=== PATIENT | female | born 1950 | race Caucasian/White ===

== ENCOUNTER 2020-02-02 08:05 | Outpatient (CLI) | payer MEDICARE, SELFPAY ==
[2020-02-02] MEDS: SODIUM CHLORIDE 0.9% INJ 10 ML VIAL IV PUSH (09:32)
--- NOTE | 2020-02-06 12:41 | WPDPFTINT ---
PFT Interpretation PFT Interpretation: DOS: 02/02/2020 REQUESTING: Dr. Harp REASON FOR TESTING: Shortness of breath METHACHOLINE CHALLENGE This test was conducted per ATS standards. Baseline testing was normal. The patient was given progressively increasing doses of methacholine. On the 5th dose, the FEV1 dropped by 36%, which is significant. The test was ended at this point, prior to the last dose. IMPRESSION : This test shows a positive response at the 5th dose. The PD20 is 10 mg/ml. The best use of a methacholine challenge is to rule out asthma. Clinical correlation is recommended. Margaux Gannon MD
== END 2020-02-02 08:06 | disposition home or self-care (01) ==
PROVIDERS: PCP Internal Medicine; Visit Provider Internal Medicine Critical Care Medicine
DX: R06.09 Other forms of dyspnea (principal)
CPT/HCPCS: 94070; J7674

== ENCOUNTER 2020-04-04 14:42 | Inpatient (IN) | payer MEDICARE, SELFPAY ==
[2020-04-04] VITALS (9 sets, daily range): BP systolic 127–165; BP diastolic 53–83; PULSE 60–78; RESP 18–20; TEMP 36.8–37.5; O2SAT 94–97
--- NOTE | ~2020-04-04 | XR_ITS ---
EXAMINATION: XR chest 1V portable EXAM DATE: 04/04/2020 16:25 INDICATION: Shortness of breath, low oxygen saturation. Atrial fibrillation. Recent pacemaker placeme nt. TECHNIQUE: Portable AP frontal chest x-ray was obtained. Comparison is made to prior examination from 02/20/2019. FINDINGS: There is a new left-sided dual-lead pacemaker overlying expected position. There is moderat e right upper lobe, otherwise patchy bilateral groundglass airspace disease, differential diagnosis i ncluding edema, infection, acute lung injury. There is no pneumothorax suspected. There are no pleura l effusions. Mild cardiomegaly. There are no osseous abnormalities identified. IMPRESSION: Patchy bilateral but up right upper lobe predominant acute airspace disease. Clinical cor relation. Reviewed, dictated and finalized at location A. IMPRESSION: Patchy bilateral but up right upper lobe predominant acute airspace disease. Clinical correlation.
--- NOTE | ~2020-04-04 | XR_ITS ---
EXAMINATION: XR chest 2V DATE: 04/08/2020 09:54 INDICATION: Pneumonia and shortness of breath TECHNIQUE: Frontal and lateral views of the chest are obtained COMPARISON: 04/04/2020 FINDINGS: There are diffuse airspace opacities throughout the right lung and airspace opacities of th e left mid and lower lung zones. The cardiomediastinal silhouette is normal. There is a small left pl eural effusion. No pneumothorax is identified. There is moderate thoracic spondylosis. A dual-lead ca rdiac pacemaker of the left chest wall ends with leads in expected locations. IMPRESSION: 1. Worsening airspace opacities of the lungs, consistent with pneumonia. Reviewed, dictated and finalized at location A.
--- NOTE | ~2020-04-04 | CT_ITS ---
EXAMINATION: CT abdomen pelvis wo con DATE: 04/10/2020 12:55 INDICATION: Abdominal pain and persistent vomiting TECHNIQUE: Computed tomography (CT) of the abdomen and pelvis was performed without intravenous contr ast. Automated exposure control and iterative reconstruction technique were employed. The dose-length product was 911.28 mGy-cm. COMPARISON: 02/03/2018 FINDINGS: Very small bilateral pleural effusions. Compressive and scattered linear discoid atelectasis at the b ilateral lung bases. There is some smooth septal line thickening as well as mosaic attenuation with s mall region of groundglass opacity at the lung bases consistent with mild pulmonary edema. Mild cardi omegaly. Atherosclerotic coronary artery calcifications. Cardiac pacemaker leads terminating at the r ight atrial appendage and at the apex of the right ventricle. No pericardial effusion. Postoperative change of prior gastric bypass procedure. There is focal dilation of the small bowel at a small bowel anastomosis. The spleen is not visualized and also likely surgically absent. Unchanged mild extra he patic biliary ductal dilation which is within normal limits post cholecystectomy. A few tiny calcific a cyst at the periphery of the right hepatic lobe likely sequela of old granulomatous disease. Pancr eas and bilateral adrenal glands are normal. Bilateral renal cysts, the larger a 1.4 cm exophytic cys t at the lower pole of the left kidney. No bowel obstruction. The uterus is not identified and has aubrey jazmin been surgically resected. Bladder is normal. No free intraperitoneal gas. Minimal ascites along the mesentery lower abdomen and pelvis. No pathologically enlarged abdominal or pelvic lymphadenopath y. Mild thoracolumbar dextrocurvature with severe spondylosis. IMPRESSION: 1. No acute intra-abdominal/pelvic process. 2. Likely congestive heart failure with mild cardiomegaly, mild pulmonary edema at the lung bases and very small bilateral pleural effusions. Reviewed, dictated and finalized at location A.
--- NOTE | ~2020-04-04 | US_ITS ---
EXAMINATION: US venous doppler [facility] DATE: 04/07/2020 12:53 INDICATION: Lower limb edema. TECHNIQUE: Grayscale ultrasound images without and with compression and Doppler ultrasound images of the bilateral lower extremity veins were obtained. COMPARISON: None. FINDINGS: The visualized portions of right common femoral vein, profunda (deep) femoral vein, femoral vein, pop liteal vein, peroneal veins, posterior tibial veins, and greater saphenous vein outflow are patent. The visualized portions of left common femoral vein, profunda femoral vein, femoral vein, popliteal v ein, peroneal veins, posterior tibial veins, and greater saphenous vein outflow are patent. IMPRESSION: 1. No deep venous thrombosis. Reviewed, dictated and finalized at location A.
--- NOTE | ~2020-04-04 | XR_ITS ---
XR abdomen obstructive series 04/07/2020 13:08 Indication: Abdominal pain Procedure: Supine and upright views of abdomen Comparison: Comparison to multiple prior studies sequentially, with oldest reviewed study dated 02/03. Findings: Nonobstructive bowel gas pattern. There are surgical changes in the left upper abdomen. The re are calcifications overlying the right sacrum and lateral to L5, likely phleboliths. Moderate lumb ar spondylosis with scoliosis. Impression: 1: Nonobstructive bowel gas pattern. Reviewed, dictated and finalized at location A. Impression: 1: Nonobstructive bowel gas pattern.
--- NOTE | ~2020-04-04 | US_ITS ---
EXAMINATION: US renal BI DATE: 04/08/2020 10:13 INDICATION: Stage III renal failure. TECHNIQUE: Multiple ultrasound grayscale images of the kidneys were obtained. COMPARISON: CT abdomen and pelvis 02/03/2018 FINDINGS: The right kidney measures 7.9 x 4.6 x 5.2 cm. The left kidney measures 6.7 x 3.5 x 2.9 cm. The kidney s demonstrate increased parenchymal echogenicity, consistent with nonspecific nephropathy. There is a 1.8 cm cyst in left kidney. There is no hydronephrosis. The bladder is not well distended.. IMPRESSION: 1. Mild atrophy of right kidney and moderate atrophy of left kidney. No hydronephrosis. Reviewed, dictated and finalized at location A. IMPRESSION: 1. Mild atrophy of right kidney and moderate atrophy of left kidney. No hydron ephrosis.
--- NOTE | 2020-04-04 15:26 | ECG_ITS ---
Measurements Intervals [place] Rate: 59 P: 261 [place]: 187 QRS: 133 QRSD: 132 T: -29 QT: 436 QTc: 435 Interpretive Statements ATRIAL SENSE- ELECTRONIC VENTRICULAR PACEMAKER BASELINE ARTIFACT- I, II, AVR, V1, V4 NO FURTHER INTERPRETATION IS POSSIBLE ATYPICAL ECG Electronically Signed On 04-04-2020 16:56:26 CDT by Alcides West D.O.
--- NOTE | 2020-04-04 15:48 | ED.SOB ---
HPI - SOB/Dyspnea General Chief Complaint: Shortness of Breath/Dyspnea Stated Complaint: IN IN AFIB, OXYGEN LEVEL IS LOW Time Seen by Provider: 04/04/20 15:32 Source: patient and family Mode of arrival: ambulatory Limitations: no limitations History of Present Illness HPI Narrative: 69 years old white female, history of asthma hypertension hyperlipidemia, does not smoke and drink occasionally also history of TIA presents with intermittent shortness of breath for the last 2 months patient been seen by her bookbinder chief yesterday, her cook seafood 2 weeks ago, patient had pacemaker on February 22 for the same reason of the shortness of breath, had A. fib at that time. Patient denies any fever, chills, nausea, vomiting, have raspy voice, her daughter works at [facility] interacting with patients. Patient denies COVID-19 exposure. Related Data Home Medications Medication Instructions Recorded Confirmed allopurinol 100 mg PO DAILY 04/04/20 04/04/20 alprazolam 0.25 mg PO BID PRN 04/04/20 04/04/20 amlodipine 5 mg PO DAILY 04/04/20 04/04/20 apixaban [Eliquis] 2.5 mg PO BID 04/04/20 04/04/20 atorvastatin 40 mg PO HS 04/04/20 04/04/20 atorvastatin 40 mg PO QPM 04/04/20 04/04/20 buspirone 10 mg PO TID 04/04/20 04/04/20 diltiazem HCl 180 mg PO DAILY 04/04/20 04/04/20 ergocalciferol (vitamin D2) 1,250 mcg PO [id number] 04/04/20 04/04/20 [Vitamin D2] ferrous sulfate 65 mg PO DAILY 04/04/20 04/04/20 flecainide 100 mg PO Q12H 04/04/20 04/04/20 furosemide [Lasix] 40 mg PO BID 04/04/20 04/04/20 hydrocodone-acetaminophen 1 tablet PO HS PRN 04/04/20 04/04/20 loratadine 10 mg PO DAILY 04/04/20 04/04/20 magnesium oxide 800 mg PO BID 04/04/20 04/04/20 melatonin 5 mg PO HS 04/04/20 04/04/20 iu-ati-afifo acid-lutein [Centrum 1 tablet PO DAILY 04/04/20 04/04/20 Silver] omega 1-gvm-zpx-fish oil [Fish Oil] 1 cap PO DAILY 04/04/20 04/04/20 sertraline 50 mg PO DAILY 04/04/20 04/04/20 spironolactone 25 mg PO DAILY 04/04/20 04/04/20 tizanidine 2 mg PO HS 04/04/20 04/04/20 trazodone 50 mg PO HS 04/04/20 04/04/20 fluticasone propionate [Flovent 1 puff INHALATION Q12H 04/05/20 04/05/20 HFA] metoprolol succinate 100 mg PO HS 04/05/20 04/05/20 Allergies Allergy/AdvReac Type Severity Reaction Status Date / Time adhesive AdvReac Mild BLISTERS Verified 04/04/20 14:55 Review of Systems Review of Systems: Narrative: CONSTITUTIONAL: Denies fever, chills, or sweats. Patient laying down in bed, slight labored breathing, pulse oximetry showing 88% on room air. EYES: Denies visual changes, redness, or discharge. ENT: Denies rhinorrhea, congestion, sore throat, or otalgia. CARDIOVASCULAR: Denies chest pain, palpitations, or edema. RESPIRATORY: Denies cough or dyspnea. GASTROINTESTINAL: Denies abdominal pain, nausea, vomiting, or diarrhea. GENITOURINARY: Denies dysuria or hematuria. SKIN: Denies rash or itching. MUSCULOSKELETAL: Denies back pain, joint pain, or myalgia. NEUROLOGIC: Denies headache, numbness, or weakness. PSYCHIATRIC: Denies anxiety or depression. [facility] Past Medical History Medical History (Updated 04/05/20 @ 15:06 by Charity Laguna PA-C) Asthma Atrial fibrillation Paroxysmal and has been cardioverted x2 to 3 times and is scheduled to be converted again however she is in sinus rhythm today Chronic GERD Chronic kidney disease Stage III Chronic pain Depression with anxiety Hepatic steatosis History of rheumatic fever Hypertension Osteoarthritis Pacemaker Peptic ulcer disease Causing a GI bleed. Spinal stenosis TIA (transient ischemic attack) Occasional balance issues. Left lower extremity weakness which have resolved. Surgical History Surgical History (Updated 04/04/20 @ 20:51 by Merry Oden NP) H/O gastric bypass 2000. Repair of gastric bypass after there was a leak in 0 5. 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
[2020-04-04 15:57] LABS: Alveolar/Arterial O2 Gradient 48.9 mmHg; Base Excess ABG 6.7 mEq/l (+/-2.0); Fractional Inspired Oxygen 21 %; Oxygen Content ABG 13.7 %vol (16.0-22.0); Oxyhemoglobin 84.3 % THb (90.0-100.0); PCO2 ABG 43.4 mmHg (35.0-45.0); PO2 FiO2 Ratio Arterial Blood 2.33 %; Total Hemoglobin 11.6 g/dL (12.0-18.0); pH ABG 7.472 (7.350-7.450)
[2020-04-04 15:59] LABS: PO2 ABG 48.9 mmHg (80.0-100.0)
[2020-04-04 16:00] LABS: Device ROOM AIR; Modified Allen's Test Pass; Oxygen Saturation ABG 86.8 % (95.0-100.0); Site Drawn LEFT RADIAL
[2020-04-04 16:01] LABS: Basophils Absolute Auto 0.1 K/mm3 (0.0-0.1); Basophils Percent Auto 0.5 % (0.2-1.2); Eosinophils Absolute Auto 0.1 K/mm3 (0-0.3); Eosinophils Percent Auto 0.5 % (0-4.4); Hematocrit 35.5 % (37.0-47.0); Hemoglobin 11.4 g/dL (12.0-15.0); Immature Granulocyte Absolute 0.04 K/mm3 (0.00-0.031); Immature Granulocyte Percent A 0.3 % (0-0.5); Lymphocytes Absolute Auto 2.79 K/mm3 (0.9-3.2); Lymphocytes Percent Auto 21.2 % (18.3-44.2); Mean Corpuscular HGB Conc 32.1 g/dl (32-36); Mean Corpuscular Hemoglobin 31.7 pg (26-34); Mean Corpuscular Volume 98.6 fl (80-100); Monocytes Absolute Auto 1.3 K/mm3 (0.1-0.6); Monocytes Percent Auto 9.9 % (2.6-8.5); Neutrophils Absolute Auto 8.9 K/mm3 (1.3-6.7); Neutrophils Percent Auto 67.6 % (45.5-73.1); Platelet Count Result 297 k/mm3 (150-375); Red Cell Distribution Width 13.3 % (11.5-14.5); White Blood Count 13.1 K/mm3 (4.5-10.0)
[2020-04-04 16:12] LABS: Alanine Aminotransferase 16 U/L (4-35); Albumin Level 4.4 g/dL (3.5-5.1); Alkaline Phosphatase 107 U/L (38-126); Aspartate Amino Transferase 24 U/L (14-36); Bilirubin,Total 0.4 mg/dL (0.2-1.3); Blood Urea Nitrogen 27 mg/dL (7-17); Calcium 10.1 mg/dL (8.4-10.2); Carbon Dioxide 34 mmol/L (22-30); Chloride 95 mmol/L (98-107); Estimated CRCL calculation 27 ml/min; Estimated Glomerular Filt Rate 28; Glucose 140 mg/dL (65-105); Potassium 3.7 mmol/L (3.4-5.0); Sodium 138 mmol/L (137-145)
[2020-04-04 16:16] LABS: INR 1.2; Prothrombin Time 14.6 Seconds (11.1-14.7)
[2020-04-04 16:17] LABS: Partial Thromboplastin Time 37.2 SECONDS (22.3-36.8)
[2020-04-04 16:24] LABS: Troponin I 0.026 ng/mL (0.000-0.034)
--- NOTE | 2020-04-04 19:04 | PC.NURSE ---
This patient, Brissa Rizo, was admitted to [facility] Surg Room 330-01. Patient/family oriented to hospital policies and general routines including ID bracelet, bed and alarms, visiting hours, pain management, procedures, bathroom and other care routines, personal items, smoking policy, room service/diet, and visiting hours. Valuables list has been completed. Information on how to activate the Rapid Response Team has been discussed. Patient/Family are encouraged to report perceived risks to care and to ask questions if they do not understand what they are told or what they should do.
--- NOTE | 2020-04-04 20:37 | PM.IMHP ---
H&P: HPI History of Present Illness Chief complaint: Pneumonia, [id number] Narrative: Brissa Rizo is a 69 year old female who has a past medical history of having atrial fibrillation and asthma. The patient does not smoke. The patient has in had intermittent shortness of breath for 2 months. The patient had a cardioversion this past Sunday and was told she was back into it the next day. However today she is in sinus rhythm. This is her 3rd cardioversion. The patient also has a dry productive cough. She denies any fever chills but is nauseated. Patient does not wear oxygen at home. Her pulse ox was 94% in the emergency room. However when she came to the floor she complained of being short of breath so oxygen was applied at 2 L per nasal cannula. Has a atrial sensed electronic ventricular pacemaker. X-ray was read as patchy bilateral but upper right upper lobe predominant acute airspace disease.The patient was started on a Zithromax and Rocephin. Patient was tested for covid 19 and was placed in isolation. Patient continues to have a dry nonproductive cough. She stated that she has been self quarantine however she lives with a daughter who works in the hospital [facility]. The patient tells me that her daughter works on a floor were she is not exposed to covid 19. She states that she has not been around sick contacts. Date of service 04/04/2020 Review of Systems Review of Systems: Narrative: Short of breath just sitting in place. Dry productive cough All systems reviewed & are unremarkable except as noted in HPI and below Constitutional: Constitutional: Reports as per HPI and Reports no additional constitutional complaints Eyes: Eyes: Reports as per HPI and Reports no additional eye complaints ENT: Reports system reviewed and no additional complaints, except as documented and Reports Normal hearing present Cardiovascular: Cardiovascular: Reports no additional cardiovascular complaints Respiratory: Respiratory: Reports no additional respiratory complaints and Reports no additional respiratory complaints Gastrointestinal: Gastrointestinal: Reports as per HPI and Reports no additional gastrointestinal complaints Musculoskeletal: Musculoskeletal: Reports no additional musculoskeletal complaints Integumentary/Breasts: Skin/Breast: Reports system reviewed and no additional complaints, except as docu and Reports as per HPI Neurologic: Reports system reviewed and no additional complaints, except as documented, Reports as per HPI and Reports Normal hearing present Psychiatric: Psychiatric: Reports no additional psychiatric complaints and Reports as per HPI Endocrine: Endocrine: Reports no additional endocrine complaints Hematologic/Lymphatic: Hematologic/Lymphatic: Reports no additional hematologic/lymphatic complaints Allergic/Immunologic: Allergic/Immunologic: Reports no additional allergic/immunologic complaints [facility] Past Medical History Medical History (Updated 04/04/20 @ 21:03 by Merry Oden NP) Asthma Atrial fibrillation Paroxysmal and has been cardioverted x2 to 3 times and is scheduled to be converted again however she is in sinus rhythm today Chronic GERD Chronic kidney disease Stage III Chronic pain Depression with anxiety Hepatic steatosis History of rheumatic fever Hypertension Osteoarthritis Pacemaker Peptic ulcer disease Causing a GI bleed. Spinal stenosis TIA (transient ischemic attack) Occasional balance issues. Left lower extremity weakness which have resolved. Surgical History Surgical History (Updated 04/04/20 @ 20:51 by Merry Oden NP) H/O gastric bypass 2000. Repair of gastric bypass after there was a leak in 0 5. H/O repair of rotator cuff On the left H/O splenectomy When she had her gastric bypass repair H/O toe surgery Bilateral hammertoe H/O tubal ligation H/O: hysterectomy With bilateral salpingo lobectomy 1981 complicated by enterotomy requiring colostomy
--- NOTE | 2020-04-04 21:31 | ADMGEN ---
This patient, Brissa Rizo, was admitted to [facility] Surg Room 330-01. Patient/family oriented to hospital policies and general routines including ID bracelet, bed and alarms, visiting hours, pain management, procedures, bathroom and other care routines, personal items, smoking policy, room service/diet, and visiting hours. Valuables list has been completed. Information on how to activate the Rapid Response Team has been discussed. Patient/Family are encouraged to report perceived risks to care and to ask questions if they do not understand what they are told or what they should do.
[2020-04-04] MEDS: FUROSEMIDE 40 MG TABLET PO (23:27)
[2020-04-04] MEDS: APIXABAN 2.5 MG TABLET PO (23:27)
[2020-04-04] MEDS: busPIRone HCL 10 MG TABLET PO (23:27)
[2020-04-04] MEDS: TRAZODONE HCL 50 MG TABLET PO (23:27)
[2020-04-04] MEDS: ATORVASTATIN 40 MG TABLET PO (23:27)
[2020-04-04] MEDS: TIZANIDINE HCL 2 MG TABLET PO (23:27)
[2020-04-04] MEDS: FLECAINIDE ACETATE 100 MG TABLET PO (23:27)
[2020-04-04] MEDS: MAGNESIUM OXIDE 400 MG TABLET 800 MG PO (23:32)
[2020-04-05] VITALS (11 sets, daily range): BP systolic 125–153; BP diastolic 59–69; PULSE 57–72; RESP 18–28; TEMP 36.7–37.4; O2SAT 91–97
[2020-04-05 06:34] LABS: Basophils Percent Auto 0.3 % (0.2-1.2); Eosinophils Absolute Auto 0.1 K/mm3 (0-0.3); Hematocrit 30.5 % (37.0-47.0); Hemoglobin 9.8 g/dL (12.0-15.0); Immature Granulocyte Absolute 0.02 K/mm3 (0.00-0.031); Immature Granulocyte Percent A 0.2 % (0-0.5); Lymphocytes Absolute Auto 2.22 K/mm3 (0.9-3.2); Lymphocytes Percent Auto 22.8 % (18.3-44.2); Mean Corpuscular HGB Conc 32.1 g/dl (32-36); Mean Corpuscular Hemoglobin 31.6 pg (26-34); Mean Corpuscular Volume 98.4 fl (80-100); Mean Platelet Volume 10.4 fl (7.4-10.4); Monocytes Absolute Auto 1.1 K/mm3 (0.1-0.6); Monocytes Percent Auto 10.8 % (2.6-8.5); Neutrophils Absolute Auto 6.3 K/mm3 (1.3-6.7); Neutrophils Percent Auto 64.9 % (45.5-73.1); Platelet Count Result 263 k/mm3 (150-375); Red Cell Distribution Width 13.4 % (11.5-14.5); White Blood Count 9.7 K/mm3 (4.5-10.0)
[2020-04-05 06:57] LABS: Alanine Aminotransferase 11 U/L (4-35); Albumin Level 3.6 g/dL (3.5-5.1); Alkaline Phosphatase 83 U/L (38-126); Aspartate Amino Transferase 20 U/L (14-36); Bilirubin,Total 0.5 mg/dL (0.2-1.3); Blood Urea Nitrogen 23 mg/dL (7-17); CRP 6.7 mg/dL (<1.0); Calcium 9.3 mg/dL (8.4-10.2); Carbon Dioxide 36 mmol/L (22-30); Chloride 97 mmol/L (98-107); Estimated CRCL calculation 32 ml/min; Estimated Glomerular Filt Rate 34; Glucose 104 mg/dL (65-105); Magnesium 2.1 mg/dL (1.6-2.3); Potassium 3.9 mmol/L (3.4-5.0); Sodium 137 mmol/L (137-145)
[2020-04-05] MEDS: MULTIVITAMINS /C LUTEIN (CENTRUM SILVER) TABLET *BKC 1 TAB PO (09:34)
[2020-04-05] MEDS: OMEGA 3 POLYUNSAT FATTY ACIDS 1 GM CAP PO (09:34)
[2020-04-05] MEDS: FERROUS SULFATE 324 MG TABLET PO (09:34)
[2020-04-05] MEDS: allopurinoL 100 MG TABLET PO (09:35)
[2020-04-05] MEDS: LORATADINE 10 MG TABLET PO (09:35)
[2020-04-05] MEDS: APIXABAN 2.5 MG TABLET PO ×2 (09:35→17:05)
[2020-04-05] MEDS: MAGNESIUM OXIDE 400 MG TABLET 800 MG PO ×2 (09:35→17:05)
[2020-04-05] MEDS: SERTRALINE HCL 50 MG TABLET PO (09:35)
[2020-04-05] MEDS: AMLODIPINE BESYLATE 5 MG TABLET PO (09:35)
[2020-04-05] MEDS: SPIRONOLACTONE 25 MG TABLET PO (09:35)
[2020-04-05] MEDS: FLECAINIDE ACETATE 100 MG TABLET PO ×2 (09:35→21:51)
[2020-04-05] MEDS: busPIRone HCL 10 MG TABLET PO ×3 (09:35→17:05)
[2020-04-05] MEDS: FUROSEMIDE 40 MG TABLET PO ×2 (09:35→17:05)
--- NOTE | 2020-04-05 12:49 | P.PNIM_ITS ---
Progress Note: A&P Assessment and Plan (1) Pneumonia: Qualifiers: Pneumonia type: due to unspecified organism Laterality: bilateral Lung location: unspecified part of lung Qualified Code(s): J18.9 - Pneumonia, unspecified organism Code(s): J18.9 - Pneumonia, unspecified organism Status: Acute Assessment and Plan: * Patient presents with shortness of breath, nonproductive cough, and hypoxia in the ED. CXR shows patchy bilateral airspace disease. * COVID-19 testing pending. * Continue antibiotic coverage with IV azithromycin and Rocephin for now (day 2). Continue albuterol MDI and her home Flovent. * Continue supplemental oxygen and wean O2 as tolerated to keep O2 saturations > 90%. * Blood cultures pending with no growth to date. Collect Legionella and pneumococcal urine antigens. Sputum culture if she can produce one. (2) Suspected COVID-19 virus infection: Code(s): Z20.828 - Contact with and (suspected) exposure to other viral communicable diseases Status: Acute Assessment and Plan: * COVID-19 testing pending. Continue droplet isolation. * She lives with her daughter who is RN at [facility]. She notes that her daughter is not directly caring for COVID-19 patients. (3) Asthma: Qualifiers: Asthma severity: unspecified severity Asthma persistence: unspecified Asthma complication type: unspecified Qualified Code(s): J45.909 - Unspecified asthma, uncomplicated Code(s): J45.909 - Unspecified asthma, uncomplicated Status: Chronic Assessment and Plan: * No brennan respiratory distress today. Continue home inhaler. (4) Hypertension: Qualifiers: Hypertension type: essential hypertension Qualified Code(s): I10 - Essential (primary) hypertension Code(s): I10 - Essential (primary) hypertension Status: Chronic Assessment and Plan: * Stable, last BP 125/59. Continue home Norvasc, diltiazem, metoprolol. Monitor BP and adjust treatment if needed. (5) Atrial fibrillation: Qualifiers: Atrial fibrillation type: unspecified Qualified Code(s): I48.91 - Unspecified atrial fibrillation Code(s): I48.91 - Unspecified atrial fibrillation Status: Chronic Assessment and Plan: * She recently had pacemaker placed 02/2020. Recent cardioversion 03/30/20, she returned to her correctional treatment specialist office a few days later, they noted she was back in atrial fibrillation at that time and scheduled a 3rd cardioversion for early April. * Rhythm is paced at heart rate 60. Monitor telemetry. Continue her home medications with diltiazem and metoprolol. Long-term anticoagulation on Eliquis. * Her correctional treatment specialist is Dr. Michelle Mckeon and her aligner is Dr. Cynthia Sheikh; both with [facility] in [place]. (6) Chronic kidney disease: Qualifiers: Chronic kidney disease stage: stage 3 (moderate) Qualified Code(s): N18.3 - Chronic kidney disease, stage 3 (moderate) Code(s): N18.9 - Chronic kidney disease, unspecified Status: Chronic Assessment and Plan: * Cr is 1.5 which appears to be near her baseline. Avoid nephrotoxic agents monitor renal function. (7) Depression with anxiety: Code(s): F41.8 - Other specified anxiety disorders Status: Chronic Assessment and Plan: * Stable. Continue home medications. Subjecti
--- NOTE | 2020-04-05 12:49 | PM.IMPN ---
Progress Note: A&P Assessment and Plan (1) Pneumonia: Qualifiers: Pneumonia type: due to unspecified organism Laterality: bilateral Lung location: unspecified part of lung Qualified Code(s): J18.9 - Pneumonia, unspecified organism Code(s): J18.9 - Pneumonia, unspecified organism Status: Acute Assessment and Plan: Patient presents with shortness of breath, nonproductive cough, and hypoxia in the ED. CXR shows patchy bilateral airspace disease. COVID-19 testing pending. Continue antibiotic coverage with IV azithromycin and Rocephin for now (day 2). Continue albuterol MDI and her home Flovent. Continue supplemental oxygen and wean O2 as tolerated to keep O2 saturations > 90%. Blood cultures pending with no growth to date. Collect Legionella and pneumococcal urine antigens. Sputum culture if she can produce one. (2) Suspected COVID-19 virus infection: Code(s): Z20.828 - Contact with and (suspected) exposure to other viral communicable diseases Status: Acute Assessment and Plan: COVID-19 testing pending. Continue droplet isolation. She lives with her daughter who is RN at [facility] [facility]. She notes that her daughter is not directly caring for COVID-19 patients. (3) Asthma: Qualifiers: Asthma severity: unspecified severity Asthma persistence: unspecified Asthma complication type: unspecified Qualified Code(s): J45.909 - Unspecified asthma, uncomplicated Code(s): J45.909 - Unspecified asthma, uncomplicated Status: Chronic Assessment and Plan: No brennan respiratory distress today. Continue home inhaler. (4) Hypertension: Qualifiers: Hypertension type: essential hypertension Qualified Code(s): I10 - Essential (primary) hypertension Code(s): I10 - Essential (primary) hypertension Status: Chronic Assessment and Plan: Stable, last BP 125/59. Continue home Norvasc, diltiazem, metoprolol. Monitor BP and adjust treatment if needed. (5) Atrial fibrillation: Qualifiers: Atrial fibrillation type: unspecified Qualified Code(s): I48.91 - Unspecified atrial fibrillation Code(s): I48.91 - Unspecified atrial fibrillation Status: Chronic Assessment and Plan: She recently had pacemaker placed 02/2020. Recent cardioversion 03/30/20, she returned to her smoking pipe mounter office a few days later, they noted she was back in atrial fibrillation at that time and scheduled a 3rd cardioversion for early April. Rhythm is paced at heart rate 60. Monitor telemetry. Continue her home medications with diltiazem and metoprolol. Long-term anticoagulation on Eliquis. Her smoking pipe mounter is Dr. Michelle Mckeon and her machine tracer is Dr. Cynthia Sheikh; both with [facility] in [place]. (6) Chronic kidney disease: Qualifiers: Chronic kidney disease stage: stage 3 (moderate) Qualified Code(s): N18.3 - Chronic kidney disease, stage 3 (moderate) Code(s): N18.9 - Chronic kidney disease, unspecified Status: Chronic Assessment and Plan: Cr is 1.5 which appears to be near her baseline. Avoid nephrotoxic agents monitor renal function. (7) Depression with anxiety: Code(s): F41.8 - Other specified anxiety disorders Status: Chronic Assessment and Plan: Stable. Continue home medications. Subjective Date/time seen: 04/05/20 12:00 Interval history: Ms. Rizo is a 69yo F admitted for pneumonia. She reports her shortness of breath is not really any better today. She feels fatigued. She denies any chest pain. She has tolerated some breakfast without nausea or vomiting. Review of Systems Review of Systems: Narrative: Twelve systems were reviewed with pertinent positives and nega
[2020-04-05] MEDS: ONDANSETRON INJ 4 MG/2 ML VIAL IV PUSH (14:05)
[2020-04-05 16:10] LABS: SARS-CoV-2 RNA PCR Negative
--- NOTE | 2020-04-05 17:46 | PC.NURSE ---
Notified Dr. Solomon that patients COVID test came back negative. No new orders.
[2020-04-05] MEDS: MELATONIN 5 MG TABLET PO (21:22)
[2020-04-05] MEDS: TIZANIDINE HCL 2 MG TABLET PO (21:22)
[2020-04-05] MEDS: ATORVASTATIN 40 MG TABLET PO (21:24)
[2020-04-05] MEDS: TRAZODONE HCL 50 MG TABLET PO (21:26)
[2020-04-05] MEDS: METOPROLOL SUCCINATE EXT REL 100 MG TABCR PO (21:51)
[2020-04-06] VITALS (14 sets, daily range): BP systolic 94–120; BP diastolic 55–63; PULSE 59–80; RESP 16–20; TEMP 36.2–36.7; O2SAT 94–97
[2020-04-06 05:38] LABS: Basophils Percent Auto 0.5 % (0.2-1.2); Eosinophils Absolute Auto 0.4 K/mm3 (0-0.3); Eosinophils Percent Auto 5.1 % (0-4.4); Hematocrit 30.2 % (37.0-47.0); Hemoglobin 9.5 g/dL (12.0-15.0); Immature Granulocyte Absolute 0.02 K/mm3 (0.00-0.031); Immature Granulocyte Percent A 0.2 % (0-0.5); Lymphocytes Absolute Auto 2.29 K/mm3 (0.9-3.2); Lymphocytes Percent Auto 26.5 % (18.3-44.2); Mean Corpuscular HGB Conc 31.5 g/dl (32-36); Mean Corpuscular Hemoglobin 30.8 pg (26-34); Mean Corpuscular Volume 98.1 fl (80-100); Mean Platelet Volume 9.8 fl (7.4-10.4); Monocytes Absolute Auto 1.2 K/mm3 (0.1-0.6); Monocytes Percent Auto 13.3 % (2.6-8.5); Neutrophils Absolute Auto 4.7 K/mm3 (1.3-6.7); Neutrophils Percent Auto 54.4 % (45.5-73.1); Platelet Count Result 273 k/mm3 (150-375); Red Blood Count 3.08 M/mm3 (4.2-5.4); Red Cell Distribution Width 13.3 % (11.5-14.5); White Blood Count 8.7 K/mm3 (4.5-10.0)
[2020-04-06 05:50] LABS: Blood Urea Nitrogen 24 mg/dL (7-17); CRP 6.7 mg/dL (<1.0); Calcium 9.2 mg/dL (8.4-10.2); Carbon Dioxide 37 mmol/L (22-30); Chloride 95 mmol/L (98-107); Estimated CRCL calculation 34 ml/min; Estimated Glomerular Filt Rate 37; Glucose 90 mg/dL (65-105); Lactate Dehydrogenase 371 U/L (313-618); Phosphorus 4.6 mg/dL (2.5-4.5); Potassium 4.3 mmol/L (3.4-5.0); Sodium 135 mmol/L (137-145)
[2020-04-06] MEDS: FLUTICASONE PROP 220 MCG (*SP) 12 GM INHALER 1 PUFF INHALATION ×2 (08:30→19:01)
[2020-04-06] MEDS: OMEGA 3 POLYUNSAT FATTY ACIDS 1 GM CAP PO (08:40)
[2020-04-06] MEDS: MULTIVITAMINS /C LUTEIN (CENTRUM SILVER) TABLET *BKC 1 TAB PO (08:40)
[2020-04-06] MEDS: FERROUS SULFATE 324 MG TABLET PO (08:40)
[2020-04-06] MEDS: FLECAINIDE ACETATE 100 MG TABLET PO ×2 (08:40→20:25)
[2020-04-06] MEDS: SPIRONOLACTONE 25 MG TABLET PO (08:40)
[2020-04-06] MEDS: busPIRone HCL 10 MG TABLET PO ×3 (08:40→17:02)
[2020-04-06] MEDS: APIXABAN 2.5 MG TABLET PO ×2 (08:40→17:01)
[2020-04-06] MEDS: allopurinoL 100 MG TABLET PO (08:42)
[2020-04-06] MEDS: hydrALAZINE HCL 50 MG TABLET PO (08:42)
[2020-04-06] MEDS: SERTRALINE HCL 50 MG TABLET PO (08:42)
[2020-04-06] MEDS: AMLODIPINE BESYLATE 5 MG TABLET PO (08:42)
[2020-04-06] MEDS: LORATADINE 10 MG TABLET PO (08:42)
[2020-04-06] MEDS: FUROSEMIDE 40 MG TABLET PO ×2 (08:42→17:02)
[2020-04-06] MEDS: MAGNESIUM OXIDE 400 MG TABLET 800 MG PO ×2 (08:43→17:02)
--- NOTE | 2020-04-06 13:49 | P.PNIM_ITS ---
Progress Note: A&P Assessment and Plan (1) Pneumonia: Qualifiers: Laterality: bilateral Lung location: unspecified part of lung Pneumonia type: due to unspecified organism Qualified Code(s): J18.9 - Pneumonia, unspecified organism Code(s): J18.9 - Pneumonia, unspecified organism Status: Acute Assessment and Plan: * Patient presents with shortness of breath, cough, and hypoxia in the ED. CXR shows patchy bilateral airspace disease. COVID negative. * Continue antibiotic coverage for community-acquired pneumonia with IV azithromycin and Rocephin (day 3). Continue albuterol MDI and her home Flovent. * Continue supplemental oxygen and wean O2 as tolerated to keep O2 saturations > 90%. * Blood cultures pending with no growth to date. Legionella and pneumococcal urine antigens pending. Sputum culture if she can produce one. * Improving today. Anticipate possible discharge 1 to 2 days. (2) Suspected COVID-19 virus infection: Code(s): Z20.828 - Contact with and (suspected) exposure to other viral communicable diseases Status: Ruled-out Assessment and Plan: * COVID-19 testing negative. (3) Asthma: Qualifiers: Asthma complication type: unspecified Asthma persistence: unspecified Asthma severity: unspecified severity Qualified Code(s): J45.909 - Unspecified asthma, uncomplicated Code(s): J45.909 - Unspecified asthma, uncomplicated Status: Chronic Assessment and Plan: * No brennan respiratory distress today. Continue home inhaler. (4) Hypertension: Qualifiers: Hypertension type: essential hypertension Qualified Code(s): I10 - Essential (primary) hypertension Code(s): I10 - Essential (primary) hypertension Status: Chronic Assessment and Plan: * Last BP low but stable at 107/58. Continue home Norvasc, diltiazem, metoprolol. Monitor BP and adjust treatment if needed. * Consider holding Norvasc in AM if BP is still low. (5) Atrial fibrillation: Qualifiers: Atrial fibrillation type: unspecified Qualified Code(s): I48.91 - Unspecified atrial fibrillation Code(s): I48.91 - Unspecified atrial fibrillation Status: Chronic Assessment and Plan: * She recently had pacemaker placed 02/2020. Recent cardioversion 03/30/20, she returned to her engagement engineer office a few days later, they noted she was back in atrial fibrillation at that time and scheduled a 3rd cardioversion for early April. * Rhythm is paced at heart rate 60. Monitor telemetry. Continue her home medications with diltiazem and metoprolol. Long-term anticoagulation on Eliquis. * Her engagement engineer is Dr. Michelle Mckeon and her dragline operator helper is Dr. Cynthia Sheikh; both with [facility] in [place]. (6) Chronic kidney disease: Qualifiers: Chronic kidney disease stage: stage 3 (moderate) Qualified Code(s): N18.3 - Chronic kidney disease, stage 3 (moderate) Code(s): N18.9 - Chronic kidney disease, unspecified Status: Chronic Assessment and Plan: * Cr is 1.4 which appears to be near her baseline. Avoid nephrotoxic agents monitor renal function. (7) Depression with anxiety: Code(s): F41.8 - Other specified anxiety disorders Status: Chronic Assessment and Plan: * Stable. Continue home medications. Subjective Date/time se
--- NOTE | 2020-04-06 13:49 | PM.IMPN ---
Progress Note: A&P Assessment and Plan (1) Pneumonia: Qualifiers: Laterality: bilateral Lung location: unspecified part of lung Pneumonia type: due to unspecified organism Qualified Code(s): J18.9 - Pneumonia, unspecified organism Code(s): J18.9 - Pneumonia, unspecified organism Status: Acute Assessment and Plan: Patient presents with shortness of breath, cough, and hypoxia in the ED. CXR shows patchy bilateral airspace disease. COVID negative. Continue antibiotic coverage for community-acquired pneumonia with IV azithromycin and Rocephin (day 3). Continue albuterol MDI and her home Flovent. Continue supplemental oxygen and wean O2 as tolerated to keep O2 saturations > 90%. Blood cultures pending with no growth to date. Legionella and pneumococcal urine antigens pending. Sputum culture if she can produce one. Improving today. Anticipate possible discharge 1 to 2 days. (2) Suspected COVID-19 virus infection: Code(s): Z20.828 - Contact with and (suspected) exposure to other viral communicable diseases Status: Ruled-out Assessment and Plan: COVID-19 testing negative. (3) Asthma: Qualifiers: Asthma complication type: unspecified Asthma persistence: unspecified Asthma severity: unspecified severity Qualified Code(s): J45.909 - Unspecified asthma, uncomplicated Code(s): J45.909 - Unspecified asthma, uncomplicated Status: Chronic Assessment and Plan: No brennan respiratory distress today. Continue home inhaler. (4) Hypertension: Qualifiers: Hypertension type: essential hypertension Qualified Code(s): I10 - Essential (primary) hypertension Code(s): I10 - Essential (primary) hypertension Status: Chronic Assessment and Plan: Last BP low but stable at 107/58. Continue home Norvasc, diltiazem, metoprolol. Monitor BP and adjust treatment if needed. Consider holding Norvasc in AM if BP is still low. (5) Atrial fibrillation: Qualifiers: Atrial fibrillation type: unspecified Qualified Code(s): I48.91 - Unspecified atrial fibrillation Code(s): I48.91 - Unspecified atrial fibrillation Status: Chronic Assessment and Plan: She recently had pacemaker placed 02/2020. Recent cardioversion 03/30/20, she returned to her piece marker small arms office a few days later, they noted she was back in atrial fibrillation at that time and scheduled a 3rd cardioversion for early April. Rhythm is paced at heart rate 60. Monitor telemetry. Continue her home medications with diltiazem and metoprolol. Long-term anticoagulation on Eliquis. Her piece marker small arms is Dr. Michelle Mckeon and her cook ship is Dr. Cynthia Sheikh; both with [facility] in [place]. (6) Chronic kidney disease: Qualifiers: Chronic kidney disease stage: stage 3 (moderate) Qualified Code(s): N18.3 - Chronic kidney disease, stage 3 (moderate) Code(s): N18.9 - Chronic kidney disease, unspecified Status: Chronic Assessment and Plan: Cr is 1.4 which appears to be near her baseline. Avoid nephrotoxic agents monitor renal function. (7) Depression with anxiety: Code(s): F41.8 - Other specified anxiety disorders Status: Chronic Assessment and Plan: Stable. Continue home medications. Subjective Date/time seen: 04/06/20 13:00 Interval history: Ms. Rizo is a 69yo F admitted for pneumonia. She reports her shortness of breath is somewhat improved today. She denies any chest pain. She is tolerating oral intake without nausea or vomiting. Spoke to her daughter, Sheri, on the phone for an update. Review of Systems Review of Systems: Narrative: Twelve systems were reviewed with pertinent positiv
[2020-04-06] MEDS: ATORVASTATIN 40 MG TABLET PO (20:24)
[2020-04-06] MEDS: TIZANIDINE HCL 2 MG TABLET PO (20:25)
[2020-04-06] MEDS: TRAZODONE HCL 50 MG TABLET PO (20:25)
[2020-04-06] MEDS: MELATONIN 5 MG TABLET PO (20:25)
[2020-04-06] MEDS: METOPROLOL SUCCINATE EXT REL 100 MG TABCR PO (21:37)
[2020-04-07] VITALS (19 sets, daily range): BP systolic 112–130; BP diastolic 54–70; PULSE 58–64; RESP 16–20; TEMP 36.7–37.6; O2SAT 88–99
[2020-04-07 05:53] LABS: Hematocrit 31.9 % (37.0-47.0); Hemoglobin 10.2 g/dL (12.0-15.0)
[2020-04-07 06:02] LABS: Blood Urea Nitrogen 21 mg/dL (7-17); Calcium 9.7 mg/dL (8.4-10.2); Carbon Dioxide > 40 mmol/L (22-30); Chloride 92 mmol/L (98-107); Estimated CRCL calculation 28 ml/min; Estimated Glomerular Filt Rate 30; Glucose 93 mg/dL (65-105); Potassium 3.8 mmol/L (3.4-5.0); Sodium 136 mmol/L (137-145)
[2020-04-07] MEDS: FLUTICASONE PROP 220 MCG (*SP) 12 GM INHALER 1 PUFF INHALATION ×2 (08:42→19:58)
[2020-04-07] MEDS: MAGNESIUM OXIDE 400 MG TABLET 800 MG PO ×2 (08:53→17:30)
[2020-04-07] MEDS: MULTIVITAMINS /C LUTEIN (CENTRUM SILVER) TABLET *BKC 1 TAB PO (08:53)
[2020-04-07] MEDS: SERTRALINE HCL 50 MG TABLET PO (08:53)
[2020-04-07] MEDS: OMEGA 3 POLYUNSAT FATTY ACIDS 1 GM CAP PO (08:53)
[2020-04-07] MEDS: allopurinoL 100 MG TABLET PO (08:54)
[2020-04-07] MEDS: FERROUS SULFATE 324 MG TABLET PO (08:54)
[2020-04-07] MEDS: LORATADINE 10 MG TABLET PO (08:54)
[2020-04-07] MEDS: busPIRone HCL 10 MG TABLET PO ×3 (08:54→17:31)
[2020-04-07] MEDS: APIXABAN 2.5 MG TABLET PO ×2 (08:54→17:31)
[2020-04-07] MEDS: FUROSEMIDE 40 MG TABLET PO ×2 (08:54→17:31)
[2020-04-07] MEDS: FLECAINIDE ACETATE 100 MG TABLET PO ×2 (08:54→20:39)
[2020-04-07] MEDS: AMLODIPINE BESYLATE 5 MG TABLET PO (08:54)
[2020-04-07] MEDS: SPIRONOLACTONE 25 MG TABLET PO (08:54)
--- NOTE | 2020-04-07 11:42 | PM.IMPN ---
Progress Note: A&P Assessment and Plan (1) Pneumonia: Qualifiers: Pneumonia type: due to unspecified organism Laterality: bilateral Lung location: unspecified part of lung Qualified Code(s): J18.9 - Pneumonia, unspecified organism Code(s): J18.9 - Pneumonia, unspecified organism Status: Acute Assessment and Plan: ------patient's symptoms and chest x-ray consistent with pneumonia. COVID-19 negative with her LDH and ferritin being normal--COVID-19 less likely. D-dimer likely elevated due to current infection, patient is already on Eliquis. Will obtain lower extremity ultrasound. PE seems less likely. The patient states she has made a lot of improvement since being here. She is being weaned off oxygen and now only requiring 0.5 L. plan today is to continue to wean oxygen, continue azithromycin and Rocephin, walker in the [place], and see how she does. She may go home tomorrow if she continues to improve. Blood cultures pending with no growth to date. Legionella and pneumococcal urine antigens pending. Sputum culture if she can produce one. Apnea link normal overnight (2) Asthma: Qualifiers: Asthma severity: unspecified severity Asthma persistence: unspecified Asthma complication type: unspecified Qualified Code(s): J45.909 - Unspecified asthma, uncomplicated Code(s): J45.909 - Unspecified asthma, uncomplicated Status: Chronic Assessment and Plan: ------No brennan respiratory distress today. Continue home inhaler. (3) Hypertension: Qualifiers: Hypertension type: essential hypertension Qualified Code(s): I10 - Essential (primary) hypertension Code(s): I10 - Essential (primary) hypertension Status: Chronic Assessment and Plan: -----last blood pressure 124/54. Norvasc, diltiazem, furosemide, hydralazine, spironolactone, and metoprolol. Low blood pressures in the past, Norvasc stopped. (4) Atrial fibrillation: Qualifiers: Atrial fibrillation type: unspecified Qualified Code(s): I48.91 - Unspecified atrial fibrillation Code(s): I48.91 - Unspecified atrial fibrillation Status: Chronic Assessment and Plan: ------in a paced rhythm at this time. She recently had pacemaker placed 02/2020. Recent cardioversion 03/30/20, she returned to her band presser office a few days later, they noted she was back in atrial fibrillation at that time and scheduled a 3rd cardioversion for early April. Continue her home medications with diltiazem and metoprolol. Long-term anticoagulation on Eliquis. Her band presser is Dr. Michelle Mckeon and her trapeze performer is Dr. Cynthia Sheikh; both with [facility] in [place]. (5) Chronic kidney disease: Qualifiers: Chronic kidney disease stage: stage 3 (moderate) Qualified Code(s): N18.3 - Chronic kidney disease, stage 3 (moderate) Code(s): N18.9 - Chronic kidney disease, unspecified Status: Chronic Assessment and Plan: ------Cr is 1.7 which appears to be near her baseline but possibly a little inflated. Avoid nephrotoxic agents monitor renal function. (6) Depression with anxiety: Code(s): F41.8 - Other specified anxiety disorders Status: Chronic Assessment and Plan: ------Stable and in good spirits today. Time Spent With Patient Time with patient: 25 - 35 minutes Subjective Date/time seen: 04/07/20 11:42 Interval history: Pt is a 69-year-old female here for pneumonia. Patient was seen today and states she feels much better than when she came in. She said that her cough is better and she is barely coughing up anything. Her weakness is gone. She would like to get out of bed and walk around because she has mostly been in the bed and in the chair. She said that on Sunday and Sunday she had diarrhea which had resolved. Last night she was having left-sided abdominal pain and did not eat dinner
[2020-04-07] MEDS: TRAZODONE HCL 50 MG TABLET PO (20:39)
[2020-04-07] MEDS: TIZANIDINE HCL 2 MG TABLET PO (20:40)
[2020-04-07] MEDS: METOPROLOL SUCCINATE EXT REL 100 MG TABCR PO (20:40)
[2020-04-07] MEDS: MELATONIN 5 MG TABLET PO (20:40)
[2020-04-07] MEDS: ATORVASTATIN 40 MG TABLET PO (20:40)
[2020-04-07 23:35] LABS: Pneumococcal Antigen Urine Not Detected (Not Detected)
[2020-04-08] VITALS (16 sets, daily range): BP systolic 108–141; BP diastolic 54–66; PULSE 60–80; RESP 16–20; TEMP 36.3–36.9; O2SAT 89–96
[2020-04-08 06:14] LABS: Hematocrit 32.3 % (37.0-47.0); Hemoglobin 10.5 g/dL (12.0-15.0); Mean Corpuscular HGB Conc 32.5 g/dl (32-36); Mean Corpuscular Hemoglobin 31.3 pg (26-34); Mean Corpuscular Volume 96.1 fl (80-100); Mean Platelet Volume 10.4 fl (7.4-10.4); Platelet Count Result 343 k/mm3 (150-375); Red Blood Count 3.36 M/mm3 (4.2-5.4); Red Cell Distribution Width 12.7 % (11.5-14.5); White Blood Count 11.5 K/mm3 (4.5-10.0)
[2020-04-08 06:32] LABS: Blood Urea Nitrogen 25 mg/dL (7-17); Calcium 10.1 mg/dL (8.4-10.2); Carbon Dioxide > 40 mmol/L (22-30); Chloride 90 mmol/L (98-107); Estimated CRCL calculation 27 ml/min; Estimated Glomerular Filt Rate 28; Glucose 100 mg/dL (65-105); Potassium 3.6 mmol/L (3.4-5.0); Sodium 135 mmol/L (137-145)
--- NOTE | 2020-04-08 08:52 | ECG_ITS ---
Measurements Intervals [place] Rate: 60 P: 226 GA: 180 QRS: -79 QRSD: 201 T: 48 QT: 550 QTc: 550 Interpretive Statements ELECTRONIC ATRIAL PACEMAKER ELECTRONIC VENTRICULAR PACEMAKER NO FURTHER INTERPRETATION IS POSSIBLE ATYPICAL ECG Electronically Signed On 04-08-2020 10:09:49 CDT by Alcides West D.O.
[2020-04-08] MEDS: busPIRone HCL 10 MG TABLET PO ×3 (08:58→17:03)
[2020-04-08] MEDS: APIXABAN 2.5 MG TABLET PO ×2 (08:58→19:39)
[2020-04-08] MEDS: allopurinoL 100 MG TABLET PO (08:58)
[2020-04-08] MEDS: FERROUS SULFATE 324 MG TABLET PO (08:58)
[2020-04-08] MEDS: FUROSEMIDE 40 MG TABLET PO ×2 (08:59→17:04)
[2020-04-08] MEDS: FLECAINIDE ACETATE 100 MG TABLET PO ×2 (08:59→20:14)
[2020-04-08] MEDS: MAGNESIUM OXIDE 400 MG TABLET 800 MG PO ×2 (09:00→17:00)
[2020-04-08] MEDS: LORATADINE 10 MG TABLET PO (09:00)
[2020-04-08] MEDS: OMEGA 3 POLYUNSAT FATTY ACIDS 1 GM CAP PO (09:00)
[2020-04-08] MEDS: MULTIVITAMINS /C LUTEIN (CENTRUM SILVER) TABLET *BKC 1 TAB PO (09:00)
[2020-04-08] MEDS: SPIRONOLACTONE 25 MG TABLET PO (09:01)
[2020-04-08] MEDS: SERTRALINE HCL 50 MG TABLET PO (09:01)
[2020-04-08] MEDS: FLUTICASONE PROP 220 MCG (*SP) 12 GM INHALER 1 PUFF INHALATION ×2 (09:20→20:38)
--- NOTE | 2020-04-08 10:34 | PM.IMPN ---
Progress Note: A&P Assessment and Plan (1) Pneumonia: Qualifiers: Pneumonia type: due to unspecified organism Laterality: bilateral Lung location: unspecified part of lung Qualified Code(s): J18.9 - Pneumonia, unspecified organism Code(s): J18.9 - Pneumonia, unspecified organism Status: Acute Assessment and Plan: ------patient's symptoms and chest x-ray consistent with pneumonia. COVID-19 negative with her LDH and ferritin being normal--COVID-19 less likely. D-dimer likely elevated due to current infection, patient is already on Eliquis. PE seems less likely. Pt off o2 today so we will see how she does. Her leukocytosis is a bit worse and she said she had a 99.7 fever last night (wasn't recorded). I did a repeat CXR and it shows its a bit worsened but clinically she is improving. Will monitor her another day. Her abx will be changed. Will continue ceftriaxone but will do doxycycline d/t her azithromycin increasing her QTc as she is also on fleconide. Blood cultures pending with no growth to date. Legionella pending and pneumococcal neg. Apnea link normal overnight. She was not hospitalized in the last few months, no HCAP suspected. (2) Asthma: Qualifiers: Asthma severity: unspecified severity Asthma persistence: unspecified Asthma complication type: unspecified Qualified Code(s): J45.909 - Unspecified asthma, uncomplicated Code(s): J45.909 - Unspecified asthma, uncomplicated Status: Chronic Assessment and Plan: ------No brennan respiratory distress today. Continue home inhaler. (3) Hypertension: Qualifiers: Hypertension type: essential hypertension Qualified Code(s): I10 - Essential (primary) hypertension Code(s): I10 - Essential (primary) hypertension Status: Chronic Assessment and Plan: -----last blood pressure 117/54. She is on Norvasc, diltiazem, furosemide, hydralazine, spironolactone, and metoprolol. Low blood pressures in the past, Norvasc stopped. (4) Atrial fibrillation: Qualifiers: Atrial fibrillation type: unspecified Qualified Code(s): I48.91 - Unspecified atrial fibrillation Code(s): I48.91 - Unspecified atrial fibrillation Status: Chronic Assessment and Plan: ------in a paced rhythm at this time. She recently had pacemaker placed 02/2020. Recent cardioversion 03/30/20, she returned to her seo manager office a few days later, they noted she was back in atrial fibrillation at that time and scheduled a 3rd cardioversion for early April. Continue her home medications with diltiazem and metoprolol. Long-term anticoagulation on Eliquis. Her seo manager is Dr. Michelle Mckeon and her auto specialty services manager is Dr. Cynthia Sheikh; both with [facility] in [place]. (5) Chronic kidney disease: Qualifiers: Chronic kidney disease stage: stage 3 (moderate) Qualified Code(s): N18.3 - Chronic kidney disease, stage 3 (moderate) Code(s): N18.9 - Chronic kidney disease, unspecified Status: Chronic Assessment and Plan: ------Cr is 1.8 which appears to be near her baseline but possibly a little inflated. Avoid nephrotoxic agents monitor renal function. (6) Depression with anxiety: Code(s): F41.8 - Other specified anxiety disorders Status: Chronic Assessment and Plan: ------Stable and in good spirits today. (7) Hematuria: Code(s): R31.9 - Hematuria, unspecified Status: Acute Assessment and Plan: -----Pt states she has a hx of this and her railway signal technician says its b/c of her CKD. She has had a cystoscopy about 10 years ago. Consider re-evaluation outpt. (8) Prolonged Q-T interval on ECG: Code(s): R94.31 - Abnormal electrocardiogram [ECG] [EKG] Status: Acute Assessment and Plan: -----originally 435 and was placed on azithromycin with her flecainide. Today it is 550 so her azithr
--- NOTE | 2020-04-08 11:16 | PC.NURSE ---
pt moved to room 315 with all belonging.
[2020-04-08] MEDS: ONDANSETRON INJ 4 MG/2 ML VIAL IV PUSH (15:55)
[2020-04-08] MEDS: PROMETHAZINE HCL 25 MG/ML AMPUL 12.5 MG IV PUSH (18:01)
[2020-04-08] MEDS: PHARMACIST COMMUNICATION ORDER 1 EACH XX (19:39)
[2020-04-08] MEDS: TIZANIDINE HCL 2 MG TABLET PO (20:13)
[2020-04-08] MEDS: MELATONIN 5 MG TABLET PO (20:13)
[2020-04-08] MEDS: METOPROLOL SUCCINATE EXT REL 100 MG TABCR PO (20:14)
[2020-04-08] MEDS: TRAZODONE HCL 50 MG TABLET PO (20:14)
[2020-04-08] MEDS: ATORVASTATIN 40 MG TABLET PO (20:14)
[2020-04-08] MEDS: DOXYCYCLINE HYCLATE 100 MG TABLET PO (20:15)
[2020-04-09] VITALS (16 sets, daily range): BP systolic 132–156; BP diastolic 50–81; PULSE 59–60; RESP 16–20; TEMP 36.2–37; O2SAT 89–95
[2020-04-09 05:58] LABS: Basophils Percent Auto 0.4 % (0.2-1.2); Eosinophils Absolute Auto 0.1 K/mm3 (0-0.3); Eosinophils Percent Auto 1.2 % (0-4.4); Hematocrit 32.9 % (37.0-47.0); Hemoglobin 10.7 g/dL (12.0-15.0); Immature Granulocyte Absolute 0.04 K/mm3 (0.00-0.031); Immature Granulocyte Percent A 0.4 % (0-0.5); Lymphocytes Absolute Auto 2.34 K/mm3 (0.9-3.2); Lymphocytes Percent Auto 22.1 % (18.3-44.2); Mean Corpuscular HGB Conc 32.5 g/dl (32-36); Mean Corpuscular Hemoglobin 31.2 pg (26-34); Mean Corpuscular Volume 95.9 fl (80-100); Mean Platelet Volume 10.4 fl (7.4-10.4); Monocytes Percent Auto 9.2 % (2.6-8.5); Neutrophils Absolute Auto 7.1 K/mm3 (1.3-6.7); Neutrophils Percent Auto 66.7 % (45.5-73.1); Platelet Count Result 371 k/mm3 (150-375); Red Blood Count 3.43 M/mm3 (4.2-5.4); Red Cell Distribution Width 12.8 % (11.5-14.5); White Blood Count 10.6 K/mm3 (4.5-10.0)
[2020-04-09 06:01] LABS: Blood Urea Nitrogen 25 mg/dL (7-17); CRP 6.3 mg/dL (<1.0); Calcium 10.3 mg/dL (8.4-10.2); Carbon Dioxide 39 mmol/L (22-30); Chloride 91 mmol/L (98-107); Estimated CRCL calculation 25 ml/min; Estimated Glomerular Filt Rate 26; Glucose 95 mg/dL (65-105); Potassium 3.7 mmol/L (3.4-5.0); Sodium 135 mmol/L (137-145)
[2020-04-09] MEDS: ONDANSETRON INJ 4 MG/2 ML VIAL IV PUSH (07:28)
--- NOTE | 2020-04-09 08:00 | ECG_ITS ---
Measurements Intervals [place] Rate: 60 P: 234 [place]: 179 QRS: -59 QRSD: 199 T: 53 QT: 561 QTc: 561 Interpretive Statements ELECTRONIC ATRIAL PACEMAKER ELECTRONIC VENTRICULAR PACEMAKER NO FURTHER INTERPRETATION IS POSSIBLE ATYPICAL ECG Electronically Signed On 04-09-2020 9:38:42 CDT by Alcides West D.O.
[2020-04-09] MEDS: FLUTICASONE PROP 220 MCG (*SP) 12 GM INHALER 1 PUFF INHALATION ×2 (08:01→19:38)
[2020-04-09] MEDS: OMEGA 3 POLYUNSAT FATTY ACIDS 1 GM CAP PO (08:41)
[2020-04-09] MEDS: busPIRone HCL 10 MG TABLET PO ×3 (08:41→18:09)
[2020-04-09] MEDS: FLECAINIDE ACETATE 100 MG TABLET PO (08:41)
[2020-04-09] MEDS: FUROSEMIDE 40 MG TABLET PO ×2 (08:42→18:09)
[2020-04-09] MEDS: MAGNESIUM OXIDE 400 MG TABLET 800 MG PO ×2 (08:42→18:09)
[2020-04-09] MEDS: DOXYCYCLINE HYCLATE 100 MG TABLET PO ×2 (08:42→20:23)
[2020-04-09] MEDS: MULTIVITAMINS /C LUTEIN (CENTRUM SILVER) TABLET *BKC 1 TAB PO (08:42)
[2020-04-09] MEDS: FERROUS SULFATE 324 MG TABLET PO (08:42)
[2020-04-09] MEDS: APIXABAN 2.5 MG TABLET PO ×2 (08:42→18:09)
[2020-04-09] MEDS: SPIRONOLACTONE 25 MG TABLET PO (08:42)
[2020-04-09] MEDS: LORATADINE 10 MG TABLET PO (08:42)
[2020-04-09] MEDS: allopurinoL 100 MG TABLET PO (08:42)
[2020-04-09] MEDS: SERTRALINE HCL 50 MG TABLET PO (08:42)
--- NOTE | 2020-04-09 09:44 | PM.DS ---
DS: Admitting Diagnosis Admitting Diagnosis Admitting Diagnosis: Pneumonia, unspecified organism DS: Discharge Diagnosis Discharge Diagnosis (1) Prolonged Q-T interval on ECG: Code(s): R94.31 - Abnormal electrocardiogram [ECG] [EKG] Status: Acute Assessment and Plan: -----originally 435 on admission and prolonged at this stay to 608. Day of discharge it is 520. This is improving and her QT prolonging drugs will be held until she sees cardiology. Her kidneys are improving as well which will enhance the clearence of these medications. I talked to Dr. Garza on sunday and she says the patient is to see her in her office tomorrow, 04/12 and they will check an EKG then. Pt educated on this and knows to call 911 if she has any SOB, CP, palpitations, or passing out. Pt agreed. (2) Pneumonia: Qualifiers: Laterality: bilateral Lung location: unspecified part of lung Pneumonia type: due to unspecified organism Qualified Code(s): J18.9 - Pneumonia, unspecified organism Code(s): J18.9 - Pneumonia, unspecified organism Status: Acute Assessment and Plan: ------ABX completed while hospitalized. COVID-19 negative with her LDH and ferritin being normal--COVID-19 less likely. D-dimer likely elevated due to current infection, patient is already on Eliquis. PE seems less likely. Pt off o2 and doing well today and ready for discharge. Suggest pt have a follow up CXR to ensure it has improved in 6 weeks. Apnea link normal. (3) Asthma: Qualifiers: Asthma complication type: unspecified Asthma persistence: unspecified Asthma severity: unspecified severity Qualified Code(s): J45.909 - Unspecified asthma, uncomplicated Code(s): J45.909 - Unspecified asthma, uncomplicated Status: Chronic Assessment and Plan: ------No respiratory distress today. Continue home inhaler. (4) Hypertension: Qualifiers: Hypertension type: essential hypertension Qualified Code(s): I10 - Essential (primary) hypertension Code(s): I10 - Essential (primary) hypertension Status: Chronic Assessment and Plan: -----last blood pressure 141/60. Cotinue diltiazem, furosemide, spironolactone, and metoprolol. Pts norvasc has been stopped this admission. She says her air duct mechanic stopped her hydralazine last week. (5) Atrial fibrillation: Qualifiers: Atrial fibrillation type: unspecified Qualified Code(s): I48.91 - Unspecified atrial fibrillation Code(s): I48.91 - Unspecified atrial fibrillation Status: Chronic Assessment and Plan: ------in a paced rhythm at this time. She recently had pacemaker placed 02/2020. Recent cardioversion 03/30/20, she returned to her air duct mechanic office a few days later, they noted she was back in atrial fibrillation at that time and scheduled a 3rd cardioversion for early April. Continue her home medications with diltiazem and metoprolol. Long-term anticoagulation on Eliquis. Her air duct mechanic is Dr. Michelle Mckeon and her lump inspector is Dr. Cynthia Sheikh; both with [facility] in [place]. (6) Chronic kidney disease: Qualifiers: Chronic kidney disease stage: stage 3 (moderate) Qualified Code(s): N18.3 - Chronic kidney disease, stage 3 (moderate) Code(s): N18.9 - Chronic kidney disease, unspecified Status: Chronic Assessment and Plan: ------Cr is improving, 1.8 today. Worse because of vomiting and diarrhea this stay that have all resolved. clinical director regularly and is in stage 3 kidney disease. Renal ultrasound shows atrophied kidneys. Avoid nephrotoxic agents. (7) Depression with anxiety: Code(s): F41.8 - Other specified anxiety disorders Status: Chronic Assessment and Plan: ------Stable and in good spirits today. (8) Hematuria: Code(s): R31.9 - Hematuria, unspecified Status: Acute Assessm
--- NOTE | 2020-04-09 11:24 | PM.IMPN ---
Progress Note: A&P Assessment and Plan (1) Prolonged Q-T interval on ECG: Code(s): R94.31 - Abnormal electrocardiogram [ECG] [EKG] Status: Acute Assessment and Plan: -----originally 435 on admission and yesterday increased to 550. Azithromycin stopped and today it is 561 so fleconide has been stopped as well. I called Dr. Mckeon and reviewed the case with her. We will stop her flecainide at discharge and get another EKG tomorrow. She will also see her in the office Sunday or Sunday. No chest pain at this time. Continue telemetry monitoring (2) Pneumonia: Qualifiers: Pneumonia type: due to unspecified organism Laterality: bilateral Lung location: unspecified part of lung Qualified Code(s): J18.9 - Pneumonia, unspecified organism Code(s): J18.9 - Pneumonia, unspecified organism Status: Acute Assessment and Plan: ------patient's symptoms and chest x-ray consistent with pneumonia. COVID-19 negative with her LDH and ferritin being normal--COVID-19 less likely. D-dimer likely elevated due to current infection, patient is already on Eliquis. PE seems less likely. Pt off o2 and doing well today. Leukocytosis improved. Chest x-ray repeated 04/08 and it shows its a bit worsened but clinically she is improving. Continue ceftriaxone and doxycycline. Blood cultures pending with no growth to date. Legionella pending and pneumococcal neg. Apnea link normal. She was not hospitalized in the last few months, no HCAP suspected. (3) Asthma: Qualifiers: Asthma severity: unspecified severity Asthma persistence: unspecified Asthma complication type: unspecified Qualified Code(s): J45.909 - Unspecified asthma, uncomplicated Code(s): J45.909 - Unspecified asthma, uncomplicated Status: Chronic Assessment and Plan: ------No brennan respiratory distress today. Continue home inhaler. (4) Hypertension: Qualifiers: Hypertension type: essential hypertension Qualified Code(s): I10 - Essential (primary) hypertension Code(s): I10 - Essential (primary) hypertension Status: Chronic Assessment and Plan: -----last blood pressure 153/75. She is on Norvasc, diltiazem, furosemide, hydralazine, spironolactone, and metoprolol. Low blood pressures in the past, Norvasc stopped. (5) Atrial fibrillation: Qualifiers: Atrial fibrillation type: unspecified Qualified Code(s): I48.91 - Unspecified atrial fibrillation Code(s): I48.91 - Unspecified atrial fibrillation Status: Chronic Assessment and Plan: ------in a paced rhythm at this time. She recently had pacemaker placed 02/2020. Recent cardioversion 03/30/20, she returned to her foreign trade teacher office a few days later, they noted she was back in atrial fibrillation at that time and scheduled a 3rd cardioversion for early April. Continue her home medications with diltiazem and metoprolol. Long-term anticoagulation on Eliquis. Her foreign trade teacher is Dr. Michelle Mckeon and her head of commission department is Dr. Cynthia Sheikh; both with [facility] in [place]. (6) Chronic kidney disease: Qualifiers: Chronic kidney disease stage: stage 3 (moderate) Qualified Code(s): N18.3 - Chronic kidney disease, stage 3 (moderate) Code(s): N18.9 - Chronic kidney disease, unspecified Status: Chronic Assessment and Plan: ------Cr is 1.9 which appears to be near her baseline but possibly a little inflated. Patient states that she sees a systems software manager regularly and is in stage 3 kidney disease. Renal ultrasound shows atrophied kidneys. Avoid nephrotoxic agents monitor renal function. (7) Depression with anxiety: Code(s): F41.8 - Other specified anxiety disorders Status: Chronic Assessment and Plan: ------Stable and in good spirits today. (8) Hematuria: Code(s): R31.9 - Hematuria, unspecified Status:
[2020-04-09] MEDS: CALCIUM CARBONATE (TUMS) 500 MG (200 MG ELEMENTAL) PO (14:01)
[2020-04-09] MEDS: ATORVASTATIN 40 MG TABLET PO (20:23)
[2020-04-09] MEDS: MELATONIN 5 MG TABLET PO (20:23)
[2020-04-09] MEDS: TIZANIDINE HCL 2 MG TABLET PO (20:23)
[2020-04-09] MEDS: TRAZODONE HCL 50 MG TABLET PO (20:23)
[2020-04-09] MEDS: METOPROLOL SUCCINATE EXT REL 100 MG TABCR PO (20:24)
[2020-04-09 22:59] LABS: Legionella pneumophila Ag Ur Not Detected (Not Detected)
[2020-04-10] VITALS (14 sets, daily range): BP systolic 105–163; BP diastolic 44–81; PULSE 59–73; RESP 16–20; TEMP 36.6–36.9; O2SAT 92–97
[2020-04-10] MEDS: ONDANSETRON INJ 4 MG/2 ML VIAL IV PUSH (00:06)
[2020-04-10] MEDS: PANTOPRAZOLE SODIUM IV 40 MG VIAL IV PUSH ×2 (02:58→13:02)
[2020-04-10] MEDS: FLUTICASONE PROP 220 MCG (*SP) 12 GM INHALER 1 PUFF INHALATION ×2 (07:42→19:54)
[2020-04-10 07:47] LABS: Blood Urea Nitrogen 26 mg/dL (7-17); Calcium 10.4 mg/dL (8.4-10.2); Carbon Dioxide 37 mmol/L (22-30); Chloride 93 mmol/L (98-107); Estimated CRCL calculation 24 ml/min; Estimated Glomerular Filt Rate 25; Glucose 91 mg/dL (65-105); Potassium 3.9 mmol/L (3.4-5.0); Sodium 138 mmol/L (137-145)
--- NOTE | 2020-04-10 08:00 | ECG_ITS ---
Measurements Intervals [place] Rate: 60 P: 214 [place]: 180 QRS: 266 QRSD: 188 T: 51 QT: 608 QTc: 608 Interpretive Statements ELECTRONIC ATRIAL PACEMAKER ELECTRONIC VENTRICULAR PACEMAKER NO FURTHER INTERPRETATION IS POSSIBLE ATYPICAL ECG Electronically Signed On 04-10-2020 9:01:51 CDT by Alcides West D.O.
[2020-04-10] MEDS: hydrALAZINE HCL 50 MG TABLET PO (09:59)
[2020-04-10] MEDS: FUROSEMIDE 40 MG TABLET PO ×2 (10:00→17:37)
[2020-04-10] MEDS: busPIRone HCL 10 MG TABLET PO ×3 (10:00→17:35)
[2020-04-10] MEDS: FERROUS SULFATE 324 MG TABLET PO (10:01)
[2020-04-10] MEDS: DOXYCYCLINE HYCLATE 100 MG TABLET PO ×2 (10:01→20:55)
[2020-04-10] MEDS: allopurinoL 100 MG TABLET PO (10:02)
[2020-04-10] MEDS: LORATADINE 10 MG TABLET PO (10:02)
[2020-04-10] MEDS: APIXABAN 2.5 MG TABLET PO ×2 (10:02→17:34)
[2020-04-10] MEDS: SPIRONOLACTONE 25 MG TABLET PO (10:03)
[2020-04-10] MEDS: MAGNESIUM OXIDE 400 MG TABLET 800 MG PO ×2 (10:03→17:30)
[2020-04-10] MEDS: MULTIVITAMINS /C LUTEIN (CENTRUM SILVER) TABLET *BKC 1 TAB PO (10:03)
[2020-04-10] MEDS: OMEGA 3 POLYUNSAT FATTY ACIDS 1 GM CAP PO (10:04)
[2020-04-10 10:42] LABS: Magnesium 2.2 mg/dL (1.6-2.3)
--- NOTE | 2020-04-10 11:53 | PM.IMPN ---
Progress Note: A&P Assessment and Plan (1) Prolonged Q-T interval on ECG: Code(s): R94.31 - Abnormal electrocardiogram [ECG] [EKG] Status: Acute Assessment and Plan: -----originally 435 on admission and continues to increase today now 608. QT prolonging medications have been stopped. Flecainide stopped 04/09, Azithromycin stopped 04/08. Today the Zanaflex, trazodone, Zofran, and sertraline have all been held. The patient also is having increasing kidney dysfunction which is probably limiting the clearance of some of these medications. Will continue to monitor closely on telemetry. Fluids have been started. Reviewed with supervising physician. Will repeat EKG at 3. Nurse notified to call overhead if telemetry shows abnormalities concerning for ventricular dysrhythmias. Will request old EKGs from her raised printer's office. I spoke to her raised printer who will see her in the office Sunday or Sunday and will repeat an EKG. She says the flecainide can be discontinued discharge (2) Pneumonia: Qualifiers: Pneumonia type: due to unspecified organism Laterality: bilateral Lung location: unspecified part of lung Qualified Code(s): J18.9 - Pneumonia, unspecified organism Code(s): J18.9 - Pneumonia, unspecified organism Status: Acute Assessment and Plan: ------patient's symptoms and chest x-ray consistent with pneumonia. COVID-19 negative with her LDH and ferritin being normal--COVID-19 less likely. D-dimer likely elevated due to current infection, patient is already on Eliquis. PE seems less likely. Pt off o2 and doing well today. Leukocytosis improved. Chest x-ray repeated 04/08 and it shows its a bit worsened but clinically she is improving. Continue ceftriaxone and doxycycline (day 6, will discontinue tomorrow). Blood cultures prelim no growth to date. Legionella and pneumococcal neg. Apnea link normal. She was not hospitalized in the last few months, no HCAP suspected. (3) Asthma: Qualifiers: Asthma severity: unspecified severity Asthma persistence: unspecified Asthma complication type: unspecified Qualified Code(s): J45.909 - Unspecified asthma, uncomplicated Code(s): J45.909 - Unspecified asthma, uncomplicated Status: Chronic Assessment and Plan: ------No respiratory distress today. Continue home inhaler. (4) Hypertension: Qualifiers: Hypertension type: essential hypertension Qualified Code(s): I10 - Essential (primary) hypertension Code(s): I10 - Essential (primary) hypertension Status: Chronic Assessment and Plan: -----last blood pressure 124/55. Cotinue diltiazem, furosemide, spironolactone, and metoprolol. Pts norvasc has been stopped this admission. She says her raised printer stopped her hydralazine last week. (5) Atrial fibrillation: Qualifiers: Atrial fibrillation type: unspecified Qualified Code(s): I48.91 - Unspecified atrial fibrillation Code(s): I48.91 - Unspecified atrial fibrillation Status: Chronic Assessment and Plan: ------in a paced rhythm at this time. She recently had pacemaker placed 02/2020. Recent cardioversion 03/30/20, she returned to her raised printer office a few days later, they noted she was back in atrial fibrillation at that time and scheduled a 3rd cardioversion for early April. Continue her home medications with diltiazem and metoprolol. Long-term anticoagulation on Eliquis. Her raised printer is Dr. Michelle Mckeon and her light truck driver is Dr. Cynthia Sheikh; both with [facility] in [place]. (6) Chronic kidney disease: Qualifiers: Chronic kidney disease stage: stage 3 (moderate) Qualified Code(s): N18.3 - Chronic kidney disease, stage 3 (moderate) Code(s): N18.9 - Chronic kidney disease, unspecified Status: Chronic Assessment and Plan: ------Cr is 2.0, above baseline likely d/t vomiti
--- NOTE | 2020-04-10 15:00 | ECG_ITS ---
Measurements Intervals [place] Rate: 60 P: 215 NM: 177 QRS: 262 QRSD: 193 T: 70 QT: 509 QTc: 509 Interpretive Statements ELECTRONIC ATRIAL PACEMAKER ELECTRONIC VENTRICULAR PACEMAKER NO FURTHER INTERPRETATION IS POSSIBLE ATYPICAL ECG Electronically Signed On 04-10-2020 15:28:26 CDT by Alcides West D.O.
[2020-04-10] MEDS: METOPROLOL SUCCINATE EXT REL 100 MG TABCR PO (20:55)
[2020-04-10] MEDS: ATORVASTATIN 40 MG TABLET PO (20:55)
[2020-04-10] MEDS: MELATONIN 5 MG TABLET PO (20:55)
[2020-04-11] VITALS: PULSE 60
[2020-04-11 02:06] VITALS: BP 108/56; PULSE 68; RESP 16; TEMP 36.9; O2SAT 93
[2020-04-11 04:00] VITALS: PULSE 60
[2020-04-11 06:00] VITALS: BP 141/60; PULSE 60; RESP 16; TEMP 36.7; O2SAT 93
[2020-04-11 06:39] LABS: Hematocrit 34.4 % (37.0-47.0); Hemoglobin 11.1 g/dL (12.0-15.0); Mean Corpuscular HGB Conc 32.3 g/dl (32-36); Mean Corpuscular Hemoglobin 31.3 pg (26-34); Mean Corpuscular Volume 96.9 fl (80-100); Mean Platelet Volume 10.2 fl (7.4-10.4); Platelet Count Result 410 k/mm3 (150-375); Red Blood Count 3.55 M/mm3 (4.2-5.4); Red Cell Distribution Width 13.1 % (11.5-14.5)
[2020-04-11 06:53] LABS: Alanine Aminotransferase 11 U/L (4-35); Albumin Level 3.8 g/dL (3.5-5.1); Alkaline Phosphatase 83 U/L (38-126); Aspartate Amino Transferase 26 U/L (14-36); Bilirubin,Total 0.4 mg/dL (0.2-1.3); Blood Urea Nitrogen 25 mg/dL (7-17); Calcium 9.8 mg/dL (8.4-10.2); Carbon Dioxide 39 mmol/L (22-30); Chloride 95 mmol/L (98-107); Estimated CRCL calculation 27 ml/min; Estimated Glomerular Filt Rate 28; Glucose 92 mg/dL (65-105); Potassium 3.4 mmol/L (3.4-5.0); Sodium 139 mmol/L (137-145)
[2020-04-11 08:00] VITALS: PULSE 60
--- NOTE | 2020-04-11 08:09 | ECG_ITS ---
Measurements Intervals [place] Rate: 60 P: 253 CA: 180 QRS: 148 QRSD: 182 T: 41 QT: 520 QTc: 520 Interpretive Statements ELECTRONIC ATRIAL PACEMAKER ELECTRONIC VENTRICULAR PACEMAKER NO FURTHER INTERPRETATION IS POSSIBLE ATYPICAL ECG Electronically Signed On 04-11-2020 13:11:16 CDT by Alcides West D.O.
[2020-04-11] MEDS: FERROUS SULFATE 324 MG TABLET PO (08:11)
[2020-04-11] MEDS: busPIRone HCL 10 MG TABLET PO (08:11)
[2020-04-11] MEDS: MAGNESIUM OXIDE 400 MG TABLET 800 MG PO (08:11)
[2020-04-11] MEDS: LORATADINE 10 MG TABLET PO (08:11)
[2020-04-11] MEDS: APIXABAN 2.5 MG TABLET PO (08:11)
[2020-04-11] MEDS: PANTOPRAZOLE SODIUM IV 40 MG VIAL IV PUSH (08:11)
[2020-04-11] MEDS: OMEGA 3 POLYUNSAT FATTY ACIDS 1 GM CAP PO (08:11)
[2020-04-11] MEDS: MULTIVITAMINS /C LUTEIN (CENTRUM SILVER) TABLET *BKC 1 TAB PO (08:12)
[2020-04-11] MEDS: SPIRONOLACTONE 25 MG TABLET PO (08:12)
[2020-04-11] MEDS: allopurinoL 100 MG TABLET PO (08:12)
[2020-04-11] MEDS: FUROSEMIDE 40 MG TABLET PO (08:12)
[2020-04-11] MEDS: DOXYCYCLINE HYCLATE 100 MG TABLET PO (08:21)
[2020-04-11] MEDS: FLUTICASONE PROP 220 MCG (*SP) 12 GM INHALER 1 PUFF INHALATION (09:26)
--- NOTE | 2020-04-13 10:16 | PC.NURSE ---
Blood cx are negative.
--- NOTE | 2020-04-13 10:17 | PC.NURSE ---
Stool cx is negative. Awaiting Campylobacter.
--- NOTE | 2020-04-16 13:24 | PC.NURSE ---
campylobacter is negative.
== END 2020-04-11 12:50 | disposition home or self-care (01) | DRG 195 ==
LOC: ANHED 17:10 → ANH3MEDSUR 04-05 02:37
PROVIDERS: Nurse Practitioner; Physician Assistant; Admitting Provider Family Medicine; Emergency Provider Emergency Medicine; PCP Internal Medicine; Visit Provider Physician Assistant
DX: J18.9 Pneumonia, unspecified organism (principal); N18.3 Chronic kidney disease, stage 3 (moderate); I12.9 Hypertensive chronic kidney disease with stage 1 through stage 4 chronic kidney disease, or unspecified chronic kidney disease; J45.909 Unspecified asthma, uncomplicated; Z20.828 Contact with and (suspected) exposure to other viral communicable diseases; I48.91 Unspecified atrial fibrillation; F41.8 Other specified anxiety disorders; D72.829 Elevated white blood cell count, unspecified; R94.31 Abnormal electrocardiogram [ECG] [EKG]; R11.2 Nausea with vomiting, unspecified; R19.7 Diarrhea, unspecified; G89.29 Other chronic pain; E78.5 Hyperlipidemia, unspecified; M19.90 Unspecified osteoarthritis, unspecified site; R31.9 Hematuria, unspecified; Z79.01 Long term (current) use of anticoagulants; Z86.73 Personal history of transient ischemic attack (TIA), and cerebral infarction without residual deficits; Z90.81 Acquired absence of spleen; Z95.0 Presence of cardiac pacemaker; Z98.84 Bariatric surgery status; Z98.1 Arthrodesis status
CPT/HCPCS: 36415; 36600; 71045; 71046; 74019; 74176; 76775; 80048; 80053; 80076; 82728; 82805; 83615; 83735; 84100; 84443; 84484; 85014; 85018; 85025; 85027; 85380; 85610; 85730; 86140; 87040; 87045; 87046; 87070; 87205; 87324; 87427; 87449; 87635; 87899; 93005; 93970; 94640; 94762; 96365; 96367; 99285; A9270; C9113; C9803; J0456; J0696; J2405; J2550; U0003

== ENCOUNTER → 2021-11-22 12:17 | Outpatient (CLI) | payer MEDICARE, MEDICAID, SELFPAY ==
--- NOTE | ~2021-11-22 | CT_ITS ---
EXAMINATION: CT lumbar spine wo con DATE: 11/22/2021 12:58 INDICATION: Lumbar radiculopathy. TECHNIQUE: Computed tomography (CT) of the lumbar spine was performed without intravenous contrast. A utomated exposure control and iterative reconstruction technique were employed. The dose-length produ ct was 793.94 mGy-cm. COMPARISON: None FINDINGS: Partially visualized is a 3.7 cm cyst in left kidney. There is 6 degrees dextrocurvature of thoracolumbar spine. There is 3 mm retrolisthesis of T12 on L1. Vertebral body heights are normal. T here is severely decreased disc height from T12-L1 through L4-L5 and moderately decreased disc height at L5-S1 with endplate remodeling. The following disc levels are specifically discussed: T12-L1: The disc is bulging. There is moderate bilateral facet joint osteoarthritis. There is mild bi lateral neural foraminal stenosis. There is mild central canal stenosis. L1-L2: The disc is bulging. There is moderate bilateral facet joint osteoarthritis. There is mild florinda ateral neural foraminal stenosis. There is mild central canal stenosis. L2-L3: The disc is bulging. There is moderate right and severe left facet joint osteoarthritis. There is mild bilateral neural foraminal stenosis. There is mild central canal stenosis. L3-L4: The disc is bulging. There is severe right and moderate left facet joint osteoarthritis. There is moderate bilateral neural foraminal stenosis. There is mild central canal stenosis. L4-L5: The disc is bulging. There is severe bilateral facet joint osteoarthritis. There is moderate b ilateral neural foraminal stenosis. There is mild central canal stenosis. L5-S1: The disc is bulging. There is severe bilateral facet joint osteoarthritis. There is mild bilat eral neural foraminal stenosis. There is mild central canal stenosis. IMPRESSION: 1. Severe lumbar spondylosis. Reviewed, dictated and finalized at location B. F OF STAFF DOCTOR
== END ==
PROVIDERS: PCP Internal Medicine; Visit Provider Nurse Practitioner Adult Health
DX: M47.25 Other spondylosis with radiculopathy, thoracolumbar region (principal); M48.05 Spinal stenosis, thoracolumbar region; M47.27 Other spondylosis with radiculopathy, lumbosacral region; M48.07 Spinal stenosis, lumbosacral region
CPT/HCPCS: 72131

== ENCOUNTER → 2022-08-17 10:07 | Outpatient (CLI) | payer MEDICARE, MEDICAID, SELFPAY ==
--- NOTE | ~2022-08-17 | CT_ITS ---
EXAMINATION: CT lumbar spine wo con DATE: 08/17/2022 10:33 INDICATION: Lumbar spinal stenosis. Radiculopathy. TECHNIQUE: Computed tomography (CT) of the lumbar spine was performed without intravenous contrast. A utomated exposure control and iterative reconstruction technique were employed. The dose-length produ ct was 653.67 mGy-cm. COMPARISON: CT lumbar spine 11/22/2021 FINDINGS: There is a 4.7 cm cyst in left kidney. There is 5 degrees dextrocurvature of lumbar spine. Vertebral body heights are normal. There is severely decreased disc height from T12-L1 through L4-L5 and moderately decreased disc height at L5-S1 with endplate remodeling. The following disc levels are specifically discussed: T12-L1: The disc is bulging. There is moderate bilateral facet joint osteoarthritis. There is mild bi lateral neural foraminal stenosis. There is mild central canal stenosis. L1-L2: The disc is bulging. There is moderate bilateral facet joint osteoarthritis. There is mild florinda ateral neural foraminal stenosis. There is mild central canal stenosis. L2-L3: The disc is bulging. There is moderate bilateral facet joint osteoarthritis. There is mild florinda ateral neural foraminal stenosis. There is mild central canal stenosis. L3-L4: The disc is bulging. There is severe right and moderate left facet joint osteoarthritis. There is moderate bilateral neural foraminal stenosis. There is mild central canal stenosis. L4-L5: The disc is bulging. There is severe bilateral facet joint osteoarthritis. There is severe rig ht and moderate left neural foraminal stenosis. There is mild central canal stenosis. L5-S1: The disc is bulging. There is severe bilateral facet joint osteoarthritis. There is mild bilat eral neural foraminal stenosis. There is mild central canal stenosis. IMPRESSION: 1. Severe lumbar spondylosis, stable from 11/22/2021. Reviewed, dictated and finalized at location A.
== END ==
PROVIDERS: PCP Internal Medicine; Visit Provider Nurse Practitioner Family
DX: M47.27 Other spondylosis with radiculopathy, lumbosacral region (principal); M48.07 Spinal stenosis, lumbosacral region
CPT/HCPCS: 72131

== ENCOUNTER 2022-11-16 10:19 | Outpatient (CLI) | payer MEDICARE, MEDICAID, SELFPAY ==
--- NOTE | ~2022-11-16 | XR_ITS ---
XR knee RT 3V DATE: 11/16/2022 11:30 INDICATION: Osteoarthritis TECHNIQUE: Otis and standing AP and lateral views of right knee COMPARISON: None FINDINGS: There is osteopenia. There is mild periarticular spurring of the patella consistent with osteoarthritis. Medial lateral co mpartment joint spaces appear relatively well preserved. There is very subtle slight meniscal chondro calcinosis. No radiopaque intra-articular loose body is detected. No fracture or dislocation or joint effusion. No periosteal reaction or bone destruction. Femoral and popliteal and trifurcation artery calcification. IMPRESSION: Osteopenia Mild patellofemoral osteoarthritis Very slight subtle meniscal chondrocalcinosis Reviewed, dictated and finalized at location L. D DEVELOPMENT INSTRUCTOR
== END 2022-11-16 10:20 ==
PROVIDERS: PCP Internal Medicine; Visit Provider Nurse Practitioner Family
DX: M17.11 Unilateral primary osteoarthritis, right knee (principal); M85.861 Other specified disorders of bone density and structure, right lower leg; M11.261 Other chondrocalcinosis, right knee
CPT/HCPCS: 73562

== ENCOUNTER 2022-11-30 11:34 | Outpatient (CLI) | payer MEDICARE, SELFPAY ==
[2022-11-30 12:12] LABS: Basophils Absolute Auto 0.1 K/mm3 (0.0-0.1); Basophils Percent Auto 0.6 % (0.2-1.2); Eosinophils Absolute Auto 0.2 K/mm3 (0-0.3); Hematocrit 38.4 % (37.0-47.0); Hemoglobin 12.6 g/dL (12.0-15.0); Immature Granulocyte Absolute 0.01 K/mm3 (0.00-0.031); Immature Granulocyte Percent A 0.1 % (0-0.5); Mean Corpuscular HGB Conc 32.8 g/dl (32-36); Mean Corpuscular Hemoglobin 32.3 pg (26-34); Mean Corpuscular Volume 98.5 fl (80-100); Mean Platelet Volume 10.4 fl (7.4-10.4); Monocytes Percent Auto 10.4 % (2.6-8.5); Neutrophils Absolute Auto 4.8 K/mm3 (1.3-6.7); Neutrophils Percent Auto 50.9 % (45.5-73.1); Platelet Count Result 243 k/mm3 (150-375); Red Cell Distribution Width 13.8 % (11.5-14.5); White Blood Count 9.4 K/mm3 (4.5-10.0)
[2022-11-30 21:19] LABS: Iron 99 ug/dL (37-170)
[2022-11-30 21:30] LABS: Percent Iron Saturation 25 % (20-50)
[2022-11-30 21:35] LABS: Alanine Aminotransferase 20 U/L (6-35); Albumin Level 4.1 g/dL (3.5-5.1); Alkaline Phosphatase 89 U/L (38-126); Anion Gap 6 mmol/L (8-16); Aspartate Amino Transferase 33 U/L (14-36); Bilirubin,Total 0.4 mg/dL (0.2-1.3); Blood Urea Nitrogen 30 mg/dL (7-17); Calcium 13.1 mg/dL (8.4-10.2); Carbon Dioxide 34 mmol/L (22-30); Chloride 97 mmol/L (98-107); Estimated Glomerular Filt Rate 14; Glucose 104 mg/dL (65-110); Lactate Dehydrogenase 168 U/L (120-246); Potassium 4.4 mmol/L (3.4-5.0); Sodium 137 mmol/L (137-145)
[2022-11-30 22:44] LABS: Folic Acid > 20.0 ng/mL (2.76->20)
[2022-12-03 10:48] LABS: Methylmalonic Acid 345 nmol/L (87-318)
[2022-12-03 12:58] LABS: Erythropoietin (EPO) 6.3 mIU/mL (2.6-18.5)
== END 2022-11-30 11:35 | disposition home or self-care (01) ==
LOC: ANHLAB 11:36
PROVIDERS: PCP Internal Medicine; Visit Provider Internal Medicine Hematology & Oncology
DX: D64.9 Anemia, unspecified (principal)
CPT/HCPCS: 36415; 80053; 82607; 82668; 82728; 82746; 83540; 83550; 83615; 83921; 85025

== ENCOUNTER 2022-12-06 11:41 | Outpatient (CLI) | payer MEDICARE, SELFPAY ==
[2022-12-06 13:23] LABS: Calcium 10.2 mg/dL (8.4-10.2)
[2022-12-06 13:24] LABS: Immunoglobulin A 353 mg/dL (70-400); Immunoglobulin G 685 mg/dL (700-1600); Immunoglobulin M 59 mg/dL (40-230)
[2022-12-06 13:29] LABS: Parathyroid Intact 54.3 pg/mL (7.5-53.5)
[2022-12-08 19:06] LABS: Kappa\\Lambda Light Chains 1.31 (0.26-1.65); Lambda Light Chain 45.3 mg/L (5.7-26.3)
[2022-12-08 20:12] LABS: Albumin 3.9 g/dL (3.8-4.8); Alpha 1 Globulin 0.4 g/dL (0.2-0.3); Beta 1 Globulin 0.5 g/dL (0.4-0.6); Gamma Globulin 0.7 g/dL (0.8-1.7); Protein, Total 6.9 g/dL (6.1-8.1)
== END 2022-12-06 11:42 | disposition home or self-care (01) ==
PROVIDERS: PCP Internal Medicine; Visit Provider Internal Medicine Hematology & Oncology
DX: E83.52 Hypercalcemia (principal)
CPT/HCPCS: 36415; 82306; 82310; 82784; 83883; 83970; 84155; 84165

== ENCOUNTER 2022-12-13 11:42 | Outpatient (CLI) | payer MEDICARE, SELFPAY ==
--- NOTE | ~2022-12-13 | XR_ITS ---
EXAMINATION: XR bone survey comp/metastic DATE: 12/13/2022 12:31 INDICATION: Hypercalcemia. TECHNIQUE: 30 views of a skeletal survey were obtained. COMPARISON: None. FINDINGS: There is a left chest wall pacer with leads in the right atrium and right ventricle. A calc ified left lung nodule and calcified left hilar lymph nodes are consistent with old granulomatous dis ease. There are changes of anterior fusion procedure from C4 to C6. There are staple lines in left up per quadrant of the abdomen. IMPRESSION: 1. No etiology for hypercalcemia. Reviewed, dictated and finalized at location A. ING SPECIALIST
== END 2022-12-13 11:43 | disposition home or self-care (01) ==
LOC: ANHLAB 11:45 → ANHIMG 11:46
PROVIDERS: PCP Internal Medicine; Visit Provider Internal Medicine Hematology & Oncology
DX: E83.52 Hypercalcemia (principal)
CPT/HCPCS: 77075

== ENCOUNTER 2025-03-18 10:40 | Inpatient (IN) | payer MEDICARE, SELFPAY ==
[2025-03-18] VITALS (15 sets, daily range): BP systolic 95–115; BP diastolic 48–94; PULSE 86–122; RESP 12–22; TEMP 36.4–36.8; O2SAT 90–98; BMI 31.4
--- NOTE | ~2025-03-18 | XR_ITS ---
EXAMINATION: XR chest 1V portable DATE: 03/21/2025 08:36 INDICATION: Shortness of breath TECHNIQUE: frontal view of the chest was obtained. COMPARISON: Chest radiograph dated 03/18/2025 FINDINGS: Unchanged mild elevation the left hemidiaphragm with mild left basilar atelectasis. No pulmonary marquis a, pleural effusion or pneumothorax. Calcified nodules in the left midlung zone consistent with old g ranulomatous disease. The cardiomediastinal silhouette is normal. Dual lead pacemaker seen with leads projecting over the expected locations of the right atrium and right ventricle. IMPRESSION: 1. Unchanged mild elevation left hemidiaphragm with mild left basilar atelectasis. Reviewed, dictated and finalized at location A. IMPRESSION: 1. Unchanged mild elevation left hemidiaphragm with mild left basilar atelectas is.
--- NOTE | ~2025-03-18 | CT_ITS ---
Non-contrast CT scan of the Abdomen and Pelvis Clinical indication: Buttock abscess Technique: 2.5 mm axial scans were obtained through the abdomen and pelvis without intravenous or or al contrast. Dose reduction technique was used on this scan by utilizing automated exposure control a nd iterative reconstruction technique. The dose-length product (DLP) was 525.89 mGy-cm. Findings: Images through the lung bases reveal no abnormalities. Status post splenectomy. The liver, pancreas, kidneys, and adrenals appear normal, aside from probabl e renal cysts. Gallbladder absent. There are atherosclerotic calcifications of the aorta. . There is no evidence of bowel obstruction. Images through the pelvis were performed. There is no evidence of ascites or lymphadenopathy. Urinary bladder unremarkable. Status post hysterectomy. No pelvic mass evident. There is extensive subcutaneous soft tissue infiltration throughout the left buttock region, compatib le with cellulitis/soft tissue infection. No fluid collection/abscess clearly evident. Impression: Extensive cellulitis/soft tissue infection involving the subcutaneous soft tissues of the left buttoc k. No distinct abscess/fluid collection evident. Reviewed, dictated and finalized at location . Impression: Extensive cellulitis/soft tissue infection involving the subcutaneous soft tiss ues of the left buttock. No distinct abscess/fluid collection evident.
--- NOTE | ~2025-03-18 | XR_ITS ---
Portable chest x-ray Comparison: 04/08/2020 Clinical History: Atrial fibrillation Findings: Lungs are clear, without focal consolidation or pleural effusion. Cardiomediastinal silho uette is stable, with pacemaker device. Bones and soft tissues are unremarkable. Impression: Clear lungs. Reviewed, dictated and finalized at location . Impression: Clear lungs.
--- NOTE | ~2025-03-18 | XR_ITS ---
EXAMINATION: XR chest PICC line DATE: 03/25/2025 16:55 INDICATION: PICC line placement TECHNIQUE: frontal view of the chest was obtained. COMPARISON: Chest radiograph dated 03/21/2025 FINDINGS: Right upper extremity peripherally inserted central venous catheter (PICC) tip at the caudal superio r vena cava near the superior cavoatrial junction. Persistent opacities at the left lower lung zones with blunting at the costophrenic angle consistent with small left pleural effusion and associated at electasis and/or pneumonia. Right lung is clear. No pneumothorax or right-sided pleural effusion. Hea rt size is normal. IMPRESSION: 1. Right upper 70 PICC line tip near the superior cavoatrial junction. 2. Small left pleural effusion with associated left basilar atelectasis and/or pneumonia. Reviewed, dictated and finalized at location A.
--- NOTE | 2025-03-18 10:51 | ECG_ITS ---
Test Date: 2025-03-18 11:00:50 Measurements Intervals [place] Rate: 131 P: 0 RI: 0 QRS: 10 QRSD: 87 T: 177 QT: 273 QTc: 404 Interpretive Statements ATRIAL FLUTTER/TACHYCARDIA WITH RAPID VENTRICULAR RESPONSE ST DEVIATION AND MODERATE T-WAVE ABNORMALITY, CONSIDER ANTEROLATERAL ISCHEMIA [-0.1+ mV T WAVE IN V3-V6] No previous ECG available for comparison Electronically Signed On 03-19-2025 10:00:44 CDT by Zainab Bang M.D.
--- NOTE | 2025-03-18 11:18 | ED_ITS ---
HPI - Skin/Abscess/Foreign Bdy General Chief complaint: Skin/Abscess/Foreign Body Stated complaint: abscess Time Seen by Provider: 03/18/25 11:02 History of Present Illness HPI narrative: 74-year-old female with a past medical history including atrial fibrillation on anticoagulation with Eliquis and rate control with metoprolol and diltiazem. She has a history of pacemaker, CKD. Patient presents the emergency department with left buttock abscess and pain. Patient states she thinks she scratched her left butt cheek several days ago and knows that got infected with redness and painful tenderness to palpation. She had a fever yesterday of 101. Family noticed that she was having drainage start developing over last day and now she has scant bleeding from an open sore on her left butt cheek. No other injuries. Patient states that she feels short of breath but this is chronic. No chest pain, chest pressure, nausea, vomiting, abdominal pain, present fever chills. No recent antibiotic use or recent hospitalizations. Related Data Home Medications Medication Instructions Recorded Confirmed Last Taken Type allopurinol 100 mg tablet 100 mg PO BID 04/04/20 03/18/25 03/17/25 History apixaban 2.5 mg tablet (Eliquis) 2.5 mg PO BID 04/04/20 03/18/25 03/17/25 History atorvastatin 40 mg tablet 40 mg PO HS 04/04/20 03/18/25 03/17/25 History buspirone 10 mg tablet 10 mg PO TID 04/04/20 03/18/25 03/17/25 History diltiazem HCl 180 mg capsule,24 180 mg PO Q12H 04/04/20 03/18/25 03/17/25 History hr,extended release ergocalciferol (vitamin D2) 1,250 1,250 mcg PO [id number] 04/04/20 03/18/25 03/29/20 09:00 History mcg (50,000 unit) capsule (Vitamin D2) furosemide 40 mg tablet (Lasix) 40 mg PO DAILY 04/04/20 03/18/25 03/17/25 History magnesium oxide 400 mg PO TID 04/04/20 03/18/25 03/17/25 History melatonin 5 mg tablet 5 mg PO HS 04/04/20 03/18/25 03/17/25 History wolqowwdkril-vnndhdg-fksjy acid 1 tablet PO DAILY 04/04/20 03/18/25 03/17/25 History 400 mcg-lutein 250 mcg chewable tablet (Centrum Silver) spironolactone 25 mg tablet 25 mg PO DAILY 04/04/20 03/18/25 03/17/25 History metoprolol succinate 100 mg 100 mg PO HS 04/05/20 03/18/25 03/17/25 History tablet,extended release 24 hr albuterol sulfate 90 mcg/actuation 1 puff inhalation .q12 PRN 03/18/25 03/18/25 03/17/25 History aerosol inhaler shortness of breath or wheezing calcitriol 0.25 mcg capsule 0.25 mcg PO DAILY 03/18/25 03/18/25 03/17/25 History dofetilide 125 mcg capsule 125 mcg PO Q12H 03/18/25 03/18/25 03/17/25 History famotidine 20 mg tablet 20 mg PO BID 03/18/25 03/18/25 03/17/25 History glipizide 5 mg tablet, extended 5 mg PO DAILY 03/18/25 03/18/25 03/17/25 History release 24 hr losartan 50 mg tablet 50 mg PO DAILY 03/18/25 03/18/25 03/17/25 History sertraline 100 mg tablet 100 mg PO DAILY 03/18/25 03/18/25 03/17/25 History sertraline 50 mg tablet 50 mg PO DAILY 03/18/25 03/18/25 03/17/25 History tizanidine 2 mg tablet 2 mg PO DAILY 03/18/25 03/18/25 03/17/25 History trazodone 100 mg tablet 100 mg PO DAILY 03/18/25 03/18/25 03/17/25 History Allergies Allergy/AdvReac Type Severity Reaction Status Date / Time adhesive AdvReac Mild BLISTERS Verified 04/04/20 14:55 Review of Systems 2 Review of Systems: As reviewed above in HPI [facility] Past Medical History Medical History Pacemaker Hepatic steatosis Chronic kidney disease Stage III Spinal stenosis Depression with anxiety Osteoarthritis Peptic ulcer disease Causing a GI bleed. Chronic pain Chronic GERD Asthma Hypertension History of rheumatic fever Atrial fibrillation Paroxysmal and has been cardioverted x2 to 3 times and is scheduled to be converted again however she is in sinus rhythm today TIA (transient ischemic attack) Occasional balance issues. Left lower extremity weakness which have resolved. 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 Repair of gastric bypass after there was a leak in 0 5. History of tonsillectomy Family History Family History (Updated 03/18/25 @ 15:32 by Nancy Soliz RN) Father Cancer Hypertension Heart disease Mother Diabetes mellitus Cancer Hypertension Sibling Diabetes mellitus Heart disease Hypertension Cancer Suicide Social History Social History Social History: The patient is . She lives with 1 of her daughters who is a nurse. She had 2 biological children and adopted to foster children who were brother and sister. Patient desires her daughter Sheri aguayo to be her durable power civil litigation attorney for healthcare. She desires to be a full code. The patient denies any alcohol, tobacco or drug abuse. No marijuana use either. 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 Smoking status: Never smoker Second hand tobacco smoke exposure: Yes Alcohol intake: current Drinks per week: 1 Substance use: never Substance use type: does not use Do You Feel Safe in your Home?: Yes Lack of Transportation: No Lack of Food: Never True Current Housing: I Have Housing Concerned About Future Housing: No Difficulty Paying Gas/Electric Bills: No Difficulty Paying for Meds: No Currently Unemployed: No Education: Trade/Vocational Certificate Difficulty w/ Childcare or Family Care: No Living arrangements: with family Gender identity (if verbalized by the patient): Female Spiritual care concerns: No Exam 2 Narrative: GENERAL: [Well-appearing, well-nourished, and in no acute distress.] HEAD: [Normocephalic, atraumatic.] EYES: [PERRLA and EOMI.] ENT: Nares clear, no rhinorrhea or epistaxis. Mucous membranes moist. NECK: Supple. CHEST: [Clear to auscultation. No respiratory distress.] HEART: Tachycardic rate, irregular rhythm. No murmur heard. [Normal peripheral pulses.] ABDOMEN: [Soft, nondistended], [nontender], [No rigidity or guarding] EXTREMITIES: Normal range of motion. [No edema.] SKIN: Left butt cheek has a rather large 5 by 7 cm area of induration with overlying redness and superimposed 2 x 2 area of ulceration with scant dark bleeding. No purulent drainage but significant tenderness to palpation. No fluctuant masses. No perianal lesions, bleeding or fissures. NEURO: [No focal deficits]. Alert and oriented [x3.] PSYCH: [Normal mood and affect.] Course Vital Signs Vital signs: Vital Signs Temperature 36.4 C 03/18/25 10:46 Pulse Rate 106 H 03/18/25 10:46 Respiratory Rate 20 03/18/25 10:46 Blood Pressure 106/86 03/18/25 10:46 Pulse Oximetry 98 03/18/25 10:46 Oxygen Delivery Room Air 03/18/25 10:46 Temperature 36.8 C 03/18/25 14:50 Pulse Rate 105 H 03/18/25 18:00 Respiratory Rate 15 03/18/25 14:50 Blood Pressure 115/54 L 03/18/25 14:50 Pulse Oximetry 94 03/18/25 14:50 Oxygen Delivery Room Air 03/18/25 10:46 MDM - Skin/Abscess/Foreign Bdy MDM Narrative Medical decision making narrative: 74-year-old female presenting to the emergency department for evaluation of a left buttock abscess. Patient states that has been developing over last few days associated with fever at home and significant pain and now bleeding drainage. On examination she has a 5 x 7 cm abscess that is indurated, warm and tender to palpation with an area of ulceration superficially. Scant bleeding but no purulence. No other perirectal lesions identified. Otherwise unremarkable examination aside from irregularly irregular heart rate. Patient does appear in acute pain and her heart rate is actually 160 beats per minute in triage fluctuating between 130-160. She has a history of AFib and is chronically anticoagulated and has had cardioversions in the past. She has a history of a pacemaker as well as CKD. Suspicion presently is for potential sepsis secondary to infected buttock abscess causing AFib RVR or tachycardic response in the setting of baseline AFib. Will treat her with a combination of therapies including fluid bolus, pain control medication and rate-controlling medications to get her better controlled and stable. Empiric Zosyn was started for GI coverage of her wound. Blood cultures and culture of the wound was ordered. Lactic acid, EKG, chest x-ray and CT scan of the abdomen pelvis without contrast ordered given her history of significant low GFR. patient had significant improvement after a single dose of diltiazem, drip was canceled this time. She remains rate controlled with a heart rate in the 90s to low 100s. Saturating well on room air. Pain control at this time with IV medications. Workup shows a leukocytosis of 20.1, hemoglobin 12.6, normal platelet count. Electrolytes are largely unremarkable, BUN and creatinine slightly elevated with a GFR of 26. Lactic acid 3.2 that came down to 1.2 after adequate fluid resuscitation with greater than 30 cc/kg fluid bolus. Troponin is negative. LFTs unremarkable. abdomen pelvis CT shows extensive soft tissue cellulitis and infection of the subcutaneous tissues of the left buttock without any distinct abscess or fluid Collections. Clinically this appears to be a localized cellulitis without any concerns for something like Juliet's gangrene. chest x-ray is clear. EKG shows AFib/ flutter with RVR. Patient is optimized and stabilized at this time with IV fluid resuscitation, antibiotics started with Zosyn, down trending lactic acid. Patient will be admitted to the hospital under the IMU service for continued care of her sepsis with likely source being left buttock cellulitis. Discussed the case with Darshana Collado the [facility] who accepted the patient to the hospital at this time. Medical Records Attestation: I reviewed the patient's medical records. Lab Data Attestation: I reviewed the patient's lab results. 03/18/25 11:14 03/18/25 11:14 Labs: Lab Results 03/18/25 Range/Units 11:14 WBC 20.1 H (4.5-10.0) K/mm3 RBC 3.97 L (4.2-5.4) M/mm3 Hgb 12.6 (12.0-15.0) g/dL Hct 39.9 (37.0-47.0) % MCV 100.5 H (80-100) fl MCH 31.7 (26-34) pg MCHC 31.6 L (32-36) g/dl RDW 14.5 (11.5-14.5) % Plt Count 330 (150-375) k/mm3 MPV 11.2 H (7.4-10.4) fl Immature Gran % (Auto) Not Reportable Neut % (Auto) Not Reportable Lymph % (Auto) Not Reportable [place] % (Auto) Not Reportable Eos % (Auto) Not Reportable Baso % (Auto) Not Reportable Lymph # (Auto) Not Reportable [place] # (Auto) Not Reportable Eos # (Auto) Not Reportable Baso # (Auto) Not Reportable Abs Immat Gran (auto) Not Reportable Absolute Neuts (auto) Not Reportable Absolute Nucleated RBC Not Reportable Total Counted 100 Neutrophils % (Manual) 74 H (46-73) % Band Neutrophils % 10 H (0-6) % Lymphocytes % (Manual) 8.0 L (18-44) % Monocytes % (Manual) 8 (3-9) % Nucleated RBC % Not Reportable Abs Neuts (Manual) 16.88 H (1.7-7.2) K/mm3 Abs Lymphs (Manual) 1.60 (1.1-4.5) K/mm3 Abs Monocytes (Manual) 1.60 H (0.1-0.90) K/mm3 Platelet Estimate Adequate (Adequate) Hypochromasia 1+ Elder Cells 1+ Schistocytes None seen PT 22.7 H (11.1-14.7) Seconds INR 1.9 APTT 40.7 H (22.3-36.8) Seconds Sodium 131 L (137-145) mmol/L Potassium 4.4 (3.4-5.0) mmol/L Chloride 95 L (98-107) mmol/L Carbon Dioxide 25 (22-30) mmol/L Anion Gap 11 (4-12) mmol/L BUN 43 H D (7-17) mg/dL Creatinine 1.88 H (0.7-1.0) mg/dL Estim Creat Clear Calc Not Reportable Estimated GFR 26 L (59 - ) Glucose 115 H (65-110) mg/dL Lactic Acid 3.2 H (0.7-2.0) mmol/L Calcium 9.4 (8.4-10.2) mg/dL Total Bilirubin 1.3 (0.2-1.3) mg/dL AST 23 (14-36) U/L ALT 26 (6-35) U/L Alkaline Phosphatase 114 (38-126) U/L Troponin I < 0.012 (0.000-0.034) ng/mL Total Protein 7.0 (6.3-8.2) g/dL Albumin 3.7 (3.5-5.1) g/dL Lipase 26 (23-300) U/L Imaging Data Attestation: I personally reviewed and interpreted this imaging study as follows: My impression: Impressions Abdomen/Pelvis CT 03/18/25 11:59 Impression: Extensive cellulitis/soft tissue infection involving the subcutaneous soft tissues of the left buttock. No distinct abscess/fluid collection evident. Chest X-Ray 03/18/25 12:02 Impression: Clear lungs. Critical Care Time Critical Care Time Critical Care Time: Yes Total Critical Care Time: 75 Discharge Plan Discharge Clinical Impression: Cellulitis of buttock, left, Sepsis, Atrial fibrillation with rapid ventricular response Patient Disposition: Still a Patient Condition: Stable
[2025-03-18 11:22] LABS: Hematocrit 39.9 % (37.0-47.0); Hemoglobin 12.6 g/dL (12.0-15.0); Mean Corpuscular HGB Conc 31.6 g/dl (32-36); Mean Corpuscular Hemoglobin 31.7 pg (26-34); Mean Corpuscular Volume 100.5 fl (80-100); Mean Platelet Volume 11.2 fl (7.4-10.4); Platelet Count Result 330 k/mm3 (150-375); Red Blood Count 3.97 M/mm3 (4.2-5.4); Red Cell Distribution Width 14.5 % (11.5-14.5); White Blood Count 20.1 K/mm3 (4.5-10.0)
--- OUTSIDE RECORDS SUMMARY | 2025-03-18 11:29 | XMS_ITS | Referral Summary ---
Author Organization [facility] Address [address] [place] [address] Care Team Providers Care Crown And Bridge Technician Name Role Phone Cielo Ceja MD Primary Care Provide r Allergies Active Allergy Reactions Criticality Noted Date Comments Adhesive Tape-Silicones Other (See comments) Reaction: Unknown, Medications warfarin (COUMADIN) 5 mg tablet take 1 tablet by oral route every day 0 0 7 Active ALPRAZolam (XANAX) 0.5 mg tablet take 1 tablet by oral route 3 times every day 0 0 7 Active metoprolol XL (TOPROL-XL) 100 mg 24 hr tablet take 1 tablet by oral route every day 0 0 7 Active losartan-hydroc hlorothiazide (HYZAAR) 100-25 mg per tablet take 1 tablet by oral route every day 0 0 7 Active HYDROcodone-celina taminophen (NORCO) 7.5-325 mg per tablet take 1 tablet by oral route every 6 hours as needed for pain 0 0 7 Active zolpidem (AMBIEN) 5 mg tablet take 1 tablet by oral route every day at bedtime 0 0 7 Active amLODIPine (NORVASC) 10 mg tablet take 1 tablet by oral route every day 0 [address] (CYMBALTA) 30 mg capsule daily 0 0 7 Active gabapentin (NEURONTIN) 300 mg capsule Take 1 capsule (300 mg total) by mouth 3 (three) times a day. 180 capsule 1 8 Active acetaminophen (TYLENOL) 500 mg tablet Take 1 tablet (500 mg total) by mouth every 8 (eight) hours. 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 02/19/2019 Right L5 radiculopathy due t o right sided lateral recess stenosis at L4-5 02/19/2019 Abnormal magnetic resonance imaging study 2016 Overview (04/06/2017): Abnormal MRI, spine Social History Tobacco Use Types Packs/Day Years Used Date Smoking Tobacco: Never Alcohol Use Standard Drinks/Week Comments Yes 0 (1 standard drink = 0.6 oz pur e alcohol) Comments Unknown Sex and Gender Information Value Date Recorded Sex Assigned at Not on file 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 Gender Identity Not on file Sexual Orientation Not on file Last Filed Vital Signs Vital Sign Reading Time Taken Comments Blood Pressure 116/71 01/24/2020 5:52 AM CDT Pulse 87 01/24/2020 5:52 AM CDT Temperature 36.4 C (97.5 F) 01/23/2020 11:21 PM CDT Respiratory Rate 12 01/24/2020 5:52 AM CDT Oxygen Saturation 97% 01/24/2020 5:52 AM CDT Inhaled Oxygen Concentration - - Weight 83.9 kg (185 lb) 01/23/2020 11:21 PM CDT Height 149.9 cm (4' 11 ) 01/23/2020 11:21 PM CDT Body Mass Index 37.37 01/23/2020 11:21 PM CDT Plan of Treatment Not on file Insurance MEDICARE [facility] MEDICARE [facility] MEDICARE SUPPLEMENT INSURANCE Care Teams Crown And Bridge Technician Relationship Specialty Start Date End Date Cielo Ceja MD [address] [facility] [address] [place] [address] PCP - General 08/28/17
--- OUTSIDE RECORDS SUMMARY | 2025-03-18 11:29 | XMS_ITS ---
Author Organization [facility] Address [address] [place] [address] Care Team Providers Care Music Specialist Name Role Phone MikeMarshaPrince Unavailable [phone] Encounters Encounter Location Date Provider Diagnosis [place] [facility] [address] [place] [address] 12/31/2024 Prince Mckeon PLAN OF TREATMENT Next Appt Details Provider Name:Prince Mckeon , 04/15/2025 02:45:00 PM, [address], [facility], Progress Notes * KITTY RAYMUNDOHDOB: 0 (74 yo F)Acc No.[id number]:12/31/2024 Progress Notes Patient: CHRISTOPHER RAYMUNDO Provider: MD CHET, Kellie.Rubi.C.P, F.A.S.N. :1950 Age:74 Y Sex:Female Date:12/31/2024 Address:[address] [place] [address] Subjective: * Chief Complaints: * * Medical History: Objective: Assessment: Plan: * Treatment: * Billing Information: * Visit Code: * Procedure Codes: * Sign off status: Pending * Provider: MD CHET, Kellie.Rubi.C.P, F.A.S.N. Date: 12/31/2024
--- OUTSIDE RECORDS SUMMARY | 2025-03-18 11:29 | XMS_ITS | Clinical Summary ---
Author Organization [facility] Address [address] [place] [address] Care Team Providers Care Quality Assurance Monitor Final Name Role Phone Cielo Ceja MD Primary [...] study 2016 Overview (04/06/2017): Abnormal MRI, spine Surgical History Surgery Date Site/Laterality Comments TOTAL ABDOMINAL HYSTERECTOMY Hysterectomy, total GASTRIC BYPASS Gastric bypass ROTATOR CUFF REPAIR Rotator Cuff Repair Medical History Medical History Date Comments Hx Other Medical TIA Hx Other Medical AFIB Hypertension Hypertension Arthritis Arthritis Depression Depression Family History Medical History Relation Name Comments Liver cancer Brother 1 Cancer, liver; Diabetes Brother 2 Diabetes mellit us; Lung cancer Brother 3 Cancer, lung; Asthma Brother 4 Asthma; Hypertension Brother 5 Hypertension; Heart disease Father Heart disease; Cause of : Heart disease Prostate cancer Father Cancer, pros eaton; Diabetes Mother Diabetes mellit us; Heart disease Mother Heart disease; Cause of : Heart disease Hypertension Mother Hypertension; Lung cancer Mother Cancer, lung; Hypertension Other 1 Family history of Hypertension; Diabetes type II Other 2 Family hist ory of Diabetes mellitus type 2; Relation Name Status Comments Brother 1 Brother 2 Brother 3 Brother 4 Brother 5 Father Mother Other 1 Other 2 Social History Tobacco Use Types Packs/Day Years Used Date Smoking Tobacco: Never Alcohol Use Standard Drinks/Week Comments Yes 0 (1 standard drink = 0.6 oz pur e alcohol) Comments Unknown Sex and Gender Information Value Date Recorded Sex Assigned at Not on file 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
--- OUTSIDE RECORDS SUMMARY | 2025-03-18 11:29 | XMS_ITS | Patient Health Record ---
Author Organization [facility] Address [address] [place] [address] Care Team Providers Care Dock Manager Name Role Phone Brenna BENITES, Dewayne Primary Care Provider Un available Kaela Marmolejo Unavailable [phone] Migration, Provider Unavailable Unavailable Allergies Allergen (clinical drug ingredient) Drug/Non Drug Allergy documented on EMR Reaction Allergy Type Onset Date Status ADHESIVE TAPE (uncoded) Unknown Allergy 01/24/2024 Active Reason For Referral No Information Medications Medication SIG (Take, Route, Frequency, Duration) Notes Start Date End Date Status Eliquis 2.5 MG Oral 01/24/2024 Acti ve Spironolactone 25 MG Oral 01/24/2024 Active Allopurinol 100 MG Oral 01/24/2024 Active Lidocaine 5% External 01/24/2024 Active Flecainide Acetate 100 mg Oral 01/24/2024 Active HYDROcodone-Acetaminop hen 7.5-325 MG Oral 01/24/2024 Active DILTIAZEM 24HR ER 180 mg Oral *Reorder from [facility] for eRx and Interaction Alerts* 01/24/2024 Active ProAir HFA 108 (90 Base) MCG/ACT Inhalation 01/24/2024 Active Dofetilide 125 mcg Oral 01/24/2024 Active Calcitriol 0.25 MCG Oral 01/24/2024 Active Sertraline HCl 50 MG TAKE 1 TABLET BY MOUTH EVERY DAY FOR 90 DAYS for 90 Active Losartan Potassium 50 MG Oral 01/24/2024 Active traZODone HCl 150 MG TAKE 1 TABLET BY MOUTH EVERYDAY AT BEDTIME for 90 Active Flovent HFA 110 MCG/ACT Inhalation 01/24/2024 Active Metoprolol Succinate ER 100 MG Oral 01/24/2024 Active tiZANidine HCl 2 MG Oral 01/24/2024 Active Furosemide 40 MG Oral 01/24/2024 Ac tive Atorvastatin Calcium 40 MG Oral 01/24/2024 Active Naloxone HCl 4 MG/0.1ML Nasal 01/24/2024 Active Fluticasone Propionate Diskus 50 MCG/ACT Inhalation *Reorder from [facility] for eRx and Interaction Alerts* 01/24/2024 Active Loratadine 10 MG Oral 01/24/2024 Ac tive glipiZIDE ER 5 MG Oral 01/24/2024 A ctive Ergocalciferol 1.25 MG (46414 UT) Oral 01/24/2024 Active Albuterol Sulfate (2.5 MG/3ML) 0.083% Inhalation 01/24/2024 Active busPIRone HCl 10 MG TAKE 1 TABLET BY MOUTH THREE TIMES A DAY for 90 Active Sertraline HCl 100 MG 1 tablet Oral Once a day for 90 days Active busPIRone HCl 10 MG 1 tablet Oral Three times a day for 90 days Active Immunizations Vaccine Route Administration Date Status Comme nts Influenza virus vaccine, quadrivalent (IIV4), split virus, 0.25 mL dosage Unknown 09/12/2018 Administered Influenza virus vaccine, quadrivalent (IIV4), split virus, 0.25 mL dosage Unknown 08/12/2019 Administered Influenza, high dose seasonal Unknown 09/27/2016 Admini stered Influenza, high dose seasonal Unknown 08/11/2017 Admini stered Influenza, high dose seasonal Unknown 08/22/2019 Admini stered Influenza, high dose seasonal Unknown 07/28/2020 Admini stered Influenza, seasonal, injecta ble, preservative free, 3 yrs and above Unknown 09/05/2013 Administered Influenza, unspecified formulation Unknown 08/13/2023 A dministered Moderna Covid-19 Vaccine 1st dose Unknown 01/21/2021 Ad ministered Moderna Covid-19 Vaccine 1st dose Unknown 02/18/2021 Ad ministered Moderna Covid-19 Vaccine 1st dose Unknown 10/19/2021 Ad ministered Moderna Covid-19 Vaccine 2nd dose Unknown 09/11/2022 Ad ministered [employer] Covid-19 Vac cine 1st dose Unknown 09/12/2023 Administered Pneumococcal conjugate PCV 13 Unknown 09/27/2016 Admini stered Pneumococcal conjugate PCV 7 Unknown 11/12/2016 Adminis tered Pneumococcal polysaccharide PPV23 Unknown 08/22/2019 Ad ministered RSV-MAb (Respiratory syncyti al virus immune globulin) Unknown 08/13/2023 Administered Td (adult), adsorbed Unknown 04/26/2015 Administered Zoster Unknown 10/03/2020 Administered Zoster Unknown 12/31/2020 Administered Social History Sex Assigned At : Social History Observation Description Sex Assigned At Female Problems Problem Type SNOMED Code ICD Code Onset Dates Problem Status W/U Status Risk Notes Problem Mild recurrent major depression (05203360) Major depressive disorder, recurrent, mild (F33.0) 4 Active confirmed Problem Generalized anxiety disorder (05992152) Generalized anxiety disorder (F41.1) 4 Active confirmed Problem Primary insomnia (4394001) Primary insomnia (F51.01) 4 Active confirmed Problem Long-term current use of drug therapy (069341763) Other alf (current) drug therapy (Z79.899) 4 Active confirmed Vital Signs Heart Rate 111 /min 07/22/2024 Height-cm 152.40 cm 01/15/2025 Blood pressure diastolic 70 mm Hg 07/22/2024 Weight-kg 68.77 kg 01/15/2025 Height 60.00 in 01/15/2025 Blood pressure systolic 133 mm Hg 07/22/2024 Weight 151.6 lbs 01/15/2025 BMI 29.6 kg/m2 01/15/2025 Encounters Encounter Location Date Provider Diagnosis [facility] [address] [address] 03/25/2024 Provider Migration Major depressive disorder, recurrent, mild F33.0 and Primary insomnia F51.01 [facility] [address] [address] 07/22/2024 Kaela Marmolejo Major depressive disorder, recurrent, mild F33.0 ; Generalized anxiety disorder F41.1 ; Primary insomnia F51.01 and Other alf (current) drug therapy Z79.899 [facility] [address] [address] 01/15/2025 Kaela Marmolejo Major depressive disorder, recurrent, mild F33.0 ; Generalized anxiety disorder F41.1 ; Primary insomnia F51.01 and Other supervisor intermediates (current) drug therapy Z79.899 [facility] Handseeing Information [place] [id number] [place] [address] 03/29/2024 Provider Migration [place] [id number] [place] [address] 03/30/2024 Provider Migration Assessments Encounter Date Diagnosis (ICD Code) Assessment Notes Treatment Notes Treatment Clinical Notes Section Notes 03/25/2024 Major depressive disorder, recurrent, mild (ICD-10 - F33.0) 03/25/2024 Primary insomnia (ICD-10 - F51.01) 01/15/2025 Major depressive disorder, recurrent, mild (ICD-10 - F33.0) 1. depression -Zoloft 150 mg daily educated on all medications, benefits, side effects and risk, and educated on depression, anxiety, and mood d/o and educated on compliance of medications, metabolic and movement d/o education appointment's, continue therapy discussion with patient about course of treatmentand patient instructions. education on serotonin syndrome SSRI/SNRI side effects discussed including but not limited to, gastric upset, nausea, vomiting, diarrhea and/or constipation, weight changes, sexual side effects including loss of libido, increased suicidal thoughts/behaviors in children and young adults, and serotonin syndrome. 2. 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 Benzodiazepine use is generally not recommended concurrently with pain medications and/or other controlled substances due to increased risks of profound sedation, respiratory depression, coma, and even . They are not to be used with any alcohol, as this combination can also be lethal. Patient was provided caution Prescription Monitoring Report reviewed obtain labs PCP 3. Primary insomnia - Trazodone 150 mg po nightly. Melatonin 10 mg OTC 4. SLUMS= 29 01/15/25 5. Long-term drug therapy -PCP and kidney specialty labs. hx anemia 07/22/2024 Major depressive disorder, recurrent, mild (ICD-10 - F33.0) 1. Mild recurrent major depression -Zoloft 150 mg daily educated on all medications, benefits, side effects and risk, and educated on depression, anxiety, and mood d/o and educated on compliance of medications, metabolic and movement d/o education appointment's, continue therapy discussion with patient about course of treatmentand patient instructions. education on serotonin syndrome SSRI/SNRI side effects discussed including but not limited to, gastric upset, nausea, vomiting, diarrhea and/or constipation, weight changes, sexual side effects including loss of libido, increased suicidal thoughts/behaviors in children and young adults, and serotonin syndrome. 2. 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 Benzodiazepine use is generally not recommended concurrently with pain medications and/or other controlled substances due to increased risks of profound sedation, respiratory depression, coma, and even . They are not to be used with any alcohol, as this combination can also be lethal. Patient was provided caution Prescription Monitoring Report reviewed obtain labs PCP 3. Primary insomnia - increase Trazodone 150 mg po nightly. Melatonin 10 mg OTC 4. Long-term drug therapy -PCP and kidney specialty labs. hx anemia 07/22/2024 Generalized anxiety disorder (ICD-10 - F41.1) 1. Mild recurrent major depression -Zoloft 150 mg daily educated on all medications, benefits, side effects and risk, and educated on depression, anxiety, and mood d/o and educated on compliance of medications, metabolic and movement d/o education appointment's, continue therapy discussion with patient about course of treatmentand patient instructions. education on serotonin syndrome SSRI/SNRI side effects discussed including but not limited to, gastric upset, nausea, vomiting, diarrhea and/or constipation, weight changes, sexual side effects including loss of libido, increased suicidal thoughts/behaviors in children and young adults, and serotonin syndrome. 2. 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 Benzodiazepine use is generally not recommended concurrently with pain medications and/or other controlled substances due to increased risks of profound sedation, respiratory depression, coma, and even . They are not to be used with any alcohol, as this combination can also be lethal. Patient was provided caution Prescription Monitoring Report reviewed obtain labs PCP 3. Primary insomnia - increase Trazodone 150 mg po nightly. Melatonin 10 mg OTC 4. Long-term drug therapy -PCP and kidney specialty labs. hx anemia 07/22/2024 Primary insomnia (ICD-10 - F51.01) 1. Mild recurrent major depression -Zoloft 150 mg daily educated on all medications, benefits, side effects and risk, and educated on depression, anxiety, and mood d/o and educated on compliance of medications, metabolic and movement d/o education appointment's, continue therapy discussion with patient about course of treatmentand patient instructions. education on serotonin syndrome SSRI/SNRI side effects discussed including but not limited to, gastric upset, nausea, vomiting, diarrhea and/or constipation, weight changes, sexual side effects including loss of libido, increased suicidal thoughts/behaviors in children and young adults, and serotonin syndrome. 2. 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 Benzodiazepine use is generally not recommended concurrently with pain medications and/or other controlled substances due to increased risks of profound sedation, respiratory depression, coma, and even . They are not to be used with any alcohol, as this combination can also be lethal. Patient was provided caution Prescription Monitoring Report reviewed obtain labs PCP 3. Primary insomnia - increase Trazodone 150 mg po nightly. Melatonin 10 mg OTC 4. Long-term drug therapy -PCP and kidney specialty labs. hx anemia 01/15/2025 Generalized anxiety disorder (ICD-10 - F41.1) 1. depression -Zoloft 150 mg daily educated on all medications, benefits, side effects and risk, and educated on depression, anxiety, and mood d/o and educated on compliance of medications, metabolic and movement d/o education appointment's, continue therapy discussion with patient about course of treatmentand patient instructions. education on serotonin syndrome SSRI/SNRI side effects discussed including but not limited to, gastric upset, nausea, vomiting, diarrhea and/or constipation, weight changes, sexual side effects including loss of libido, increased suicidal thoughts/behaviors in children and young adults, and serotonin syndrome. 2. 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 Benzodiazepine use is generally not recommended concurrently with pain medications and/or other controlled substances due to increased risks of profound sedation, respiratory depression, coma, and even . They are not to be used with any alcohol, as this combination can also be lethal. Patient was provided caution Prescription Monitoring Report reviewed obtain labs PCP 3. Primary insomnia - Trazodone 150 mg po nightly. Melatonin 10 mg OTC 4. SLUMS= 29 01/15/25 5. Long-term drug therapy -PCP and kidney specialty labs. hx anemia 01/15/2025 Primary insomnia (ICD-10 - F51.01) 1. depression -Zoloft 150 mg daily educated on all medications, benefits, side effects and risk, and educated on depression, anxiety, and mood d/o and educated on compliance of medications, metabolic and movement d/o education appointment's, continue therapy discussion with patient about course of treatmentand patient instructions. education on serotonin syndrome SSRI/SNRI side effects discussed including but not limited to, gastric upset, nausea, vomiting, diarrhea and/or constipation, weight changes, sexual side effects including loss of libido, increased suicidal thoughts/behaviors in children and young adults, and serotonin syndrome. 2. 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 Benzodiazepine use is generally not recommended concurrently with pain medications and/or other controlled substances due to increased risks of profound sedation, respiratory depression, coma, and even . They are not to be used with any alcohol, as this combination can also be lethal. Patient was provided caution Prescription Monitoring Report reviewed obtain labs PCP 3. Primary insomnia - Trazodone 150 mg po nightly. Melatonin 10 mg OTC 4. SLUMS= 29 01/15/25 5. Long-term drug therapy -PCP and kidney specialty labs. hx anemia 07/22/2024 Other supervisor intermediates (current) drug therapy (ICD-10 - Z79.899) 1. Mild recurrent major depression -Zoloft 150 mg daily educated on all medications, benefits, side effects and risk, and educated on depression, anxiety, and mood d/o and educated on compliance of medications, metabolic and movement d/o education appointment's, continue therapy discussion with patient about course of treatmentand patient instructions. education on serotonin syndrome SSRI/SNRI side effects discussed including but not limited to, gastric upset, nausea, vomiting, diarrhea and/or constipation, weight changes, sexual side effects including loss of libido, increased suicidal thoughts/behaviors in children and young adults, and serotonin syndrome. 2. 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 Benzodiazepine use is generally not recommended concurrently with pain medications and/or other controlled substances due to increased risks of profound sedation, respiratory depression, coma, and even . They are not to be used with any alcohol, as this combination can also be lethal. Patient was provided caution Prescription Monitoring Report reviewed obtain labs PCP 3. Primary insomnia - increase Trazodone 150 mg po nightly. Melatonin 10 mg OTC 4. Long-term drug therapy -PCP and kidney specialty labs. hx anemia 01/15/2025 Other alf (current) drug therapy (ICD-10 - Z79.899) 1. depression -Zoloft 150 mg daily educated on all medications, benefits, side effects and risk, and educated on depression, anxiety, and mood d/o and educated on compliance of medications, metabolic and movement d/o education appointment's, continue therapy discussion with patient about course of treatmentand patient instructions. education on serotonin syndrome SSRI/SNRI side effects discussed including but not limited to, gastric upset, nausea, vomiting, diarrhea and/or constipation, weight changes, sexual side effects including loss of libido, increased suicidal thoughts/behaviors in children and young adults, and serotonin syndrome. 2. 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 Benzodiazepine use is generally not recommended concurrently with pain medications and/or other controlled substances due to increased risks of profound sedation, respiratory depression, coma, and even . They are not to be used with any alcohol, as this combination can also be lethal. Patient was provided caution Prescription Monitoring Report reviewed obtain labs PCP 3. Primary insomnia - Trazodone 150 mg po nightly. Melatonin 10 mg OTC 4. SLUMS= 29 01/15/25 5. Long-term drug therapy -PCP and kidney specialty labs. hx anemia 07/22/2024 Other referral to the local chapter or national office of the Alzheimer's Association (5-856-877-390 0; http://www.alz .org), the Alzheimer's Disease Education and Referral Center (ADEMA) (3-395-424-438 0; http://www.wes .nih.gov/Alzhe imers/), 1. Mild recurrent major depression -Zoloft 150 mg daily educated on all medications, benefits, side effects and risk, and educated on depression, anxiety, and mood d/o and educated on compliance of medications, metabolic and movement d/o education appointment's, continue therapy discussion with patient about course of treatmentand patient instructions. education on serotonin syndrome SSRI/SNRI side effects discussed including but not limited to, gastric upset, nausea, vomiting, diarrhea and/or constipation, weight changes, sexual side effects including loss of libido, increased suicidal thoughts/behaviors in children and young adults, and serotonin syndrome. 2. 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 Benzodiazepine use is generally not recommended concurrently with pain medications and/or other controlled substances due to increased risks of profound sedation, respiratory depression, coma, and even . They are not to be used with any alcohol, as this combination can also be lethal. Patient was provided caution Prescription Monitoring Report reviewed obtain labs PCP 3. Primary insomnia - increase Trazodone 150 mg po nightly. Melatonin 10 mg OTC 4. Long-term drug therapy -PCP and kidney specialty labs. hx anemia 01/15/2025 Other Notes: referral to the local chapter or national office of the Alzheimer's Association (9-250-973-137 0; http://www.alz .org), the Alzheimer's Disease Education and Referral Center (ADEMA) (8-204-921-280 0; http://www.wes .nih.gov/Alzhe imers/), referral to the local [facility] or national office of the Alzheimer's Association (9-388-214-940 0; http://www.alz .org), the Alzheimer's Disease Education and Referral Center (ADEMA) (8-470-307-494 0; http://www.wes .nih.gov/Alzhe imers/), 1. depression -Zoloft 150 mg daily educated on all medications, benefits, side effects and risk, and educated on depression, anxiety, and mood d/o and educated on compliance of medications, metabolic and movement d/o education appointment's, continue therapy discussion with patient about course of treatmentand patient instructions. education on serotonin syndrome SSRI/SNRI side effects discussed including but not limited to, gastric upset, nausea, vomiting, diarrhea and/or constipation, weight changes, sexual side effects including loss of libido, increased suicidal thoughts/behaviors in children and young adults, and serotonin syndrome. 2. 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 Benzodiazepine use is generally not recommended concurrently with pain medications and/or other controlled substances due to increased risks of profound sedation, respiratory depression, coma, and even . They are not to be used with any alcohol, as this combination can also be lethal. Patient was provided caution Prescription Monitoring Report reviewed obtain labs PCP 3. Primary insomnia - Trazodone 150 mg po nightly. Melatonin 10 mg OTC 4. SLUMS= 29 01/15/25 5. Long-term drug therapy -PCP and kidney specialty labs. hx anemia Plan Of Treatment Next Appt Details Provider Name:Kaela Pimentelroman , 07/16/2025 01:00:00 PM, [address], [address], [place], [address], Insurance Providers Payer Name Payer Address Payer Phone Subscriber Number Group Number Insured Name Patient Relationship to Insured Coverage Start Date Coverage End Date Medicare-I l Medicare [address] [place] [address] [id number] CHRISTOPHER RAYMUNDO Self - patient is the insured [employer] [address] [place] [address] [id number] CHRISTOPHER RAYMUNDO Self - patient is the insured Medical (General) History Medical History History ICD Code Problems: Generalized anxiety disorder Long-term drug therapy Mild recurrent major depression Primary insomnia Recurrent major depressive episodes, mod erate , osteoporosis Surgical History Surgery Date(Month/Year) Gastric bypass for obesity (07617) Hysterectomy/revise vagina (41308) Tonsilectomy/adenoids 11/12/1954 Hysterectomy (75058) 11/12/1977
--- OUTSIDE RECORDS SUMMARY | 2025-03-18 11:30 | XMS_ITS | Data Portability ---
Author Organization [place] [facility], Main Office Address [address] [place] [address] Care Team Providers Care [employer] Name Role Phone LENI HUI Tongue And Groove Machine Setter [facility] CARLY LLANES Straw Hat Machine Operator RORO MCCULLOUGH Hematology/Oncology Assessment Encounter Date Assessment Date Assessment LastModified by Organization Details LastModified Time 08/26/2024 08/26/2024 12/20/2022: B12/Folate/VIT D/LIPID: WNL CMP: Gluc 56L, BUN 23/Cr 1.88, GFR 26 CBC: HGB 11.4, MCV 100.0H 05/24/2023: Lipids/TSH: WNL Dr Mike WHITE BUN 23/Cr 1.84, GFR 27, gluc 101 12/24/2023: TSH/FT4/Lipids: WNL Dr Mike WHITE CBC: WNL Gluc 106, BUN 30, Cr 1.61, GFR 31, Ca 10.6 04/21/2024: Lipids: WNL 08/07/2024: BUN/Cr./GFR: 28/1.46/35 [email or web address] Not available 08/26/2024 10:33:24 12/09/2024 12/09/2024 12/20/2022: B12/Folate/VIT D/LIPID: WNL CMP: Gluc 56L, BUN 23/Cr 1.88, GFR 26 CBC: HGB 11.4, MCV 100.0H 05/24/2023: Lipids/TSH: WNL Dr Mike WHITE BUN 23/Cr 1.84, GFR 27, gluc 101 12/24/2023: TSH/FT4/Lipids: WNL Dr Mike WHITE CBC: WNL Gluc 106, BUN 30, Cr 1.61, GFR 31, Ca 10.6 04/21/2024: Lipids: WNL 08/07/2024: BUN/Cr./GFR: /35 11/07/2024: Gluc 100, BUN/Cr./GFR: /, Ca 10.4 MCV 100 A1C 5.7 [email or web address] Not available 12/09/2024 10:40:02 12/16/2024 12/16/2024 Time spent with patient included: preparing to see patient by reviewing tests, obtaining and reviewing history, medical examination and evaluation, counseling and educating the patient, ordering medications and tests, documenting clinical information in EHR, independently interpreting results and communicating results to the patient for a total of 48 minutes. Not available 12/16/2024 10:28:35 01/06/2025 01/06/2025 Time spent with patient included: preparing to see patient by reviewing tests, obtaining and reviewing history, medical examination and evaluation, counseling and educating the patient, ordering medications and tests, documenting clinical information in EHR, independently interpreting results and communicating results to the patient for a total of 25 minutes. Not available 01/06/2025 10:11:40 02/03/2025 02/03/2025 12/20/2022: B12/Folate/VIT D/LIPID: WNL CMP: Gluc 56L, BUN 23/Cr 1.88, GFR 26 CBC: HGB 11.4, MCV 100.0H 05/24/2023: Lipids/TSH: WNL Dr Mike WHITE BUN 23/Cr 1.84, GFR 27, gluc 101 12/24/2023: TSH/FT4/Lipids: WNL Dr Mike WHITE CBC: WNL Gluc 106, BUN 30, Cr 1.61, GFR 31, Ca 10.6 04/21/2024: Lipids: WNL 08/07/2024: BUN/Cr./GFR: /35 11/07/2024: Gluc 100, BUN/Cr./GFR: /, Ca 10.4 MCV 100 A1C 5.7 12/24/2024: TSH 5.900H, FT4 1.[address] Mike WHITE Ca 10.6 MCV 99.3 [email or web address] Not available 02/03/2025 12:19:17 Plan of Treatment Reminders Order Date Submit Date Provider Last Modified By Organization Details Last Modified Time Details Appointments Any 30 2024 08:45A M Carly Llanes NP Not available Not available Not available Any 15 2024 10:45A M Dewayne sierra MD Not available Not available Not available Lab vitamin D, 25-hydrox y, total, serum [address] (Lab), [address] [place], [address], 02/04/2025 10:37:38 lipid panel, serum [address] (Lab), [address] [place], [address], 02/04/2025 10:37:37 CBC w/ auto diff [address] (Lab), [address] [place], [address], 02/04/2025 10:37:37 T4, free, serum [address] (Lab), [address] [place], [address], 02/04/2025 10:37:37 CMP, serum or plasma [address] (Lab), [address] [place], [address], 02/04/2025 10:37:38 TSH, serum or plasma [address] (Lab), [address] [place], [address], 02/04/2025 10:37:38 lipid panel, serum 2024 025 [facility] (Lab), [address] [place], [address], 12/24/2024 11:19:04 CBC w/ auto diff 2024 025 [facility] (Lab), [address] [place], [address], 12/24/2024 16:17:29 T4, free, serum 2024 025 [facility] (Lab), [address] [place], [address], 12/24/2024 11:34:16 CMP, serum or plasma 2024 025 [facility] (Lab), [address] [place], [address], 12/24/2024 16:17:29 TSH, serum or plasma 2024 025 [facility] (Lab), [address] [place], [address], 12/24/2024 11:47:40 vitamin D, 25-hydrox y, total, serum 2024 025 [facility] (Lab), [address] [place], [address], 12/24/2024 16:17:30 lipid panel, serum 2023 024 [facility] (Lab), [address] [place], [address], 11/07/2024 12:07:11 CBC w/ auto diff 2023 024 [facility] (Lab), [address] [place], [address], 11/10/2024 07:11:15 T4, free, serum 2023 024 [facility] (Lab), [address] [place], [address], 11/07/2024 12:19:10 CMP, serum or plasma 2023 024 [facility] (Lab), [address] [place], [address], 11/10/2024 07:11:15 TSH, serum or plasma 2023 024 [facility] (Lab), [address] [place], [address], 11/07/2024 13:06:09 vitamin D, 25-hydrox y, total, serum [address] (Lab), [address] [place], [address], 02/26/2025 08:55:05 Referral nephrolog ist referral - Please call patient to schedule an appointme nt. Thank you. 2024 025 Chris-Resub ric-Revert Prince Mckeon MD (Nephrology, [address], [place] [address], [place], [address], 02/03/2025 21:07:04 otolaryng ologist referral - Please call patient to schedule an appointme nt. Thank you. 2024 025 CARMINE Hui MD, [address], [place], [address], 12/31/2024 12:30:51 hematolog ist referral - Please call patient to schedule an appointme nt. Thank you. 2024 025 [email or web address] Roro Mccullough MD, [address], [place], [address], 03/05/2025 09:36:27 pulmonolo gist referral - Please call patient to schedule. 2024 025 [email or web address] Carly Kalyn MUD ANALYSIS WELL LOGGING OPERATOR-C, [address], [address], [place], [address], 12/31/2024 12:00:38 nephrolog ist referral - Please call patient to schedule an appointme nt. Thank you. 2024 025 CARMINE Mckeon MD (Nephrology, [address], [address], [place], [address], 01/22/2025 19:40:35 cardiolog ist referral - Please call patient to schedule an appointme nt. Thank you. 2024 025 [place], [address], [address], [place], [address], 12/31/2024 13:10:32 otolaryng ologist referral - Please call patient to schedule. 2023 024 [email or web address] Leni Hui MD, [address], [place], [address], 11/11/2024 15:25:18 hematolog ist referral - Please call patient to schedule. 2023 024 [email or web address] Roro Mccullough MD, [address], [place], [address], 11/11/2024 15:25:18 pulmonolo gist referral - Please call patient to schedule. 2023 024 [email or web address] Carly Kalyn MUD ANALYSIS WELL LOGGING OPERATOR-C, [address], [address], [place], [address], 09/12/2024 13:03:20 nephrolog ist referral 2023 024 [email or web address] Prince Mckeon MD (Nephrology, [address], [address], [place], [address], 08/26/2024 11:33:15 cardiolog ist referral 2023 024 [email or web address] [place], [address], [address], [address], 08/26/2024 11:33:14 Procedures None recorded. Surgeries None recorded. Imaging DEXA, axial skeleton - Please call patient to schedule. [address] ([facility]), [address] [place], [address], 03/12/2025 16:08:26 DEXA, axial skeleton [address] (Imaging), [address] [place], [address], 02/26/2025 11:33:27 Medication Orders Prolia 60 mg/mL subcutane ous syringe 2024 025 [email or web address] [facility]/Pharmacy #[id number], [address], [place], [address], 02/03/2025 12:52:13 doxycycli ne hyclate 100 mg capsule 2024 025 [facility]/Pharmacy #[id number], [address], [place], [address], 01/06/2025 09:46:11 prednison e 10 mg tablet 2024 025 [facility]/Pharmacy #[id number], [address], [place], [address], 01/06/2025 09:46:48 albuterol sulfate HFA 90 mcg/actua tion aerosol inhaler 2024 025 [facility]/Pharmacy #[id number], [address], [place], [address], 12/09/2024 11:22:23 spironola ctone 25 mg tablet 2023 024 [facility]/Pharmacy #[id number], [address], [place], [address], 08/26/2024 10:56:57 Patient TargetsNo targets recorded. Patient Instructions Encounter Date Encounter Id Patient Instructions Last Modified By Organization Details Last Modified Time 01/06/2025 [id number] complete PFT w/ post bronchodilator spirometry* - Please call patient to schedule. NPAN [id number]. [email or web address] Not available 02/11/2025 17:13:15 Reason for Referral Straw Hat Machine Operator Referral for A sthma Please call patient to schedule. Referring Physician: Dewayne Ceja Internal Medicine, Encounter Date: 08/26/2024 Please call patient to riley sifuentes. Referring Physician: Dewayne Ceja Internal Medicine, Encounter Date: 08/26/2024 Railcar Switcher Referral for At rial fibrillation Referring Physician: Dewayne Ceja Internal Medicine, Encounter Date: 08/26/2024 Photography Colorist Referral for Ch ronic kidney disease Referring Physician: Dewayne Ceja Internal Medicine, Encounter Date: 08/26/2024 Tongue And Groove Machine Setter Referral fo r Hypercalcemia Please call patient to schedule. Referring Physician: Dewayne Ceja Internal Medicine, Encounter Date: 08/26/2024 Straw Hat Machine Operator Referral for A sthma Please call patient to schedule. Referring Physician: Dewayne Ceja Internal Medicine, Encounter Date: 12/09/2024 Please call patient to riley sifuentes an appointment. Thank you. Referring Physician: Anirudh Willson Medicine, Encounter Date: 12/09/2024 Railcar Switcher Referral for At rial fibrillation Please call patient to schedule an appointment. Thank you. Referring Physician: Anirudh Willson, Encounter Date: 12/09/2024 Photography Colorist Referral for Ch ronic kidney disease Please call patient to schedule an appointment. Thank you. Referring Physician: Dewayne Ceja Internal Medicine, Encounter Date: 12/09/2024 Tongue And Groove Machine Setter Referral fo r Hypercalcemia Please call patient to schedule an appointment. Thank you. Referring Physician: Dewayne Ceja Internal Medicine, Encounter Date: 12/09/2024 Photography Colorist Referral for Ch ronic kidney disease Please call patient to schedule an appointment. Thank you. Referring Physician: Dewayne Ceja Internal Medicine, Encounter Date: 02/03/2025 Results Created Date Observation Date Name Description Value Unit Range Abnormal Flag Note LastModifiedBy Organization Detail LastModifiedTime 08/07/2008/07/2024 LIPID PANEL cholesterol 187 mg/dL 140-19 9 NIH SERENE NSUS RECOM MENDA TION FOR AVNI STERO L: ADULT CHILD LOW RISK: <200 <170 BORDE RLINE : <200- 239 ----- HIGH RISK: >240 >200 Not Available [facility] (Lab) [address] [place], [address], 08/07/2024 11:18:43 08/07/2008/07/2024 LIPID PANEL triglyceride s 109 mg/dL 0-150 NIH SERENE NSUS REPOR T RECOM MENDA TION FOR TRIGL YCERI JERROD: ADULT CHILD LOW RISK: <150 ----- BODER LINE: 150-1 99 ----- HIGH RISK: >200 ----- Not Available [facility] (Lab) [address] [place], [address], 08/07/2024 11:18:43 08/07/2008/07/2024 LIPID PANEL HDL cholesterol 76 mg/dL 40- Not Available [facility] (Lab) [address] [place], [address], 08/07/2024 11:18:43 08/07/20 24 08/07/2024 LIPID PANEL LDL cholesterol, calculated 89 mg/dL 0-130 NIH SERENE NSUS REPOR T RECOM MENDA TIONS FOR LDL: ADULT CHILD LOW RISK <130 <110 (OPTI MAL LDL) <100 ----- BORDE RLINE : 130-1 59 ----- HIGH RISK: >160 >130 A TRIGL YCERI DE RESUL T >400 INVAL IDATE S THE CALCU LATIO N FOR LDL FRACT IONAT ION - THE LDL RESUL T WILL NOT BE REPOR LIAN. Not Available [facility] (Lab) [address] [place], [address], 08/07/2024 11:18:43 08/07/2008/07/2024 T4 FREE free T4 1.50 NG/dL 0.78-2 .19 Not Available [facility] (Lab) [address] [place], [address], 08/07/2024 12:15:11 11/07/20 24 11/07/2024 LIPID PANEL cholesterol 180 mg/dL 140-19 9 NIH SERENE NSUS RECOM MENDA TION FOR AVNI STERO L: ADULT CHILD LOW RISK: <200 <170 BORDE RLINE : <200- 239 ----- HIGH RISK: >240 >200 Not Available [facility] (Lab) [address] [place], [address], 11/07/2024 12:07:10 11/07/20 24 11/07/2024 LIPID PANEL triglyceride s 111 mg/dL 0-150 NIH SERENE NSUS REPOR T RECOM MENDA TION FOR TRIGL YCERI JERROD: ADULT CHILD LOW RISK: <150 ----- BODER LINE: 150-1 99 ----- HIGH RISK: >200 ----- Not Available [facility] (Lab) [address] [place], [address], 11/07/2024 12:07:10 11/07/20 24 11/07/2024 LIPID PANEL HDL cholesterol 61 mg/dL 40- Not Available [facility] (Lab) [address] [place], [address], 11/07/2024 12:07:10 11/07/20 24 11/07/2024 LIPID PANEL LDL cholesterol, calculated 97 mg/dL 0-130 NIH SERENE NSUS REPOR T RECOM MENDA TIONS FOR LDL: ADULT CHILD LOW RISK <130 <110 (OPTI MAL LDL) <100 ----- BORDE RLINE : 130-1 59 ----- HIGH RISK: >160 >130 A TRIGL YCERI DE RESUL T >400 INVAL IDATE S THE CALCU LATIO N FOR LDL FRACT IONAT ION - THE LDL RESUL T WILL NOT BE REPOR LIAN. Not Available [facility] (Lab) [address] [place], [address], 11/07/2024 12:07:10 11/07/20 24 11/07/2024 T4 FREE free T4 1.31 NG/dL 0.78-2 .19 Not Available [facility] (Lab) [address] [place], [address], 11/07/2024 12:19:10 12/24/19 25 12/24/2024 LIPID PANEL cholesterol 165 mg/dL 140-19 9 NIH SERENE NSUS RECOM MENDA TION FOR AVNI STERO L: ADULT CHILD LOW RISK: <200 <170 BORDE RLINE : <200- 239 ----- HIGH RISK: >240 >200 Not Available [facility] (Lab) [address] [place], [address], 12/24/2024 11:19:04 12/24/19 25 12/24/2024 LIPID PANEL triglyceride s 143 mg/dL 0-150 NIH SERENE NSUS REPOR T RECOM MENDA TION FOR TRIGL YCERI JERROD: ADULT CHILD LOW RISK: <150 ----- BODER LINE: 150-1 99 ----- HIGH RISK: >200 ----- Not Available [facility] (Lab) [address] [place], [address], 12/24/2024 11:19:04 12/24/19 25 12/24/2024 LIPID PANEL HDL cholesterol 61 mg/dL 40- Not Available [facility] (Lab) [address] [place], [address], 12/24/2024 11:19:04 12/24/19 25 12/24/2024 LIPID PANEL LDL cholesterol, calculated 75 mg/dL 0-130 NIH SERENE NSUS REPOR T RECOM MENDA TIONS FOR LDL: ADULT CHILD LOW RISK <130 <110 (OPTI MAL LDL) <100 ----- BORDE RLINE : 130-1 59 ----- HIGH RISK: >160 >130 A TRIGL YCERI DE RESUL T >400 INVAL IDATE S THE CALCU LATIO N FOR LDL FRACT IONAT ION - THE LDL RESUL T WILL NOT BE REPOR LIAN. Not Available [facility] (Lab) [address] [place], [address], 12/24/2024 11:19:04 12/24/19 25 12/24/2024 T4 FREE free T4 1.69 NG/dL 0.78-2 .19 Not Available [facility] (Lab) [address] [place], [address], 12/24/2024 11:34:16 12/24/19 25 12/24/2024 TSH thyroid-stim ulating hormone 5.900 uIU/m L 0.465- 4.680 high Not Available [facility] (Lab) [address] [place], [address], 12/24/2024 11:47:40 09/10/20 24 12/28/2022 DEXA, axial skele ton No observ ation record ed. [email or web address] [facility] (Imaging) [address] [place], [address], 02/03/2025 14:17:08 12/09/19 25 12/09/2024 XR, chest , 2 view [facility] [address], [place] [address] Patien t Name: KITTY RIZO Access ion #: [id number] Sex: F : 1949 8 Dictat ed By: iVvian Lucia Attend ing Physic florence: PAPO PATRICK Orderi ng Physic florence: PAPO PATRICK Exam Date: 2024 08:56 AM Exam Name: XR CHEST 2V Admitt ing Diagno sis(es ): EXAM: XR CHEST 2V CLINIC AL HISTOR Y: cough COMPAR ISHMAEL: XR CHEST 2V on DOS: 1 TECHNI QUE: Fronta l and latera l view of the chest was obtain ed FINDIN GS: Lines and Tubes: Cardia c pacema ker projec ts over left chest wall. Lungs: No focal consol idatio n. Pleura : No effusi on. No pneumo thorax . Cardio medias tinal contou rs: Unrema rkable Bones: No acute osseou s abnorm ality. IMPRES NORMA: No acute cardio pulmon zeb diseas e. Electr onical ly Signed by: Vivian Lucia at 2024 10:26: 44 AM Page [email or web address] (Imaging) [address] [place], [address], 12/24/2024 15:23:48 12/09/19 25 12/09/2024 XR, chest No observ ation record ed. [facility] [address] [place], [address], 12/24/2024 15:26:24 02/17/20 25 01/28/2025 compl ete PFT w/ post [facility] hodil ator jerod metry * No observ ation record ed. [email or web address] [facility] ([facility]) [address] [place], [address], 02/19/2025 10:35:36 Result Notes None recorded. Problems Name Problem SNOMED Code Status Onset Date Resolution Date Notes Provider Name and Address Organization Details Recorded Time Osteoarthriti s 585435524 Active Not Available [facility] 3 06:14:00 Disorder of rotator cuff 113076118 Active Not Available [facility] 3 06:14:00 Atrial fibrillation 32354345 Active Not Available [facility] 3 06:14:00 Disorder of bursa of shoulder region 44583251 Active Not Available [facility] 3 06:14:00 Essential hypertension 59515730 Active Not Available [facility] 3 06:14:00 Rhinitis 87157482 Active Not Available [facility] 3 06:14:00 Spinal stenosis 36710725 Active Not Available [facility] 3 06:14:00 Chronic kidney disease 760964392 Active 2022 Not Available [facility] 3 06:14:00 Gout 32655826 Active 2022 Not Available [facility] 3 06:14:00 Chronic depression 333459427 Active 2022 Efren Servin MD [address], [address], [place], [address] , [facility] 5 16:11:41 Hyperlipidemi a 41330545 Active 2022 Not Available [facility] 3 06:14:00 Anemia 741931807 Active 2022 Not Available [facility] 3 06:14:00 Small bowel obstruction 878954786 Active 2022 Not Available [facility] 3 06:14:00 COVID-19 452354350 Active 2023 Dewayne marcano MD [address], [address], [place], [address] , [facility] 4 14:25:50 Osteoporosis 54459717 Active 2024 Flores Jones MA [facility], [facility] 5 17:47:56 Hypercalcemia 48158085 Active 2024 Dewayne marcano MD [address], [address], [place], [address] , [facility] [employer] [facility] 14:06:07 Moderate chronic obstructive pulmonary disease 054216840 Active 2024 Efren Servin MD [address], [address], [place], [address] , [facility] [employer] [facility] 16:16:13 Notes:Mod COPD PFT 01/28/25 FEV1 1.00 L (55%), BD 110 mL = 12%, TLC 2.75 L (77%), RV 1.26 L (85%), DLCO 57%, DLCO/VA 131% Problem Notes None recorded. Procedures Surgical History Date Name Laterality Status Provider Name and Address Organization Details Recorded Time 04/22/20 24 Medicare Wellness CPT Code, subsequent completed Lucio Ulloa LPN [facility] [employer] [facility] 04/18/2024 08:41:36 04/13/20 23 drainage of abscess completed RICHARD Ramirez [facility] [employer] [facility] 04/24/2023 16:24:47 03/07/20 16 Date of Last Colonoscopy completed Not Available [facility] 01/10/2023 01:18:14 03/07/20 16 Colon ca scrn not hi rsk ind completed Not Available [facility] 01/10/2023 01:18:24 11/18/19 11 Most Recent Bone Density completed Not Available [facility] 01/10/2023 01:18:15 Cyst Removal completed RICHARD Ramirez [facility] [employer] [facility] 07/24/2023 11:14:40 delivery completed Christine Tse MA [facility] [employer] [facility] 12/16/2024 09:55:38 Hysterectomy completed Christine Tse MA [facility] [employer] [facility] 12/16/2024 09:55:48 Colostomy completed [facility] [employer] [facility] 12/16/2024 09:56:02 revision of colostomy completed Christine Tse MA [facility] [employer] [facility] 12/16/2024 09:56:20 Gastric Bypass completed ADELINE Ledbetter Delmis MD [facility] 12/16/2024 09:56:39 Abdominal completed ADELINE Ledbetter Delmis [facility] 12/16/2024 09:57:10 Imaging Results Imaging Date Name Status LastModified by Organization Details LastModified Time 12/28/2022 DEXA, axial skeleton completed [address] (Imaging) [address] [place], [address], 02/03/2025 14:17:08 12/09/2024 XR, chest, 2 view completed [address] (Imaging) [address] [place], [address], 12/24/2024 15:23:48 12/09/2024 XR, chest completed [address] [place], [address], 12/24/2024 15:26:24 01/28/2025 complete PFT w/ post bronchodilator spirometry* completed [address] ([facility]) [address] [place], [address], 02/19/2025 10:35:36 Procedure Notes None recorded. Medical Equipment None Reported. Allergies Allergen ID Allergen Name Allergen Category Reaction Reaction Severity Criticality Documentation Date Start Date Code Code System Note Provider Name and Address Organization Details Recorded Time 3056 adhesive tape environme nt,medica tion rash Not available Not available 01/10/2023 42189 UNK Not Available [facility] 01:58:43 Medications Name Sig Start Date Stop Date Status Note LastModified by Organization Details LastModified Time Singulair 10 mg tablet Take 1 tablet every day by oral route. active Not Available Not Available No t Available losartan 50 mg tablet TAKE 1 TABLET BY MOUTH EVERY DAY active Not Available Not Available No t Available cyclobenz aprine 10 mg tablet Take 1 tablet twice a day by oral route. 07/23 completed this medicati on is to be filled by pain manageme nt per Dr. Falcon ala/pt aware Not Available Not Available Not Available furosemid e 40 mg tablet TAKE 1 TABLET BY MOUTH TWICE A DAY FOR 90 DAYS 12/16 completed Not Available Not Available Not Available atorvasta tin 40 mg tablet TAKE 1 TABLET BY MOUTH EVERYDAY AT BEDTIME active Not Available Not Available No t Available buspirone 5 mg tablet 10/02 completed Not Available Not Available Not Available prednison e 10 mg tablet TAKE 3 TABLETS BY MOUTH X 2 DAYS THEN 2 TABS X 2 DAYS THEN 1 TAB X 2 DAYS 01/06 completed Not Available Not Available Not Available doxycycli ne hyclate 100 mg capsule TAKE 1 CAPSULE BY MOUTH TWICE A DAY FOR 10 DAYS 01/06 completed Not Available Not Available Not Available cefuroxim e axetil 250 mg tablet 03/28 completed Not Available Not Available Not Available tizanidin e 2 mg tablet TAKE 1 TABLET BY MOUTH TWICE A DAY NEEDED 2024 active Not Available Not Available Not Avai lable albuterol sulfate 2.5 mg/3 mL (0.083 %) solution for nebulizat ion INHALE THE CONTENTS OF 1 VIAL VIA NEBULIZE R 3 TIMES DAILY DIRECTED 01/06 completed Not Available Not Available Not Available flecainid e 150 mg tablet Take 1 tablet every 12 hours by oral route. 04/[address] Perkins s [facility] increase d the dose 04/06/20 20, is to get cardiove rsion07/2020; As per Dr Mckeon HV this was stopped d/t her QT prolonga tion Not Available Not Available Not Available trazodone 50 mg tablet TAKE ONE TABLET BY MOUTH ONCE DAILY AT BEDTIME active Not Available Not Available No t Available triamcino lone acetonide 0.5 % topical cream APPLY THIN COAT TO AFFECTED AREA TWICE A DAY 01/06 completed Not Available Not Available Not Available azithromy maria elena 250 mg tablet TAKE 2 TABLETS (500 MG) BY ORAL ROUTE ONCE DAILY FOR 1 DAY THEN 1 TABLET (250 MG) BY ORAL ROUTE ONCE DAILY FOR 4 DAYS 01/06 completed Not Available Not Available Not Available diltiazem CD 180 mg capsule,e xtended release 24 hr TAKE 1 CAPSULE BY MOUTH TWICE A DAY active Not Available Not Available No t Available fluconazo le 150 mg tablet TAKE 1 TABLET BY MOUTH EVERY DAY 12/25 completed Not Available Not Available Not Available amiodaron e 200 mg tablet 07/24 completed Not Available Not Available Not Available cephalexi n 250 mg capsule active Not Available Not Available Not Available hydrocodo ne 5 mg-acetam inophen 325 mg tablet TAKE 1 TABLET BY MOUTH THREE TIMES DAILY NEEDED 07/24 completed Not Available Not Available Not Available meloxicam 15 mg tablet TAKE ONE TABLET BY MOUTH ONCE DAILY 07/09 completed Not Available Not Available Not Available sucralfat e 1 gram tablet qd 07/23 completed Not Available Not Available Not Available metoprolo l succinate ER 100 mg tablet,ex tended release 24 hr TAKE 1 TABLET BY MOUTH EVERY DAY AT NIGHT active Not Available Not Available No t Available sertralin e 100 mg tablet TAKE 1 TABLET BY MOUTH EVERY DAY IN THE MORNING active Not Available Not Available No t Available glipizide ER 5 mg tablet, extended release 24 hr TAKE 1 TABLET BY MOUTH EVERY DAY active Not Available Not Available No t Available dofetilid e 125 mcg capsule TAKE 1 CAPSULE BY MOUTH TWICE A DAY active Not Available Not Available No t Available Vitamin B-12 500 mcg tablet Take by oral route. 07/10 completed Not Available Not Available Not Available acetamino phen 300 mg-codein e 30 mg tablet 12/25 completed Not Available Not Available Not Available amlodipin e 5 mg tablet Take 1 tablet every day by oral route. 07/28 completed Not Available Not Available Not Available allopurin ol 100 mg tablet TAKE 2 TABLETS BY MOUTH DAILY active Not Available Not Available No t Available ciproflox acin 500 mg tablet TAKE 1 TABLET BY MOUTH EVERY 12 HOURS FOR 10 DAYS 12/26 completed Not Available Not Available Not Available tramadol 50 mg tablet TAKE 2 TABS ONCE DAILY NEEDED. DONT DRINK ALCOHOL, DRIVE, OR TAKE WITH OTHER SEDATING MEDICATI ONS active Not Available Not Available No t Available triamtere ne 37.5 mg-hydroc hlorothia zide 25 mg capsule TAKE two CAPSULE BY MOUTH ONCE DAILY 06/20 completed Not Available Not Available Not Available spironola ctone 25 mg tablet TAKE 1 TABLET BY MOUTH EVERY DAY 2024 active Not Available Not Available Not Avai lable warfarin [id number]|2025-03-18 11:30:00|2025-03-18 11:30:00|XMS_ITS|NOA VOGEL|External Medical Summaries|[id number]|" Data Portability Created on: March 18, 2025 Brissa Rizo .[id number] : 1950 Sex: Female Author Organization [facility] Address [address] [place] [address] Care Team Providers Care [employer] Name Role Phone NEVILLE CEJACATHIE Primary Care Provider [phone] Assessment No assessment recorded. Plan of Treatment Reminders Order Date Submit Date Provider Last Modified By Organization Details Last Modified Time Details Appointments None recorded. Lab None recorded. Referral None recorded. Procedures None recorded. Surgeries None recorded. Imaging None recorded. Medication Orders triamcinolo ne acetonide 0.5 % topical cream 2022 023 [facility]/Pharmacy #[id number], [address] , [place], [address], 3 11:36:38 Patient TargetsNo targets recorded. Patient InstructionsNo instructions recorded. Reason for Referral None Reported. Results Created Date Observation Date Name Description Value Unit Range Abnormal Flag Note LastModifiedBy Organization Detail LastModifiedTime 04/26/2004/26/2023 [facility] PATHO LOGY surgical pathology SEE RESULT S BELOW CASE REPOR T: Surgi rupa Patho logy Repor t Case: [id number] Autho mahsa g Provi raya: Catracho Oorzco MD Colle cted: 04/26 1545 Order ing Locat ion: [place] Patho log[facility] Recei simon: 04/27 0141 Patho logis t: Pat Head MD Speci men: Vulva , Vulva r lesio n FINAL DIAGN OSIS: Skin, vulva , excis ion: -Infl stanton sebor rheic kerat osis, compl etely excis ed. Elect serena jhaveriroman banks d by Pat Head MD on 2022 at 2:34 PM ----- ----- ----- ----- ----- ----- ----- ----- ----- ----- ----- ----- ----- ----- ----- ----- ----- ---- CLINI RUPA INFOR MATIO N: n90.8 9 MICRO SCOPI C DESCR IPTIO N: A micro scopi c exami natio n was perfo rmed. GROSS DESCR IPTIO N: A. Vulva . The speci men is label ed with the patie nt's name, demog johni cs and vulv ar lesio n . Recei simon in forma андрей is a 1.6 x 1.2 cm oval excis ion of harris skin which is been excis ed to a depth of up to 0.3 cm. Cover ing the major ity of the skin surfa ce is a papil lomat ous delarosa- harris lesio n measu ring 1.2 x 0.8 x 0.5 cm. The jennifer n is inked green and the speci men is secti oned and submi tted all in casse tte A1. Gross ed by Caden dempsey Not Available [facility] (Lab) [address], [place], [address], 04/27/2023 15:38:59 Result Notes None recorded. Problems Name Problem SNOMED Code Status Onset Date Resolution Date Notes Provider Name and Address Organization Details Recorded Time Abnormal cervical Papanicol aou smear 495738069 Active 2012 Other abnormal papanicola ou smear of cervix and cervical HPV;Record ed Elsewhere: No Locatio n: [facility] rce: EHR Chroni c: N Practice ID: 0001 Billa ble Time: 04:00:00 PM Not Available [facility] 0 17:41:42 Dyspareun ia 11859135 Active 2012 Dyspareuni a;Recorded Elsewhere: No Locatio n: [facility] rce: EHR Chroni c: N Practice ID: 0001 Billa ble Time: 09:30:00 AM Not Available [facility] 0 17:41:42 Hypertens ayan disorder 65358985 Active 2016 Hypertensi on;Recorde d Elsewhere: No Locatio n: [facility] rce: EHR Chroni c: N Practice ID: 0001 Billa ble Time: 11:30:00 AM Not Available [facility] 0 17:41:42 Problem Notes None recorded. Procedures Surgical History Date Name Laterality Status Provider Name and Address Organization Details Recorded Time 04/26/20 23 Excision and closure completed Christopher Orozco MD [address], [place], [address], [facility] 04/26/2023 11:32:59 07/31/20 17 Date of Last Pap Smear completed Makenna Tatum [facility] 04/16/2023 11:23:39 01/03/20 16 Colposcopy completed Marybel Harvey [facility] 05/03/2023 18:12:52 04/17/20 13 Colposcopy completed Marybel Harvey [facility] 05/03/2023 18:12:44 11/12/19 05 Gastric Bypass completed Marybel Harvey [facility] 05/03/2023 18:15:18 11/12/19 01 Gastric bypass for obesity completed Marybel Harvey [facility] 05/03/2023 17:48:07 11/12/18 87 procedure on neck completed [facility] 05/03/2023 18:14:12 11/12/18 83 closure of colostomy completed [facility] 05/03/2023 18:13:58 11/12/18 82 hysterectomy completed [facility] 05/03/2023 17:48:14 11/12/18 82 colostomy completed [facility] 05/03/2023 18:13:33 11/12/18 78 section completed [facility] 05/03/2023 18:13:10 11/12/18 75 section completed [facility] 05/03/2023 18:13:13 cardiac pacemaker procedure completed [facility] 05/03/2023 18:23:56 Imaging Results None recorded. Procedure Notes None recorded. Medical Equipment None Reported. Allergies Allergen ID Allergen Name Allergen Category Reaction Reaction Severity Criticality Documentation Date Start Date Code Code System Note Provider Name and Address Organization Details Recorded Time 02616 adhesive tape environme nt,medica tion Not available Not available Not available 04/16/2023 23131 UNK Makenna raphael, [facility] 3 10:46:11 Medications Name Sig Start Date Stop Date Status Note LastModified by Organization Details LastModified Time losartan 50 mg tablet TAKE 1 TABLET BY MOUTH EVERY DAY FOR 90 DAYS active Not Available Not Available No t Available furosemid e 40 mg tablet TAKE 1 TABLET BY MOUTH TWICE A DAY active Not Available Not Available No t Available atorvasta tin 40 mg tablet TAKE 1 TABLET BY MOUTH EVERYDAY AT BEDTIME active Not Available Not Available No t Available Xanax 0.5 mg tablet take 1 tablet (0.5MG) by oral route 3 times every day 2012 active Prescrib ed Elsewher e: No Locat ion: Helen carp[facility] M odify By: kelly sibley Enco unter DateTime : 03/12/20 13 01:15:00 PM Not Available Not Available Not Available tizanidin e 2 mg tablet TAKE 1 TABLET BY MOUTH DAILY *NO DRIVING, ALCOHOL OR OTHER SEDATING MEDS* active Not Available Not Available No t Available albuterol sulfate 2.5 mg/3 mL (0.083 %) solution for nebulizat ion INHALE THE CONTENTS OF 1 VIAL VIA NEBULIZE R 3 TIMES DAILY DIRECTED active Not Available Not Available No t Available triamcino lone acetonide 0.5 % topical cream APPLY THIN COAT TO AFFECTED AREA TWICE A DAY 2022 active Not Available Not Available Not Avai lable diltiazem CD 180 mg capsule,e xtended release 24 hr TAKE 1 CAPSULE BY MOUTH TWICE A DAY active Not Available Not Available No t Available hydrocodo ne 5 mg-acetam inophen 325 mg tablet TAKE 1 TABLET BY MOUTH THREE TIMES DAILY active Not Available Not Available No t Available sucralfat e 1 gram tablet take 1 tablet by oral route 4 times every day on an empty stomach 1 hour before meals and at bedtime 2016 active Prescrib ed Elsewher e: Yes Loca tion: [facility] odify By: amkuhgeneva Carpenter ncounter DateTime : 07/31/20 17 11:30:00 AM Not Available Not Available Not Available metoprolo l succinate ER 100 mg tablet,ex tended release 24 hr TAKE 1 TABLET BY MOUTH EVERY DAY AT NIGHT active Not Available Not Available No t Available sertralin e 100 mg tablet TAKE 1 TABLET BY MOUTH EVERY DAY IN THE MORNING active Not Available Not Available No t Available glipizide ER 5 mg tablet, extended release 24 hr TAKE 1 TABLET BY MOUTH EVERY DAY active Not Available Not Available No t Available dofetilid e 125 mcg capsule TAKE 1 CAPSULE BY MOUTH TWICE A DAY active Not Available Not Available No t Available allopurin ol 100 mg tablet TAKE 2 TABLETS BY MOUTH DAILY active Not Available Not Available No t Available ciproflox acin 500 mg tablet TAKE 1 TABLET BY MOUTH EVERY 12 HOURS FOR 10 DAYS 04/16 completed Not Available Not Available Not Available spironola ctone 25 mg tablet TAKE 1 TABLET BY MOUTH EVERY DAY FOR 90 DAYS active Not Available Not Available No t Available Vitamin B-12 50 mcg tablet 2016 active Prescrib ed Elsewher e: Yes Loca tion: [facility] odify By: amkprabha Carpenter ncounter DateTime : 07/31/20 17 11:30:00 AM Not Available Not Available Not Available trazodone 100 mg tablet TAKE 1 TABLET BY MOUTH EVERYDAY AT BEDTIME active Not Available Not Available No t Available trazodone 150 mg tablet TAKE 1 TABLET BY MOUTH EVERY DAY AT BEDTIME active Not Available Not Available No t Available Prozac 20 mg capsule take 1 capsule (20MG) by oral route every day in the morning 07/31 completed Prescrib ed Elsewher e: No Locat ion: [facility] odify By: amkprabha neffunter DateTime : 03/12/20 13 01:15:00 PM Not Available Not Available Not Available buspirone 10 mg tablet TAKE 1 TABLET BY MOUTH THREE TIMES A DAY WITH MEALS active Not Available Not Available No t Available flecainid e 50 mg tablet take 1 tablet by oral route every 12 hours 05/03 completed Prescrib ed Elsewher e: Yes Loca tion: [facility] odify By: amlatanya Carpenter ncounter DateTime : 07/31/20 17 11:30:00 AM Not Available Not Available Not Available furosemid e 20 mg tablet TAKE 1 TABLET BY MOUTH EVERY DAY 04/16 completed Not Available Not Available Not Available ergocalci ferol (vitamin D2) 1,250 mcg (50,000 unit) capsule TAKE 1 CAPSULE BY MOUTH EVERY OTHER WEEK active Not Available Not Available No t Available albuterol sulfate HFA 90 mcg/actua tion aerosol inhaler INHALE 1 PUFF BY MOUTH 3 TIMES A DAY active Not Available Not Available No t Available sertralin e 50 mg tablet TAKE 1 TABLET BY MOUTH EVERY DAY IN THE MORNING active Not Available Not Available No t Available Ambien 5 mg tablet take 2 tablet by oral route every day at bedtime active Prescrib ed Elsewher e: Yes Loca tion: [facility] odify By: cora gutierrez DateTime : 06/15/20 15 11:30:00 AM Not Available Not Available Not Available doxycycli ne hyclate 100 mg tablet TAKE 1 TABLET BY MOUTH TWICE A DAY FOR 10 DAYS 04/16 completed Not Available Not Available Not Available Ambien 10 mg tablet take 1 tablet (10MG) by oral route every day at bedtime 06/15 completed Prescrib ed Elsewher e: No Locat ion: Helen carpenter [facility] odify By: cora gutierrez DateTime : 03/12/20 13 01:15:00 PM Not Available Not Available Not Available calcitrio l 0.25 mcg capsule TAKE 1 CAPSULE BY MOUTH THREE TIMES A DAY active Not Available Not Available No t Available loratadin e 10 mg tablet TAKE 1 TABLET BY MOUTH EVERY DAY active Not Available Not Available No t Available Premarin 0.625 mg/gram vaginal cream insert (1G) by vaginal route every day as directed 11/24 completed Prescrib ed Elsewher e: No Locat ion: [facility] odify By: sigifredo neffunter DateTime : 04/10/20 13 05:45:00 PM Not Available Not Available Not Available Wellbutri n XL 300 mg 24 hr tablet, extended release take 1 tablet (300MG) by oral route every day 2012 active Prescrib ed Elsewher e: No Locat ion: [facility] odify By: kelly Varghese unter DateTime : 03/12/20 13 01:15:00 PM Not Available Not Available Not Available Nifediac CC 60 mg tablet,ex tended release take 1 tablet (60MG) by oral route every day 01/03 completed Prescrib ed Elsewher e: No Locat ion: [facility] odify By: sigifredo neffunter DateTime : 03/12/20 13 01:15:00 PM Not Available Not Available Not Available metoprolo l tartrate 25 mg tablet take 1 tablet by oral route 2 times every day 05/03 completed Prescrib ed Elsewher e: Yes Loca [facility]ion: [facility] odify By: sigifredo neffuntseble DateTime : 12/20/19 16 09:00:00 AM Not Available Not Available Not Available Flovent HFA 110 mcg/actua tion aerosol inhaler INHALE 1 PUFF BY INHALATI ON ROUTE TWICE A DAY DIRECTED active Not Available Not Available No t Available losartan 100 mg-hydroc hlorothia zide 12.5 mg tablet take 1 tablet by oral route every day 05/03 completed Prescrib ed Elsewher e: Yes Loca tion: [facility] odify By: sigifredo burker DateTime : 01/03/20 16 08:30:00 AM Not Available Not Available Not Available Keflex 750 mg capsule take 1 capsule (750MG) by oral route 2 times every day 07/31 completed Prescrib ed Elsewher e: No Locat ion: [facility] odify By: sigifredo figueroa DateTime : 03/18/20 13 09:30:00 AM Not Available Not Available Not Available Eliquis 5 mg tablet take 1 tablet by oral route 2 times every day 05/03 completed Prescrib ed Elsewher e: Yes Loca tion: [facility] odify By: sigifredo neffuntseble DateTime : 12/20/19 16 09:00:00 AM Not Available Not Available Not Available Eliquis 2.5 mg tablet TAKE 1 TABLET BY MOUTH TWICE A DAY active Not Available Not Available No t Available Osphena 60 mg tablet take 1 tablet by oral route every day with food 07/31 completed Prescrib ed Elsewher e: No Locat ion: [facility] odify By: sigifredo figueroa DateTime : 03/13/20 16 01:30:41 PM Not Available Not Available Not Available BinaxNOW COVID-19 Ag Self Test kit USE DIRECTED 04/16 completed Not Available Not Available Not Available Vitals Date Recorded Body height Body mass index (BMI) Body weight Systolic blood pressure Diastolic blood pressure Provider Name and Address Organization Details Last Updated DateTime 04/16/2023 149.86 cm 32.2 kg/m2 78384.34 g 131 mm[Hg] 84 mm[Hg] Makenna Tatum MD - [facility] 3 10:45:49 Date Recorded Body height Body mass index (BMI) Body weight Systolic blood pressure Diastolic blood pressure Provider Name and Address Organization Details Last Updated DateTime 04/26/2023 149.86 cm 32.3 kg/m2 58101.78 g 130 mm[Hg] 78 mm[Hg] Pia Lopez [facility] 3 10:20:16 Date Recorded Body height Body mass index (BMI) Body weight Systolic blood pressure Diastolic blood pressure Provider Name and Address Organization Details Last Updated DateTime 05/03/2023 149.86 cm 32.7 kg/m2 50806.96 g 112 mm[Hg] 74 mm[Hg] Marybel Harvey [facility] 3 17:39:58 Social History Question Answer Notes LastModified by Organizat ion Details LastModified Time Tobacco Smoking Status Never Smoker Makenna Rc raphael, [facility] 04/16/2023 10:57:02 What Is Your Level Of Alcohol Consumption? Occasional Information not available 04/16/2023 Are You Blind Or Do You Have Difficulty Seeing? No Information n ot available 04/16/2023 What Is Your Level Of Caffeine Consumption? Occasional [email or web address] Information not available 05/03/2023 In The 14 Days Before Symptom Onset, Have You Had Close Contact With A Laboratory-confirm ed COVID-19 While That Case Was Ill? No [email or web address] Information n ot available 05/03/2023 In The 14 Days Before Symptom Onset, Have You Had Close Contact With A Person Who Is Under Investigation For COVID-19 While That Person Was Ill? No [email or web address] Information not available 05/03/2023 Have You Been To An Area Known To Be High Risk For COVID-19? No [email or web address] Information not available 05/03/2023 Are You Deaf Or Do You Have Serious Difficulty Hearing? No Information not available 04/16/2023 What Type Of Diet Are You Following? REGULAR [email or web address] Information n ot available 05/03/2023 Have You Ever Been Counseled For Unhealthy Alcohol Use? No [email or web address] Information not available 05/03/2023 Do You Use Your Seat Belt Or Car Seat Routinely? Yes [email or web address] Information not available 05/03/2023 Do You Have Smoke And Carbon Monoxide Detectors In Your Home? Yes [email or web address] Information not available 05/03/2023 Do You Feel Stressed (tense, Restless, Nervous, Or Anxious, Or Unable To Sleep At Night)? [id number] Information not available 05/03/2023 Do You Use Any Illicit Or Recreational Drugs? No [email or web address] Information not available 05/03/2023 Do You Use Sunscreen Routinely? Yes [email or web address] Information not available 05/03/2023 Has Tobacco Cessation Counseling Been Provided? No Information not available 05/03/2023 Do You Or Have You Ever Used Any Other Forms Of Tobacco Or Nicotine? No [email or web address] Information not available 05/03/2023 Sex: Unknown Functional Status Question Answer Note LastModified by Organizat ion Details LastModified Time Do you have difficulty walking or climbing stairs? No Information not available 04/16/2023 Are you able to walk? [email or web address] Information not available 04/16/2023 Are you able to care for yourself? Yes Information not available 04/16/2023 Do you have difficulty dressing or bathing? No Information not available 04/16/2023 What is your exercise level? Occasional [email or web address] Information not available 05/03/2023 Mental Status None recorded. Family History Relationship Description Onset Age of this Age Resolved Age Notes LastModified by Organization Details LastModified Time Father Heart disease [email or web address] Not available 05/03 18:10:46 Father Hypertensive disorder [email or web address] Not available 05/03 18:11:15 Father Chronic hepatitis [email or web address] Not available 05/03 18:12:00 Father Malignant neoplasm of prostate [email or web address] Not available 05/03 18:12:18 Mother Heart disease [email or web address] Not available 05/03 18:10:46 Mother Hypertensive disorder Not available 05/03 18:11:15 Mother Malignant neoplasm of lung [email or web address] Not available 05/03 18:11:35 Sister Hypertensive disorder [email or web address] Not available 05/03 18:11:15 Brother Malignant neoplasm of lung [email or web address] Not available 05/03 18:11:35 Medical History Condition Response Allergies (Food, seasonal, environmental ) N Other N Breast Cancer N Drug/Latex Allergies/Reactions Y Blood Transfusion N Lung Disease N Dermatologic Disorders N Defects or Inherited Disease N Breast Problem N Gestational Diabetes N Hematologic disorders N Anesthesia Complications N History of STI Y Deep Vein Thrombosis N Polycystic ovary syndrome N Anxiety Disorder Y Autoimmune disease N Arthritis N Infertility N Polyps N Acid Reflux (GERD) Y History of abnormal pap Y Cancer N Stroke N Varicosities N Neurologic/Epilepsy N Endometriosis N High Cholesterol Y Headaches N Fibromyalgia N Kidney Disease Y Heart Problems Y Kidney or Bladder Problems N Thyroid Problems N GI Problems N Eating Disorder N Anemia N Art (IVF or FET) N Psychiatric Illness N Ovarian Cancer N Diabetes N Pulmonary (TB, Asthma) N Hepatitis/Liver Disease N No Past Medical History N Eczema N Urinary Tract Infection N Abuse/Domestic Violence N Asthma N Trauma/Violence N Depression/ depression Y Heart Disease Y Pre-Eclampsia N Hypertension Y Osteoporosis Y Thrombophilias N Gynecological History Statement/Question Response Abnormal Pap Y Date of Last Mammogram Date of LMP 11/12/1981 STIs/STDs Y HPV Vaccine N Colposcopy Current Control Method Hysterectom y Sexually Active? N Date of DEXA bone scan Age of first menstrual cycle 12 Date of Last Pap Smear 07/31/2017 Sexual Problems? N Obstetrics History GPAL:G 2 P 2 0 0 2 Type Value Full Term 2 Living 2 Total 2 Past Encounters Encounter ID Performer Location Encounter Start Date Encounter Closed Date Diagnosis/Indication Diagnosis SNOMED-CT Code Diagnosis ICD10 Code Diagnosis Note [id number] KATHERIN Hawk [place] [address] [address] 04/16/2023 10:08:20 04/16/2023 12:03:28 Lesion of vulva 122390489 N90.89 Reviewed patient hx and hx of vulvar lesion (see HPI)recomm ended MD consult for further evaluation and to discuss removal/bi opsy optionsMD consult scheduled with Dr. Des michelle discussed Time spent in visit is a total of 30 mins with at least 50% of visit consisting of counseling and review of plan of care. [id number] Christopher Orozco MD [place] [address] [address] 04/26/2023 10:05:12 04/26/2023 12:43:15 Pruritus of vulva 68913070 L29.2 Lesion of vulva 43327335 6 N90.89 excision of vulvar lesion was performed. Simple closure of 4 cm was completed. She is prescribed topical steroid for vulvar pruritus. We will investigat e more future visit. There is some hypopigmen tation to areas of the vulva. Symptoms are only present for limited time. Lichen sclerosis is possible. [id number] Christopher Orozco MD [place] [address] [address] 05/03/2023 17:19:46 05/04/2023 14:04:38 Pruritus of vulva 75945445 L29.2 73-year-ol d female presents for follow-up on resection of vulvar lesion and vulvar pruritus. She was treated with high potency steroid cream. She notices itching symptoms resolved very quickly. She will continues at for a total of 10 days and discontinu e it. She will contact us of the pruritus continues and she may need prolonged treatment for lichen sclerosis. This resection site is clean dry and intact. Seborrheic keratosis, spent 20 minutes face-to-fa ce. More than more than 50% was cou counseling Lesion of vulva 28016734 6 N90.89 Health Concerns Section Related Observation LastModified by Organization Detai ls LastModified Time None Recorded Concern Status LastModified by Organization Details LastModified Time None Recorded Advance Directives Directive None Recorded Payers Encounter Date Sequence Insurance Name Policy Number Policy Batista Covered Member ID Batista Member ID Guarantor Name 04/16/2023 2 [employer] (MEDICARE SUPPLEMENT) Brissa A Dorste [id number] Brissa A Dorste 04/16/2023 1 [place] Brissa A Dorste [id number] Brissa A Dorste 04/26/2023 2 [employer] (MEDICARE SUPPLEMENT) Brissa A Dorste [id number] Brissa A Dorste 04/26/2023 1 [place] Brissa A Dorste [id number] Brissa Rizo 05/03/2023 2 [employer] (MEDICARE SUPPLEMENT) Brissa Rizo [id number] Brissa Rizo 05/03/2023 1 [place] Brissa Rizo [id number] Brissa Rizo Notes Date Note Type Note Provider Name and Address Organization Details Recorded Time 04/16/2023 text/html 72yo [id number] in 1979 for non-cancerous indications per patientBSO in 1983 for benign ovarian cyst per patient presents for evaluation of vulvar lesionnoticed lesion about 6+ months ago. Lesion has been very itchy. Located on left vulva. Itching became intense last week, went to urgent care on 04/13/23 - states they drained the lesion and told her to f/u with gyne for evaluation.She denies any pain, bleeding, tenderness, bleeding, or signs of infectionNot SAabnormal paps prior to hyst, no procedures. Had HPV (+) paps after hyst per patient.denies any urinary symptomsdenies any pelvic pain KATHERIN Hawk [address], [place], [address], [facility] 04/16/2023 11:54:55 04/26/2023 text/html patient presents for vulvar irritation and vulvar lesion. Christopher Orozco MD [address], [place], [address], [facility] 04/26/2023 11:39:13 05/03/2023 text/html 73-year-old fema zoraida presents for follow-up on resection of vulvar lesion and vulvar pruritus. She was treated with high potency steroid cream. She notices itching symptoms resolved very quickly. She will continues at for a total of 10 days and discontinue it. She will contact us of the pruritus continues and she may need prolonged treatment for lichen sclerosis. This resection site is clean dry and intact. Seborrheic keratosis, spent 20 minutes [id number]. More than more than 50% was cou counseling Christopher Orozco MD [address], [place], [address], [facility] 05/03/2023 23:00:59 OBGyn Episode Ob Episode Information Episode Created Date Number of Fetuses Patient Bloodtype Patient rh Status Prepregnancy Weight lbs Domestic Partner Domestic Partner Phone Father Name Operations Clerk Status 04/16/20 1 CLOSED Fetus Data First Name Last Name Admitted to NICU Weight (g) Sex Living Outcome Pediatric Complications Fetus ID Race Codes Race Delivery Type 3572.03 7 M Full Term Repeat Octaviano Calculation Initial Octaviano Date Initial Exam Date Initial Exam Provider Initial Ultrasound Date Last Menstrual Period Date Ultra Sound Weeks Gestation 0 Eighteen To Twenty Week Octaviano Update Ultra Sound Date Fundal Height At Umbil Quickening Date Ultra Sound Latest Weeks Gestation Final Octaviano Confirmed By Final Octaviano Confirmed Date Final Octaviano Date Ultra Sound Latest Days Gestation 0 0 Menstrual History Last Menstrual Date Menses Monthly On Bcp Conception Prior Menses Frequency Hcg Plus Date Menarche Onset Age Delivery Information Delivery Date Delivery Type Labor Anesthesia Weeks Gestation Incision Type Labor Labor Length Hrs Delivered By Post Complications Tubal Sterilization Discharge Date Comments 8 40 Discharge Information Feeding Method Contraceptive Method Maternal HG B and HCT Levels Ob Episode Information Episode Created Date Number of Fetuses Patient Bloodtype Patient rh Status Prepregnancy Weight lbs Domestic Partner Domestic Partner Phone Father Name Operations Clerk Status 04/16/20 1 CLOSED Fetus Data First Name Last Name Admitted to NICU Weight (g) Sex Living Outcome Pediatric Complications Fetus ID Race Codes Race Delivery Type 2863.07 2704 F Full Term Primary Octaviano Calculation Initial Octaviano Date Initial Exam Date Initial Exam Provider Initial Ultrasound Date Last Menstrual Period Date Ultra Sound Weeks Gestation 0 Eighteen To Twenty Week Octaviano Update Ultra Sound Date Fundal Height At Umbil Quickening Date Ultra Sound Latest Weeks Gestation Final Octaviano Confirmed By Final Octaviano Confirmed Date Final Octaviano Date Ultra Sound Latest Days Gestation 0 0 Menstrual History Last Menstrual Date Menses Monthly On Bcp Conception Prior Menses Frequency Hcg Plus Date Menarche Onset Age Delivery Information Delivery Date Delivery Type Labor Anesthesia Weeks Gestation Incision Type Labor
--- OUTSIDE RECORDS SUMMARY | 2025-03-18 11:30 | XMS_ITS | Patient Health Record ---
Author Organization [facility] Address [address] [place] [address] Care Team Providers Care Alterations Manager Name Role Phone Prince Mckeon Unavailable [phone] REASON FOR REFERRAL No Information MEDICATIONS Medication SIG (Take, Route, Frequency, Duration) Notes Start Date End Date Status Calcitriol 0.25 MCG TAKE 1 CAPSULE BY MO UTH EVERY DAY for 90 Active Allopurinol 100 MG TAKE 2 TABLETS BY MO UTH DAILY for 90 Active Furosemide 40 MG 1 tablet Orally twic e a day for 90 days 02/12/2025 11/08/2025 Active Vitamin D (Ergocalciferol) 1.25 MG (50373 UT) TAKE 1 CAPSULE BY MOUTH EVERY OTHER WEEK for 84 Active Losartan Potassium 50 MG TAKE 1 TABLET B Y MOUTH EVERY DAY for 90 Active Lasix 40 MG 1 1/2 tablet Orally Once a day for 90 days 09/05/2023 Active PROBLEMS Problem Type ICD Code Onset Dates Problem Status W/U Status Risk SNOMED Code Notes Problem Secondary hyperparathyroid ism, not elsewhere classified (E21.1) Active confirmed Secondary hyperparathyroidism (67577721) Problem Hypercalcemia (E83.52) Active confirmed Hypercalcemia (62858671) Problem Essential (primary) hypertension (I10) Active confirmed Essential hypertension (53606889) Problem Heart failure, unspecified (I50.9) Active confirmed Heart failure (38219224) Problem Renal osteodystrophy (N25.0) Active confirmed Renal osteodyst rophy (72152599) Problem Edema, unspecified (R60.9) Active confirmed Edema (55056746) Problem Other microscopic hematuria (R31.29) Active confirmed Microscopic hem aturia (545490712) Problem Chronic kidney disease, stage 3b (N18.32) Active confirmed Chronic kidney disease stage 3B (disorder) (089037317) Problem CAD (coronary artery disease) (I25.10) Active confirmed Coronary artery disease (72922309) Encounters Encounter Location Date Provider Diagnosis [facility] [address] [place] [address] 04/30/2024 Prince Mckeon Chronic kidney disea se, stage 4 (severe) N18.4 ; Essential (primary) hypertension I10 ; Other microscopic hematuria R31.29 ; Renal osteodystrophy N25.0 ; Secondary hyperparathyroidism, not elsewhere classified E21.1 and Heart failure, unspecified I50.9 [facility] [address] [place] [address] 08/13/2024 Prince Mckeon Chronic kidney disea se, stage 3b N18.32 ; Essential (primary) hypertension I10 ; Renal osteodystrophy N25.0 ; Other microscopic hematuria R31.29 ; Secondary hyperparathyroidism, not elsewhere classified E21.1 and Heart failure, unspecified I50.9 [facility] [address] [place] [address] 12/03/2024 Prince Mckeon Chronic kidney disea se, stage 4 (severe) N18.4 ; Essential (primary) hypertension I10 ; Other microscopic hematuria R31.29 ; Renal osteodystrophy N25.0 ; Secondary hyperparathyroidism, not elsewhere classified E21.1 ; Heart failure, unspecified I50.9 and Chronic kidney disease, stage 3b N18.32 [facility] [address] [place] [address] 12/17/2024 Prince Mckeon [facility] [address] [place] [address] 12/26/2024 Prince Mckeon Chronic kidney disea se, stage 3b N18.32 ; Essential (primary) hypertension I10 ; Other microscopic hematuria R31.29 ; Renal osteodystrophy N25.0 ; Secondary hyperparathyroidism, not elsewhere classified E21.1 ; Heart failure, unspecified I50.9 ; CAD (coronary artery disease) I25.10 and Edema, unspecified R60.9 [facility] [address] [place] [address] 12/31/2024 Prince Mckeon [facility] [place] [facility] [address] [place] [address] 02/04/2025 Prince Mckeon Chronic kidney disea se, stage 3b N18.32 ; Essential (primary) hypertension I10 ; Other microscopic hematuria R31.29 ; Renal osteodystrophy N25.0 ; Secondary hyperparathyroidism, not elsewhere classified E21.1 ; Heart failure, unspecified I50.9 ; CAD (coronary artery disease) I25.10 ; Edema, unspecified R60.9 and Hypercalcemia E83.52 [facility] [place] [facility] [address] [place] [address] 02/12/2025 Prince Mckeon [facility] [address] [facility] [address] [place] [address] 04/30/2024 Prince Mckeon ASSESSMENTS Encounter Date Diagnosis Assessment Notes Treatment Notes Treatment Clinical Notes Section Notes 04/30/2024 Chronic kidney disease, stage 4 (severe) (ICD-10 - N18.4) 08/13/2024 Chronic kidney disease, stage 3b (ICD-10 - N18.32) 12/03/2024 Chronic kidney disease, stage 4 (severe) (ICD-10 - N18.4) 12/26/2024 Chronic kidney disease, stage 3b (ICD-10 - N18.32) 02/04/2025 Chronic kidney disease, stage 3b (ICD-10 - N18.32) 02/04/2025 Essential (primary) hypertension (ICD-10 - I10) 08/13/2024 Essential (primary) hypertension (ICD-10 - I10) 12/26/2024 Essential (primary) hypertension (ICD-10 - I10) 12/03/2024 Essential (primary) hypertension (ICD-10 - I10) 04/30/2024 Essential (primary) hypertension (ICD-10 - I10) 04/30/2024 Other microscopic hematuria (ICD-10 - R31.29) 12/03/2024 Other microscopic hematuria (ICD-10 - R31.29) 12/26/2024 Other microscopic hematuria (ICD-10 - R31.29) 08/13/2024 Renal osteodystrophy (ICD-10 - N25.0) 02/04/2025 Other microscopic hematuria (ICD-10 - R31.29) 02/04/2025 Renal osteodystrophy (ICD-10 - N25.0) 08/13/2024 Other microscopic hematuria (ICD-10 - R31.29) 12/26/2024 Renal osteodystrophy (ICD-10 - N25.0) 12/03/2024 Renal osteodystrophy (ICD-10 - N25.0) 04/30/2024 Renal osteodystrophy (ICD-10 - N25.0) 04/30/2024 Secondary hyperparathyroidism , not elsewhere classified (ICD-10 - E21.1) 12/03/2024 Secondary hyperparathyroidism , not elsewhere classified (ICD-10 - E21.1) 12/26/2024 Secondary hyperparathyroidism , not elsewhere classified (ICD-10 - E21.1) 08/13/2024 Secondary hyperparathyroidism , not elsewhere classified (ICD-10 - E21.1) 02/04/2025 Secondary hyperparathyroidism , not elsewhere classified (ICD-10 - E21.1) 02/04/2025 Heart failure, unspecified (ICD-10 - I50.9) 08/13/2024 Heart failure, unspecified (ICD-10 - I50.9) 12/26/2024 Heart failure, unspecified (ICD-10 - I50.9) 12/03/2024 Heart failure, unspecified (ICD-10 - I50.9) 04/30/2024 Heart failure, unspecified (ICD-10 - I50.9) 12/03/2024 Chronic kidney disease, stage 3b (ICD-10 - N18.32) 12/26/2024 CAD (coronary artery disease) (ICD-10 - I25.10) 02/04/2025 CAD (coronary artery disease) (ICD-10 - I25.10) 02/04/2025 Edema, unspecified (ICD-10 - R60.9) 12/26/2024 Edema, unspecified (ICD-10 - R60.9) 02/04/2025 Hypercalcemia (ICD-10 - E83.52) PLAN OF TREATMENT Next Appt Details Provider Name:Prince Mckeon , 04/15/2025 02:45:00 PM, [address] [facility], [address], [place], [address],
--- OUTSIDE RECORDS SUMMARY | 2025-03-18 11:30 | XMS_ITS ---
Author Organization [facility] Address [address] [place] [address] Care Team Providers Care Pinion Polisher Name Role Phone Prince Mckeon Unavailable [phone] MEDICATIONS Medication SIG (Take, Route, Fr equency, Duration) Notes Start Date End Date Status Furosemide 40 MG 1 tablet Orally twic e a day for 90 days 02/12/2025 11/08/2025 Active Encounters Encounter Location Date Provider Diagnosis [facility] [place] [facility] [address] [place] [address] 02/12/2025 Prince Mckeon PLAN OF TREATMENT Medication Medication Name Sig Start Date Stop Date Notes Furosemide 40 MG 1 tablet Orally twice a day for 90 days 0 02/12/2025 11/08/2025 Next Appt Details Provider Name:Prince Mckeon , 04/15/2025 02:45:00 PM, [address] [facility], [facility] [address], [address], Progress Notes * KITTY RAYMUNDOHDOB: 0 (74 yo F)Acc No.[id number]:02/12/2025 Patient: CHRISTOPHER RAYMUNDO :1950 Age:74 Y Sex:Female Address:[address] [place] [address], [address] * Refills Start Furosemide Tablet, 40 MG, Orally, 180 Tablet, 1 tablet, twice a day, 90 days, Refills=2 * * Date:
--- OUTSIDE RECORDS SUMMARY | 2025-03-18 11:31 | XMS_ITS ---
Author Organization [facility] Address [address] [place] [address] Care Team Providers Care Demurrage Agent Name Role Phone Prince Mckeon Unavailable [phone] PROBLEMS Problem Type ICD Code Onset Dates Problem Status W/U Status Risk SNOMED Code Notes Problem Hypercalcemia (E83.52) Active confirmed Hypercalcemia (97517424) Encounters Encounter Location Date Provider Diagnosis [facility] [place] [facility] [address] [place] [address] 02/04/2025 Prince Mckeon Chronic kidney disea se, stage 3b N18.32 ; Essential (primary) hypertension I10 ; Other microscopic hematuria R31.29 ; Renal osteodystrophy N25.0 ; Secondary hyperparathyroidism, not elsewhere classified E21.1 ; Heart failure, unspecified I50.9 ; CAD (coronary artery disease) I25.10 ; Edema, unspecified R60.9 and Hypercalcemia E83.52 ASSESSMENTS Encounter Date Diagnosis Assessment Notes Treatment Notes Treatment Clinical Notes Section Notes 02/04/2025 Chronic kidney disease, stage 3b (ICD-10 - N18.32) 02/04/2025 Essential (primary) hypertension (ICD-10 - I10) 02/04/2025 Other microscopic hematuria (ICD-10 - R31.29) 02/04/2025 Renal osteodystrophy (ICD-10 - N25.0) 02/04/2025 Secondary hyperparathyroidism , not elsewhere classified (ICD-10 - E21.1) 02/04/2025 Heart failure, unspecified (ICD-10 - I50.9) 02/04/2025 CAD (coronary artery disease) (ICD-10 - I25.10) 02/04/2025 Edema, unspecified (ICD-10 - R60.9) 02/04/2025 Hypercalcemia (ICD-10 - E83.52) PLAN OF TREATMENT Next Appt Details Provider Name:Prince Mike , 04/15/2025 02:45:00 PM, [address] [facility], [facility] [address], [address], Progress Notes * KITTY RAYMUNDOHDOB: 0 (74 yo F)Acc No.[id number]:02/04/2025 Progress Notes Patient: CHRISTOPHER RAYMUNDO Provider: MD CHET, F.Rubi.C.P, F.A.S.N. :1950 Age:74 Y Sex:Female Date:02/04/2025 Address:[address] [place], [place] [id number] Subjective: * Chief Complaints: * * Medical History: Objective: Assessment: * Assessment: 1. Chronic kidney disease, stage 3b - N18.32 (Primary) 2. Essential (primary) hypertension - I10 3. Other microscopic hematuria - R31.29 4. Renal osteodystrophy - N25.0 5. Secondary hyperparathyroidism, not elsewhere classified - E21.1 6. Heart failure, unspecified - I50.9 7. CAD (coronary artery disease) - I25.10 8. Edema, unspecified - R60.9 9. Hypercalcemia - E83.52 Plan: * Treatment: * Billing Information: * Visit Code: 90518 Office Visit, Est Pt., Level 4. * Procedure Codes: * Sign off status: Pending * Provider: MD CHET, F.Rubi.C.P, F.A.S.N. Date: 02/04/2025
--- OUTSIDE RECORDS SUMMARY | 2025-03-18 11:31 | XMS_ITS | Clinical Summary ---
Author Organization [facility] Administrative Offices Address [address] [place] [address] Care Team Providers Care Mica Builder Name Role Phone Dewayne Ceja MD Primary Care Provider Allergies Active Allergy Reactions Criticality Noted Date Comments Adhesive Tape-Silicones Rash Low 11/30/2022 Medications albuterol (PROVENTIL,VENTOL IN) 2.5 mg /3 mL (0.083 %) Solution for Nebulization INHALE CONTENTS OF 1 VIAL VIA NEBULIZER 3 TIMES A DAY DIRECTED 2 Active allopurinoL (ZYLOPRIM) 100 mg tablet Take 200 mg by mouth daily. 2 Active apixaban (Eliquis) 2.5 mg tablet Eliquis 2.5 mg tablet TAKE 1 TABLET BY MOUTH TWICE A DAY Active atorvastatin (LIPITOR) 40 mg tablet Take 40 mg by mouth daily at bedtime. 2 Active buPROPion HCL (WELLBUTRIN XL) 300 mg Extended Release 24 hour tablet bupropion HCl XL 300 mg 24 hr tablet, extended release Take 1 tablet every day by oral route. 0 Active busPIRone (BUSPAR) 10 mg tablet TAKE 1 TABLET BY MOUTH THREE TIMES A DAY WITH MEALS 3 Active calcitRIOL (ROCALTROL) 0.25 mcg capsule TAKE 1 CAPSULE BY MOUTH THREE TIMES A DAY 2 Active diltiaZEM (CARDIZEM CD) 180 mg Controlled Delivery 24 hour capsule Take 180 mg by mouth 2 times daily. 2 Active dofetilide (TIKOSYN) 125 mcg capsule Take 125 mcg by mouth 2 times daily. 2 Active ergocalciferol (VITAMIN D2) 50,000 unit capsule TAKE 1 CAPSULE BY MOUTH EVERY OTHER WEEK 2 Active furosemide (LASIX) 40 mg tablet 3 Active losartan (COZAAR) 50 mg tablet TAKE 1 TABLET BY MOUTH EVERY DAY FOR 90 DAYS 2 Active magnesium oxide (MAG-OX) 400 mg (241.3 mg magnesium) tablet magnesium oxide 400 mg (241.3 mg magnesium) tablet Take 1 tablets twice a day by oral route. 0 Active metoprolol succinate (TOPROL XL) 100 mg Extended Release 24 hour tablet TAKE 1 TABLET BY MOUTH EVERY DAY AT NIGHT 2 Active glipiZIDE (GLUCOTROL XL) 5 mg Extended Release 24 hour tablet Take 5 mg by mouth daily. 2 Active sertraline (ZOLOFT) 100 mg tablet Take 100 mg by mouth daily in the morning. 3 Active sertraline (ZOLOFT) 50 mg tablet Take 50 mg by mouth daily in the morning. 3 Active spironolactone (ALDACTONE) 25 mg tablet TAKE 1 TABLET BY MOUTH EVERY DAY FOR 90 DAYS 2 Active tiZANidine (ZANAFLEX) 2 mg Tablet TAKE 1 TABLET BY MOUTH DAILY *NO DRIVING, ALCOHOL OR OTHER SEDATING MEDS* 2 Active traZODone (DESYREL) 100 mg tablet Take 100 mg by mouth daily at bedtime. 3 Active Active Problems No known active problems Family History Medical History Relation Name Comments Lung Cancer Brother 1 No Known Problems Brother 2 Diabetes Daughter Heart Disease Father Prostate Cancer Father Diabetes Mother Heart Disease Mother Lung Cancer Mother Cancer - Other Sister 1 Kidney Cancer Sister 2 Diabetes Son Relation Name Status Comments Brother 1 Brother 2 Daughter Alive Father Mother Sister 1 Sister 2 Alive Son Alive Social History Tobacco Use Types Packs/Day Years Used Date Smoking Tobacco: Never Smokeless Tobacco: Never Tobacco Cessation:Counseling Given: Not Answered Alcohol Use Standard Drinks/Week Comments Yes 0 (1 standard drink = 0.6 oz pur e alcohol) socially Comments Unknown Sex and Gender Information Value Date Recorded Sex Assigned at Not on file Legal Sex Female 10:00 PM CDT Gender Identity Not on file Sexual Orientation Not on file Last Filed Vital Signs Vital Sign Reading Time Taken Comments Blood Pressure 124/76 01/01/2023 1:53 PM DSP ENGINEER Pulse 90 01/01/2023 1:53 PM DSP ENGINEER Temperature 36.6 C (97.8 F) 01/01/2023 1:53 PM DSP ENGINEER Respiratory Rate 16 01/01/2023 1:53 PM DSP ENGINEER Oxygen Saturation 96% 01/01/2023 1:53 PM DSP ENGINEER Inhaled Oxygen Concentration - - Weight 74.7 kg (164 lb 11.2 oz) 01/01/2023 1:53 PM DSP ENGINEER Height 149.9 cm (4' 11 ) 11/30/2022 10: 18 AM DSP ENGINEER Body Mass Index 33.27 11/30/2022 10:18 AM DSP ENGINEER Plan of Treatment Health Maintenance Due Date Last Done Comments DTAP/TDAP/TD VACCINES (1 - Tdap) 1969 BREAST CANCER SCREENING 1990 FIT-DNA Q 3 years 1995 FIT/FOBT Q 1 year 1995 Flex Sig/CT Colonography Q 5 years 1995 ZOSTER VACCINE (1 of 2) 2000 OSTEOPOROSIS SCREENING 2015 INFLUENZA VACCINE (#1) 2024 , 07/28/2020, 07/28/2020, Additional history exists RSV VACCINE (60+ or ) (1 - 1-dose 75+ series) 2025 COLORECTAL SCREENING 03/07/2026 03/07/2016 Colorectal Cancer Screening 03/07/2026 PNEUMOCOCCAL VACCINE 50+ YEARS Completed 08/22/2019 , 09/27/2016 Insurance MEDICARE PART A AND B [employer] MEDICARE SUPPLEMENT Care Teams Mica Builder Relationship Specialty Start Date End Date Dewayne Ceja MD PCP - General Internal Medicine 11/30/22
--- OUTSIDE RECORDS SUMMARY | 2025-03-18 11:31 | XMS_ITS | Clinical Summary ---
Author Organization [facility] Address [address] [place] [address] Care Team Providers Care Dock Boss Name Role Phone Clay Harkins MD Unavailable [phone] Prince Mckeon MD Unavailable [phone] Source Comments [facility],non-owned Affiliates and Associated Physician Practices is amultiple site organization consisting of ambulatory clinics and hospital sitesin [place], [place], [place] and [place]. This disclosure is being madepursuant to the Care Everywhere program and may not contain all information available regarding this patient. Last updated 18.[facility] Allergies No known active allergies Medications * Be aware that medications may not be up to date on this document. Alwaysverify current medications with the patient. etodolac (LODINE) 400 MG tablet Active cyclobenzaprine (FLEXERIL) 10 MG tablet Active FLUoxetine (PROZAC) 20 MG capsule Active BuPROPion HCl (WELLBUTRIN XL PO) A ctive NIFEdipine CR 24hr (NIFEDIAC CC) 60 MG tablet Active oxycodone, immediate release, (OXY-IR) 15 MG tablet Active hydrocodone-acetam inophen (VICODIN ES) 7.5-750 MG tablet Active triamterene-hydroc hlorothiazide (MAXZIDE-25) 37.5-25 MG tablet Ac tive zolpidem (AMBIEN) 10 MG tablet Active lidocaine (LIDODERM) 5 % patch Active Glucosamine-Chondr oit-Vit C-Mn (GLUCOSAMINE 1500 COMPLEX PO) Active Active Problems Problem Noted Date Diagnosed Date Displacement of lumbar inter vertebral disc without myelopathy 08/01/2011 Spinal stenosis, lumbar gabriele on, with neurogenic claudication 08/01/2011 Social History Tobacco Use Types Packs/Day Years Used Date Smoking Tobacco: Never Smokeless Tobacco: Never Alcohol Use Standard Drinks/Week Comments No 0 (1 standard drink = 0.6 oz pur e alcohol) Comments Unknown Sex and Gender Information Value Date Recorded Sex Assigned at Not on file Legal Sex Female 6:29 AM MAKE UP GIRL Gender Identity Not on file Sexual Orientation Not on file Last Filed Vital Signs Vital Sign Reading Time Taken Comments Blood Pressure - - Pulse - - Temperature - - Respiratory Rate - - Oxygen Saturation - - Inhaled Oxygen Concentration - - Weight 77.1 kg (170 lb) 07/31/2011 11:33 AM CDT Height 154.9 cm (5' 1 ) 07/31/2011 11:33 AM CDT Body Mass Index 32.12 07/31/2011 11:33 AM CDT Plan of Treatment Health Maintenance Due Date Last Done Comments BONE DENSITY TESTING 1950 COLOGUARD (AGES 45-75) - COL ON CA SCREENING 1950 COLON MONITORING 1950 COLONOSCOPY - COLON CA SCREENING 1950 CT COLONOGRAPHY - COLON CA SCREENING 1950 Colorectal Cancer Screening 1950 FIT - COLON CA SCREENING 1950 FLEX SIG - COLON CA SCREENING 1950 LIPID TESTING 1950 MAMMOGRAM 1950 HEPATITIS C SCREENING 04/24/1968 DTAP/TDAP/TD VACCINES (1 - Tdap) 1969 PNEUMOCOCCAL VACCINE 50+ (1 of 1 - PCV) 2000 ZOSTER VACCINE (1 of 2) 2000 COVID-19 VACCINE ( - 2023-2 5 season) 2024 DEPRESSION SCREENING 11/12/2024 Respiratory Syncytial Virus (RSV) Vaccine Pt: or over 60 yrs (1 - 1-dose 75+ series) 2025 INFLUENZA VACCINE (Season Ended) 2025 HEPATITIS B VACCINE Aged Out No longe r eligible based on patient's age to complete this topic HIB VACCINE Aged Out No longer eligi ble based on patient's age to complete this topic HPV VACCINE Aged Out No longer eligi ble based on patient's age to complete this topic MENINGOCOCCAL (Group B) VACC INE SHARED DECISION-MAKING Aged Out No longer eligibl e based on patient's age to complete this topic MENINGOCOCCAL GROUPS A/C/Y/W VACCINE Aged Out No longer eligible b ased on patient's age to complete this topic Care Teams Dock Boss Relationship Specialty [place] [address] [facility] [place] [address] PCP - [facility] 09/12/24 Clay Harkins MD Internal Medicine 07/31/11
[2025-03-18 11:32] LABS: Lactic Acid Reflex 3.2 mmol/L (0.7-2.0)
[2025-03-18 11:34] LABS: INR 1.9; Prothrombin Time 22.7 Seconds (11.1-14.7)
[2025-03-18 11:35] LABS: Partial Thromboplastin Time 40.7 Seconds (22.3-36.8)
[2025-03-18] MEDS: HYDROmorphone HCL INJ (*CRX) 2 MG/ML VIAL 0.5 MG IV PUSH (11:41)
[2025-03-18] MEDS: LACTATED RINGERS 1,000 ML 999 ML IV CONT ×2 (11:42→12:34)
[2025-03-18 11:43] LABS: Troponin I < 0.012 ng/mL (0.000-0.034)
[2025-03-18] MEDS: dilTIAZem HCl INJ 25 MG/5 ML VIAL 10 MG IV PUSH (11:43)
[2025-03-18 11:45] LABS: Alanine Aminotransferase 26 U/L (6-35); Albumin Level 3.7 g/dL (3.5-5.1); Alkaline Phosphatase 114 U/L (38-126); Anion Gap 11 mmol/L (4-12); Aspartate Amino Transferase 23 U/L (14-36); Bilirubin,Total 1.3 mg/dL (0.2-1.3); Blood Urea Nitrogen 43 mg/dL (7-17); Calcium 9.4 mg/dL (8.4-10.2); Carbon Dioxide 25 mmol/L (22-30); Chloride 95 mmol/L (98-107); Estimated Glomerular Filt Rate 26; Glucose 115 mg/dL (65-110); Lipase 26 U/L (23-300); Potassium 4.4 mmol/L (3.4-5.0); Sodium 131 mmol/L (137-145)
[2025-03-18 11:59] LABS: Band Neutrophils Percent 10 % (0-6); Monocytes Percent Manual 8 % (3-9); Neutrophils Absolute Manual 16.88 K/mm3 (1.7-7.2); Neutrophils Percent Manual 74 % (46-73); Platelet Estimate Adequate (Adequate); Schistocytes None Seen; Total Cells Counted 100
[2025-03-18 12:01] LABS: Burr Cells 1+; Hypochromasia 1+
--- OUTSIDE RECORDS SUMMARY | 2025-03-18 12:05 | XMS_ITS | Clinical Summary ---
Author Organization [facility] Address [address] [place] [address] Care Team Providers Care Investigations Manager Name Role Phone Cielo Ceja MD Primary [...] on file Legal Sex Female 12:57 AM UX DEVELOPER DESIGNER Gender Identity Not on file Sexual Orientation [...] Plan of Treatment Not on file Insurance [facility] MEDICARE [employer] MEDICARE SUPPLEMENT INSURANCE Care Teams Investigations Manager Relationship Specialty Start Date End Date Cielo Ceja MD [address] [facility] [address] [place] [address] PCP - General 08/28/17
--- OUTSIDE RECORDS SUMMARY | 2025-03-18 12:05 | XMS_ITS | CONTINUITY OF CARE DOCUMENT ---
Author Name arvin, arvin Address Unknown Organization [facility] Address 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 typical active Clement ghosh MD Overweight active Clement Soriano MD RF ablation for SVT/AF active Clement forte MD SVT active Clement Soriano MD Dizziness active Boogie Nacht CHEST PAIN--stress nuc meet l 10/2019 active Michelle Mckeon MD ENCOUNTERS Date Type Provider Location Encounter Diag nosis - In-person encounter Office Visit Michelle Mckeon MD [facility] - In-person encounter Office Visit Michelle Mckeon MD [facility] - In-person encounter Office Visit Michelle Mckeon MD [facility] - In-person encounter Office Visit Michelle Mckeon MD [facility] - In-person encounter Office Visit Michelle Mckeon MD [facility] - In-person encounter Office Visit Michelle Mckeon MD [facility] - In-person encounter Office Visit Cynthia Sheikh MD [facility] - In-person encounter Office Visit Michelle Mckeon MD [facility] - In-person encounter Office Visit Michelle Mckeon MD [facility] - In-person encounter Office Visit Michelle Mckeon MD [facility] CHEST PAIN--stress n uc normal 10/2019HTN ESSENTIAL--echo ef 60 %, 11/2018 - In-person encounter Office Visit Michelle Mckeon MD [facility] - In-person encounter Office Visit Michelle Mckeon MD [facility] Dizziness - In-person encounter Office Visit Michelle Mckeon MD [facility] - In-person encounter Office Visit Michelle Mckeon MD [facility] - In-person encounter Office Visit Michelle Mckeon MD [facility] - In-person encounter Office Visit Cynthia Sheikh MD [facility] - In-person encounter Office Visit Cynthia Sheikh MD [facility] - In-person encounter Office Visit Cynthia Sheikh MD [facility] - In-person encounter Office Visit Michelle Mckeon MD [facility] Shortness of breath, nml sleep study - In-person encounter Office Visit Naveed Chow MD [facility] - In-person encounter Office Visit Michelle Mckeon MD [facility] - In-person encounter Office Visit Cynthia Sheikh MD [facility] - In-person encounter Office Visit Cynthia Sheikh MD [facility] - In-person encounter Office Visit Michelle Mckeon MD [facility] - In-person encounter Office Visit Michelle Mckeon MD [facility] Family History of CVA or Stroke: - In-person encounter Office Visit Michelle Mckeon MD [facility] - In-person encounter Office Visit Michelle Mckeon MD [facility] - In-person encounter Office Visit Michelle Mckeon MD [facility] - In-person encounter Office Visit Clement Soriano MD [facility] OverweightRF ablation for SVT/AFSVT - In-person encounter Office Visit [facility] Atrial flutter ? typical - In-person encounter Office Visit Michelle Mckeon MD [facility] - In-person encounter Office Visit Michelle Mckeon MD [facility] Atrial fib CHADS score 4 , on EliquisHematuria follows with Dr ErnstRenal disease, chronic, mild Cr 1.7 - In-person encounter Office Visit Michelle Mckeon MD [facility] - In-person encounter Office Visit Michelle Mckeon MD [facility] - In-person encounter Office Visit Michelle Mckeon MD [facility] - In-person encounter Office Visit Michelle Mckeon MD [facility] - In-person encounter Office Visit Michelle Mckeon MD [facility] Atrial fib CHADS score 4 , on Eliquis - In-person encounter Office Visit Michelle Mckeon MD [facility] Atrial fib CHADS score 4 , on Eliquis - In-person encounter Office Visit Michelle Mckeon MD [facility] CHEST PAIN--stress nuc normal 10/2019 - In-person encounter Office Visit Michelle Mckeon MD [facility] - In-person encounter Office Visit Michelle Mckeon MD [facility] Atrial fib CHADS score 4 , on EliquisCVA iin 09 with l leg weaknessShortness of breath, nml sleep study - In-person encounter Office Visit Gopal Cisneros MD [facility] CHEST PAIN--stress nuc normal 10/2019HTN ESSENTIAL--echo ef 60 %, 11/2018 VITAL SIGNS Date Observation Value Provider Body Mass Index (Ratio) 30.49 kg/m2 Glenroy Mckeon MD blood pressure, cuff size regular Ke rri Caden blood pressure, diastolic 80 mm[Hg] Jasper rri Caden blood pressure, systolic 144 mm[Hg] Chris Negrete oxygen saturation, oximetry 98 % Kenia Negrete pulse rate 86 /min Kenia Miller er weight E&M 151 [lb_av] Kenia baroneer height E&M 59 [in_i] Kenia baroneer Body Mass Index (Ratio) 34.53 kg/m2 Glenroy Mckeon MD respiratory rate E&M 17 /min Radha Fernando dempseyia blood pressure, diastolic 86 mm[Hg] Shantel miguel a Pepper blood pressure, systolic 139 mm[Hg] Any a Evgeny oxygen saturation, oximetry 92 % Radha Evgeny pulse rate 109 /min Radha Evgeny weight E&M 171 [lb_av] Radha Evgeny blood pressure, cuff size large Shantel miguel a Pepper height E&M 59 [in_i] Radha Pepper Body Mass Index (Ratio) 34.33 kg/m2 Glenroy Mckeon MD blood pressure, diastolic 60 mm[Hg] Li nkLogbrad blood pressure, systolic 90 mm[Hg] Uyen kLogbrad blood pressure, diastolic 60 mm[Hg] Mi kj Delgado blood pressure, systolic 90 mm[Hg] [facility] helzoraida Delgado oxygen saturation, oximetry 95 % Corine Delgado pulse rate 90 /min Corine ivan weight E&M 170 [lb_av] Corine ivan respiratory rate E&M 16 /min Saira Delgado blood pressure, cuff size large Terra Delgado height E&M 59 [in_i] Corine ivan Body Mass Index (Ratio) 34.94 kg/m2 Glenroy Mckeon MD blood pressure, cuff size large Ke rri Caden blood pressure, diastolic 64 mm[Hg] Ke rri Caden blood pressure, systolic 114 mm[Hg] Chris ri Gruenenfelder oxygen saturation, oximetry 95 % Kenia Gruenenfelder respiratory rate E&M 16 /min Kenia G ruenenfelder pulse rate 92 /min Kenia Gruenenfe lder weight E&M 173 [lb_av] Kenia Gruenenfe lder height E&M 59 [in_i] Kenia Gruenenfe lder Body Mass Index (Ratio) 33.93 kg/m2 Glenroy Mckeon MD blood pressure, cuff size large Ke rri Gruenenfelder blood pressure, diastolic 89 mm[Hg] Ke rri Gruenenfelder blood pressure, systolic 149 mm[Hg] Ker ri Gruenenfelder oxygen saturation, oximetry 97 % Kenia Gruenenfelder respiratory rate E&M 16 /min Kenia G ruenenfelder pulse rate 98 /min Kenia Gruenenfe er weight E&M 168 [lb_av] Kenia Gruenenfe lder height E&M 59 [in_i] Kenia Gruenenfe er Body Mass Index (Ratio) 35.34 kg/m2 Wagner Sheikh MD blood pressure, cuff size large Ke rri Gruenenfelder blood pressure, diastolic 72 mm[Hg] Ke rri Gruenenfelder blood pressure, systolic 110 mm[Hg] Ker ri Gruenenfelder oxygen saturation, oximetry 97 % Kenia Gruenenfelder respiratory rate E&M 14 /min Kenia G ruenenfelder pulse rate 87 /min Kenia Gruenenfe lder weight E&M 175 [lb_av] Kenia Gruenenfe lder height E&M 59 [in_i] Kenia Paul [facility] Body Mass Index (Ratio) 35.34 kg/m2 Glenroy Mckeon MD blood pressure, cuff size large Ke rri Stewabbisonam blood pressure, diastolic 84 mm[Hg] Ke rri Caden blood pressure, systolic 150 mm[Hg] Chris ri Caden oxygen saturation, oximetry 95 % Kenia Caden respiratory rate E&M 16 /min Kenia Wright timothy pulse rate 118 /min Kenia Paul [facility] weight E&M 175 [lb_av] Kenia Paul [facility] height E&M 59 [in_i] Kenia Paul [facility] Body Mass Index (Ratio) 36.47 kg/m2 Glenroy Mckeon MD blood pressure, diastolic 70 mm[Hg] Leola nkLogbrad blood pressure, systolic 118 mm[Hg] Uyen kLogbrad blood pressure, diastolic 70 mm[Hg] Melanie Torres blood pressure, systolic 118 mm[Hg] Goldie Torres oxygen saturation, oximetry 97 % Olaf Torres respiratory rate E&M 16 /min Mercedez Torres pulse rate 92 /min Olaf oscar weight E&M 180.6 [lb_av] Olaf lopez height E&M 59 [in_i] Olaf oscar Body Mass Index (Ratio) 34.33 kg/m2 Glenroy Mckeon MD blood pressure, resting Yes Eliot manan Nelson blood pressure, diastolic 70 mm[Hg] Mame Nelson blood pressure, systolic 114 mm[Hg] Velma Nelson oxygen saturation, oximetry 98 % David Nelson respiratory rate E&M 18 /min Delon Nelsno weight E&M 170 [lb_av] David ramirezd height E&M 59 [in_i] David carlin Body Mass Index (Ratio) 34.17 kg/m2 Glenroy Mckeon MD blood pressure, diastolic 80 mm[Hg] Melanie Doran Torres blood pressure, systolic 110 mm[Hg] Goldie Rodriguez Torres oxygen saturation, oximetry 94 % Olaf Torres respiratory rate E&M 16 /min Mercedez Torres pulse rate 86 /min Olaf oscar weight E&M 169.2 [lb_av] Olaf Nicole enson height E&M 59 [in_i] Olaf Javier nson Body Mass Index (Ratio) 35.34 kg/m2 Glenroy Mckeon MD oxygen saturation, oximetry 96 % Lisa Block pulse rate 73 /min Lisa Block blood pressure, diastolic 78 mm[Hg] Br ittany Block blood pressure, systolic 122 mm[Hg] Alysa armando Block weight E&M 175 [lb_av] Lisa Block respiratory rate E&M 16 /min Brittan y Block height E&M 59 [in_i] Lisa Block Body Mass Index (Ratio) 36.35 kg/m2 Glenroy Mckeon MD pulse rate 60 /min Kaycee bean blood pressure, diastolic 64 mm[Hg] Cy nthirubi Almendarez blood pressure, systolic 141 mm[Hg] Isis lucas Almendarez oxygen saturation, oximetry 94 % Kaycee Almendarez respiratory rate E&M 16 /min Kaycee Almendarez weight E&M 180 [lb_av] Kaycee Garrett blood pressure, cuff size regular Cy junaid Almendarez temperature site temporal [facility] temperature E&M 97.5 [degF] Namita [facility] height E&M 59 [in_i] Kaycee Garrett Body Mass Index (Ratio) 37.16 kg/m2 Glenroy Mckeon MD blood pressure, diastolic 92 mm[Hg] To [facility] blood pressure, systolic 133 mm[Hg] Ton ruiz Henry oxygen saturation, oximetry 93 % [facility] respiratory rate E&M 16 /min [facility] pulse rate 82 /min [facility] weight E&M 184 [lb_av] [facility] height E&M 59 [in_i] [facility] temperature site temporal Counts include [facility] beds at the [facility] temperature E&M 97.7 [degF] Namita [facility] Body Mass Index (Ratio) 38.57 kg/m2 Kobe Urrutia temperature E&M 97.3 [degF] Shannan Alexandria e blood pressure, diastolic 79 mm[Hg] Cy junaid Almendarez blood pressure, systolic 131 mm[Hg] Isis lucas Almendarez blood pressure, cuff size regular Cy junaid Almendarez oxygen saturation, oximetry 94 % Kaycee Almendarez pulse rate 90 /min Kaycee bean respiratory rate E&M 16 /min Kaycee Almendarez weight E&M 191 [lb_av] Kaycee Garrett height E&M 59 [in_i] Kaycee Garrett l Body Mass Index (Ratio) 38.57 kg/m2 Kobe harrison Renan temperature E&M 97.5 [degF] Shannan Ibrahim e pulse rate 82 /min Lisa Block blood pressure, diastolic 72 mm[Hg] Br ittany Block blood pressure, systolic 120 mm[Hg] Alysa ttaedison Block oxygen saturation, oximetry 94 % Lisa Block weight E&M 191 [lb_av] Lisa Block respiratory rate E&M 16 /min [facility] height E&M 59 [in_i] Lisa Block Body Mass Index (Ratio) 37.36 kg/m2 Jord hunter Urrutia pulse rate 65 /min Kaycee Campbel l blood pressure, cuff size regular Cy junaid Almendarez blood pressure, diastolic 71 mm[Hg] Cy ntmnrubi Almendarez blood pressure, systolic 110 mm[Hg] Isis dimitrisrubi Almendarez weight E&M 185 [lb_av] Kaycee Campbel l height E&M 59 [in_i] Kaycee Campbel l Body Mass Index (Ratio) 37.36 kg/m2 Rex Chow MD blood pressure, cuff size regular Cy ntyordan Almendarez blood pressure, diastolic 78 mm[Hg] Cy ntmna Almendarez blood pressure, systolic 128 mm[Hg] Isis dimitrisrubi Almendarez pulse rate 124 /min Kaycee Campbel l respiratory rate E&M 16 /min Kaycee Almendarez oxygen saturation, oximetry 98 % Kaycee Almendarez weight E&M 185 [lb_av] Kaycee Campbel l height E&M 59 [in_i] Kaycee Campbel l Body Mass Index (Ratio) 38.57 kg/m2 Glenroy Mckeon MD pulse rate 81 /min Tonsha Henry respiratory rate E&M 16 /min Tonsha Henry blood pressure, diastolic 78 mm[Hg] [facility], [facility] 148 mm[Hg] Ton [facility] oxygen saturation, oximetry 97 % [facility] weight E&M 191 [lb_av] [facility] E&M 59 [in_i] [facility] height E&M 59 [in_i] [facility] Body Mass Index (Ratio) 37.16 kg/m2 Jord en Renan blood pressure, cuff size regular Cy junaid Almendarez blood pressure, diastolic 70 mm[Hg] Cy junaid Almendarez blood pressure, systolic 116 mm[Hg] Isis lucas Almendarez oxygen saturation, oximetry 97 % Kaycee Almendarez respiratory rate E&M 18 /min Kayceelucas Almendarez pulse rate 97 /min Kayceelucas Juarezbel l weight E&M 184 [lb_av] Kaycee Campbel l height E&M 59 [in_i] Kaycee Campbel l Body Mass Index (Ratio) 37.56 kg/m2 Glenroy Mckeon MD respiratory rate E&M 16 /min [facility] blood pressure, diastolic 101 mm[Hg] To [facility] blood pressure, systolic 151 mm[Hg] Ton [facility] pulse rate 97 /min [facility] oxygen saturation, oximetry 97 % [facility] weight E&M 186 [lb_av] [facility] height E&M 59 [in_i] [facility] Body Mass Index (Ratio) 38.37 kg/m2 Glenroy Mckeon MD blood pressure, diastolic 90 mm[Hg] Marlo Edouard blood pressure, systolic 140 mm[Hg] Marifer Edouard oxygen saturation, oximetry 95 % Flory Edouard pulse rate 80 /min Flory Garsia weight E&M 190 [lb_av] Flory Sarah Garsia height E&M 59 [in_i] Flory Sarah Garsia Body Mass Index (Ratio) 37.56 kg/m2 Glenroy Mckeon MD blood pressure, diastolic 90 mm[Hg] [facility], systolic 140 mm[Hg] Twan reina Gordon oxygen saturation, oximetry 96 % Jluis Madrid respiratory rate E&M 16 /min Meriden Madrid pulse rate 90 /min Meriden Madrid weight E&M 186 [lb_av] Jluis Madrid height E&M 59 [in_i] [facility] Body Mass Index (Ratio) 33.73 kg/m2 Glenroy Mckeon MD blood pressure, cuff size regular Ke rri Caden blood pressure, diastolic 80 mm[Hg] Ke rri Gruenenfelder blood pressure, systolic 136 mm[Hg] Chris Nergete oxygen saturation, oximetry 97 % Kenia Negrete respiratory rate E&M 18 /min Kenia aguirre pulse rate 71 /min Kenia Miller er weight E&M 167 [lb_av] Kenia Miller lder height E&M 59 [in_i] Kenia Miller lder Body Mass Index (Ratio) 32.19 kg/m2 Glenroy Mckeon MD blood pressure, cuff size regular Da chiquis Javier blood pressure, diastolic 70 mm[Hg] Da chiquis Javier blood pressure, systolic 140 mm[Hg] Dac ia Javier oxygen saturation, oximetry 97 % Ruthy Javier respiratory rate E&M 185 /min Ruthy V oss pulse rate 56 /min Ruthy Javier weight E&M 159.4 [lb_av] Ruthy Herrera height E&M 59 [in_i] Ruthy Herrera Body Mass Index (Ratio) 31.50 kg/m2 Boston Soriano MD blood pressure, cuff size regular Valerio Vegas blood pressure, diastolic 90 mm[Hg] Valerio Vegas blood pressure, systolic 146 mm[Hg] Lucina Vegas oxygen saturation, oximetry 99 % Sherine Vegas respiratory rate E&M 17 /min Sherine Vegas pulse rate 66 /min Sherine Vegas weight E&M 156 [lb_av] Sherine Vegas height E&M 59 [in_i] Sherine Beemer Body Mass Index (Ratio) 31.10 kg/m2 Boston Soriano MD blood pressure, diastolic 80 mm[Hg] [facility], systolic 162 mm[Hg] [facility] oxygen saturation, oximetry 95 % [facility] respiratory rate E&M 16 /min [facility] 52 /min [facility] weight E&M 154 [lb_av] [facility] height E&M 59 [in_i] [facility] O'Yong Body Mass Index (Ratio) 31.30 kg/m2 Glenroy Mckeon MD blood pressure, diastolic 68 mm[Hg] Melanie Morin blood pressure, systolic 110 mm[Hg] Goldie Morin pulse rate 54 /min Susi Morin oxygen saturation, oximetry 98 % Susi Morin respiratory rate E&M 17 /min Susi Morin weight E&M 155 [lb_av] Susi Morin height E&M 59 [in_i] Susi Morin Body Mass Index (Ratio) 32.11 kg/m2 Glenroy Mckeon MD blood pressure, cuff size large Jasper cool Stewgerberanthony blood pressure, diastolic 100 mm[Hg] Jasper rrdawson Velmaluisanthony blood pressure, systolic 162 mm[Hg] Chris la Caden oxygen saturation, oximetry 94 % Kenia Caden respiratory rate E&M 18 /min Kenia Wright josianemoisesanthony pulse rate 96 /min Kenia Bowmanestrella er weight E&M 159 [lb_av] Kenia Paul er height E&M 59 [in_i] Kenia Paul er Body Mass Index (Ratio) 34.33 kg/m2 Glenroy Mckeon MD blood pressure, cuff size large Jeanie Silva blood pressure, diastolic 90 mm[Hg] Jeanie Silva blood pressure, systolic 130 mm[Hg] Yvette rosas Ricardo oxygen saturation, oximetry 98 % Ely Ricardo respiratory rate E&M 16 /min Ely Ricardo pulse rate 98 /min Ely Ricardo weight E&M 170 [lb_av] Elyrubi Silva height E&M 59 [in_i] Ely Silva Body Mass Index (Ratio) 34.33 kg/m2 Glenroy Mckeon MD blood pressure, diastolic 75 mm[Hg] Melanie Torres blood pressure, systolic 127 mm[Hg] Goldie Torrse oxygen saturation, oximetry 96 % Olaf Torres respiratory rate E&M 20 /min Mercedez Torres pulse rate 94 /min Olaf oscar weight E&M 170 [lb_av] Olaf oscar height E&M 59 [in_i] Olaf tangon Body Mass Index (Ratio) 36.55 kg/m2 Glenroy Mckeon MD blood pressure, cuff size regular Ke rri Caden blood pressure, diastolic 94 mm[Hg] Ke rri Caden blood pressure, systolic 170 mm[Hg] Chris ri Caden oxygen saturation, oximetry 96 % Kenia Caden respiratory rate E&M 16 /min Kenia Wright timothy pulse rate 91 /min Kenia Paul zamudio weight E&M 181 [lb_av] Kenia Paul lder height E&M 59 [in_i] Kenia Paul baroneer Body Mass Index (Ratio) 35.75 kg/m2 Glenroy Mckeon MD blood pressure, resting Yes Anti rian Swanson oxygen saturation, oximetry 96 % Indigo Swanson respiratory rate E&M 16 /min Rj deysi Swanson pulse rate 56 /min Indigo Anil s weight E&M 177 [lb_av] Indigo Anil s blood pressure, diastolic 78 mm[Hg] An alyse Swanson blood pressure, systolic 124 mm[Hg] Basil Swanson blood pressure, diastolic 80 mm[Hg] Melanie Torres blood pressure, systolic 150 mm[Hg] Goldie Torres pulse rate 74 /min Olaf oscar oxygen saturation, oximetry 98 % Olaf Torres respiratory rate E&M 18 /min Mercedez Torres Body Mass Index (Ratio) 34.74 kg/m2 Caryl Torres weight E&M 172 [lb_av] Olaf oscar blood pressure, diastolic 86 mm[Hg] Melanie Torres blood pressure, systolic 185 mm[Hg] Goldie Torres pulse rate 86 /min Olaf oscar oxygen saturation, oximetry 93 % Olaf Torres respiratory rate E&M 18 /min Mercedez Torres Body Mass Index (Ratio) 32.31 kg/m2 Caryl Torres weight E&M 160 [lb_av] Olaf oscar Body Mass Index (Ratio) 30.66 kg/m2 Glenroy Mckeon MD weight E&M 151.8 [lb_av] Michelle Ivan blood pressure, diastolic 77 mm[Hg] Melanie Torres blood pressure, systolic 158 mm[Hg] Goldie Torres pulse rate 54 /min Olaf oscar oxygen saturation, oximetry 96 % Olaf Torres respiratory rate E&M 16 /min Mercedez Torres blood pressure, diastolic 67 mm[Hg] Me haney Burkett blood pressure, systolic 146 mm[Hg] Sharyn Burkett pulse rate 64 /min Shannan Burkett oxygen saturation, oximetry 96 % Shannan Burkett respiratory rate E&M 14 /min Shannan Burkett Body Mass Index (Ratio) 32.92 kg/m2 Deepa pandya Burkett weight E&M 163 [lb_av] Shannan Burkett blood pressure, diastolic 99 mm[Hg] Melanie Torres blood pressure, systolic 155 mm[Hg] Goldie Torres pulse rate 104 /min Olaf oscar oxygen saturation, oximetry 98 % Olaf Torres respiratory rate E&M 16 /min Mercedez Torres Body Mass Index (Ratio) 31.26 kg/m2 Caryl Torres weight E&M 154.8 [lb_av] Olaf lopez height E&M 59 [in_i] Olaf tangon blood pressure, diastolic 88 mm[Hg] Zeinab seph [place] blood pressure, systolic 158 mm[Hg] Todd eph [place] pulse rate 94 /min Se [place] oxygen saturation, oximetry 98 % Se [place] respiratory rate E&M 16 /min Se [place] weight E&M 163 [lb_av] Se [place] ALLERGIES Allergy Name Onset Date Reaction Criticality Status AMIODARONE HCL DLCO 40, obstruc tion and restriction High Criticality active TAPE Low Criticality active RESULTS Date Observation Value Provider Reference Range Interpretation Location magnesium, serum 2.8 mg/dL [facility] 1.6-2.3 High alanine aminotransferase (SGPT), serum 23 1/L [facility] 0-32 aspartate aminotransferase (SGOT), serum 26 1/L [facility] 0-40 alkaline phosphatase, serum 127 1/L [facility] 39-117 High bilirubin, serum, total 0.3 mg/dL [facility] 0.0-1.2 albumin/globulin ratio, serum 1.8 [facility] 1.2-2.2 globulin, serum 2.6 [facility] 1.5-4.5 albumin, serum 4.6 g/dL [facility] 3.8-4.8 protein, total, serum 7.2 g/dL [facility] 6.0-8.5 calcium, serum 11.0 mg/dL [facility] 8.7-10.3 High carbon dioxide, venous blood 29 mmol/L [facility] 20-29 chloride, serum 95 mmol/L [facility] 96-106 Low potassium, serum 5.1 mmol/L [facility] 3.5-5.2 sodium, serum 143 mmol/L [facility] 811-317 9979/1 0/15 urea nitrogen/creatinin e ratio, serum 12 [facility] 12-28 eGFR if 23 mL/min/{1.73 _m2} [facility] >59 Low eGFR if not 20 mL/min/{1.73 _m2} [facility] >59 Low creatinine, serum 2.43 mg/dL [facility] 0.57-1.00 High urea nitrogen, blood 29 mg/dL [facility] 8-27 High blood glucose, random 126 mg/dL [facility] 65-99 High 12/27 magnesium, serum 1.8 mg/dL [facility] 1.6-2.3 12/27 activated partial thromboplastin time (aPTT) 31.0 s [facility] Units converted. See lab report for original value. 12/27 prothrombin time (patient) 11.4 s [facility] 9.1-12.0 12/27 international normalized ratio (INR) 1.1 [facility] 0.8-1.2 05/26 coagulation managed by Levar Alva RN 05/26 international normalized ratio (INR) 1.4 Meriden Madrid Normal 05/26 prothrombin time (patient) 16.4 s Meriden [place] 04/10 coagulation managed by Levar Alva RN 04/10 international normalized ratio (INR) 1.9 Kaycee Almendarez Normal 04/10 prothrombin time (patient) 22.5 s Kaycee Almendarez 04/03 coagulation managed by Levar Alva RN 04/03 international normalized ratio (INR) 3.1 Meriden Madrid Normal 04/03 prothrombin time (patient) 37.0 s Jluis [place] 03/28 coagulation managed by Levar Alva RN 03/28 international normalized ratio (INR) 4.2 Kaycee Almendarez Normal 03/28 prothrombin time (patient) 50.6 s Kaycee Almendarez 03/21 coagulation managed by Levar Alva RN 03/21 international normalized ratio (INR) 4.7 Meriden Madrid Normal 03/21 prothrombin time (patient) 55.9 s Meriden Madrid 03/14 coagulation managed by Candace Apodaca 03/14 international normalized ratio (INR) 3.3 Kaycee Almendarez Normal 03/14 prothrombin time (patient) 39.3 s Kaycee Almendarez 03/07 coagulation managed by Levar Alva RN 03/07 international normalized ratio (INR) 1.2 Olaf Nicoleenson Normal 03/07 prothrombin time (patient) 14.2 s Olaf Nicoleenson 02/05 coagulation managed by Levar Alva RN 02/05 international normalized ratio (INR) 2.7 Ruthy Javier Normal 02/05 prothrombin time (patient) 32.9 s Ruthy Javier 01/06 coagulation managed by Levar Alva RN 01/06 international normalized ratio (INR) 2.7 Kaycee Almendarez Normal 01/06 prothrombin time (patient) 32.5 s Kaycee Almendarez 12/03 coagulation managed by Levar Alva RN 12/03 international normalized ratio (INR) 2.6 Kenia Caden Normal 12/03 prothrombin time (patient) 31.6 s Kenia Caden 11/19 coagulation managed by Levar Alva RN 11/19 international normalized ratio (INR) 1.5 Kaycee Almendarez Normal 11/19 prothrombin time (patient) 18.5 s Kaycee Almendarez 12/17 coagulation managed by Levar Alva RN 12/17 international normalized ratio (INR) 2.8 Ruthy Javier Normal 12/17 prothrombin time (patient) 33.5 s Ruthy Javier 12/02 coagulation managed by Levar Alva RN 12/02 international normalized ratio (INR) 2.9 Kaycee Almendarez Normal 12/02 prothrombin time (patient) 34.3 s Kaycee Almendarez 11/27 coagulation managed by Levar Henderson 11/27 international normalized ratio (INR) 1.1 Kaycee Almendarez Normal 11/27 prothrombin time (patient) 13.1 s Kaycee Almendarez 11/16 coagulation managed by Levar Alva RN 11/16 international normalized ratio (INR) 1.0 Kaycee Almendarez Normal 11/16 prothrombin time (patient) 11.8 s Kaycee Almendarez 05/15 thyroid stimulating hormone, serum 5.130 ??IU/ML [employer] 0.270 - 4.200 High 05/15 pro brain natriu [id number]|2025-03-18 12:06:00|2025-03-18 12:05:00|XMS_ITS|NOA VOGEL|External Medical Summaries|[id number]|" Clinical Summary Created on: March 18, 2025 Brissa Rizo : 1950 Sex: Female Author Organization 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 Pulse 90 01/01/2023 1:53 PM TACK COVERER Temperature 36.6 C (97.8 F) 01/01/2023 1:53 PM TACK COVERER Respiratory Rate 16 01/01/2023 1:53 PM TACK COVERER Oxygen Saturation 96% 01/01/2023 1:53 PM TACK COVERER Inhaled Oxygen Concentration - - Weight 74.7 kg (164 lb 11.2 oz) 01/01/2023 1:53 PM TACK COVERER Height 149.9 cm (4' 11 ) 11/30/2022 10: 18 AM TACK COVERER Body Mass Index 33.27 11/30/2022 10:18 AM TACK COVERER Plan of Treatment Health Maintenance Due Date [...] PART A AND B [employer] MEDICARE SUPPLEMENT [id number] [id number] Care Teams School Health Aide Relationship Specialty Start Date End Date Zurdo Ceja MD PCP - General Internal Medicine 11/30/22 "
--- OUTSIDE RECORDS SUMMARY | 2025-03-18 12:05 | XMS_ITS | Referral Summary ---
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
--- OUTSIDE RECORDS SUMMARY | 2025-03-18 12:06 | XMS_ITS | Clinical Summary ---
Author Organization [facility] [employer] Address [address] [place] [address] Care Team Providers Care Muck Hauler Name Role Phone Clay Harkins MD Unavailable [phone] Prince Mckeon MD Unavailable [phone] Source Comments [facility] [employer],non-owned Affiliates and Associated Physician Practices is amultiple site organization consisting of ambulatory clinics and hospital sitesin [place], [place], [place] and [place]. This disclosure is being madepursuant to the Care Everywhere program and may not contain all information available regarding this patient. 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 [address] [place] [address] PCP - [facility] 09/12/24 Clay Harkins MD Internal Medicine 07/31/11
--- NOTE | 2025-03-18 12:15 | PC.NURSE ---
DR DE LA ROSA MADE AWARE OF PT'S CURRENT PULSE AND BLOOD PRESSURE AND ORDERED DILTIAZEM GTT TO BE HELD.
[2025-03-18] MEDS: PIPERACILLIN/TAZ 4.5G/NS 100ML 4.5 GM/100 ML BAG IVPB (12:24)
[2025-03-18 13:19] LABS: Reflex Lactic Acid Yes or No Add Lactic
--- NOTE | 2025-03-18 14:21 | P.HP_ITS ---
H&P: HPI History of Present Illness Date/Time: 03/18/25 14:21 Chief Complaint: Painful bleeding rash Narrative: 74-year-old female past medical history of AFib, TIA, hypertension, chronic kidney disease and pacemaker presents the hospital with a painful bleeding rash. Patient states that due to the rash being itchy she was scratching it. She knows that started bleeding so she washed it with peroxide. She states due to being completely uncomfortable she has been lying in bed a lot on her back. Patient denies fever or chills. In the ED patient leukocytosis of 20.1, sodium 131, BUN of 43, creatinine of 1 .88 which is baseline lactic acid 3.2. CT abdomen pelvis show Extensive cellulitis/soft tissue infection involving the subcutaneous soft tissues of the left buttock. No distinct abscess/fluid collection evident. In the ED patient was in AFib with RVR was given diltiazem. For her cellulitis she was given Zosyn 2 L bolus and pain medication. Review of Systems Review of Systems: 12 systems were reviewed and are negativ e except for as per HPI. [facility] Past Medical History Medical History Pacemaker Hepatic steatosis Chronic kidney disease Stage III Spinal stenosis Depression with anxiety Osteoarthritis Peptic ulcer disease Causing a GI bleed. Chronic pain Chronic GERD Asthma Hypertension History of rheumatic fever Atrial fibrillation Paroxysmal and has been cardioverted x2 to 3 times and is scheduled to be converted again however she is in sinus rhythm today TIA (transient ischemic attack) Occasional balance issues. Left lower extremity weakness which have resolved. 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 Repair of gastric bypass after there was a leak in 0 5. History of tonsillectomy Family History Family History (Updated 03/18/25 @ 15:32 by Nancy Soliz RN) Father Cancer Hypertension Heart disease Mother Diabetes mellitus Cancer Hypertension Sibling Diabetes mellitus Heart disease Hypertension Cancer Suicide Social History Social History Social History: The patient is . She lives with 1 of her daughters who is a nurse. She had 2 biological children and adopted to foster children who were brother and sister. Patient desires her daughter Sheri aguayo to be her durable power deputy attorney general for healthcare. She desires to be a full code. The patient denies any alcohol, tobacco or drug abuse. No marijuana use either. She retired from being a [employer] Smoking status: Never smoker Second hand tobacco smoke exposure: Yes Alcohol intake: current Drinks per week: 1 Substance use: never Substance use type: does not use Do You Feel Safe in your Home?: Yes Lack of Transportation: No Lack of Food: Never True Current Housing: I Have Housing Concerned About Future Housing: No Difficulty Paying Gas/Electric Bills: No Difficulty Paying for Meds: No Currently Unemployed: No Education: Trade/Vocational Certificate Difficulty w/ Childcare or Family Care: No Living arrangements: with family Gender identity (if verbalized by the patient): Female Spiritual care concerns: No Meds Home Medications and Allergies Home Medications Medication Instructions Recorded Confirmed Type allopurinol 100 mg tablet 100 mg PO BID 04/04/20 03/18/25 History apixaban 2.5 mg tablet (Eliquis) 2.5 mg PO BID 04/04/20 03/18/25 History atorvastatin 40 mg tablet 40 mg PO HS 04/04/20 03/18/25 History buspirone 10 mg tablet 10 mg PO TID 04/04/20 03/18/25 History diltiazem HCl 180 mg capsule,24 180 mg PO Q12H 04/04/20 03/18/25 History hr,extended release ergocalciferol (vitamin D2) 1,250 1,250 mcg PO [id number] 04/04/20 03/18/25 History mcg (50,000 unit) capsule (Vitamin D2) furosemide 40 mg tablet (Lasix) 40 mg PO DAILY 04/04/20 03/18/25 History magnesium oxide 400 mg PO TID 04/04/20 03/18/25 History melatonin 5 mg tablet 5 mg PO HS 04/04/20 03/18/25 History iljxegxzupgm-srvwkwf-hgxqp acid 1 tablet PO DAILY 04/04/20 03/18/25 History 400 mcg-lutein 250 mcg chewable tablet (Centrum Silver) spironolactone 25 mg tablet 25 mg PO DAILY 04/04/20 03/18/25 History metoprolol succinate 100 mg 100 mg PO HS 04/05/20 03/18/25 History tablet,extended release 24 hr albuterol sulfate 90 mcg/actuation 1 puff inhalation .q12 PRN 03/18/25 03/18/25 History aerosol inhaler shortness of breath or wheezing calcitriol 0.25 mcg capsule 0.25 mcg PO DAILY 03/18/25 03/18/25 History dofetilide 125 mcg capsule 125 mcg PO Q12H 03/18/25 03/18/25 History famotidine 20 mg tablet 20 mg PO BID 03/18/25 03/18/25 History glipizide 5 mg tablet, extended 5 mg PO DAILY 03/18/25 03/18/25 History release 24 hr losartan 50 mg tablet 50 mg PO DAILY 03/18/25 03/18/25 History sertraline 100 mg tablet 100 mg PO DAILY 03/18/25 03/18/25 History sertraline 50 mg tablet 50 mg PO DAILY 03/18/25 03/18/25 History tizanidine 2 mg tablet 2 mg PO DAILY 03/18/25 03/18/25 History trazodone 100 mg tablet 100 mg PO DAILY 03/18/25 03/18/25 History Allergies Allergy/AdvReac Type Severity Reaction Status Date / Time adhesive AdvReac Mild BLISTERS Verified 04/04/20 14:55 Vital Signs Vital Signs - 24 hr 03/18/25 10:46 03/18/25 11:16 03/18/25 11:42 Temperature 97.6 F Pulse Rate 106 H 122 H 112 H Respiratory Rate 20 17 16 Blood Pressure 106/86 110/68 104/67 Pulse Oximetry 98 97 96 Oxygen Delivery Room Air 03/18/25 11:58 03/18/25 12:01 03/18/25 12:16 Temperature Pulse Rate 104 H 93 105 H Respiratory Rate 20 12 15 Blood Pressure 111/94 H 104/50 L 95/54 L Pulse Oximetry 94 95 93 Oxygen Delivery 03/18/25 12:46 03/18/25 13:01 Temperature Pulse Rate 93 94 Respiratory Rate 17 12 Blood Pressure 97/50 L 96/54 L Pulse Oximetry 94 94 Oxygen Delivery Exam Narrative: General: well appearing, appears stated age. HEENT: normocephalic, atraumatic. Mucous membranes moist. EOMI, PERRLA, bilateral sclera anicteric, no conjunctival injection. Neck supple without JVD, lymphadenopathy, or bruit. Respiratory: clear to ascultation bilaterally. No rales/rhonic/wheezes. Cardiovascular: Regular rate and rhythm, normal S1-S2 upon ascultation. No murmurs, rubs, or clicks. PMI is nondisplaced, capillary refill less than 3 second. Abdomen: Soft, round, no pulsatile masses, nondistended and nontender. No rebound, no guarding. No CVA tenderness, no hepatosplenomegaly. Bowel sounds present to all four quadrants. No high pitch or tinkling sounds, resonant to percussion. Extremities: No cyanosis, clubbing, or edema present. Pulses are palpable 2/2. Active ROM to all four extremities. Neuro: Alert and orientated x 4. PERRLA. Cranial nerves 2-12 intact without focal deficit. Skin: Warm, dry, and intact, without rash, erythema, or lesion. Psych: pleasant, cooperative, normal speech, normal affect, no hallucinations, no dysarthia Left glute: Deep purple erythema induration, no fluctuation, area of bleeding, no purulent drainage H&P: Results Labs Labs: Short CBC 03/18/25 Range/Units 11:14 WBC 20.1 H (4.5-10.0) K/mm3 Hgb 12.6 (12.0-15.0) g/dL Hct 39.9 (37.0-47.0) % Plt Count 330 (150-375) k/mm3 BMP 03/18/25 11:14 Sodium 131 L Potassium 4.4 Chloride 95 L Carbon Dioxide 25 BUN 43 H D Creatinine 1.88 H Glucose 115 H Calcium 9.4 Cardiac Enzymes 03/18/25 Range/Units 11:14 Troponin I < 0.012 (0.000-0.034) ng/mL Liver Function 03/18/25 Range/Units 11:14 Total Bilirubin 1.3 (0.2-1.3) mg/dL AST 23 (14-36) U/L ALT 26 (6-35) U/L Alkaline Phosphatase 114 (38-126) U/L Albumin 3.7 (3.5-5.1) g/dL Assessment and Plan Assessment and plan (1) Cellulitis: Code(s): L03.90 - Cellulitis, unspecified Status: Acute Assessment and Plan: Verses pressure ulcer versus both, low likelihood for necrotizing fasciitis due to no air seen on CT imaging Left buttock Wound care consulted IVF for hydration Vancomycin and Rocephin Encourage frequent turning (2) Sepsis: Code(s): A41.9 - Sepsis, unspecified organism Status: Acute Assessment and Plan: Secondary to cellulitis Sepsis Fluid bolus given Blood cultures pending Wound cultures pending ABX as above Repeat lactic improved (3) Hypertension: Qualifiers: Hypertension type: essential hypertension Qualified Code(s): I10 - Essential (primary) hypertension Code(s): I10 - Essential (primary) hypertension Status: Chronic Assessment and Plan: Hold antihypertensives as she was hypotensive in the ED (4) Atrial fibrillation: Qualifiers: Atrial fibrillation type: unspecified Qualified Code(s): I48.91 - Unspecified atrial fibrillation Code(s): I48.91 - Unspecified atrial fibrillation Status: Chronic Assessment and Plan: AFib with RVR in the ED Given diltiazem push in the ED Continue Eliquis and oral diltiazem (5) Chronic kidney disease: Qualifiers: Chronic kidney disease stage: stage 3 (moderate) Qualified Code(s): N18.3 - Chronic kidney disease, stage 3 (moderate) Code(s): N18.9 - Chronic kidney disease, unspecified Status: Chronic Assessment and Plan: BMP the morning monitor for GORGE due to vancomycin (6) CHF (congestive heart failure): Code(s): I50.9 - Heart failure, unspecified Status: Acute Assessment and Plan: Holding Lasix and spironolactone due to dehydration Quality VTE Prophylaxis VTE prophylaxis: mechanical ordered Hospitalist MIPS Advance Care Plan I have confirmed that the patient's Advanced Care Plan is present, code status is documented, or surrogate decision maker is listed in patient medical record.: Yes Medication Reconciliation I have utilized all available resources to obtain, update and review the patients current medications (includes all prescriptions, OTC, herbals, cannabis, and nutritional supplements).: Yes
[2025-03-18 15:56] LABS: Lactic Acid 1.2 mmol/L (0.7-2.0)
[2025-03-18] MEDS: SODIUM CHLORIDE 0.9% IV 1,000 ML 100 ML IV CONT (15:58)
[2025-03-18] MEDS: cefTRIAXone 2 GM/NS 100 ML 2 GM/100 ML BAG IVPB (16:00)
[2025-03-18] MEDS: HYDROcodone/acetaminophen (*CRX) 5-325 MG TABLET 1 TAB PO ×2 (16:00→20:44)
[2025-03-18] MEDS: VANCOMYCIN 1,000 MG/NS 250 ML 1,000 MG/250 ML BAG 250 MG IVPB (16:19)
[2025-03-18] MEDS: DOCUSATE SODIUM 100 MG CAPSULE PO (16:20)
--- NOTE | 2025-03-18 17:43 | ADMGEN ---
This patient, Brissa Rizo, was admitted to IMU Room 205-02 at 1449. Patient/family oriented to hospital policies and general routines including ID bracelet, bed and alarms, visiting hours, pain management, procedures, bathroom and other care routines, personal items, smoking policy, room service/diet, and visiting hours. Information on how to activate the Rapid Response Team has been discussed. Patient/Family are encouraged to report perceived risks to care and to ask questions if they do not understand what they are told or what they should do.
[2025-03-18] MEDS: HEPARIN SODIUM 5,000 UNITS/ML VIAL 5000 UNITS SUB-Q (20:44)
[2025-03-19] VITALS (21 sets, daily range): BP systolic 87–113; BP diastolic 49–64; PULSE 79–106; RESP 14–20; TEMP 36.6–37.2; O2SAT 92–96; BMI 31.3
[2025-03-19] MEDS: MELATONIN 5 MG TABLET PO ×2 (00:34→22:19)
[2025-03-19] MEDS: METOPROLOL SUCCINATE EXT REL 100 MG TABCR PO ×2 (00:34→22:20)
[2025-03-19] MEDS: dilTIAZem HCL CD 180 MG CAP.24HR PO ×3 (00:34→22:23)
[2025-03-19] MEDS: ATORVASTATIN 40 MG TABLET PO ×2 (00:34→22:20)
[2025-03-19] MEDS: SODIUM CHLORIDE 0.9% IV 1,000 ML 100 ML IV CONT ×2 (02:15→10:52)
[2025-03-19 04:43] LABS: Hematocrit 34.3 % (37.0-47.0); Hemoglobin 10.7 g/dL (12.0-15.0); Mean Corpuscular HGB Conc 31.2 g/dl (32-36); Mean Corpuscular Hemoglobin 31.7 pg (26-34); Mean Corpuscular Volume 101.5 fl (80-100); Mean Platelet Volume 11.1 fl (7.4-10.4); Platelet Count Result 334 k/mm3 (150-375); Red Blood Count 3.38 M/mm3 (4.2-5.4); Red Cell Distribution Width 14.9 % (11.5-14.5); White Blood Count 19.5 K/mm3 (4.5-10.0)
[2025-03-19 04:54] LABS: Anion Gap 5 mmol/L (4-12); Blood Urea Nitrogen 37 mg/dL (7-17); Calcium 8.3 mg/dL (8.4-10.2); Carbon Dioxide 26 mmol/L (22-30); Chloride 101 mmol/L (98-107); Estimated Glomerular Filt Rate 36; Glucose 95 mg/dL (65-110); Potassium 4.6 mmol/L (3.4-5.0); Sodium 132 mmol/L (137-145)
[2025-03-19 05:13] LABS: Band Neutrophils Percent 7 % (0-6); Lymphocytes Absolute Manual 0.97 K/mm3 (1.1-4.5); Lymphocytes Percent Manual 5 % (18-44); Monocytes Absolute Manual 2.34 K/mm3 (0.1-0.90); Monocytes Percent Manual 12 % (3-9); Neutrophils Absolute Manual 16.18 K/mm3 (1.7-7.2); Neutrophils Percent Manual 76 % (46-73); Platelet Estimate Adequate (Adequate); Total Cells Counted 100
[2025-03-19 05:14] LABS: Burr Cells 1+; Ovalocytes 1+; Schistocytes None Seen
[2025-03-19] MEDS: busPIRone HCL 10 MG TABLET PO ×3 (05:22→22:20)
[2025-03-19] MEDS: HYDROcodone/acetaminophen (*CRX) 5-325 MG TABLET 1 TAB PO ×3 (05:22→22:18)
[2025-03-19] MEDS: calcitrioL 0.25 MCG CAPSULE PO (09:20)
[2025-03-19] MEDS: SERTRALINE HCL 50 MG TABLET 100 MG PO (09:20)
[2025-03-19] MEDS: SERTRALINE HCL 50 MG TABLET PO (09:20)
[2025-03-19] MEDS: APIXABAN 2.5 MG TABLET PO ×2 (09:21→15:14)
[2025-03-19] MEDS: FAMOTIDINE 20 MG TABLET PO ×2 (09:21→22:19)
[2025-03-19] MEDS: DOCUSATE SODIUM 100 MG CAPSULE PO ×2 (09:22→17:16)
[2025-03-19] MEDS: HYDROmorphone HCL INJ (*CRX) 2 MG/ML VIAL 0.5 MG IV PUSH (09:22)
--- NOTE | 2025-03-19 10:14 | P.CDI_ITS ---
CDI Query Clarification Request Please specify type and acuity of heart failure if known. * Acute * Chronic * Acute on Chronic * Unknown * Systolic * Diastolic * Combined Systolic and Diastolic * Unknown 74-year-old female with a past medical history including atrial fibrillation on anticoagulation with Eliquis and rate control with metoprolol and diltiazem. She has a history of pacemaker, CKD. Patient presents the emergency department with left buttock abscess and pain. Patient states she thinks she scratched her left butt cheek several days ago and knows that got infected with redness and painful tenderness to palpation. She had a fever yesterday of 101. Family noticed that she was having drainage start developing over last day and now she has scant bleeding from an open sore on her left butt cheek. No other injuries. Patient states that she feels short of breath but this is chronic. No chest pain, chest pressure, nausea, vomiting, abdominal pain, present fever chills. No recent antibiotic use or recent hospitalizations. (6) CHF (congestive heart failure): Code(s): I50.9 - Heart failure, unspecified Status: Acute Assessment and Plan: Holding Lasix and spironolactone due to dehydration <Ryanne Cody RN - Last Filed: 03/19/25 10:16> Provider Comments unable to determine as patient does not any cardiac echo and in the medical record. <Antoine Ying MD - Last Filed: 03/20/25 07:50>
[2025-03-19] MEDS: cefTRIAXone 2 GM/NS 100 ML 2 GM/100 ML BAG IVPB (15:15)
--- NOTE | 2025-03-19 17:36 | P.PNIM_ITS ---
Progress Note: A&P Assessment and Plan (1) Cellulitis: Code(s): L03.90 - Cellulitis, unspecified Status: Acute Assessment and Plan: Verses pressure ulcer versus both, low likelihood for necrotizing fasciitis due to no air seen on CT imaging Left buttock Wound care consulted IVF for hydration Vancomycin and Rocephin Encourage frequent turning (2) Sepsis: Code(s): A41.9 - Sepsis, unspecified organism Status: Acute Assessment and Plan: Secondary to cellulitis Sepsis Fluid bolus given Blood cultures pending Wound cultures pending ABX as above Repeat lactic improved (3) Hypertension: Qualifiers: Hypertension type: essential hypertension Qualified Code(s): I10 - Essential (primary) hypertension Code(s): I10 - Essential (primary) hypertension Status: Chronic Assessment and Plan: Hold antihypertensives as she was hypotensive in the ED (4) Atrial fibrillation: Qualifiers: Atrial fibrillation type: unspecified Qualified Code(s): I48.91 - Unspecified atrial fibrillation Code(s): I48.91 - Unspecified atrial fibrillation Status: Chronic Assessment and Plan: AFib with RVR in the ED Given diltiazem push in the ED Continue Eliquis and oral diltiazem (5) Chronic kidney disease: Qualifiers: Chronic kidney disease stage: stage 3 (moderate) Qualified Code(s): N18.3 - Chronic kidney disease, stage 3 (moderate) Code(s): N18.9 - Chronic kidney disease, unspecified Status: Chronic Assessment and Plan: BMP the morning monitor for GORGE due to vancomycin (6) CHF (congestive heart failure): Code(s): I50.9 - Heart failure, unspecified Status: Acute Assessment and Plan: Holding Lasix and spironolactone due to dehydration Plan patient presented with cellulitis of low back, stats it painful and itching, while in the ER developed A. fib with RVR most likely triggered by pain and stress from cellulitis, patient was given ditiazem in the ER rate is trending down, patient is being treated with zosyn for cellulitis and will have wound team evaluate the patient. Subjective Date/time seen: 03/19/25 17:36 Interval history: Painful bleeding rash Narrative: 74-year-old female past medical history of AFib, TIA, hypertension, chronic kidney disease and pacemaker presents the hospital with a painful bleeding rash. Patient states that due to the rash being itchy she was scratching it. She knows that started bleeding so she washed it with peroxide. She states due to being completely uncomfortable she has been lying in bed a lot on her back. Patient denies fever or chills. In the ED patient leukocytosis of 20.1, sodium 131, BUN of 43, creatinine of 1.88 which is baseline lactic acid 3.2. CT abdomen pelvis show Extensive cellulitis/soft tissue infection involving the subcutaneous soft tissues of the left buttock. No distinct abscess/fluid collection evident. In the ED patient was in AFib with RVR was given diltiazem. For her cellulitis she was given Zosyn 2 L bolus and pain medication. patient presented with cellulitis of low back, stats it painful and itching, while in the ER developed A. fib with RVR most likely triggered by pain and stress from cellulitis, patient was given ditiazem in the ER rate is trending down, patient is being treated with zosyn for cellulitis and will have wound team evaluate the patient. Review of Systems Review of Systems: 12 systems were reviewed and are negativ e except for as per HPI. Exam Narrative: Patient is comfortable, NAD HEENT: eyes are clear and none icteric LUNGS:CTA HEART: RR S1S2 ABD: BS+, Soft and nontender Lower extremities: no edema SKIN: nonjaundiced Neuro: grossly intact. Objective Data Vital Signs Vital Signs: Vital Signs - 24 hr 03/18/25 18:00 03/18/25 20:00 03/18/25 20:00 Temperature Pulse Rate 105 H 101 H 101 H Respiratory Rate 17 Blood Pressure Pulse Oximetry 90 Oxygen Delivery Room Air 03/18/25 20:00 03/18/25 21:52 03/19/25 00:00 Temperature 36.8 C 36.6 C Pulse Rate 98 106 H 88 Respiratory Rate 17 17 Blood Pressure 101/53 L 90/49 L Pulse Oximetry 90 93 Oxygen Delivery 03/19/25 00:00 03/19/25 00:00 03/19/25 00:34 Temperature Pulse Rate 88 88 106 H Respiratory Rate 17 Blood Pressure Pulse Oximetry 93 Oxygen Delivery Room Air 03/19/25 01:44 03/19/25 04:00 03/19/25 04:00 Temperature 36.6 C Pulse Rate 85 80 84 Respiratory Rate 18 18 Blood Pressure 87/52 L Pulse Oximetry 92 92 Oxygen Delivery Room Air 03/19/25 04:00 03/19/25 06:00 03/19/25 07:47 Temperature 37.2 C Pulse Rate 84 82 85 Respiratory Rate 16 Blood Pressure 104/56 L Pulse Oximetry 95 Oxygen Delivery 03/19/25 08:00 03/19/25 08:00 03/19/25 08:44 Temperature Pulse Rate 99 Respiratory Rate Blood Pressure Pulse Oximetry 93 93 Oxygen Delivery Room Air Room Air 03/19/25 10:00 03/19/25 11:46 03/19/25 12:00 Temperature 36.8 C Pulse Rate 80 82 81 Respiratory Rate 14 Blood Pressure 112/61 Pulse Oximetry 96 Oxygen Delivery 03/19/25 14:00 03/19/25 15:55 Temperature 36.6 C Pulse Rate 83 83 Respiratory Rate 16 Blood Pressure 91/54 L Pulse Oximetry 92 Oxygen Delivery Intake/Output Intake/Output: Intake & Output 03/16/25 03/17/25 03/18/25 03/19/25 23:59 23:59 23:59 23:59 Intake Total 2440 2101.7 Balance 2440 2101.7 Meds/Results Medications: Active Medications Generic Name Dose Route Start Last Admin Trade Name Freq PRN Reason Stop Dose Admin Acetaminophen 650 mg 03/18/25 13:14 Acetaminophen 325 Mg Tablet PO Q4H PRN Mild Pain (1-3) or Fever Hydrocodone Bitart/Acetaminophen 1 tab 03/18/25 13:14 03/19/25 13:25 Hydrocodone/Acetaminophen (*Crx) 5-325 Mg Tablet PO 1 tab Q4H PRN Administration Pain Rated 4-6 Albuterol 1 puff 03/18/25 22:52 Albuterol Sulfate (*Sp) Aerosol 1 Puff INHALATION Q12HRT PRN shortness of breath or wheezing Apixaban 5 mg 03/19/25 21:00 Apixaban 5 Mg Tablet BY MOUTH Q12HR MYNOR Atorvastatin Calcium 40 mg 03/18/25 23:05 03/19/25 00:34 Atorvastatin 40 Mg Tablet PO 40 mg HS MYNOR Administration Buspirone HCl 10 mg 03/19/25 06:00 03/19/25 13:26 Buspirone Hcl 10 Mg Tablet PO 10 mg Q8HR MYNOR Administration Calcitriol 0.25 mcg 03/19/25 09:00 03/19/25 09:20 Calcitriol 0.25 Mcg Capsule PO 0.25 mcg DAILY MYNOR Administration Diltiazem HCl 180 mg 03/18/25 22:55 03/19/25 09:22 Diltiazem Hcl Cd 180 Mg Cap.24hr PO 180 mg Q12HR MYNOR Administration Docusate Sodium 100 mg 03/18/25 17:00 03/19/25 17:16 Docusate Sodium 100 Mg Capsule PO 100 mg BID MYNOR Administration Famotidine 20 mg 03/19/25 09:00 03/19/25 09:21 Famotidine 20 Mg Tablet PO 20 mg Q12HR MYNOR Administration Hydromorphone HCl 0.5 mg 03/18/25 13:14 03/19/25 09:22 Hydromorphone Hcl Inj (*Crx) 2 Mg/Ml Vial IV PUSH 0.5 mg Q4H PRN Administration Pain Rated 7-10 Sodium Chloride 1,000 mls @ 100 mls/hr 03/18/25 15:30 03/19/25 10:52 Normal Saline Iv IV CONT 100 mls/hr .Q10H MYNOR Administration Ceftriaxone Sodium 2 gm in 100 mls @ 200 mls/hr 03/18/25 16:00 03/19/25 15:15 Rocephin 2 Gm/Ns 100 Ml IVPB 200 mls/hr Q24H MYNOR Administration Vancomycin HCl 1,000 mg in 250 mls @ 250 mls/hr 03/18/25 16:00 03/18/25 16:19 Vancomycin 1,000 Mg/Ns 250 Ml IVPB 250 mls/hr Q36H MYNOR Administration Melatonin 5 mg 03/18/25 23:10 03/19/25 00:34 Melatonin 5 Mg Tablet PO 5 mg HS MYNOR Administration Metoprolol Succinate 100 mg 03/18/25 23:10 03/19/25 00:34 Metoprolol Succinate Ext Rel 100 Mg Tabcr PO 100 mg HS MYNOR Administration Morphine Sulfate 2 mg 03/18/25 15:29 Morphine Sulfate (*Crx) 2 Mg/Ml Inj IV PUSH Q4H PRN Pain Rated 7-10 Ondansetron HCl 4 mg 03/18/25 13:14 Ondansetron Inj 4 Mg/2 Ml Vial IV PUSH Q4H PRN Nausea Sertraline HCl 100 mg 03/19/25 09:00 03/19/25 09:20 Sertraline Hcl 50 Mg Tablet PO 100 mg DAILY [facility] Administration Sertraline HCl 50 mg 03/19/25 09:00 03/19/25 09:20 Sertraline Hcl 50 Mg Tablet PO 50 mg DAILY MYNOR Administration Trazodone HCl 100 mg 03/18/25 23:10 03/19/25 00:34 Trazodone Hcl 50 Mg Tablet PO Not Given HS [facility] Radiology Results: ITS Impressions Abdomen/Pelvis CT 03/18/25 11:59 Impression: Extensive cellulitis/soft tissue infection involving the subcutaneous soft tissues of the left buttock. No distinct abscess/fluid collection evident. Chest X-Ray 03/18/25 12:02 Impression: Clear lungs. Labs Labs: Laboratory Results - last 24 hr 03/19/25 04:24 WBC 19.5 H RBC 3.38 L Hgb 10.7 L Hct 34.3 L MCV 101.5 H MCH 31.7 MCHC 31.2 L RDW 14.9 H Plt Count 334 MPV 11.1 H Immature Gran % (Auto) Not Reportable Neut % (Auto) Not Reportable Lymph % (Auto) Not Reportable Glenn % (Auto) Not Reportable Eos % (Auto) Not Reportable Baso % (Auto) Not Reportable Lymph # (Auto) Not Reportable Glenn # (Auto) Not Reportable Eos # (Auto) Not Reportable Baso # (Auto) Not Reportable Abs Immat Gran (auto) Not Reportable Absolute Neuts (auto) Not Reportable Absolute Nucleated RBC Not Reportable Total Counted 100 Neutrophils % (Manual) 76 H Band Neutrophils % 7 H Lymphocytes % (Manual) 5 L Monocytes % (Manual) 12 H Nucleated RBC % Not Reportable Abs Neuts (Manual) 16.18 H Abs Lymphs (Manual) 0.97 L Abs Monocytes (Manual) 2.34 H Platelet Estimate Adequate Ovalocytes 1+ Elder Cells 1+ Schistocytes None seen Sodium 132 L Potassium 4.6 Chloride 101 Carbon Dioxide 26 Anion Gap 5 BUN 37 H Creatinine 1.41 H Estim Creat Clear Calc Not Reportable Estimated GFR 36 L Glucose 95 Calcium 8.3 L Quality VTE Prophylaxis VTE prophylaxis: mechanical ordered
[2025-03-19] MEDS: traZODone HCL 50 MG TABLET 100 MG PO (22:19)
[2025-03-19] MEDS: APIXABAN 5 MG TABLET BY MOUTH (22:20)
[2025-03-20] VITALS (17 sets, daily range): BP systolic 106–145; BP diastolic 49–79; PULSE 69–89; RESP 16–24; TEMP 36.7–37.1; O2SAT 95–98
[2025-03-20] MEDS: SODIUM CHLORIDE 0.9% IV 1,000 ML 100 ML IV CONT ×3 (01:39→22:27)
[2025-03-20] MEDS: VANCOMYCIN 1,000 MG/NS 250 ML 1,000 MG/250 ML BAG 250 MG IVPB (03:33)
[2025-03-20 04:19] LABS: Hematocrit 32.6 % (37.0-47.0); Hemoglobin 10.3 g/dL (12.0-15.0); Mean Corpuscular HGB Conc 31.6 g/dl (32-36); Mean Corpuscular Hemoglobin 31.7 pg (26-34); Mean Corpuscular Volume 100.3 fl (80-100); Mean Platelet Volume 10.7 fl (7.4-10.4); Platelet Count Result 330 k/mm3 (150-375); Red Blood Count 3.25 M/mm3 (4.2-5.4); Red Cell Distribution Width 15.4 % (11.5-14.5); White Blood Count 17.3 K/mm3 (4.5-10.0)
[2025-03-20 04:30] LABS: Anion Gap 6 mmol/L (4-12); Blood Urea Nitrogen 31 mg/dL (7-17); Calcium 7.9 mg/dL (8.4-10.2); Carbon Dioxide 24 mmol/L (22-30); Chloride 106 mmol/L (98-107); Estimated Glomerular Filt Rate 51; Glucose 101 mg/dL (65-110); Magnesium 2.8 mg/dL (1.6-2.3); Sodium 136 mmol/L (137-145)
[2025-03-20] MEDS: busPIRone HCL 10 MG TABLET PO ×3 (06:22→20:51)
[2025-03-20] MEDS: dilTIAZem HCL CD 180 MG CAP.24HR PO ×2 (09:41→20:50)
[2025-03-20] MEDS: DOCUSATE SODIUM 100 MG CAPSULE PO ×2 (09:41→17:50)
[2025-03-20] MEDS: FAMOTIDINE 20 MG TABLET PO ×2 (09:41→20:50)
[2025-03-20] MEDS: APIXABAN 5 MG TABLET BY MOUTH ×2 (09:41→20:51)
[2025-03-20] MEDS: SERTRALINE HCL 50 MG TABLET PO (09:41)
[2025-03-20] MEDS: calcitrioL 0.25 MCG CAPSULE PO (09:41)
[2025-03-20] MEDS: SERTRALINE HCL 50 MG TABLET 100 MG PO (09:48)
[2025-03-20] MEDS: HYDROcodone/acetaminophen (*CRX) 5-325 MG TABLET 1 TAB PO ×2 (10:02→18:28)
--- NOTE | 2025-03-20 14:43 | P.PNIM_ITS ---
Progress Note: A&P Assessment and Plan (1) Cellulitis: Code(s): L03.90 - Cellulitis, unspecified Status: Acute Assessment and Plan: Verses pressure ulcer versus both, low likelihood for necrotizing fasciitis due to no air seen on CT imaging Left buttock Wound care consulted IVF for hydration Vancomycin and Rocephin Encourage frequent turning (2) Sepsis: Code(s): A41.9 - Sepsis, unspecified organism Status: Acute Assessment and Plan: Secondary to cellulitis Sepsis Fluid bolus given Blood cultures pending Wound cultures pending ABX as above Repeat lactic improved (3) Hypertension: Qualifiers: Hypertension type: essential hypertension Qualified Code(s): I10 - Essential (primary) hypertension Code(s): I10 - Essential (primary) hypertension Status: Chronic Assessment and Plan: Hold antihypertensives as she was hypotensive in the ED (4) Atrial fibrillation: Qualifiers: Atrial fibrillation type: unspecified Qualified Code(s): I48.91 - Unspecified atrial fibrillation Code(s): I48.91 - Unspecified atrial fibrillation Status: Chronic Assessment and Plan: AFib with RVR in the ED Given diltiazem push in the ED Continue Eliquis and oral diltiazem (5) Chronic kidney disease: Qualifiers: Chronic kidney disease stage: stage 3 (moderate) Qualified Code(s): N18.3 - Chronic kidney disease, stage 3 (moderate) Code(s): N18.9 - Chronic kidney disease, unspecified Status: Chronic Assessment and Plan: BMP the morning monitor for GORGE due to vancomycin (6) CHF (congestive heart failure): Code(s): I50.9 - Heart failure, unspecified Status: Acute Assessment and Plan: Holding Lasix and spironolactone due to dehydration Plan patient presented with cellulitis of low back, stats it painful and itching, while in the ER developed A. fib with RVR most likely triggered by pain and stress from cellulitis, patient was given ditiazem in the ER rate is trending down, patient is being treated with zosyn for cellulitis and will have wound team evaluate the patient. today patient pain is improving, her white counts are trending down, wound and blood cultures are growing Staph aureus sensitivities pending. Will continue to monitor. Subjective Date/time seen: 03/20/25 14:43 Interval history: Painful bleeding rash Narrative: 74-year-old female past medical history of AFib, TIA, hypertension, chronic kidney disease and pacemaker presents the hospital with a painful bleeding rash. Patient states that due to the rash being itchy she was scratching it. She knows that started bleeding so she washed it with peroxide. She states due to being completely uncomfortable she has been lying in bed a lot on her back. Patient denies fever or chills. In the ED patient leukocytosis of 20.1, sodium 131, BUN of 43, creatinine of 1.88 which is baseline lactic acid 3.2. CT abdomen pelvis show Extensive cellulitis/soft tissue infection involving the subcutaneous soft tissues of the left buttock. No distinct abscess/fluid collection evident. In the ED patient was in AFib with RVR was given diltiazem. For her cellulitis she was given Zosyn 2 L bolus and pain medication. patient presented with cellulitis of low back, stats it painful and itching, while in the ER developed A. fib with RVR most likely triggered by pain and stress from cellulitis, patient was given ditiazem in the ER rate is trending down, patient is being treated with zosyn for cellulitis and will have wound team evaluate the patient. today patient pain is improving, her white counts are trending down, wound and blood cultures are growing Staph aureus sensitivities pending. Will continue to monitor. Review of Systems Review of Systems: 12 systems were reviewed and are negativ e except for as per HPI. Exam Narrative: Patient is comfortable, NAD HEENT: eyes are clear and none icteric LUNGS:CTA HEART: RR S1S2 ABD: BS+, Soft and nontender Lower extremities: no edema SKIN: nonjaundiced Neuro: grossly intact. Objective Data Vital Signs Vital Signs: Vital Signs - 24 hr 03/19/25 15:55 03/19/25 16:00 03/19/25 18:00 Temperature 36.6 C Pulse Rate 83 81 81 Respiratory Rate 16 Blood Pressure 91/54 L Pulse Oximetry 92 Oxygen Delivery Fraction of Inspired Oxygen 03/19/25 20:00 03/19/25 20:44 03/19/25 20:49 Temperature 36.7 C Pulse Rate 81 80 80 Respiratory Rate 16 20 Blood Pressure 113/64 Pulse Oximetry 92 92 Oxygen Delivery Room Air Fraction of Inspired Oxygen 21 03/19/25 22:00 03/19/25 22:20 03/19/25 22:20 Temperature Pulse Rate 79 81 Respiratory Rate Blood Pressure Pulse Oximetry Oxygen Delivery Room Air Fraction of Inspired Oxygen 03/19/25 23:43 03/20/25 00:00 03/20/25 02:00 Temperature 36.8 C Pulse Rate 80 88 79 Respiratory Rate 16 Blood Pressure 92/54 L Pulse Oximetry 95 Oxygen Delivery Fraction of Inspired Oxygen 03/20/25 04:00 03/20/25 04:30 03/20/25 06:00 Temperature 36.7 C Pulse Rate 79 79 79 Respiratory Rate 18 Blood Pressure 114/58 L Pulse Oximetry 96 Oxygen Delivery Fraction of Inspired Oxygen 03/20/25 08:00 03/20/25 11:47 Temperature 37.1 C 37.0 C Pulse Rate 79 89 Respiratory Rate 24 H 20 Blood Pressure 134/60 132/79 Pulse Oximetry 96 98 Oxygen Delivery Fraction of Inspired Oxygen Intake/Output Intake/Output: Intake & Output 03/17/25 03/18/25 03/19/25 03/20/25 23:59 23:59 23:59 23:59 Intake Total 2690 3641.7 1790 Output Total 200 Balance 2690 3641.7 1590 Meds/Results Medications: Active Medications Generic Name Dose Route Start Last Admin Trade Name Freq PRN Reason Stop Dose Admin Acetaminophen 650 mg 03/18/25 13:14 Acetaminophen 325 Mg Tablet PO Q4H PRN Mild Pain (1-3) or Fever Hydrocodone Bitart/Acetaminophen 1 tab 03/18/25 13:14 03/20/25 10:02 Hydrocodone/Acetaminophen (*Crx) 5-325 Mg Tablet PO 1 tab Q4H PRN Administration Pain Rated 4-6 Albuterol 1 puff 03/18/25 22:52 Albuterol Sulfate (*Sp) Aerosol 1 Puff INHALATION Q12HRT PRN shortness of breath or wheezing Apixaban 5 mg 03/19/25 21:00 03/20/25 09:41 Apixaban 5 Mg Tablet BY MOUTH 5 mg Q12HR MYNOR Administration Atorvastatin Calcium 40 mg 03/18/25 23:05 03/19/25 22:20 Atorvastatin 40 Mg Tablet PO 40 mg HS MYNOR Administration Buspirone HCl 10 mg 03/19/25 06:00 03/20/25 06:22 Buspirone Hcl 10 Mg Tablet PO 10 mg Q8HR MYNOR Administration Calcitriol 0.25 mcg 03/19/25 09:00 03/20/25 09:41 Calcitriol 0.25 Mcg Capsule PO 0.25 mcg DAILY MYNOR Administration Diltiazem HCl 180 mg 03/18/25 22:55 03/20/25 09:41 Diltiazem Hcl Cd 180 Mg Cap.24hr PO 180 mg Q12HR MYNOR Administration Docusate Sodium 100 mg 03/18/25 17:00 03/20/25 09:41 Docusate Sodium 100 Mg Capsule PO 100 mg BID MYNOR Administration Famotidine 20 mg 03/19/25 09:00 03/20/25 09:41 Famotidine 20 Mg Tablet PO 20 mg Q12HR MYNOR Administration Hydromorphone HCl 0.5 mg 03/18/25 13:14 03/19/25 09:22 Hydromorphone Hcl Inj (*Crx) 2 Mg/Ml Vial IV PUSH 0.5 mg Q4H PRN Administration Pain Rated 7-10 Sodium Chloride 1,000 mls @ 100 mls/hr 03/18/25 15:30 03/20/25 11:41 Normal Saline Iv IV CONT 100 mls/hr .Q10H MYNOR Administration Ceftriaxone Sodium 2 gm in 100 mls @ 200 mls/hr 03/18/25 16:00 03/19/25 15:15 Rocephin 2 Gm/Ns 100 Ml IVPB 200 mls/hr Q24H MYNOR Administration Vancomycin HCl 1,000 mg in 250 mls @ 250 mls/hr 03/18/25 16:00 03/20/25 03:33 Vancomycin 1,000 Mg/Ns 250 Ml IVPB 250 mls/hr Q36H MY[facility] Administration Melatonin 5 mg 03/18/25 23:10 03/19/25 22:19 Melatonin 5 Mg Tablet PO 5 mg HS MYNOR Administration Metoprolol Succinate 100 mg 03/18/25 23:10 03/19/25 22:20 Metoprolol Succinate Ext Rel 100 Mg Tabcr PO 100 mg HS MYNOR Administration Morphine Sulfate 2 mg 03/18/25 15:29 Morphine Sulfate (*Crx) 2 Mg/Ml Inj IV PUSH Q4H PRN Pain Rated 7-10 Ondansetron HCl 4 mg 03/18/25 13:14 Ondansetron Inj 4 Mg/2 Ml Vial IV PUSH Q4H PRN Nausea Sertraline HCl 100 mg 03/19/25 09:00 03/20/25 09:48 Sertraline Hcl 50 Mg Tablet PO 100 mg DAILY MY[facility] Administration Sertraline HCl 50 mg 03/19/25 09:00 03/20/25 09:41 Sertraline Hcl 50 Mg Tablet PO 50 mg DAILY MY[facility] Administration Trazodone HCl 100 mg 03/18/25 23:10 03/19/25 22:19 Trazodone Hcl 50 Mg Tablet PO 100 mg HS MYNOR Administration Radiology Results: ITS Impressions Abdomen/Pelvis CT 03/18/25 11:59 Impression: Extensive cellulitis/soft tissue infection involving the subcutaneous soft tissues of the left buttock. No distinct abscess/fluid collection evident. Chest X-Ray 03/18/25 12:02 Impression: Clear lungs. Labs Labs: Laboratory Results - last 24 hr 03/20/25 04:06 WBC 17.3 H RBC 3.25 L Hgb 10.3 L Hct 32.6 L MCV 100.3 H MCH 31.7 MCHC 31.6 L RDW 15.4 H Plt Count 330 MPV 10.7 H Sodium 136 L Potassium 4.0 Chloride 106 Carbon Dioxide 24 Anion Gap 6 BUN 31 H Creatinine 1.06 H Estim Creat Clear Calc Not Reportable Estimated GFR 51 L Glucose 101 Calcium 7.9 L Magnesium 2.8 H Quality VTE Prophylaxis VTE prophylaxis: mechanical ordered
[2025-03-20] MEDS: cefTRIAXone 2 GM/NS 100 ML 2 GM/100 ML BAG IVPB (15:52)
[2025-03-20] MEDS: traZODone HCL 50 MG TABLET 100 MG PO (20:50)
[2025-03-20] MEDS: METOPROLOL SUCCINATE EXT REL 100 MG TABCR PO (20:50)
[2025-03-20] MEDS: MELATONIN 5 MG TABLET PO (20:51)
[2025-03-20] MEDS: ATORVASTATIN 40 MG TABLET PO (20:51)
[2025-03-20] MEDS: HYDROcodone/acetaminophen (*CRX) 7.5-325 MG TABLET 1 TAB PO (22:27)
[2025-03-21] VITALS (17 sets, daily range): BP systolic 123–144; BP diastolic 54–74; PULSE 73–94; RESP 16–24; TEMP 36.6–36.8; O2SAT 95–98
[2025-03-21 04:22] LABS: Hematocrit 31.7 % (37.0-47.0); Hemoglobin 10.1 g/dL (12.0-15.0); Mean Corpuscular HGB Conc 31.9 g/dl (32-36); Mean Corpuscular Hemoglobin 31.7 pg (26-34); Mean Corpuscular Volume 99.4 fl (80-100); Mean Platelet Volume 10.7 fl (7.4-10.4); Platelet Count Result 368 k/mm3 (150-375); Red Blood Count 3.19 M/mm3 (4.2-5.4); Red Cell Distribution Width 15.8 % (11.5-14.5); White Blood Count 16.7 K/mm3 (4.5-10.0)
[2025-03-21 04:39] LABS: Anion Gap 6 mmol/L (4-12); Blood Urea Nitrogen 20 mg/dL (7-17); Calcium 7.9 mg/dL (8.4-10.2); Carbon Dioxide 23 mmol/L (22-30); Chloride 109 mmol/L (98-107); Estimated Glomerular Filt Rate > 60; Glucose 104 mg/dL (65-110); Magnesium 2.7 mg/dL (1.6-2.3); Sodium 138 mmol/L (137-145)
[2025-03-21] MEDS: busPIRone HCL 10 MG TABLET PO ×2 (06:36→14:18)
[2025-03-21] MEDS: HYDROcodone/acetaminophen (*CRX) 7.5-325 MG TABLET 1 TAB PO ×2 (08:21→16:02)
[2025-03-21] MEDS: calcitrioL 0.25 MCG CAPSULE PO (08:22)
[2025-03-21] MEDS: dilTIAZem HCL CD 180 MG CAP.24HR PO ×2 (08:23→20:30)
[2025-03-21] MEDS: FAMOTIDINE 20 MG TABLET PO ×2 (08:23→20:30)
[2025-03-21] MEDS: APIXABAN 5 MG TABLET BY MOUTH ×2 (08:23→20:30)
[2025-03-21] MEDS: DOCUSATE SODIUM 100 MG CAPSULE PO ×2 (08:23→16:02)
[2025-03-21] MEDS: SERTRALINE HCL 50 MG TABLET PO (08:23)
[2025-03-21] MEDS: SERTRALINE HCL 50 MG TABLET 100 MG PO (08:23)
[2025-03-21 09:37] LABS: Vancomycin Trough 8.3 ug/mL (10.0-20.0)
[2025-03-21] MEDS: VANCOMYCIN 1,250 MG/NS 250 ML 1,250 MG/250 ML BAG 166.67 MG IVPB (11:02)
[2025-03-21] MEDS: DOXYCYCLINE 100 MG/NS 100 ML 100 MG/100 ML BAG IVPB ×2 (12:39→20:31)
--- NOTE | 2025-03-21 17:15 | P.PNIM_ITS ---
Progress Note: A&P Assessment and Plan (1) Cellulitis: Code(s): L03.90 - Cellulitis, unspecified Status: Acute Assessment and Plan: Verses pressure ulcer versus both, low likelihood for necrotizing fasciitis due to no air seen on CT imaging Left buttock Wound care consulted IVF for hydration Vancomycin and Rocephin Encourage frequent turning (2) Sepsis: Code(s): A41.9 - Sepsis, unspecified organism Status: Acute Assessment and Plan: Secondary to cellulitis Sepsis Fluid bolus given Blood cultures pending Wound cultures pending ABX as above Repeat lactic improved (3) Hypertension: Qualifiers: Hypertension type: essential hypertension Qualified Code(s): I10 - Essential (primary) hypertension Code(s): I10 - Essential (primary) hypertension Status: Chronic Assessment and Plan: Hold antihypertensives as she was hypotensive in the ED (4) Atrial fibrillation: Qualifiers: Atrial fibrillation type: unspecified Qualified Code(s): I48.91 - Unspecified atrial fibrillation Code(s): I48.91 - Unspecified atrial fibrillation Status: Chronic Assessment and Plan: AFib with RVR in the ED Given diltiazem push in the ED Continue Eliquis and oral diltiazem (5) Chronic kidney disease: Qualifiers: Chronic kidney disease stage: stage 3 (moderate) Qualified Code(s): N18.3 - Chronic kidney disease, stage 3 (moderate) Code(s): N18.9 - Chronic kidney disease, unspecified Status: Chronic Assessment and Plan: BMP the morning monitor for GORGE due to vancomycin (6) CHF (congestive heart failure): Code(s): I50.9 - Heart failure, unspecified Status: Acute Assessment and Plan: Holding Lasix and spironolactone due to dehydration Plan patient presented with cellulitis of low back, stats it painful and itching, while in the ER developed A. fib with RVR most likely triggered by pain and stress from cellulitis, patient was given ditiazem in the ER rate is trending down, patient is being treated with zosyn for cellulitis and will have wound team evaluate the patient. today patient pain is improving, her white counts are trending down, wound and blood cultures are growing MRSA patient is being treated with vancomycin and doxycyline, Will continue to monitor. Subjective Date/time seen: 05/10/25 17:15 Interval history: Painful bleeding rash Narrative: 74-year-old female past medical history of AFib, TIA, hypertension, chronic kidney disease and pacemaker presents the hospital with a painful bleeding rash. Patient states that due to the rash being itchy she was scratching it. She knows that started bleeding so she washed it with peroxide. She states due to being completely uncomfortable she has been lying in bed a lot on her back. Patient denies fever or chills. In the ED patient leukocytosis of 20.1, sodium 131, BUN of 43, creatinine of 1.88 which is baseline lactic acid 3.2. CT abdomen pelvis show Extensive cellulitis/soft tissue infection involving the subcutaneous soft tissues of the left buttock. No distinct abscess/fluid collection evident. In the ED patient was in AFib with RVR was given diltiazem. For her cellulitis she was given Zosyn 2 L bolus and pain medication. patient presented with cellulitis of low back, stats it painful and itching, while in the ER developed A. fib with RVR most likely triggered by pain and stress from cellulitis, patient was given ditiazem in the ER rate is trending down, patient is being treated with zosyn for cellulitis and will have wound team evaluate the patient. today patient pain is improving, her white counts are trending down, wound and blood cultures are growing MRSA patient is being treated with vancomycin and doxycyline, Will continue to monitor. Review of Systems Review of Systems: 12 systems were reviewed and are negativ e except for as per HPI. Exam Narrative: Patient is comfortable, NAD HEENT: eyes are clear and none icteric LUNGS:CTA HEART: RR S1S2 ABD: BS+, Soft and nontender Lower extremities: no edema SKIN: nonjaundiced Neuro: grossly intact. Objective Data Vital Signs Vital Signs: Vital Signs - 24 hr 03/20/25 20:00 03/20/25 20:15 03/20/25 20:50 Temperature 36.7 C Pulse Rate 79 82 80 Respiratory Rate 16 Blood Pressure 145/71 H Pulse Oximetry 95 Oxygen Delivery 03/20/25 21:00 03/20/25 22:00 03/20/25 23:12 Temperature 36.8 C Pulse Rate 79 80 Respiratory Rate 18 Blood Pressure 125/60 Pulse Oximetry 96 Oxygen Delivery Room Air 03/21/25 00:00 03/21/25 02:00 03/21/25 04:00 Temperature Pulse Rate 79 79 79 Respiratory Rate Blood Pressure Pulse Oximetry Oxygen Delivery 03/21/25 05:19 03/21/25 06:00 03/21/25 07:56 Temperature 36.8 C 36.7 C Pulse Rate 79 73 80 Respiratory Rate 18 24 H Blood Pressure 144/74 H 138/62 Pulse Oximetry 95 96 Oxygen Delivery 03/21/25 08:00 03/21/25 08:00 03/21/25 10:00 Temperature Pulse Rate 82 84 Respiratory Rate Blood Pressure Pulse Oximetry Oxygen Delivery Room Air 03/21/25 12:00 03/21/25 12:00 03/21/25 12:26 Temperature 36.6 C 36.6 C Pulse Rate 80 83 80 Respiratory Rate 16 16 Blood Pressure 123/54 L 123/54 L Pulse Oximetry 97 97 Oxygen Delivery 03/21/25 14:00 03/21/25 16:00 Temperature Pulse Rate 79 94 Respiratory Rate Blood Pressure Pulse Oximetry Oxygen Delivery Intake/Output Intake/Output: Intake & Output 03/18/25 03/19/25 03/20/25 03/21/25 23:59 23:59 23:59 23:59 Intake Total 2690 3741.7 2790 790 Output Total 200 Balance 2690 3741.7 2590 790 Meds/Results Medications: Active Medications Generic Name Dose Route Start Last Admin Trade Name Freq PRN Reason Stop Dose Admin Acetaminophen 650 mg 03/18/25 13:14 Acetaminophen 325 Mg Tablet PO Q4H PRN Mild Pain (1-3) or Fever Hydrocodone Bitart/Acetaminophen 1 tab 03/18/25 13:14 03/20/25 18:28 Hydrocodone/Acetaminophen (*Crx) 5-325 Mg Tablet PO 1 tab Q4H PRN Administration Pain Rated 4-6 Hydrocodone Bitart/Acetaminophen 1 tab 03/20/25 15:17 03/21/25 16:02 Hydrocodone/Acetaminophen (*Crx) 7.5-325 Mg Tablet PO 1 tab Q6H PRN Administration Pain Rated 7-10 Albuterol 1 puff 03/18/25 22:52 Albuterol Sulfate (*Sp) Aerosol 1 Puff INHALATION Q12HRT PRN shortness of breath or wheezing Apixaban 5 mg 03/19/25 21:00 03/21/25 08:23 Apixaban 5 Mg Tablet BY MOUTH 5 mg Q12HR MYNOR Administration Atorvastatin Calcium 40 mg 03/18/25 23:05 03/20/25 20:51 Atorvastatin 40 Mg Tablet PO 40 mg HS MYNOR Administration Buspirone HCl 10 mg 03/19/25 06:00 03/21/25 14:18 Buspirone Hcl 10 Mg Tablet PO 10 mg Q8HR MYNOR Administration Calcitriol 0.25 mcg 03/19/25 09:00 03/21/25 08:22 Calcitriol 0.25 Mcg Capsule PO 0.25 mcg DAILY MYNOR Administration Diltiazem HCl 180 mg 03/18/25 22:55 03/21/25 08:23 Diltiazem Hcl Cd 180 Mg Cap.24hr PO 180 mg Q12HR MYNOR Administration Docusate Sodium 100 mg 03/18/25 17:00 03/21/25 16:02 Docusate Sodium 100 Mg Capsule PO 100 mg BID MYNOR Administration Famotidine 20 mg 03/19/25 09:00 03/21/25 08:23 Famotidine 20 Mg Tablet PO 20 mg Q12HR MYNOR Administration Vancomycin HCl 1,250 mg in 250 mls @ 166.667 mls/hr 03/21/25 11:00 03/21/25 11:02 Vancomycin 1,250 Mg/Ns 250 Ml IVPB 166.67 mls/hr Q24H MYNOR Administration Doxycycline Hyclate 100 mg in 100 mls @ 100 mls/hr 03/21/25 10:40 03/21/25 12:39 Vibramycin 100 Mg/Ns 100 Ml IVPB 100 mls/hr Q12HR MYNOR Administration Melatonin 5 mg 03/18/25 23:10 03/20/25 20:51 Melatonin 5 Mg Tablet PO 5 mg HS MYNOR Administration Metoprolol Succinate 100 mg 03/18/25 23:10 03/20/25 20:50 Metoprolol Succinate Ext Rel 100 Mg Tabcr PO 100 mg HS MYNOR Administration Morphine Sulfate 2 mg 03/18/25 15:29 Morphine Sulfate (*Crx) 2 Mg/Ml Inj IV PUSH Q4H PRN Pain Rated 7-10 Ondansetron HCl 4 mg 03/18/25 13:14 Ondansetron Inj 4 Mg/2 Ml Vial IV PUSH Q4H PRN Nausea Sertraline HCl 100 mg 03/19/25 09:00 03/21/25 08:23 Sertraline Hcl 50 Mg Tablet PO 100 mg DAILY MYNOR Administration Sertraline HCl 50 mg 03/19/25 09:00 03/21/25 08:23 Sertraline Hcl 50 Mg Tablet PO 50 mg DAILY MYNOR Administration Trazodone HCl 100 mg 03/18/25 23:10 03/20/25 20:50 Trazodone Hcl 50 Mg Tablet PO 100 mg HS MYNOR Administration Radiology Results: ITS Impressions Abdomen/Pelvis CT 03/18/25 11:59 Impression: Extensive cellulitis/soft tissue infection involving the subcutaneous soft tissues of the left buttock. No distinct abscess/fluid collection evident. Chest X-Ray 03/21/25 08:45 IMPRESSION: 1. Unchanged mild elevation left hemidiaphragm with mild left basilar atelectasis. Labs Labs: Laboratory Results - last 24 hr 03/21/25 03/21/25 03:49 08:43 WBC 16.7 H RBC 3.19 L Hgb 10.1 L Hct 31.7 L MCV 99.4 MCH 31.7 MCHC 31.9 L RDW 15.8 H Plt Count 368 MPV 10.7 H Sodium 138 Potassium 4.0 Chloride 109 H Carbon Dioxide 23 Anion Gap 6 BUN 20 H D Creatinine 0.81 Estim Creat Clear Calc Not Reportable Estimated GFR > 60 Glucose 104 Calcium 7.9 L Magnesium 2.7 H Vancomycin Trough 8.3 L Quality VTE Prophylaxis VTE prophylaxis: mechanical ordered
[2025-03-21] MEDS: METOPROLOL SUCCINATE EXT REL 100 MG TABCR PO (20:29)
[2025-03-21] MEDS: MELATONIN 5 MG TABLET PO (20:29)
[2025-03-21] MEDS: ATORVASTATIN 40 MG TABLET PO (20:29)
[2025-03-21] MEDS: traZODone HCL 50 MG TABLET 100 MG PO (20:30)
--- NOTE | 2025-03-21 21:54 | PC.NURSE ---
SBAR tubed to 347 nurse
--- NOTE | 2025-03-21 23:03 | PC.NURSE ---
Report given to room 347 RN. Patient transferred via bed and 2 nurses with all belongings. No change from previous assessment
--- NOTE | 2025-03-21 23:19 | PC.NURSE ---
This patient, Brissa Rizo, was received from [ [id number]] on 03/21/25 at 2300. Patient/family oriented to unit policies and routines
[2025-03-22] VITALS (9 sets, daily range): BP systolic 119–138; BP diastolic 59–68; PULSE 79–87; RESP 16–20; TEMP 36.2–36.8; O2SAT 97–98
[2025-03-22 05:33] LABS: Hematocrit 33.6 % (37.0-47.0); Hemoglobin 10.6 g/dL (12.0-15.0); Mean Corpuscular HGB Conc 31.5 g/dl (32-36); Mean Corpuscular Hemoglobin 31.8 pg (26-34); Mean Corpuscular Volume 100.9 fl (80-100); Mean Platelet Volume 10.3 fl (7.4-10.4); Platelet Count Result 423 k/mm3 (150-375); Red Blood Count 3.33 M/mm3 (4.2-5.4); Red Cell Distribution Width 16.2 % (11.5-14.5); White Blood Count 12.3 K/mm3 (4.5-10.0)
[2025-03-22 05:46] LABS: Anion Gap 5 mmol/L (4-12); Blood Urea Nitrogen 15 mg/dL (7-17); Carbon Dioxide 23 mmol/L (22-30); Chloride 109 mmol/L (98-107); Estimated Glomerular Filt Rate > 60; Glucose 94 mg/dL (65-110); Magnesium 2.7 mg/dL (1.6-2.3); Potassium 4.4 mmol/L (3.4-5.0); Sodium 137 mmol/L (137-145)
[2025-03-22] MEDS: busPIRone HCL 10 MG TABLET PO ×3 (06:11→20:56)
[2025-03-22] MEDS: SERTRALINE HCL 50 MG TABLET 100 MG PO (09:07)
[2025-03-22] MEDS: SERTRALINE HCL 50 MG TABLET PO (09:07)
[2025-03-22] MEDS: DOCUSATE SODIUM 100 MG CAPSULE PO ×2 (09:07→17:53)
[2025-03-22] MEDS: DOXYCYCLINE 100 MG/NS 100 ML 100 MG/100 ML BAG IVPB ×2 (09:08→20:57)
[2025-03-22] MEDS: APIXABAN 5 MG TABLET BY MOUTH ×2 (09:08→20:56)
[2025-03-22] MEDS: FAMOTIDINE 20 MG TABLET PO ×2 (09:08→20:56)
[2025-03-22] MEDS: dilTIAZem HCL CD 180 MG CAP.24HR PO ×2 (09:26→20:56)
[2025-03-22] MEDS: calcitrioL 0.25 MCG CAPSULE PO (09:26)
[2025-03-22] MEDS: FUROSEMIDE INJ 40 MG/4 ML VIAL 20 MG IV PUSH (12:23)
[2025-03-22] MEDS: HYDROcodone/acetaminophen (*CRX) 7.5-325 MG TABLET 1 TAB PO ×2 (12:28→20:56)
[2025-03-22] MEDS: VANCOMYCIN 1,250 MG/NS 250 ML 1,250 MG/250 ML BAG 166.67 MG IVPB (12:47)
--- NOTE | 2025-03-22 13:04 | P.PNIM_ITS ---
Progress Note: A&P Assessment and Plan (1) Cellulitis: Code(s): L03.90 - Cellulitis, unspecified Status: Acute Assessment and Plan: Verses pressure ulcer versus both, low likelihood for necrotizing fasciitis due to no air seen on CT imaging Left buttock Wound care consulted IVF for hydration Vancomycin and Rocephin Encourage frequent turning (2) Sepsis: Code(s): A41.9 - Sepsis, unspecified organism Status: Acute Assessment and Plan: Secondary to cellulitis Sepsis Fluid bolus given Blood cultures pending Wound cultures pending ABX as above Repeat lactic improved (3) Hypertension: Qualifiers: Hypertension type: essential hypertension Qualified Code(s): I10 - Essential (primary) hypertension Code(s): I10 - Essential (primary) hypertension Status: Chronic Assessment and Plan: Hold antihypertensives as she was hypotensive in the ED (4) Atrial fibrillation: Qualifiers: Atrial fibrillation type: unspecified Qualified Code(s): I48.91 - Unspecified atrial fibrillation Code(s): I48.91 - Unspecified atrial fibrillation Status: Chronic Assessment and Plan: AFib with RVR in the ED Given diltiazem push in the ED Continue Eliquis and oral diltiazem (5) Chronic kidney disease: Qualifiers: Chronic kidney disease stage: stage 3 (moderate) Qualified Code(s): N18.3 - Chronic kidney disease, stage 3 (moderate) Code(s): N18.9 - Chronic kidney disease, unspecified Status: Chronic Assessment and Plan: BMP the morning monitor for GORGE due to vancomycin (6) CHF (congestive heart failure): Code(s): I50.9 - Heart failure, unspecified Status: Acute Assessment and Plan: Holding Lasix and spironolactone due to dehydration Plan patient presented with cellulitis of low back, stats it painful and itching, while in the ER developed A. fib with RVR most likely triggered by pain and stress from cellulitis, patient was given ditiazem in the ER rate is trending down, patient is being treated with zosyn for cellulitis and will have wound team evaluate the patient. today patient pain is improving, her white counts are trending down, wound and blood cultures are growing MRSA patient is being treated with vancomycin and doxycyline, Will continue to monitor. patient is trasferred out of IMU to medical floor. Subjective Date/time seen: 03/22/25 13:04 Interval history: Painful bleeding rash Narrative: 74-year-old female past medical history of AFib, TIA, hypertension, chronic kidney disease and pacemaker presents the hospital with a painful bleeding rash. Patient states that due to the rash being itchy she was scratching it. She knows that started bleeding so she washed it with peroxide. She states due to being completely uncomfortable she has been lying in bed a lot on her back. Patient denies fever or chills. In the ED patient leukocytosis of 20.1, sodium 131, BUN of 43, creatinine of 1.88 which is baseline lactic acid 3.2. CT abdomen pelvis show Extensive cellulitis/soft tissue infection involving the subcutaneous soft tissues of the left buttock. No distinct abscess/fluid collection evident. In the ED patient was in AFib with RVR was given diltiazem. For her cellulitis she was given Zosyn 2 L bolus and pain medication. patient presented with cellulitis of low back, stats it painful and itching, while in the ER developed A. fib with RVR most likely triggered by pain and stress from cellulitis, patient was given ditiazem in the ER rate is trending down, patient is being treated with zosyn for cellulitis and will have wound team evaluate the patient. today patient pain is improving, her white counts are trending down, wound and blood cultures are growing MRSA patient is being treated with vancomycin and doxycyline, Will continue to monitor. patient is trasferred out of IMU to medical floor. Review of Systems Review of Systems: 12 systems were reviewed and are negativ e except for as per HPI. Exam Narrative: Patient is comfortable, NAD HEENT: eyes are clear and none icteric LUNGS:CTA HEART: RR S1S2 ABD: BS+, Soft and nontender Lower extremities: no edema SKIN: nonjaundiced Neuro: grossly intact. Objective Data Vital Signs Vital Signs: Vital Signs - 24 hr 03/21/25 14:00 03/21/25 16:00 03/21/25 18:00 Temperature Pulse Rate 79 94 79 Respiratory Rate Blood Pressure Pulse Oximetry Oxygen Delivery 03/21/25 19:12 03/21/25 20:00 03/21/25 20:00 Temperature 36.8 C Pulse Rate 81 84 79 Respiratory Rate 20 Blood Pressure 141/71 H Pulse Oximetry 98 Oxygen Delivery Room Air 03/21/25 20:29 03/21/25 22:00 03/22/25 00:00 Temperature Pulse Rate 88 81 79 Respiratory Rate Blood Pressure Pulse Oximetry Oxygen Delivery 03/22/25 04:00 03/22/25 06:06 03/22/25 09:00 Temperature 36.8 C Pulse Rate 79 79 Respiratory Rate 16 Blood Pressure 138/68 Pulse Oximetry 97 Oxygen Delivery Room Air 03/22/25 09:00 Temperature Pulse Rate 80 Respiratory Rate Blood Pressure Pulse Oximetry Oxygen Delivery Intake/Output Intake/Output: Intake & Output 03/19/25 03/20/25 03/21/25 03/22/25 23:59 23:59 23:59 23:59 Intake Total 3741.7 2790 1710 590 Output Total 200 Balance 3741.7 2590 1710 590 Meds/Results Medications: Active Medications Generic Name Dose Route Start Last Admin Trade Name Freq PRN Reason Stop Dose Admin Acetaminophen 650 mg 03/18/25 13:14 Acetaminophen 325 Mg Tablet PO Q4H PRN Mild Pain (1-3) or Fever Hydrocodone Bitart/Acetaminophen 1 tab 03/18/25 13:14 03/20/25 18:28 Hydrocodone/Acetaminophen (*Crx) 5-325 Mg Tablet PO 1 tab Q4H PRN Administration Pain Rated 4-6 Hydrocodone Bitart/Acetaminophen 1 tab 03/20/25 15:17 03/22/25 12:28 Hydrocodone/Acetaminophen (*Crx) 7.5-325 Mg Tablet PO 1 tab Q6H PRN Administration Pain Rated 7-10 Albuterol 1 puff 03/18/25 22:52 Albuterol Sulfate (*Sp) Aerosol 1 Puff INHALATION Q12HRT PRN shortness of breath or wheezing Apixaban 5 mg 03/19/25 21:00 03/22/25 09:08 Apixaban 5 Mg Tablet BY MOUTH 5 mg Q12HR MYNOR Administration Atorvastatin Calcium 40 mg 03/18/25 23:05 03/21/25 20:29 Atorvastatin 40 Mg Tablet PO 40 mg HS MYNOR Administration Buspirone HCl 10 mg 03/19/25 06:00 03/22/25 06:11 Buspirone Hcl 10 Mg Tablet PO 10 mg Q8HR MYNOR Administration Calcitriol 0.25 mcg 03/19/25 09:00 03/22/25 09:26 Calcitriol 0.25 Mcg Capsule PO 0.25 mcg DAILY MYNOR Administration Diltiazem HCl 180 mg 03/18/25 22:55 03/22/25 09:26 Diltiazem Hcl Cd 180 Mg Cap.24hr PO 180 mg Q12HR MYNOR Administration Docusate Sodium 100 mg 03/18/25 17:00 03/22/25 09:07 Docusate Sodium 100 Mg Capsule PO 100 mg BID MYNOR Administration Famotidine 20 mg 03/19/25 09:00 03/22/25 09:08 Famotidine 20 Mg Tablet PO 20 mg Q12HR MYNOR Administration Vancomycin HCl 1,250 mg in 250 mls @ 166.667 mls/hr 03/21/25 11:00 03/22/25 12:47 Vancomycin 1,250 Mg/Ns 250 Ml IVPB 166.67 mls/hr Q24H MYNOR Administration Doxycycline Hyclate 100 mg in 100 mls @ 100 mls/hr 03/21/25 10:40 03/22/25 09:08 Vibramycin 100 Mg/Ns 100 Ml IVPB 100 mls/hr Q12HR MYNOR Administration Melatonin 5 mg 03/18/25 23:10 03/21/25 20:29 Melatonin 5 Mg Tablet PO 5 mg HS MYNOR Administration Metoprolol Succinate 100 mg 03/18/25 23:10 03/21/25 20:29 Metoprolol Succinate Ext Rel 100 Mg Tabcr PO 100 mg HS MYNOR Administration Morphine Sulfate 2 mg 03/18/25 15:29 Morphine Sulfate (*Crx) 2 Mg/Ml Inj IV PUSH Q4H PRN Pain Rated 7-10 Ondansetron HCl 4 mg 03/18/25 13:14 Ondansetron Inj 4 Mg/2 Ml Vial IV PUSH Q4H PRN Nausea Sertraline HCl 100 mg 03/19/25 09:00 03/22/25 09:07 Sertraline Hcl 50 Mg Tablet PO 100 mg DAILY MYNOR Administration Sertraline HCl 50 mg 03/19/25 09:00 03/22/25 09:07 Sertraline Hcl 50 Mg Tablet PO 50 mg DAILY MYNOR Administration Trazodone HCl 100 mg 03/18/25 23:10 03/21/25 20:30 Trazodone Hcl 50 Mg Tablet PO 100 mg HS MYNOR Administration Radiology Results: ITS Impressions Abdomen/Pelvis CT 03/18/25 11:59 Impression: Extensive cellulitis/soft tissue infection involving the subcutaneous soft tissues of the left buttock. No distinct abscess/fluid collection evident. Chest X-Ray 03/21/25 08:45 IMPRESSION: 1. Unchanged mild elevation left hemidiaphragm with mild left basilar atelectasis. Labs Labs: Laboratory Results - last 24 hr 03/22/25 05:17 WBC 12.3 H RBC 3.33 L Hgb 10.6 L Hct 33.6 L MCV 100.9 H MCH 31.8 MCHC 31.5 L RDW 16.2 H Plt Count 423 H MPV 10.3 Sodium 137 Potassium 4.4 Chloride 109 H Carbon Dioxide 23 Anion Gap 5 BUN 15 D Creatinine 0.84 Estim Creat Clear Calc Not Reportable Estimated GFR > 60 Glucose 94 Calcium 8.0 L Magnesium 2.7 H Quality VTE Prophylaxis VTE prophylaxis: mechanical ordered
[2025-03-22] MEDS: ATORVASTATIN 40 MG TABLET PO (20:56)
[2025-03-22] MEDS: METOPROLOL SUCCINATE EXT REL 100 MG TABCR PO (20:56)
[2025-03-22] MEDS: traZODone HCL 50 MG TABLET 100 MG PO (20:56)
[2025-03-22] MEDS: MELATONIN 5 MG TABLET PO (21:33)
[2025-03-23] VITALS (9 sets, daily range): BP systolic 119–129; BP diastolic 61–78; PULSE 79–95; RESP 18–20; TEMP 36.3–36.8; O2SAT 97–99
[2025-03-23] MEDS: busPIRone HCL 10 MG TABLET PO ×3 (05:42→21:08)
[2025-03-23] MEDS: dilTIAZem HCL CD 180 MG CAP.24HR PO ×2 (09:39→21:08)
[2025-03-23] MEDS: DOCUSATE SODIUM 100 MG CAPSULE PO ×2 (09:39→17:09)
[2025-03-23] MEDS: FAMOTIDINE 20 MG TABLET PO ×2 (09:40→21:08)
[2025-03-23] MEDS: SERTRALINE HCL 50 MG TABLET 100 MG PO (09:40)
[2025-03-23] MEDS: SERTRALINE HCL 50 MG TABLET PO (09:40)
[2025-03-23] MEDS: calcitrioL 0.25 MCG CAPSULE PO (09:40)
[2025-03-23] MEDS: DOXYCYCLINE 100 MG/NS 100 ML 100 MG/100 ML BAG IVPB (09:41)
[2025-03-23] MEDS: APIXABAN 5 MG TABLET BY MOUTH (09:41)
[2025-03-23 09:59] LABS: Hematocrit 34.2 % (37.0-47.0); Hemoglobin 11.2 g/dL (12.0-15.0); Mean Corpuscular HGB Conc 32.7 g/dl (32-36); Mean Corpuscular Hemoglobin 32.1 pg (26-34); Platelet Count Result 456 k/mm3 (150-375); Red Blood Count 3.49 M/mm3 (4.2-5.4); Red Cell Distribution Width 16.2 % (11.5-14.5); White Blood Count 13.4 K/mm3 (4.5-10.0)
[2025-03-23 10:10] LABS: Anion Gap 6 mmol/L (4-12); Blood Urea Nitrogen 15 mg/dL (7-17); Calcium 8.6 mg/dL (8.4-10.2); Carbon Dioxide 23 mmol/L (22-30); Chloride 111 mmol/L (98-107); Estimated Glomerular Filt Rate > 60; Glucose 101 mg/dL (65-110); Magnesium 2.3 mg/dL (1.6-2.3); Potassium 4.4 mmol/L (3.4-5.0); Sodium 140 mmol/L (137-145)
[2025-03-23 10:28] LABS: Vancomycin Trough 16.1 ug/mL (10.0-20.0)
[2025-03-23] MEDS: VANCOMYCIN 1,250 MG/NS 250 ML 1,250 MG/250 ML BAG 166.67 MG IVPB (12:45)
--- NOTE | 2025-03-23 15:27 | P.CONGS_ITS ---
Assessment and Plan Assessment and plan (1) Wound of left buttock: Code(s): S31.829A - Unspecified open wound of left buttock, initial encounter Status: Acute Assessment and Plan: Patient developed cellulitis of the left buttock after what sounds like creating open abrasions from scratching in this area. Over the past few days, her overall cellulitis has improved, but she has developed a necrotic left buttock wound. Would recommend proceeding with excisional debridement of necrotic left buttock wound with anesthesia in the OR, which will be done by Dr. Tolentino. Will make her NPO after midnight and hold her Eliquis in planning for surgery. Will try adding to the surgery schedule. Continue IV Vancomycin and local wound care for now. Wound and blood cultures noted to have grown MRSA. Discussed with the patient also that she will need to try and avoid any pressure on this wound with frequent turning and repositioning. (2) Cellulitis: Code(s): L03.90 - Cellulitis, unspecified Status: Acute Assessment and Plan: Overall improving. Continue IV antibiotics. See plan above. (3) Sepsis: Code(s): A41.9 - Sepsis, unspecified organism Status: Acute Assessment and Plan: Secondary to the above issues. Leukocytosis overall improving. Blood cultures grew MRSA. Repeat blood cultures drawn today. (4) Atrial fibrillation: Qualifiers: Atrial fibrillation type: unspecified Qualified Code(s): I48.91 - Unspecified atrial fibrillation Code(s): I48.91 - Unspecified atrial fibrillation Status: Chronic (5) Anticoagulant long-term use: Code(s): Z79.01 - senior living (current) use of anticoagulants Status: Acute (6) Chronic kidney disease: Qualifiers: Chronic kidney disease stage: stage 3 (moderate) Qualified Code(s): N 18.3 - Chronic kidney disease, stage 3 (moderate) Code(s): N18.9 - Chronic kidney disease, unspecified Status: Chronic Plan I have discussed the patient's case and plan of care with Dr. Tolentino. History of Present Illness Consult details Consult date: 03/23/25 Reason for consult: other (Left buttock wound) Requesting physician: Antoine Ying MD Narrative: This is a 74-year-old woman with history of atrial fibrillation on Eliquis, TIA, CKD, hypertension, and pacemaker, who we have been asked to see in surgical consultation for left buttock wound. The patient reports noticing itching and a lump on her left upper buttock about 1.5 weeks ago. She had been scratching this area and tried cleaning it multiple times. She tried cleaning this in the shower, she applied hydrogen peroxide to the area, she was also applying hydrocortisone cream to this area. She reports scratching it numerous times and could tell that she broke the skin while in the shower. She started to develop pain in this area and ultimately came into the ED for evaluation 5 days ago. Workup in the ED showed leukocytosis and CT evidence of extensive cellulitis/soft tissue infection involving the subcutaneous soft tissues of the left buttock with no distinct abscess evident. She was also found to be in AFib RVR, which has improved. She was started on broad-spectrum IV antibiotics and wound care was consulted. Initially, this area was indurated, erythematous, and had scratch mendieta where she had been itching. The wound was re-evaluated by the wound care nurses this morning. The patient felt like her discomfort was improving, although she has now developed a necrotic wound in this area. Wound cultures have grown MRSA. Initial blood cultures also showed growth of MRSA. She is on IV vancomycin. Review of Systems 2 Review of Systems: All systems reviewed & are unremarkable except as noted in HPI and below PMFSH Past Medical History Medical History Pacemaker Hepatic steatosis Chronic kidney disease Stage III Spinal stenosis Depression with anxiety Osteoarthritis Peptic ulcer disease Causing a GI bleed. Chronic pain Chronic GERD Asthma Hypertension History of rheumatic fever Atrial fibrillation Paroxysmal and has been cardioverted x2 to 3 times and is scheduled to be converted again however she is in sinus rhythm today TIA (transient ischemic attack) Occasional balance issues. Left lower extremity weakness which have resolved. 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 Repair of gastric bypass after there was a leak in 0 5. History of tonsillectomy Family History Family History Father Cancer Hypertension Heart disease Mother Diabetes mellitus Cancer Hypertension Sibling Diabetes mellitus Heart disease Hypertension Cancer Suicide Social History Social History Social History: The patient is . She lives with 1 of her daughters who is a nurse. She had 2 biological children and adopted to foster children who were brother and sister. Patient desires her daughter Sheri aguayo to be her durable power supervisor tunnel heading for healthcare. She desires to be a full code. The patient denies any alcohol, tobacco or drug abuse. No marijuana use either. 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 Smoking status: Never smoker Second hand tobacco smoke exposure: Yes Alcohol intake: current Drinks per week: 1 Substance use: never Substance use type: does not use Do You Feel Safe in your Home?: Yes Lack of Transportation: No Lack of Food: Never True Current Housing: I Have Housing Concerned About Future Housing: No Difficulty Paying Gas/Electric Bills: No Difficulty Paying for Meds: No Currently Unemployed: No Education: Trade/Vocational Certificate Difficulty w/ Childcare or Family Care: No Living arrangements: with family Gender identity (if verbalized by the patient): Female Spiritual care concerns: No Meds Home Medications and Allergies Home Medications Medication Instructions Recorded Confirmed Type allopurinol 100 mg tablet 100 mg PO BID 04/04/20 03/18/25 History apixaban 2.5 mg tablet (Eliquis) 2.5 mg PO BID 04/04/20 03/18/25 History atorvastatin 40 mg tablet 40 mg PO HS 04/04/20 03/18/25 History buspirone 10 mg tablet 10 mg PO TID 04/04/20 03/18/25 History diltiazem HCl 180 mg capsule,24 180 mg PO Q12H 04/04/20 03/18/25 History hr,extended release ergocalciferol (vitamin D2) 1,250 1,250 mcg PO [id number] 04/04/20 03/18/25 History mcg (50,000 unit) capsule (Vitamin D2) furosemide 40 mg tablet (Lasix) 40 mg PO DAILY 04/04/20 03/18/25 History magnesium oxide 400 mg PO TID 04/04/20 03/18/25 History melatonin 5 mg tablet 5 mg PO HS 04/04/20 03/18/25 History jjlijjcfzgtz-wztpqhx-mishk acid 1 tablet PO DAILY 04/04/20 03/18/25 History 400 mcg-lutein 250 mcg chewable tablet (Centrum Silver) spironolactone 25 mg tablet 25 mg PO DAILY 04/04/20 03/18/25 History metoprolol succinate 100 mg 100 mg PO HS 04/05/20 03/18/25 History tablet,extended release 24 hr albuterol sulfate 90 mcg/actuation 1 puff inhalation .q12 PRN 03/18/25 03/18/25 History aerosol inhaler shortness of breath or wheezing calcitriol 0.25 mcg capsule 0.25 mcg PO DAILY 03/18/25 03/18/25 History dofetilide 125 mcg capsule 125 mcg PO Q12H 03/18/25 03/18/25 History famotidine 20 mg tablet 20 mg PO BID 03/18/25 03/18/25 History glipizide 5 mg tablet, extended 5 mg PO DAILY 03/18/25 03/18/25 History release 24 hr losartan 50 mg tablet 50 mg PO DAILY 03/18/25 03/18/25 History sertraline 100 mg tablet 100 mg PO DAILY 03/18/25 03/18/25 History sertraline 50 mg tablet 50 mg PO DAILY 03/18/25 03/18/25 History tizanidine 2 mg tablet 2 mg PO DAILY 03/18/25 03/18/25 History trazodone 100 mg tablet 100 mg PO DAILY 03/18/25 03/18/25 History Allergies Allergy/AdvReac Type Severity Reaction Status Date / Time adhesive AdvReac Mild BLISTERS Verified 04/04/20 14:55 Vital Signs Vital Signs - 24 hr 03/22/25 16:00 03/22/25 20:00 03/22/25 20:00 Temperature Pulse Rate 80 87 Respiratory Rate Blood Pressure Pulse Oximetry Oxygen Delivery Room Air 03/22/25 22:51 03/23/25 00:00 03/23/25 04:00 Temperature 97.3 F L Pulse Rate 83 80 79 Respiratory Rate 20 Blood Pressure 126/59 L Pulse Oximetry 98 Oxygen Delivery 03/23/25 06:00 03/23/25 09:40 03/23/25 14:00 Temperature 97.4 F L 98.3 F Pulse Rate 95 89 Respiratory Rate 20 18 Blood Pressure 122/61 119/76 Pulse Oximetry 99 99 Oxygen Delivery Room Air Exam 2 Const: General: comfortable and no acute distress Nutritional Appearance: a verage body habitus Orientation/consciousness: patient oriented x3 HENMT: Head: normocephalic and atraumatic Ears: hearing grossly normal bilaterally Mouth: Yes moist mucous membranes Eyes: General: appearance normal, both eyes and all related structures P upils: Equal, round and reactive pupils present Neck: Neck: normal visual inspection and full ROM Chest: Chest palpation & inspection: Pacemaker present Resp: Effort & Inspection: no respiratory distress Auscultation: clear to auscultation bilaterally Cardio: Rate: regular rate Rhythm: regular rhythm Peripheral pulses: P eripheral pulses 2+ throughout GI: Inspection: non-distended GI Palp: Yes Soft to palpation, No Tenderness to palpation present (GI), No Guarding due to palpation present (GI) and No Rebound tenderness present Auscultation: normal bowel sounds Skin: General skin exam: normal color Other: Large area of induration and erythema of the left upper buttock to the right of the gluteal crease that extends towards, but does not involve, the perineum. There is necrotic wound overlying this induration that has a soft delarosa eschar with fluctuance. There is no obvious purulent drainage coming from the wound. The entire area of induration is exquisitely tender. She has difficulty even tolerating my exam. Neuro: General: moves all extremities and no focal motor deficits Speech: n ormal speech Motor exam (neuro): 5/5 motor strength present throughout Extrem: General: normal to inspection and no edema Psych: Mental Status: mental status grossly normal Attitude: cooperative Insight: Good insight present (Psych) Judgement: Good judgement present (Psych) Results Labs 03/23/25 09:49 03/23/25 09:49 Labs: Abnormal lab results 03/23/25 Range/Units 09:49 WBC 13.4 H (4.5-10.0) K/mm3 RBC 3.49 L (4.2-5.4) M/mm3 Hgb 11.2 L (12.0-15.0) g/dL Hct 34.2 L (37.0-47.0) % RDW 16.2 H (11.5-14.5) % Plt Count 456 H (150-375) k/mm3 Chloride 111 H (98-107) mmol/L Diabetes panel 03/23/25 Range/Units 09:49 Sodium 140 (137-145) mmol/L Potassium 4.4 (3.4-5.0) mmol/L Chloride 111 H (98-107) mmol/L Carbon Dioxide 23 (22-30) mmol/L BUN 15 (7-17) mg/dL Creatinine 0.80 (0.7-1.0) mg/dL Glucose 101 (65-110) mg/dL Calcium 8.6 (8.4-10.2) mg/dL Calcium panel 03/23/25 Range/Units 09:49 Calcium 8.6 (8.4-10.2) mg/dL Pituitary panel 03/23/25 Range/Units 09:49 Sodium 140 (137-145) mmol/L Potassium 4.4 (3.4-5.0) mmol/L Chloride 111 H (98-107) mmol/L Carbon Dioxide 23 (22-30) mmol/L BUN 15 (7-17) mg/dL Creatinine 0.80 (0.7-1.0) mg/dL Glucose 101 (65-110) mg/dL Calcium 8.6 (8.4-10.2) mg/dL Adrenal panel 03/23/25 Range/Units 09:49 Sodium 140 (137-145) mmol/L Potassium 4.4 (3.4-5.0) mmol/L Chloride 111 H (98-107) mmol/L Carbon Dioxide 23 (22-30) mmol/L BUN 15 (7-17) mg/dL Creatinine 0.80 (0.7-1.0) mg/dL Glucose 101 (65-110) mg/dL Calcium 8.6 (8.4-10.2) mg/dL All other labs normal. Imaging Additional studies: ITS Impressions Abdomen/Pelvis CT 03/18/25 11:59 Impression: Extensive cellulitis/soft tissue infection involving the subcutaneous soft tissues of the left buttock. No distinct abscess/fluid collection evident. Chest X-Ray 03/18/25 12:02 Impression: Clear lungs. Chest X-Ray 03/21/25 08:45 IMPRESSION: 1. Unchanged mild elevation left hemidiaphragm with mild left basilar atelectasis.
[2025-03-23] MEDS: HYDROcodone/acetaminophen (*CRX) 7.5-325 MG TABLET 1 TAB PO (17:09)
--- NOTE | 2025-03-23 17:11 | P.PNIM_ITS ---
Progress Note: A&P Assessment and Plan (1) Cellulitis: Code(s): L03.90 - Cellulitis, unspecified Status: Acute Assessment and Plan: Verses pressure ulcer versus both, low likelihood for necrotizing fasciitis due to no air seen on CT imaging Left buttock Wound care consulted IVF for hydration Vancomycin and Rocephin Encourage frequent turning (2) Sepsis: Code(s): A41.9 - Sepsis, unspecified organism Status: Acute Assessment and Plan: Secondary to cellulitis Sepsis Fluid bolus given Blood cultures pending Wound cultures pending ABX as above Repeat lactic improved (3) Hypertension: Qualifiers: Hypertension type: essential hypertension Qualified Code(s): I10 - Essential (primary) hypertension Code(s): I10 - Essential (primary) hypertension Status: Chronic Assessment and Plan: Hold antihypertensives as she was hypotensive in the ED (4) Atrial fibrillation: Qualifiers: Atrial fibrillation type: unspecified Qualified Code(s): I48.91 - Unspecified atrial fibrillation Code(s): I48.91 - Unspecified atrial fibrillation Status: Chronic Assessment and Plan: AFib with RVR in the ED Given diltiazem push in the ED Continue Eliquis and oral diltiazem (5) Chronic kidney disease: Qualifiers: Chronic kidney disease stage: stage 3 (moderate) Qualified Code(s): N18.3 - Chronic kidney disease, stage 3 (moderate) Code(s): N18.9 - Chronic kidney disease, unspecified Status: Chronic Assessment and Plan: BMP the morning monitor for GORGE due to vancomycin (6) CHF (congestive heart failure): Code(s): I50.9 - Heart failure, unspecified Status: Acute Assessment and Plan: Holding Lasix and spironolactone due to dehydration Plan patient presented with cellulitis of low back, stats it painful and itching, while in the ER developed A. fib with RVR most likely triggered by pain and stress from cellulitis, patient was given ditiazem in the ER rate is trending down, patient is being treated with zosyn for cellulitis and will have wound team evaluate the patient. today patient pain is improving, her white counts are trending down, wound and blood cultures are growing MRSA patient is being treated with vancomycin and doxycyline, Will continue to monitor. patient is trasferred out of IMU to medical floor. Patient with MRSA in the wound and blood, discuss with clinical pharmacist will repeat wound and blood culture, her cellulits along the buttock is improving however patient has developed necrotic left buttock wound, patient is seen by surgery and will need wound debridement possibly tomorrow, , Subjective Date/time seen: 03/23/25 17:11 Interval history: Painful bleeding rash Narrative: 74-year-old female past medical history of AFib, TIA, hypertension, chronic kidney disease and pacemaker presents the hospital with a painful bleeding rash. Patient states that due to the rash being itchy she was scratching it. She knows that started bleeding so she washed it with peroxide. She states due to being completely uncomfortable she has been lying in bed a lot on her back. Patient denies fever or chills. In the ED patient leukocytosis of 20.1, sodium 131, BUN of 43, creatinine of 1.88 which is baseline lactic acid 3.2. CT abdomen pelvis show Extensive cellulitis/soft tissue infection involving the subcutaneous soft tissues of the left buttock. No distinct abscess/fluid collection evident. In the ED patient was in AFib with RVR was given diltiazem. For her cellulitis she was given Zosyn 2 L bolus and pain medication. patient presented with cellulitis of low back, stats it painful and itching, wh ile in the ER developed A. fib with RVR most likely triggered by pain and stress from cellulitis, patient was given ditiazem in the ER rate is trending down, patient is being treated with zosyn for cellulitis and will have wound team evaluate the patient. today patient pain is improving, her white counts are trending down, wound and blood cultures are growing MRSA patient is being treated with vancomycin and doxycyline, Will continue to monitor. patient is trasferred out of IMU to medical floor. Patient with MRSA in the wound and blood, discuss with clinical pharmacist will repeat wound and blood culture, her cellulits along the buttock is improving however patient has developed necrotic left buttock wound, patient is seen by surgery and will need wound debridement possibly tomorrow, , Review of Systems Review of Systems: 12 systems were reviewed and are negativ e except for as per HPI. Exam Narrative: Patient is comfortable, NAD HEENT: eyes are clear and none icteric LUNGS:CTA HEART: RR S1S2 ABD: BS+, Soft and nontender Lower extremities: no edema SKIN: nonjaundiced Neuro: grossly intact. Objective Data Vital Signs Vital Signs: Vital Signs - 24 hr 03/22/25 20:00 03/22/25 20:00 03/22/25 22:51 Temperature 36.3 C L Pulse Rate 87 83 Respiratory Rate 20 Blood Pressure 126/59 L Pulse Oximetry 98 Oxygen Delivery Room Air 03/23/25 00:00 03/23/25 04:00 03/23/25 06:00 Temperature 36.3 C L Pulse Rate 80 79 95 Respiratory Rate 20 Blood Pressure 122/61 Pulse Oximetry 99 Oxygen Delivery 03/23/25 08:00 03/23/25 09:40 03/23/25 12:00 Temperature Pulse Rate 79 79 Respiratory Rate Blood Pressure Pulse Oximetry Oxygen Delivery Room Air 03/23/25 14:00 03/23/25 16:00 Temperature 36.8 C Pulse Rate 89 89 Respiratory Rate 18 Blood Pressure 119/76 Pulse Oximetry 99 Oxygen Delivery Intake/Output Intake/Output: Intake & Output 03/20/25 03/21/25 03/22/25 03/23/25 23:59 23:59 23:59 23:59 Intake Total 2790 1710 1590 1170 Output Total 200 Balance 2590 1710 1590 1170 Meds/Results Medications: Active Medications Generic Name Dose Route Start Last Admin Trade Name Freq PRN Reason Stop Dose Admin Acetaminophen 650 mg 03/18/25 13:14 Acetaminophen 325 Mg Tablet PO Q4H PRN Mild Pain (1-3) or Fever Hydrocodone Bitart/Acetaminophen 1 tab 03/18/25 13:14 03/20/25 18:28 Hydrocodone/Acetaminophen (*Crx) 5-325 Mg Tablet PO 1 tab Q4H PRN Administration Pain Rated 4-6 Hydrocodone Bitart/Acetaminophen 1 tab 03/20/25 15:17 03/23/25 17:09 Hydrocodone/Acetaminophen (*Crx) 7.5-325 Mg Tablet PO 1 tab Q6H PRN Administration Pain Rated 7-10 Albuterol 1 puff 03/18/25 22:52 Albuterol Sulfate (*Sp) Aerosol 1 Puff INHALATION Q12HRT PRN shortness of breath or wheezing Apixaban 5 mg 03/19/25 21:00 03/23/25 09:41 Apixaban 5 Mg Tablet BY MOUTH 5 mg Q12HR MYNOR Administration Atorvastatin Calcium 40 mg 03/18/25 23:05 03/22/25 20:56 Atorvastatin 40 Mg Tablet PO 40 mg HS MYNOR Administration Buspirone HCl 10 mg 03/19/25 06:00 03/23/25 14:32 Buspirone Hcl 10 Mg Tablet PO 10 mg Q8HR MYNOR Administration Calcitriol 0.25 mcg 03/19/25 09:00 03/23/25 09:40 Calcitriol 0.25 Mcg Capsule PO 0.25 mcg DAILY MYNOR Administration Diltiazem HCl 180 mg 03/18/25 22:55 03/23/25 09:39 Diltiazem Hcl Cd 180 Mg Cap.24hr PO 180 mg Q12HR MYNOR Administration Docusate Sodium 100 mg 03/18/25 17:00 03/23/25 17:09 Docusate Sodium 100 Mg Capsule PO 100 mg BID MYNOR Administration Famotidine 20 mg 03/19/25 09:00 03/23/25 09:40 Famotidine 20 Mg Tablet PO 20 mg Q12HR MYNOR Administration Vancomycin HCl 1,250 mg in 250 mls @ 166.667 mls/hr 03/23/25 12:00 03/23/25 14:15 Vancomycin 1,250 Mg/Ns 250 Ml IVPB Infused Q24H MYNOR Infusion Melatonin 5 mg 03/18/25 23:10 03/22/25 21:33 Melatonin 5 Mg Tablet PO 5 mg HS MYNOR Administration Metoprolol Succinate 100 mg 03/18/25 23:10 03/22/25 20:56 Metoprolol Succinate Ext Rel 100 Mg Tabcr PO 100 mg HS MYNOR Administration Morphine Sulfate 2 mg 03/18/25 15:29 Morphine Sulfate (*Crx) 2 Mg/Ml Inj IV PUSH Q4H PRN Pain Rated 7-10 Ondansetron HCl 4 mg 03/18/25 13:14 Ondansetron Inj 4 Mg/2 Ml Vial IV PUSH Q4H PRN Nausea Sertraline HCl 100 mg 03/19/25 09:00 03/23/25 09:40 Sertraline Hcl 50 Mg Tablet PO 100 mg DAILY MYNOR Administration Sertraline HCl 50 mg 03/19/25 09:00 03/23/25 09:40 Sertraline Hcl 50 Mg Tablet PO 50 mg DAILY MYNOR Administration Trazodone HCl 100 mg 03/18/25 23:10 03/22/25 20:56 Trazodone Hcl 50 Mg Tablet PO 100 mg HS MYNOR Administration Radiology Results: ITS Impressions Abdomen/Pelvis CT 03/18/25 11:59 Impression: Extensive cellulitis/soft tissue infection involving the subcutaneous soft tissues of the left buttock. No distinct abscess/fluid collection evident. Chest X-Ray 03/21/25 08:45 IMPRESSION: 1. Unchanged mild elevation left hemidiaphragm with mild left basilar atelectasis. Labs Labs: Laboratory Results - last 24 hr 03/23/25 09:49 WBC 13.4 H RBC 3.49 L Hgb 11.2 L Hct 34.2 L MCV 98.0 MCH 32.1 MCHC 32.7 RDW 16.2 H Plt Count 456 H MPV 10.0 Sodium 140 Potassium 4.4 Chloride 111 H Carbon Dioxide 23 Anion Gap 6 BUN 15 Creatinine 0.80 Estim Creat Clear Calc Not Reportable Estimated GFR > 60 Glucose 101 Calcium 8.6 Magnesium 2.3 Vancomycin Trough 16.1 Quality VTE Prophylaxis VTE prophylaxis: mechanical ordered
[2025-03-23] MEDS: ATORVASTATIN 40 MG TABLET PO (21:08)
[2025-03-23] MEDS: MELATONIN 5 MG TABLET PO (21:08)
[2025-03-23] MEDS: traZODone HCL 50 MG TABLET 100 MG PO (21:08)
[2025-03-23] MEDS: METOPROLOL SUCCINATE EXT REL 100 MG TABCR PO (21:08)
[2025-03-24] VITALS (18 sets, daily range): BP systolic 105–155; BP diastolic 54–78; PULSE 63–94; RESP 16–20; TEMP 36.2–37.1; O2SAT 96–100
[2025-03-24] MEDS: busPIRone HCL 10 MG TABLET PO ×3 (05:34→21:05)
[2025-03-24 05:36] LABS: Hemoglobin 10.7 g/dL (12.0-15.0); Mean Corpuscular HGB Conc 31.5 g/dl (32-36); Mean Corpuscular Hemoglobin 31.7 pg (26-34); Mean Corpuscular Volume 100.6 fl (80-100); Mean Platelet Volume 9.9 fl (7.4-10.4); Platelet Count Result 454 k/mm3 (150-375); Red Blood Count 3.38 M/mm3 (4.2-5.4); Red Cell Distribution Width 16.1 % (11.5-14.5); White Blood Count 14.3 K/mm3 (4.5-10.0)
[2025-03-24 05:48] LABS: INR 1.2; Prothrombin Time 15.8 Seconds (11.1-14.7)
[2025-03-24 05:49] LABS: Partial Thromboplastin Time 34.2 Seconds (22.3-36.8)
[2025-03-24 06:02] LABS: Anion Gap 5 mmol/L (4-12); Blood Urea Nitrogen 14 mg/dL (7-17); Calcium 8.6 mg/dL (8.4-10.2); Carbon Dioxide 23 mmol/L (22-30); Chloride 111 mmol/L (98-107); Estimated Glomerular Filt Rate > 60; Glucose 85 mg/dL (65-110); Magnesium 2.1 mg/dL (1.6-2.3); Potassium 4.1 mmol/L (3.4-5.0); Sodium 139 mmol/L (137-145)
--- NOTE | 2025-03-24 10:39 | PCNFU ---
Nutrition Follow-Up Complete: Inadequate oral intake related to loss of appetite as evidenced by patient report of poor appetite, weight loss Goal:Improve PO intake at least 50% meals and supplements Pt meeting goal. Continue with same goal Pt current nutrition is NPO for a procedure. Nutrition recommendation: resume heart healthy diet, Ensure Enlive BID Last recorded weight is 73.6 kg. Bowel Motility: +BM 03/23 Labs Reviewed: Hgb:10.7, HCT:34 Meds Noted: colace, eliquis Skin: no pressure injuries, cellutis noted to buttocks Additional Notes: Pt was on a heart healthy diet, intake charted at 50%. NPO today for a procedure. Recommend to resume Heart healthy diet and Ensure Enlive BID once back in room Monitoring intakes, weights, labs, supplement tolerance, plan of care Follow up in 5 days
[2025-03-24] MEDS: VANCOMYCIN 1,250 MG/NS 250 ML 1,250 MG/250 ML BAG 166.67 MG IVPB (12:36)
[2025-03-24] MEDS: SERTRALINE HCL 50 MG TABLET PO (12:37)
[2025-03-24] MEDS: dilTIAZem HCL CD 180 MG CAP.24HR PO ×2 (12:37→21:05)
[2025-03-24] MEDS: SERTRALINE HCL 50 MG TABLET 100 MG PO (12:37)
--- NOTE | 2025-03-24 15:35 | WPDHPUPDATE1 ---
History and Physical Update Update Date/Time: 03/24/25 15:35 History and Physical has been reviewed, including an updated exam of the patient. There are NO changes in the patient's condition. Risks, benefits, and alternatives have been discussed and questions answered. Patient agrees to proceed with procedure.
--- NOTE | 2025-03-24 16:13 | P.PNIM_ITS ---
Progress Note: A&P Assessment and Plan (1) Cellulitis: Code(s): L03.90 - Cellulitis, unspecified Status: Acute Assessment and Plan: Verses pressure ulcer versus both, low likelihood for necrotizing fasciitis due to no air seen on CT imaging Left buttock Wound care consulted IVF for hydration Vancomycin and Rocephin Encourage frequent turning (2) Sepsis: Code(s): A41.9 - Sepsis, unspecified organism Status: Acute Assessment and Plan: Secondary to cellulitis Sepsis Fluid bolus given Blood cultures pending Wound cultures pending ABX as above Repeat lactic improved (3) Hypertension: Qualifiers: Hypertension type: essential hypertension Qualified Code(s): I10 - Essential (primary) hypertension Code(s): I10 - Essential (primary) hypertension Status: Chronic Assessment and Plan: Hold antihypertensives as she was hypotensive in the ED (4) Atrial fibrillation: Qualifiers: Atrial fibrillation type: unspecified Qualified Code(s): I48.91 - Unspecified atrial fibrillation Code(s): I48.91 - Unspecified atrial fibrillation Status: Chronic Assessment and Plan: AFib with RVR in the ED Given diltiazem push in the ED Continue Eliquis and oral diltiazem (5) Chronic kidney disease: Qualifiers: Chronic kidney disease stage: stage 3 (moderate) Qualified Code(s): N18.3 - Chronic kidney disease, stage 3 (moderate) Code(s): N18.9 - Chronic kidney disease, unspecified Status: Chronic Assessment and Plan: BMP the morning monitor for GORGE due to vancomycin (6) CHF (congestive heart failure): Code(s): I50.9 - Heart failure, unspecified Status: Acute Assessment and Plan: Holding Lasix and spironolactone due to dehydration Plan patient presented with cellulitis of low back, stats it painful and itching, while in the ER developed A. fib with RVR most likely triggered by pain and stress from cellulitis, patient was given diltiazem in the ER rate is trending down, patient is being treated with Zosyn for cellulitis and will have wound team evaluate the patient. today patient pain is improving, her white counts are trending down, wound and blood cultures are growing MRSA patient is being treated with vancomycin and doxycycline, Will continue to monitor. patient is transferred out of IMU to medical floor. Patient with MRSA in the wound and blood, discuss with clinical pharmacist will repeat wound and blood culture, her cellulitis along the buttock is improving however patient has developed necrotic left buttock wound, patient is seen by surgery and need wound debridement possible it is scheduled for later today, will follow up, repeat blood culture no growth so far, will monitor. Subjective Date/time seen: 03/24/25 16:13 Interval history: Painful bleeding rash Narrative: 74-year-old female past medical history of AFib, TIA, hypertension, chronic kidney disease and pacemaker presents the hospital with a painful bleeding rash. Patient states that due to the rash being itchy she was scratching it. She knows that started bleeding so she washed it with peroxide. She states due to being completely uncomfortable she has been lying in bed a lot on her back. Patient denies fever or chills. In the ED patient leukocytosis of 20.1, sodium 131, BUN of 43, creatinine of 1.88 which is baseline lactic acid 3.2. CT abdomen pelvis show Extensive cellulitis/soft tissue infection involving the subcutaneous soft tissues of the left buttock. No distinct abscess/fluid collection evident. In the ED patient was in AFib with RVR was given diltiazem. For her cellulitis she was given Zosyn 2 L bolus and pain medication. patient presented with cellulitis of low back, stats it painful and itching, while in the ER developed A. fib with RVR most likely triggered by pain and stress from cellulitis, patient was given diltiazem in the ER rate is trending down, patient is being treated with Zosyn for cellulitis and will have wound team evaluate the patient. today patient pain is improving, her white counts are trending down, wound and blood cultures are growing MRSA patient is being treated with vancomycin and doxycycline, Will continue to monitor. patient is transferred out of IMU to medical floor. Patient with MRSA in the wound and blood, discuss with clinical pharmacist will repeat wound and blood culture, her cellulitis along the buttock is improving however patient has developed necrotic left buttock wound, patient is seen by surgery and need wound debridement possible it is scheduled for later today, will follow up, repeat blood culture no growth so far, will monitor. Review of Systems Review of Systems: 12 systems were reviewed and are negativ e except for as per HPI. Exam Narrative: Patient is comfortable, NAD HEENT: eyes are clear and none icteric LUNGS:CTA HEART: RR S1S2 ABD: BS+, Soft and nontender Lower extremities: no edema SKIN: nonjaundiced Neuro: grossly intact. Objective Data Vital Signs Vital Signs: Vital Signs - 24 hr 03/23/25 20:00 03/23/25 20:00 03/23/25 21:28 Temperature 36.3 C L Pulse Rate 81 80 Respiratory Rate 18 Blood Pressure 129/78 Pulse Oximetry 97 Oxygen Delivery Room Air 03/24/25 00:00 03/24/25 04:00 03/24/25 06:00 Temperature 36.2 C L Pulse Rate 80 79 80 Respiratory Rate 18 Blood Pressure 129/64 Pulse Oximetry 97 Oxygen Delivery 03/24/25 08:00 03/24/25 14:00 Temperature 36.6 C Pulse Rate 83 Respiratory Rate 18 Blood Pressure 128/58 L Pulse Oximetry 98 Oxygen Delivery Room Air Intake/Output Intake/Output: Intake & Output 03/21/25 03/22/25 03/23/25 03/24/25 23:59 23:59 23:59 23:59 Intake Total 1710 1590 1450 600 Output Total 800 Balance 1710 1590 1450 -200 Meds/Results Medications: Active Medications Generic Name Dose Route Start Last Admin Trade Name Freq PRN Reason Stop Dose Admin Acetaminophen 650 mg 03/18/25 13:14 Acetaminophen 325 Mg Tablet PO Q4H PRN Mild Pain (1-3) or Fever Hydrocodone Bitart/Acetaminophen 1 tab 03/18/25 13:14 03/20/25 18:28 Hydrocodone/Acetaminophen (*Crx) 5-325 Mg Tablet PO 1 tab Q4H PRN Administration Pain Rated 4-6 Hydrocodone Bitart/Acetaminophen 1 tab 03/20/25 15:17 03/23/25 17:09 Hydrocodone/Acetaminophen (*Crx) 7.5-325 Mg Tablet PO 1 tab Q6H PRN Administration Pain Rated 7-10 Albuterol 1 puff 03/18/25 22:52 Albuterol Sulfate (*Sp) Aerosol 1 Puff INHALATION Q12HRT PRN shortness of breath or wheezing Apixaban 5 mg 03/19/25 21:00 03/23/25 09:41 Apixaban 5 Mg Tablet BY MOUTH 5 mg Q12HR MYNOR Administration Atorvastatin Calcium 40 mg 03/18/25 23:05 03/23/25 21:08 Atorvastatin 40 Mg Tablet PO 40 mg HS MYNOR Administration Buspirone HCl 10 mg 03/19/25 06:00 03/24/25 12:36 Buspirone Hcl 10 Mg Tablet PO 10 mg Q8HR MYNOR Administration Calcitriol 0.25 mcg 03/19/25 09:00 03/24/25 11:26 Calcitriol 0.25 Mcg Capsule PO Not Given DAILY MYNOR Diltiazem HCl 180 mg 03/18/25 22:55 03/24/25 12:37 Diltiazem Hcl Cd 180 Mg Cap.24hr PO 180 mg Q12HR MYNOR Administration Docusate Sodium 100 mg 03/18/25 17:00 03/24/25 09:06 Docusate Sodium 100 Mg Capsule PO Not Given BID MYNOR Famotidine 20 mg 03/19/25 09:00 03/24/25 09:06 Famotidine 20 Mg Tablet PO Not Given Q12HR MYNOR Vancomycin HCl 1,250 mg in 250 mls @ 166.667 mls/hr 03/23/25 12:00 03/24/25 12:36 Vancomycin 1,250 Mg/Ns 250 Ml IVPB 166.67 mls/hr Q24H MYNOR Administration Melatonin 5 mg 03/18/25 23:10 03/23/25 21:08 Melatonin 5 Mg Tablet PO 5 mg HS MYNOR Administration Metoprolol Succinate 100 mg 03/18/25 23:10 03/23/25 21:08 Metoprolol Succinate Ext Rel 100 Mg Tabcr PO 100 mg HS MYNOR Administration Morphine Sulfate 2 mg 03/18/25 15:29 Morphine Sulfate (*Crx) 2 Mg/Ml Inj IV PUSH Q4H PRN Pain Rated 7-10 Ondansetron HCl 4 mg 03/18/25 13:14 Ondansetron Inj 4 Mg/2 Ml Vial IV PUSH Q4H PRN Nausea Sertraline HCl 100 mg 03/19/25 09:00 03/24/25 12:37 Sertraline Hcl 50 Mg Tablet PO 100 mg DAILY MYNOR Administration Sertraline HCl 50 mg 03/19/25 09:00 03/24/25 12:37 Sertraline Hcl 50 Mg Tablet PO 50 mg DAILY MYNOR Administration Trazodone HCl 100 mg 03/18/25 23:10 03/23/25 21:08 Trazodone Hcl 50 Mg Tablet PO 100 mg HS MYNOR Administration Radiology Results: ITS Impressions Abdomen/Pelvis CT 03/18/25 11:59 Impression: Extensive cellulitis/soft tissue infection involving the subcutaneous soft tissues of the left buttock. No distinct abscess/fluid collection evident. Chest X-Ray 03/21/25 08:45 IMPRESSION: 1. Unchanged mild elevation left hemidiaphragm with mild left basilar atelectasis. Labs Labs: Laboratory Results - last 24 hr 03/24/25 05:22 WBC 14.3 H RBC 3.38 L Hgb 10.7 L Hct 34.0 L MCV 100.6 H MCH 31.7 MCHC 31.5 L RDW 16.1 H Plt Count 454 H MPV 9.9 PT 15.8 H D INR 1.2 APTT 34.2 Sodium 139 Potassium 4.1 Chloride 111 H Carbon Dioxide 23 Anion Gap 5 BUN 14 Creatinine 0.82 Estim Creat Clear Calc Not Reportable Estimated GFR > 60 Glucose 85 Calcium 8.6 Magnesium 2.1 Quality VTE Prophylaxis VTE prophylaxis: mechanical ordered
--- NOTE | 2025-03-24 17:41 | WPDANESEPPF ---
Anes - Initial Pre Proc Eval Procedure: Operation Date: 03/24/25 18:30 Proposed Procedures p Debridement Left Buttock Wound, Possible Wound Vac Placement - Jefry Tolentino MD Date/Time: 03/24/25 17:41 Surgeon: Dajuan Trujillo MD Pre Op Diagnosis: Sepsis, left butt cheek cellulitis, AFib RVR Patient Data Age: 74 Gender: F Height: 1.47 m Weight: 73.6 kg Last Vital Signs Temp 98.7 F 03/24/25 17:19 Pulse 87 03/24/25 17:19 Resp 16 03/24/25 17:19 BP 155/69 H 03/24/25 17:19 Pulse Ox 98 03/24/25 17:19 O2 Del Method Room Air 03/24/25 17:19 FiO2 21 03/19/25 20:49 Allergies Allergy/AdvReac Type Severity Reaction Status Date / Time adhesive AdvReac Mild BLISTERS Verified 04/04/20 14:55 Home Medications Medication Instructions Recorded Confirmed Type allopurinol 100 mg tablet 100 mg PO BID 04/04/20 03/18/25 History apixaban 2.5 mg tablet (Eliquis) 2.5 mg PO BID 04/04/20 03/18/25 History atorvastatin 40 mg tablet 40 mg PO HS 04/04/20 03/18/25 History buspirone 10 mg tablet 10 mg PO TID 04/04/20 03/18/25 History diltiazem HCl 180 mg capsule,24 180 mg PO Q12H 04/04/20 03/18/25 History hr,extended release ergocalciferol (vitamin D2) 1,250 1,250 mcg PO [id number] 04/04/20 03/18/25 History mcg (50,000 unit) capsule (Vitamin D2) furosemide 40 mg tablet (Lasix) 40 mg PO DAILY 04/04/20 03/18/25 History magnesium oxide 400 mg PO TID 04/04/20 03/18/25 History melatonin 5 mg tablet 5 mg PO HS 04/04/20 03/18/25 History rzarsrdmbjfg-amwdlss-btgvh acid 1 tablet PO DAILY 04/04/20 03/18/25 History 400 mcg-lutein 250 mcg chewable tablet (Centrum Silver) spironolactone 25 mg tablet 25 mg PO DAILY 04/04/20 03/18/25 History metoprolol succinate 100 mg 100 mg PO HS 04/05/20 03/18/25 History tablet,extended release 24 hr albuterol sulfate 90 mcg/actuation 1 puff inhalation .q12 PRN 03/18/25 03/18/25 History aerosol inhaler shortness of breath or wheezing calcitriol 0.25 mcg capsule 0.25 mcg PO DAILY 03/18/25 03/18/25 History dofetilide 125 mcg capsule 125 mcg PO Q12H 03/18/25 03/18/25 History famotidine 20 mg tablet 20 mg PO BID 03/18/25 03/18/25 History glipizide 5 mg tablet, extended 5 mg PO DAILY 03/18/25 03/18/25 History release 24 hr losartan 50 mg tablet 50 mg PO DAILY 03/18/25 03/18/25 History sertraline 100 mg tablet 100 mg PO DAILY 03/18/25 03/18/25 History sertraline 50 mg tablet 50 mg PO DAILY 03/18/25 03/18/25 History tizanidine 2 mg tablet 2 mg PO DAILY 03/18/25 03/18/25 History trazodone 100 mg tablet 100 mg PO DAILY 03/18/25 03/18/25 History Laboratory Tests 03/24/25 05:22 WBC 14.3 H K/mm3 (4.5-10.0) RBC 3.38 L M/mm3 (4.2-5.4) Hgb 10.7 L g/dL (12.0-15.0) Hct 34.0 L % (37.0-47.0) MCV 100.6 H fl (80-100) MCH 31.7 pg (26-34) MCHC 31.5 L g/dl (32-36) RDW 16.1 H % (11.5-14.5) Plt Count 454 H k/mm3 (150-375) MPV 9.9 fl (7.4-10.4) PT 15.8 H D Seconds (11.1-14.7) INR 1.2 APTT 34.2 Seconds (22.3-36.8) Sodium 139 mmol/L (137-145) Potassium 4.1 mmol/L (3.4-5.0) Chloride 111 H mmol/L (98-107) Carbon Dioxide 23 mmol/L (22-30) Anion Gap 5 mmol/L (4-12) BUN 14 mg/dL (7-17) Creatinine 0.82 mg/dL (0.7-1.0) Estim Creat Clear Calc Not Reportable Estimated GFR > 60 (59 - ) Glucose 85 mg/dL (65-110) Calcium 8.6 mg/dL (8.4-10.2) Magnesium 2.1 mg/dL (1.6-2.3) Patient hx anesthesia problems: none Family hx anesthesia problems: none Results Review: All pre-operative results and documents have been reviewed as part of the pre-operative evaluation. [facility] Past Medical History Medical History Pacemaker Hepatic steatosis Chronic kidney disease Stage III Spinal stenosis Depression with anxiety Osteoarthritis Peptic ulcer disease Causing a GI bleed. Chronic pain Chronic GERD Asthma Hypertension History of rheumatic fever Atrial fibrillation Paroxysmal and has been cardioverted x2 to 3 times and is scheduled to be converted again however she is in sinus rhythm today TIA (transient ischemic attack) Occasional balance issues. Left lower extremity weakness which have resolved. 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 Repair of gastric bypass after there was a leak in 0 5. History of tonsillectomy Family History Family History Father Cancer Hypertension Heart disease Mother Diabetes mellitus Cancer Hypertension Sibling Diabetes mellitus Heart disease Hypertension Cancer Suicide Social History Social History Social History: The patient is . She lives with 1 of her daughters who is a nurse. She had 2 biological children and adopted to foster children who were brother and sister. Patient desires her daughter Sheri aguayo to be her durable power rn orthopaedics for healthcare. She desires to be a full code. The patient denies any alcohol, tobacco or drug abuse. No marijuana use either. 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 Smoking status: Never smoker Second hand tobacco smoke exposure: Yes Alcohol intake: current Drinks per week: 1 Substance use: never Substance use type: does not use Do You Feel Safe in your Home?: Yes Lack of Transportation: No Lack of Food: Never True Current Housing: I Have Housing Concerned About Future Housing: No Difficulty Paying Gas/Electric Bills: No Difficulty Paying for Meds: No Currently Unemployed: No Education: Trade/Vocational Certificate Difficulty w/ Childcare or Family Care: No Living arrangements: with family Gender identity (if verbalized by the patient): Female Spiritual care concerns: No Anes - Eval Final PreProcedure Day of Procedure 03/24/25 17:41 Patient weight: obese Lungs: normal air movement Airway: Mallampati scale class 1 and special considerations (Missing many teeth post, upper and lower aspect. ) Neurological: alert and oriented Last oral intake: >/= 8 hours ASA classification: III Emergent: no Anesthetic plan: proceed Anesthesia type and monitoring: general LMA and standard monitoring Results Review: All pre-operative results and documents have been reviewed as part of the pre-operative evaluation. HTN, hyperlipidemia, hx of afib w biotronik pacemaker in place. Functioning well per pt, no AICD. Pt reports prior to this she was able to ambulate short distances w assistive device, no cp or sob. Informed Consent: The patient's anesthetic plan and its attendant risks and benefits were discussed with the patient/family/POA. Questions were solicited and answers provided to the satisfaction of the patient/family/POA.
[2025-03-24] MEDS: LACTATED RINGERS 1,000 ML 30 ML IV CONT (19:35)
--- NOTE | 2025-03-24 19:39 | P.OP_ITS ---
Procedure Note - Detailed Date of Procedure 03/24/25 Pre-op Diagnosis Left medial buttock abscess Post-op Diagnosis Same Procedure Performed Incision and drainage of left buttock abscess with sharp scalpel and scissor excisional debridement of nonviable skin and subcutaneous tissue, application of wound VAC (54 sq cm). Surgeon Jefry Tolentino MD [employer] Project Manager Crystal Choi COMPUTER INSTALLATION ENGINEER Anesthesia General Indications Patient is a 74-year-old female who developed a left medial buttock abscess after scratching the area. She developed a cellulitis and now has an abscess that needs to be drained. She does have some nonviable skin overlying the abscess cavity. Findings The patient had a spontaneously draining left upper medial buttock abscess. The skin over the top abscess was partially necrotic. Underlying the skin was an abscess cavity was some necrotic subcutaneous tissue. Purulent drainage was noted to come from the abscess. After the drain the abscess and excising away the nonviable subcutaneous tissue and skin the abscess cavity measured approximately [id number]. A wound VAC was placed to manage the wound. Area covered by the wound VAC was 54 sq cm. Description of Procedure After informed consent was obtained patient brought to the operating room she was placed supine position and general LMA anesthesia was administered. The patient was then turned into the left lateral decubitus position on the operating table. Care was taken make sure all the pressure points were well padded. She was well secured with lateral positioners. A time-out was then performed correctly identifying the patient as well as procedure to be performed. Site marking was verified. She was already on scheduled IV antibiotics. I then proceeded to excise out the necrotic skin and subcutaneous tissues overlying the abscess cavity. This was done sharply with a scalpel and sharp scissor dissection in an excisional debridement fashion. Once I had all the subcutaneous tissue and skin excise this was then discarded. Previous culture from the wound showed MRSA are ready. I then digitally explored the abscess cavity and found some pus pockets which were broken down with blunt finger dissection. I then continued sharp scissor excisional debridement of the nonviable subcutaneous tissue in the abscess cavity and all this tissue was discarded. Once I was satisfied had all the nonviable tissue removed I then proceeded to irrigate out the abscess cavity with [id number] of sterile saline solution. Hemostasis in a couple of bleeding areas was achieved utilized electrocautery. I then measured the wound was partially 9cm in length by 6cm in width by 3cm in depth. I then proceeded to place a wound VAC into the abscess cavity. Black foam was then placed into the abscess cavity until it was filled. I then placed clear adhesive coverings over the black foam. Because the location of the wound on the buttock region I lateralized the wound VAC suction pad to the patient's right hip area. This is done by extending the black foam on top of adhesive dressings the left hip area where the suction pad was applied and additional adhesive dressings were placed to make sure there was no air leak. The wound VAC was then engaged and there was no air leak from the dressing. The patient tolerated the procedure well no complications. All sponges, needles, and instrument counts were correct at the end procedure. EBL was __30 _cc. The patient was awakened and taken to recovery in stable and satisfactory condition. Implants None Estimated Blood Loss 30 Urine Output 400 Drains No Packing Yes (Black foam wound VAC applied to left buttock wound. 54 sq cm.) Pathology None sent Complications No immediate complications Condition Stable Disposition PACU [facility] Billing Surgery - Charge Forward: Surgery Billing
[2025-03-24] MEDS: fentaNYL CITRATE INJ (*CRX) 100 MCG/2 ML VIAL 25 MCG IV PUSH ×4 (19:42→20:04)
--- NOTE | 2025-03-24 19:50 | SUR.PHASEI ---
1950 - dr. godoy speaking with pt
[2025-03-24] MEDS: MORPHINE SULFATE (*CRX) 4 MG/ML INJ IV PUSH (21:04)
[2025-03-24] MEDS: METOPROLOL SUCCINATE EXT REL 100 MG TABCR PO (21:05)
[2025-03-24] MEDS: ATORVASTATIN 40 MG TABLET PO (21:05)
[2025-03-24] MEDS: MELATONIN 5 MG TABLET PO (21:05)
[2025-03-24] MEDS: traZODone HCL 50 MG TABLET 100 MG PO (21:05)
[2025-03-24] MEDS: FAMOTIDINE 20 MG TABLET PO (21:05)
[2025-03-24] MEDS: HYDROcodone/acetaminophen (*CRX) 7.5-325 MG TABLET 1 TAB PO (23:36)
[2025-03-25] VITALS (9 sets, daily range): BP systolic 114–135; BP diastolic 60–70; PULSE 79–87; RESP 16–20; TEMP 36.2–36.9; O2SAT 95–98
[2025-03-25] MEDS: busPIRone HCL 10 MG TABLET PO ×3 (05:44→21:00)
[2025-03-25 07:03] LABS: Hemoglobin 9.4 g/dL (12.0-15.0); Mean Corpuscular HGB Conc 31.3 g/dl (32-36); Mean Corpuscular Hemoglobin 31.9 pg (26-34); Mean Corpuscular Volume 101.7 fl (80-100); Mean Platelet Volume 9.7 fl (7.4-10.4); Platelet Count Result 380 k/mm3 (150-375); Red Blood Count 2.95 M/mm3 (4.2-5.4); White Blood Count 10.9 K/mm3 (4.5-10.0)
[2025-03-25 07:14] LABS: Anion Gap 2 mmol/L (4-12); Blood Urea Nitrogen 12 mg/dL (7-17); Carbon Dioxide 23 mmol/L (22-30); Chloride 113 mmol/L (98-107); Estimated Glomerular Filt Rate > 60; Glucose 79 mg/dL (65-110); Magnesium 1.9 mg/dL (1.6-2.3); Potassium 4.4 mmol/L (3.4-5.0); Sodium 138 mmol/L (137-145)
[2025-03-25] MEDS: DOCUSATE SODIUM 100 MG CAPSULE PO ×2 (09:00→15:53)
[2025-03-25] MEDS: FAMOTIDINE 20 MG TABLET PO ×2 (09:00→20:54)
[2025-03-25] MEDS: HYDROcodone/acetaminophen (*CRX) 7.5-325 MG TABLET 1 TAB PO ×2 (09:00→15:52)
[2025-03-25] MEDS: calcitrioL 0.25 MCG CAPSULE PO (09:00)
[2025-03-25] MEDS: SERTRALINE HCL 50 MG TABLET 100 MG PO (09:00)
[2025-03-25] MEDS: SERTRALINE HCL 50 MG TABLET PO (09:00)
[2025-03-25] MEDS: dilTIAZem HCL CD 180 MG CAP.24HR PO ×2 (09:00→20:55)
--- NOTE | 2025-03-25 10:49 | WPDANESPN ---
Anes - Prog Note Post-Op Date/Time: 03/25/25 10:49 Vital Signs: Last Vital Signs Temp 36.6 C 03/25/25 08:00 Pulse 80 03/25/25 08:00 Resp 16 03/25/25 08:00 BP 135/61 03/25/25 08:00 Pulse Ox 98 03/25/25 08:00 O2 Del Method Room Air 03/24/25 22:06 FiO2 21 03/19/25 20:49 Pain Score (VAS): 0 I/O: Intake & Output 03/24/25 03/25/25 03/25/25 23:59 07:59 15:59 Intake Total 100 400 200 Output Total 400 Balance -300 400 200 Laboratory Tests 03/25/25 06:55 03/25/25 06:55 03/25/25 06:55 WBC 10.9 H RBC 2.95 L Hgb 9.4 L Hct 30.0 L MCV 101.7 H MCH 31.9 MCHC 31.3 L RDW 16.0 H Plt Count 380 H MPV 9.7 Sodium 138 Potassium 4.4 Chloride 113 H Carbon Dioxide 23 Anion Gap 2 L BUN 12 Creatinine 0.79 Estim Creat Clear Calc Not Reportable Estimated GFR > 60 Glucose 79 Calcium 8.0 L Magnesium 1.9 Microbiology 03/18/25 11:30 Blood Blood Culture - Final Methicillin Resis Staph Aureus 03/23/25 12:10 Blood Blood Culture - Preliminary 03/23/25 12:02 Blood Blood Culture - Preliminary 03/18/25 11:30 Buttock Anaerobic Culture - Final 03/18/25 11:30 Buttock Aerobic Culture - Final Methicillin Resis Staph Aureus Patient Feedback: Patient satisfied with anesthetic care.
--- NOTE | 2025-03-25 11:36 | PM.PNGS ---
Progress Note: A&P Assessment and Plan (1) Wound of left buttock: Code(s): S31.829A - Unspecified open wound of left buttock, initial encounter Status: Acute Assessment and Plan: Postop day 1 following incision and drainage left buttock abscess and debridement with application of wound VAC. Continue wound VAC therapy for now. We will plan to change the wound VAC dressing on Sunday. Continue IV vancomycin. Continue with pressure offloading to the wound. (2) Cellulitis: Code(s): L03.90 - Cellulitis, unspecified Status: Acute Assessment and Plan: Overall improving. Continue IV antibiotics. (3) Sepsis: Code(s): A41.9 - Sepsis, unspecified organism Status: Acute Assessment and Plan: Initial Blood cultures grew MRSA, which was also in the wound cultures. Repeat blood cultures from 03/23 with NGTD. Plan I have discussed the patient's case and plan of care with Dr. Tolentino. Subjective Subjective Date/Time Seen: 03/25/25 11:36 Patient reports: no new complaints and afebrile Interval history: No acute issues overnight. She had throbbing pain at the left buttock wound yesterday after waking up from surgery, but reports this has subsided overnight. She slept well. Wound VAC functioning well without any issues. Repeat blood cultures on 03/23 with no growth today. Exam Narrative: Left buttock wound VAC dressing in place, functioning well with scant bloody drainage in canister Const: General: comfortable and no acute distress Objective Data Vital Signs Vital Signs: Vital Signs - 24 hr 03/24/25 12:00 03/24/25 14:00 03/24/25 16:00 Temperature 97.9 F Pulse Rate 79 83 85 Respiratory Rate 18 Blood Pressure 128/58 L Pulse Oximetry 98 Oxygen Delivery 03/24/25 17:19 03/24/25 19:35 03/24/25 19:45 Temperature 98.7 F 98.3 F Pulse Rate 87 94 65 Respiratory Rate 16 20 20 Blood Pressure 155/69 H 142/78 H 105/65 Pulse Oximetry 98 98 98 Oxygen Delivery Room Air Room Air Room Air 03/24/25 20:00 03/24/25 20:05 03/24/25 20:15 Temperature 97.7 F Pulse Rate 88 84 88 Respiratory Rate 20 20 20 Blood Pressure 105/65 107/67 118/54 L Pulse Oximetry 98 100 98 Oxygen Delivery Room Air Room Air 03/24/25 20:20 03/24/25 20:30 03/24/25 20:45 Temperature 97.7 F 98.0 F Pulse Rate 83 63 92 Respiratory Rate 20 20 20 Blood Pressure 120/57 L 112/54 L 111/56 L Pulse Oximetry 98 98 98 Oxygen Delivery Room Air 03/24/25 21:35 03/24/25 21:45 03/24/25 22:06 Temperature 97.9 F Pulse Rate 82 83 Respiratory Rate 18 Blood Pressure 130/71 Pulse Oximetry 96 Oxygen Delivery Room Air 03/25/25 00:00 03/25/25 01:23 03/25/25 04:00 Temperature 97.2 F L Pulse Rate 79 79 79 Respiratory Rate 18 Blood Pressure 114/60 Pulse Oximetry 96 Oxygen Delivery 03/25/25 05:00 03/25/25 08:00 Temperature 97.2 F L 97.9 F Pulse Rate 80 80 Respiratory Rate 18 16 Blood Pressure 127/60 135/61 Pulse Oximetry 96 98 Oxygen Delivery Intake/Output Intake/Output: Intake & Output 03/22/25 03/23/25 03/24/25 03/25/25 23:59 23:59 23:59 23:59 Intake Total 1590 1450 700 600 Output Total 1200 Balance 1590 1450 -500 600 Meds/Results Medications: Active Medications Generic Name Dose Route Start Last Admin Trade Name Freq PRN Reason Stop Dose Admin Acetaminophen 650 mg 03/18/25 13:14 Acetaminophen 325 Mg Tablet PO Q4H PRN Mild Pain (1-3) or Fever Hydrocodone Bitart/Acetaminophen 1 tab 03/18/25 13:14 03/20/25 18:28 Hydrocodone/Acetaminophen (*Crx) 5-325 Mg Tablet PO 1 tab Q4H PRN Administration Pain Rated 4-6 Hydrocodone Bitart/Acetaminophen 1 tab 03/20/25 15:17 03/25/25 09:00 Hydrocodone/Acetaminophen (*Crx) 7.5-325 Mg Tablet PO 1 tab Q6H PRN Administration Pain Rated 7-10 Albuterol 1 puff 03/18/25 22:52 Albuterol Sulfate (*Sp) Aerosol 1 Puff INHALATION Q12HRT PRN shortness of breath or wheezing Apixaban 5 mg 03/19/25 21:00 03/23/25 09:41 Apixaban 5 Mg Tablet BY MOUTH 5 mg Q12HR MYNOR Administration Atorvastatin Calcium 40 mg 03/18/25 23:05 03/24/25 21:05 Atorvastatin 40 Mg Tablet PO 40 mg HS MYNOR Administration Buspirone HCl 10 mg 03/19/25 06:00 03/25/25 05:44 Buspirone Hcl 10 Mg Tablet PO 10 mg Q8HR MYNOR Administration Calcitriol 0.25 mcg 03/19/25 09:00 03/25/25 09:00 Calcitriol 0.25 Mcg Capsule PO 0.25 mcg DAILY MYNOR Administration Diltiazem HCl 180 mg 03/18/25 22:55 03/25/25 09:00 Diltiazem Hcl Cd 180 Mg Cap.24hr PO 180 mg Q12HR MYNOR Administration Docusate Sodium 100 mg 03/18/25 17:00 03/25/25 09:00 Docusate Sodium 100 Mg Capsule PO 100 mg BID MYNOR Administration Famotidine 20 mg 03/19/25 09:00 03/25/25 09:00 Famotidine 20 Mg Tablet PO 20 mg Q12HR MYNOR Administration Fentanyl Citrate 25 mcg 03/24/25 17:44 03/24/25 20:04 Fentanyl Citrate Inj (*Crx) 100 Mcg/2 Ml Vial IV PUSH 25 mcg Q2M PRN Administration Pain Vancomycin HCl 1,250 mg in 250 mls @ 166.667 mls/hr 03/23/25 12:00 03/24/25 12:36 Vancomycin 1,250 Mg/Ns 250 Ml IVPB 04/05/25 23:59 166.67 mls/hr Q24H MYNOR Administration Lactated Ringer's 1,000 mls @ 30 mls/hr 03/24/25 17:45 03/24/25 20:27 Lr - Lactated Ringers Iv IV CONT Infused .Q24H MYNOR Infusion Lactated Ringer's 1,000 mls @ 30 mls/hr 03/24/25 17:45 03/24/25 21:05 Lr - Lactated Ringers Iv IV CONT Not Given .Q24H MYNOR Melatonin 5 mg 03/18/25 23:10 03/24/25 21:05 Melatonin 5 Mg Tablet PO 5 mg HS MYNOR Administration Metoprolol Succinate 100 mg 03/18/25 23:10 03/24/25 21:05 Metoprolol Succinate Ext Rel 100 Mg Tabcr PO 100 mg HS MYNOR Administration Morphine Sulfate 2 mg 03/18/25 15:29 Morphine Sulfate (*Crx) 2 Mg/Ml Inj IV PUSH Q4H PRN Pain Rated 7-10 Morphine Sulfate 4 mg 03/24/25 20:33 03/24/25 21:04 Morphine Sulfate (*Crx) 4 Mg/Ml Inj IV PUSH 4 mg Q4H PRN Administration Pain Rated 7-10 Ondansetron HCl 4 mg 03/18/25 13:14 Ondansetron Inj 4 Mg/2 Ml Vial IV PUSH Q4H PRN Nausea Ondansetron HCl 4 mg 03/24/25 17:44 Ondansetron Inj 4 Mg/2 Ml Vial IV PUSH ONCE PRN Nausea Sertraline HCl 100 mg 03/19/25 09:00 03/25/25 09:00 Sertraline Hcl 50 Mg Tablet PO 100 mg DAILY MYNOR Administration Sertraline HCl 50 mg 03/19/25 09:00 03/25/25 09:00 Sertraline Hcl 50 Mg Tablet PO 50 mg DAILY MYNOR Administration Trazodone HCl 100 mg 03/18/25 23:10 03/24/25 21:05 Trazodone Hcl 50 Mg Tablet PO 100 mg HS MYNRO Administration Radiology Results: ITS Impressions Abdomen/Pelvis CT 03/18/25 11:59 Impression: Extensive cellulitis/soft tissue infection involving the subcutaneous soft tissues of the left buttock. No distinct abscess/fluid collection evident. Chest X-Ray 03/21/25 08:45 IMPRESSION: 1. Unchanged mild elevation left hemidiaphragm with mild left basilar atelectasis. Labs Labs: Laboratory Results - last 24 hr 03/25/25 06:55 WBC 10.9 H RBC 2.95 L Hgb 9.4 L Hct 30.0 L MCV 101.7 H MCH 31.9 MCHC 31.3 L RDW 16.0 H Plt Count 380 H MPV 9.7 Sodium 138 Potassium 4.4 Chloride 113 H Carbon Dioxide 23 Anion Gap 2 L BUN 12 Creatinine 0.79 Estim Creat Clear Calc Not Reportable Estimated GFR > 60 Glucose 79 Calcium 8.0 L Magnesium 1.9
[2025-03-25] MEDS: VANCOMYCIN 1,250 MG/NS 250 ML 1,250 MG/250 ML BAG 166.67 MG IVPB (13:25)
--- NOTE | 2025-03-25 14:03 | ECG_ITS ---
Test Date: 2025-03-25 14:27:55 Measurements Intervals [place] Rate: 79 P: 0 AL: 0 QRS: -26 QRSD: 154 T: 20 QT: 421 QTc: 484 Interpretive Statements ELECTRONIC VENTRICULAR PACEMAKER ABNORMAL RHYTHM ECG Compared to ECG 03/18/2025 11:00:50 Atrial flutter no longer present T-wave abnormality no longer present Possible ischemia no longer present Electronically Signed On 03-25-2025 18:22:56 CDT by Rita Winslow
[2025-03-25] MEDS: allopurinoL 100 MG TABLET PO (15:54)
--- NOTE | 2025-03-25 16:07 | P.PNIM_ITS ---
Progress Note: A&P Assessment and Plan (1) Cellulitis: Code(s): L03.90 - Cellulitis, unspecified Status: Acute Assessment and Plan: Verses pressure ulcer versus both, low likelihood for necrotizing fasciitis due to no air seen on CT imaging Left buttock Wound care consulted IVF for hydration Vancomycin and Rocephin Encourage frequent turning (2) Sepsis: Code(s): A41.9 - Sepsis, unspecified organism Status: Acute Assessment and Plan: Secondary to cellulitis Sepsis Fluid bolus given Blood cultures pending Wound cultures pending ABX as above Repeat lactic improved (3) Hypertension: Qualifiers: Hypertension type: essential hypertension Qualified Code(s): I10 - Essential (primary) hypertension Code(s): I10 - Essential (primary) hypertension Status: Chronic Assessment and Plan: Hold antihypertensives as she was hypotensive in the ED (4) Atrial fibrillation: Qualifiers: Atrial fibrillation type: unspecified Qualified Code(s): I48.91 - Unspecified atrial fibrillation Code(s): I48.91 - Unspecified atrial fibrillation Status: Chronic Assessment and Plan: AFib with RVR in the ED Given diltiazem push in the ED Continue Eliquis and oral diltiazem (5) Chronic kidney disease: Qualifiers: Chronic kidney disease stage: stage 3 (moderate) Qualified Code(s): N18.3 - Chronic kidney disease, stage 3 (moderate) Code(s): N18.9 - Chronic kidney disease, unspecified Status: Chronic Assessment and Plan: BMP the morning monitor for GORGE due to vancomycin (6) CHF (congestive heart failure): Code(s): I50.9 - Heart failure, unspecified Status: Acute Assessment and Plan: Holding Lasix and spironolactone due to dehydration Plan patient presented with cellulitis of low back, stats it painful and itching, while in the ER developed A. fib with RVR most likely triggered by pain and stress from cellulitis, patient was given diltiazem in the ER rate is trending down, patient is being treated with Zosyn for cellulitis and will have wound team evaluate the patient. today patient pain is improving, her white counts are trending down, wound and blood cultures are growing MRSA patient is being treated with vancomycin and doxycycline, Will continue to monitor. patient is transferred out of IMU to medical floor. Patient with MRSA in the wound and blood, discuss with clinical pharmacist will repeat wound and blood culture, her cellulitis along the buttock is improving however patient has developed necrotic tissue left buttock wound, patient was seen by surgery and had wound debridement on 03/24 and wound vac is placed, will follow up, repeat blood and wound culture is growing MRSA discuss with clinical pharmacist, patient will need vancomycin until 04/05, patient with history of atrial fibrillation upon arrival to ER patient was in RVR and was given Diltiazem IV bolus and rate trended down and placed on diltiazem 180mg PO BID and remains A. fib but the rate is controlled, however is taking dofetilide for arrhythmia which was not resume, will consult cardiology further recommendation, will monitor. Subjective Date/time seen: 03/25/25 16:07 Interval history: Painful bleeding rash Narrative: 74-year-old female past medical history of AFib, TIA, hypertension, chronic kidney disease and pacemaker presents the hospital with a painful bleeding rash. Patient states that due to the rash being itchy she was scratching it. She knows that started bleeding so she washed it with peroxide. She states due to being completely uncomfortable she has been lying in bed a lot on her back. Patient denies fever or chills. In the ED patient leukocytosis of 20.1, sodium 131, BUN of 43, creatinine of 1.88 which is baseline lactic acid 3.2. CT abdomen pelvis show Extensive cellulitis/soft tissue infection involving the subcutaneous soft tissues of the left buttock. No distinct abscess/fluid collection evident. In the ED patient was in AFib with RVR was given diltiazem. For her cellulitis she was given Zosyn 2 L bolus and pain medication. patient presented with cellulitis of low back, stats it painful and itching, while in the ER developed A. fib with RVR most likely triggered by pain and stress from cellulitis, patient was given diltiazem in the ER rate is trending down, patient is being treated with Zosyn for cellulitis and will have wound team evaluate the patient. today patient pain is improving, her white counts are trending down, wound and blood cultures are growing MRSA patient is being treated with vancomycin and doxycycline, Will continue to monitor. patient is transferred out of IMU to medical floor. Patient with MRSA in the wound and blood, discuss with clinical pharmacist will repeat wound and blood culture, her cellulitis along the buttock is improving however patient has developed necrotic tissue left buttock wound, patient was seen by surgery and had wound debridement on 03/24 and wound vac is placed, will follow up, repeat blood and wound culture is growing MRSA discuss with clinical pharmacist, patient will need vancomycin until 04/05, patient with history of atrial fibrillation upon arrival to ER patient was in RVR and was given Diltiazem IV bolus and rate trend ed down and placed on diltiazem 180mg PO BID and remains A. fib but the rate is controlled, however is taking dofetilide for arrhythmia which was not resume, will consult cardiology further recommendation, will monitor. Review of Systems Review of Systems: 12 systems were reviewed and are negativ e except for as per HPI. Exam Narrative: Patient is comfortable, NAD HEENT: eyes are clear and none icteric LUNGS:CTA HEART: RR S1S2 ABD: BS+, Soft and nontender Lower extremities: no edema SKIN: nonjaundiced Neuro: grossly intact. Objective Data Vital Signs Vital Signs: Vital Signs - 24 hr 03/24/25 17:19 03/24/25 19:35 03/24/25 19:45 Temperature 37.1 C 36.8 C Pulse Rate 87 94 65 Respiratory Rate 16 20 20 Blood Pressure 155/69 H 142/78 H 105/65 Pulse Oximetry 98 98 98 Oxygen Delivery Room Air Room Air Room Air 03/24/25 20:00 03/24/25 20:05 03/24/25 20:15 Temperature 36.5 C Pulse Rate 88 84 88 Respiratory Rate 20 20 20 Blood Pressure 105/65 107/67 118/54 L Pulse Oximetry 98 100 98 Oxygen Delivery Room Air Room Air 03/24/25 20:20 03/24/25 20:30 03/24/25 20:45 Temperature 36.5 C 36.7 C Pulse Rate 83 63 92 Respiratory Rate 20 20 20 Blood Pressure 120/57 L 112/54 L 111/56 L Pulse Oximetry 98 98 98 Oxygen Delivery Room Air 03/24/25 21:35 03/24/25 21:45 03/24/25 22:06 Temperature 36.6 C Pulse Rate 82 83 Respiratory Rate 18 Blood Pressure 130/71 Pulse Oximetry 96 Oxygen Delivery Room Air 03/25/25 00:00 03/25/25 01:23 03/25/25 04:00 Temperature 36.2 C L Pulse Rate 79 79 79 Respiratory Rate 18 Blood Pressure 114/60 Pulse Oximetry 96 Oxygen Delivery 03/25/25 05:00 03/25/25 08:00 03/25/25 08:00 Temperature 36.2 C L 36.6 C Pulse Rate 80 80 Respiratory Rate 18 16 Blood Pressure 127/60 135/61 Pulse Oximetry 96 98 Oxygen Delivery Room Air 03/25/25 08:00 03/25/25 12:00 03/25/25 12:00 Temperature 36.9 C Pulse Rate 80 79 79 Respiratory Rate 18 Blood Pressure 115/65 Pulse Oximetry 95 Oxygen Delivery Intake/Output Intake/Output: Intake & Output 03/22/25 03/23/25 03/24/25 03/25/25 23:59 23:59 23:59 23:59 Intake Total 1590 1450 950 700 Output Total 1200 Balance 1590 1450 -250 700 Meds/Results Medications: Active Medications Generic Name Dose Route Start Last Admin Trade Name Freq PRN Reason Stop Dose Admin Acetaminophen 650 mg 03/18/25 13:14 Acetaminophen 325 Mg Tablet PO Q4H PRN Mild Pain (1-3) or Fever Hydrocodone Bitart/Acetaminophen 1 tab 03/18/25 13:14 03/20/25 18:28 Hydrocodone/Acetaminophen (*Crx) 5-325 Mg Tablet PO 1 tab Q4H PRN Administration Pain Rated 4-6 Hydrocodone Bitart/Acetaminophen 1 tab 03/20/25 15:17 03/25/25 15:52 Hydrocodone/Acetaminophen (*Crx) 7.5-325 Mg Tablet PO 1 tab Q6H PRN Administration Pain Rated 7-10 Albuterol 1 puff 03/18/25 22:52 Albuterol Sulfate (*Sp) Aerosol 1 Puff INHALATION Q12HRT PRN shortness of breath or wheezing Allopurinol 100 mg 03/25/25 17:00 03/25/25 15:54 Allopurinol 100 Mg Tablet PO 100 mg BID MYNOR Administration Apixaban 5 mg 03/19/25 21:00 03/23/25 09:41 Apixaban 5 Mg Tablet BY MOUTH 5 mg Q12HR MYNOR Administration Atorvastatin Calcium 40 mg 03/18/25 23:05 03/24/25 21:05 Atorvastatin 40 Mg Tablet PO 40 mg HS MYNOR Administration Buspirone HCl 10 mg 05/08/25 06:00 03/25/25 13:25 Buspirone Hcl 10 Mg Tablet PO 10 mg Q8HR MYNOR Administration Calcitriol 0.25 mcg 03/19/25 09:00 03/25/25 09:00 Calcitriol 0.25 Mcg Capsule PO 0.25 mcg DAILY MYNOR Administration Diltiazem HCl 180 mg 03/18/25 22:55 03/25/25 09:00 Diltiazem Hcl Cd 180 Mg Cap.24hr PO 180 mg Q12HR MYNOR Administration Docusate Sodium 100 mg 03/18/25 17:00 03/25/25 15:53 Docusate Sodium 100 Mg Capsule PO 100 mg BID MYNOR Administration Ergocalciferol units 04/08/25 09:00 Ergocalciferol 50,000 Units Capsule PO [id number] MYNOR Famotidine 20 mg 03/19/25 09:00 03/25/25 09:00 Famotidine 20 Mg Tablet PO 20 mg Q12HR MYNOR Administration Furosemide 40 mg 03/26/25 09:00 Furosemide 40 Mg Tablet PO DAILY MYNOR Vancomycin HCl 1,250 mg in 250 mls @ 166.667 mls/hr 03/23/25 12:00 03/25/25 13:25 Vancomycin 1,250 Mg/Ns 250 Ml IVPB 04/05/25 23:59 166.67 mls/hr Q24H MYNOR Administration Melatonin 5 mg 03/18/25 23:10 03/24/25 21:05 Melatonin 5 Mg Tablet PO 5 mg HS MYNOR Administration Metoprolol Succinate 100 mg 03/18/25 23:10 03/24/25 21:05 Metoprolol Succinate Ext Rel 100 Mg Tabcr PO 100 mg HS MYNOR Administration Miscellaneous Information 0 each 03/25/25 00:01 Clarify When Next Dose Vit D Is Due XX 04/24/25 00:00 CLARIFY MYNOR Morphine Sulfate 2 mg 03/18/25 15:29 Morphine Sulfate (*Crx) 2 Mg/Ml Inj IV PUSH Q4H PRN Pain Rated 7-10 Morphine Sulfate 4 mg 03/24/25 20:33 03/24/25 21:04 Morphine Sulfate (*Crx) 4 Mg/Ml Inj IV PUSH 4 mg Q4H PRN Administration Pain Rated 7-10 Multivitamins/Minerals 1 tab 03/26/25 09:00 Multivitamins /C Lutein (Centrum Silver) Tablet *Bkc PO 04/25/25 08:59 DAILY MYNOR Ondansetron HCl 4 mg 03/18/25 13:14 Ondansetron Inj 4 Mg/2 Ml Vial IV PUSH Q4H PRN Nausea Sertraline HCl 100 mg 03/19/25 09:00 03/25/25 09:00 Sertraline Hcl 50 Mg Tablet PO 100 mg DAILY MYNOR Administration Sertraline HCl 50 mg 03/19/25 09:00 03/25/25 09:00 Sertraline Hcl 50 Mg Tablet PO 50 mg DAILY MYNOR Administration Tizanidine HCl 2 mg 03/26/25 09:00 Tizanidine Hcl 2 Mg Tablet PO DAILY MYNOR Trazodone HCl 100 mg 03/18/25 23:10 03/24/25 21:05 Trazodone Hcl 50 Mg Tablet PO 100 mg HS MYNOR Administration Radiology Results: ITS Impressions Abdomen/Pelvis CT 03/18/25 11:59 Impression: Extensive cellulitis/soft tissue infection involving the subcutaneous soft tissues of the left buttock. No distinct abscess/fluid collection evident. Chest X-Ray 03/21/25 08:45 IMPRESSION: 1. Unchanged mild elevation left hemidiaphragm with mild left basilar atelectasis. Labs Labs: Laboratory Results - last 24 hr 03/25/25 03/25/25 06:55 10:57 WBC 10.9 H RBC 2.95 L Hgb 9.4 L Hct 30.0 L MCV 101.7 H MCH 31.9 MCHC 31.3 L RDW 16.0 H Plt Count 380 H MPV 9.7 Sodium 138 Potassium 4.4 Chloride 113 H Carbon Dioxide 23 Anion Gap 2 L BUN 12 Creatinine 0.79 Estim Creat Clear Calc Not Reportable Estimated GFR > 60 Glucose 79 Calcium 8.0 L Magnesium 1.9 Vancomycin Trough 18.0 Quality VTE Prophylaxis VTE prophylaxis: mechanical ordered
[2025-03-25] MEDS: LIDOCAINE 1% PF INJ 5 ML VIAL INFILTRATE (16:30)
--- NOTE | 2025-03-25 17:02 | PM.CNCAR ---
Assessment and Plan Assessment and plan (1) Prolonged Q-T interval on ECG: Code(s): R94.31 - Abnormal electrocardiogram [ECG] [EKG] Status: Acute (2) Atrial fibrillation with rapid ventricular response: Code(s): I48.91 - Unspecified atrial fibrillation Status: Acute (3) Hypertension: Qualifiers: Hypertension type: essential hypertension Qualified Code(s): I10 - Essential (primary) hypertension Code(s): I10 - Essential (primary) hypertension Status: Chronic (4) Anticoagulant long-term use: Code(s): Z79.01 - [facility] (current) use of anticoagulants Status: Acute Plan Problem list: AFib with RVR-now in sinus rhythm with heart rate in the 70s to 80s; on chronic anticoagulation with Eliquis Cellulitis with wound cultures growing MRSA Infected left buttock ulcer with necrotic tissue status post wound debridement and wound VAC placement with general surgery today Sepsis secondary to cellulitis Bacteremia with blood cultures growing MRSA Hypertension CKD stage 3 Plan: -Continue Cardizem 180 mg b.i.d. which is her home dose -Continue metoprolol 100 mg daily which is her home dose -Check creatinine clearance and if creatinine clearance greater than 20 mL per minute, than resume dofetilide 125 mcg b.i.d. which is her home dose. Dofetilide is contraindicated if creatinine clearance less than 20 mL/minutes -Continue Lasix 40 mg daily -Check and replace electrolytes to keep potassium greater than 4 and magnesium greater than 2 -check ins and outs, weights, renal function daily -Continue Eliquis for anticoagulation -Continue statin -Obtain outside hospital records regarding last TTE -Management of other medical problems per primary team History of Present Illness History of Present Illness Consult date/time: 03/25/25 17:02 Reason For Visit: Sepsis, left butt cheek cellulitis, AFib RVR Narrative: 74-year-old female with history of pacemaker, hypertension, congestive heart failure, paroxysmal atrial fibrillation (cardioverted in the past), history of TIA, hepatic steatosis, CKD stage 3, spinal stenosis, depression, anxiety, GERD, peptic ulcer disease, osteoarthritis, asthma, history of rheumatic fever presented with a buttock ulcer and painful bleeding itchy rash. She was noted to have cellulitis and started on IV antibiotics. The left buttock ulcer was found to have necrotic tissue due to which she underwent left buttock wound debridement with wound VAC with general surgery today. Wound and blood cultures from 03/18/2025 grew MRSA. She had a PICC line placed today for long-term antibiotics. In the ER she was noted to be in AFib with RVR and was given diltiazem drip which was later switched to p.o. Cardizem at home dose. She is also on dofetilide for atrial fibrillation which has not been resumed yet. Cardiology is consulted for further management of AFib. She states that she was diagnosed with atrial fibrillation about 6 years ago and had multiple cardioversions which did not help. She is to have frequent episodes of atrial fibrillation. She then had a pacemaker placed to all of use of AV elza blockers for rate control of AFib. Since then she has noticed that her atrial fibrillation is under control. She did not feel symptoms when she had AFib RVR in the ED during this hospitalization. No chest pain, dizziness, lightheadedness, palpitations, leg swelling, presyncope, syncope, orthopnea, PND. Workup: WBC: 10.9 Hemoglobin: 9.4 D-dimer: 1.7 Creatinine: 0.79 Troponin: Less than 0.012 BNP: 4220 EKG: V paced rhythm Chest x-ray: Impression: 1. Right upper 70 PICC line tip near the superior cavoatrial junction. 2. Small left pleural effusion with associated left basilar atelectasis and/or pneumonia. Review of Systems Review of Systems: Complete review of systems was performed and negative other than those mentioned HPI [facility] Past Medical History Medical History Pacemaker Hepatic steatosis Chronic kidney disease Stage III Spinal stenosis Depression with anxiety Osteoarthritis Peptic ulcer disease Causing a GI bleed. Chronic pain Chronic GERD Asthma Hypertension History of rheumatic fever Atrial fibrillation Paroxysmal and has been cardioverted x2 to 3 times and is scheduled to be converted again however she is in sinus rhythm today TIA (transient ischemic attack) Occasional balance issues. Left lower extremity weakness which have resolved. 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 Repair of gastric bypass after there was a leak in 0 5. History of tonsillectomy Family History Family History Father Cancer Hypertension Heart disease Mother Diabetes mellitus Cancer Hypertension Sibling Diabetes mellitus Heart disease Hypertension Cancer Suicide Social History Social History Social History: The patient is . She lives with 1 of her daughters who is a nurse. She had 2 biological children and adopted to foster children who were brother and sister. Patient desires her daughter Sheri aguayo to be her durable power special events director for healthcare. She desires to be a full code. The patient denies any alcohol, tobacco or drug abuse. No marijuana use either. She retired from being a [employer] Smoking status: Never smoker Second hand tobacco smoke exposure: Yes Alcohol intake: current Drinks per week: 1 Substance use: never Substance use type: does not use Do You Feel Safe in your Home?: Yes Lack of Transportation: No Lack of Food: Never True Current Housing: I Have Housing Concerned About Future Housing: No Difficulty Paying Gas/Electric Bills: No Difficulty Paying for Meds: No Currently Unemployed: No Education: Trade/Vocational Certificate Difficulty w/ Childcare or Family Care: No Living arrangements: with family Gender identity (if verbalized by the patient): Female Spiritual care concerns: No Meds Home Medications and Allergies Home Medications Medication Instructions Recorded Confirmed Type allopurinol 100 mg tablet 100 mg PO BID 04/04/20 03/18/25 History apixaban 2.5 mg tablet (Eliquis) 2.5 mg PO BID 04/04/20 03/18/25 History atorvastatin 40 mg tablet 40 mg PO HS 04/04/20 03/18/25 History buspirone 10 mg tablet 10 mg PO TID 04/04/20 03/18/25 History diltiazem HCl 180 mg capsule,24 180 mg PO Q12H 04/04/20 03/18/25 History hr,extended release ergocalciferol (vitamin D2) 1,250 1,250 mcg PO [id number] 04/04/20 03/18/25 History mcg (50,000 unit) capsule (Vitamin D2) furosemide 40 mg tablet (Lasix) 40 mg PO DAILY 04/04/20 03/18/25 History magnesium oxide 400 mg PO TID 04/04/20 03/18/25 History melatonin 5 mg tablet 5 mg PO HS 04/04/20 03/18/25 History jeulmealzmxl-svqwbzk-gigml acid 1 tablet PO DAILY 04/04/20 03/18/25 History 400 mcg-lutein 250 mcg chewable tablet (Centrum Silver) spironolactone 25 mg tablet 25 mg PO DAILY 04/04/20 03/18/25 History metoprolol succinate 100 mg 100 mg PO HS 04/05/20 03/18/25 History tablet,extended release 24 hr albuterol sulfate 90 mcg/actuation 1 puff inhalation .q12 PRN 03/18/25 03/18/25 History aerosol inhaler shortness of breath or wheezing calcitriol 0.25 mcg capsule 0.25 mcg PO DAILY 03/18/25 03/18/25 History dofetilide 125 mcg capsule 125 mcg PO Q12H 03/18/25 03/18/25 History famotidine 20 mg tablet 20 mg PO BID 03/18/25 03/18/25 History glipizide 5 mg tablet, extended 5 mg PO DAILY 03/18/25 03/18/25 History release 24 hr losartan 50 mg tablet 50 mg PO DAILY 03/18/25 03/18/25 History sertraline 100 mg tablet 100 mg PO DAILY 03/18/25 03/18/25 History sertraline 50 mg tablet 50 mg PO DAILY 03/18/25 03/18/25 History tizanidine 2 mg tablet 2 mg PO DAILY 03/18/25 03/18/25 History trazodone 100 mg tablet 100 mg PO DAILY 03/18/25 03/18/25 History Allergies Allergy/AdvReac Type Severity Reaction Status Date / Time adhesive AdvReac Mild BLISTERS Verified 04/04/20 14:55 Vital Signs Vital Signs - 24 hr 03/24/25 17:19 03/24/25 19:35 03/24/25 19:45 Temperature 37.1 C 36.8 C Pulse Rate 87 94 65 Respiratory Rate 16 20 20 Blood Pressure 155/69 H 142/78 H 105/65 Pulse Oximetry 98 98 98 Oxygen Delivery Room Air Room Air Room Air 03/24/25 20:00 03/24/25 20:05 03/24/25 20:15 Temperature 36.5 C Pulse Rate 88 84 88 Respiratory Rate 20 20 20 Blood Pressure 105/65 107/67 118/54 L Pulse Oximetry 98 100 98 Oxygen Delivery Room Air Room Air 03/24/25 20:20 03/24/25 20:30 03/24/25 20:45 Temperature 36.5 C 36.7 C Pulse Rate 83 63 92 Respiratory Rate 20 20 20 Blood Pressure 120/57 L 112/54 L 111/56 L Pulse Oximetry 98 98 98 Oxygen Delivery Room Air 03/24/25 21:35 03/24/25 21:45 03/24/25 22:06 Temperature 36.6 C Pulse Rate 82 83 Respiratory Rate 18 Blood Pressure 130/71 Pulse Oximetry 96 Oxygen Delivery Room Air 03/25/25 00:00 03/25/25 01:23 03/25/25 04:00 Temperature 36.2 C L Pulse Rate 79 79 79 Respiratory Rate 18 Blood Pressure 114/60 Pulse Oximetry 96 Oxygen Delivery 03/25/25 05:00 03/25/25 08:00 03/25/25 08:00 Temperature 36.2 C L 36.6 C Pulse Rate 80 80 Respiratory Rate 18 16 Blood Pressure 127/60 135/61 Pulse Oximetry 96 98 Oxygen Delivery Room Air 03/25/25 08:00 03/25/25 12:00 03/25/25 12:00 Temperature 36.9 C Pulse Rate 80 79 79 Respiratory Rate 18 Blood Pressure 115/65 Pulse Oximetry 95 Oxygen Delivery Exam Narrative: General: Alert oriented x3, no acute distress Neck: Supple, no JVD Chest: Bilaterally clear to auscultation, no rales or rhonchi Cardiac: S1, S2 +, regular rate, regular rhythm, no murmurs or rubs Extremities: No pedal edema, no skin rash Neurologic: Alert and oriented x3, no focal neurological deficits Results Labs and Meds 03/25/25 06:55 03/25/25 06:55 Lab results: CBC 03/25/25 Range/Units 06:55 WBC 10.9 H (4.5-10.0) K/mm3 RBC 2.95 L (4.2-5.4) M/mm3 Hgb 9.4 L (12.0-15.0) g/dL Hct 30.0 L (37.0-47.0) % Plt Count 380 H (150-375) k/mm3 Comprehensive Metabolic Panel 03/25/25 Range/Units 06:55 Sodium 138 (137-145) mmol/L Potassium 4.4 (3.4-5.0) mmol/L Chloride 113 H (98-107) mmol/L Carbon Dioxide 23 (22-30) mmol/L BUN 12 (7-17) mg/dL Creatinine 0.79 (0.7-1.0) mg/dL Glucose 79 (65-110) mg/dL Calcium 8.0 L (8.4-10.2) mg/dL Intake and Output 03/25/25 03/25/25 03/25/25 07:59 15:59 23:59 Intake Total 400 300 Balance 400 300 Intake: Oral 400 300 Other: # Unmeasured Voids 5 Patient Weight 03/25/25 23:59 Weight 74 kg
[2025-03-25] MEDS: ATORVASTATIN 40 MG TABLET PO (20:54)
[2025-03-25] MEDS: traZODone HCL 50 MG TABLET 100 MG PO (20:54)
[2025-03-25] MEDS: MELATONIN 5 MG TABLET PO (20:54)
[2025-03-25] MEDS: METOPROLOL SUCCINATE EXT REL 100 MG TABCR PO (20:55)
[2025-03-25] MEDS: CENTRAL LINE FLUSH 10 ML IV PUSH (20:59)
[2025-03-26] VITALS (11 sets, daily range): BP systolic 124–140; BP diastolic 61–78; PULSE 79–88; RESP 16–19; TEMP 35.9–36.6; O2SAT 93–99
[2025-03-26] MEDS: HYDROcodone/acetaminophen (*CRX) 7.5-325 MG TABLET 1 TAB PO ×3 (00:07→22:06)
[2025-03-26] MEDS: busPIRone HCL 10 MG TABLET PO ×3 (05:05→22:06)
[2025-03-26] MEDS: CENTRAL LINE FLUSH 10 ML IV PUSH ×3 (05:05→22:07)
[2025-03-26 05:22] LABS: Hematocrit 31.7 % (37.0-47.0); Hemoglobin 9.8 g/dL (12.0-15.0); Mean Corpuscular HGB Conc 30.9 g/dl (32-36); Mean Corpuscular Hemoglobin 31.5 pg (26-34); Mean Corpuscular Volume 101.9 fl (80-100); Mean Platelet Volume 9.7 fl (7.4-10.4); Platelet Count Result 393 k/mm3 (150-375); Red Blood Count 3.11 M/mm3 (4.2-5.4); Red Cell Distribution Width 16.2 % (11.5-14.5); White Blood Count 12.3 K/mm3 (4.5-10.0)
[2025-03-26 05:36] LABS: Anion Gap 3 mmol/L (4-12); Blood Urea Nitrogen 11 mg/dL (7-17); Calcium 8.6 mg/dL (8.4-10.2); Carbon Dioxide 23 mmol/L (22-30); Chloride 112 mmol/L (98-107); Estimated Glomerular Filt Rate > 60; Glucose 85 mg/dL (65-110); Magnesium 1.9 mg/dL (1.6-2.3); Potassium 4.4 mmol/L (3.4-5.0); Sodium 138 mmol/L (137-145)
[2025-03-26] MEDS: TIZANIDINE HCL 2 MG TABLET PO (09:23)
[2025-03-26] MEDS: FUROSEMIDE 40 MG TABLET PO (09:23)
[2025-03-26] MEDS: dilTIAZem HCL CD 180 MG CAP.24HR PO ×2 (09:23→20:28)
[2025-03-26] MEDS: SERTRALINE HCL 50 MG TABLET 100 MG PO (09:23)
[2025-03-26] MEDS: SERTRALINE HCL 50 MG TABLET PO (09:23)
[2025-03-26] MEDS: calcitrioL 0.25 MCG CAPSULE PO (09:23)
[2025-03-26] MEDS: MULTIVITAMINS /C LUTEIN (CENTRUM SILVER) TABLET *BKC 1 TAB PO (09:23)
[2025-03-26] MEDS: allopurinoL 100 MG TABLET PO ×2 (09:24→15:42)
[2025-03-26] MEDS: FAMOTIDINE 20 MG TABLET PO ×2 (09:24→20:28)
[2025-03-26] MEDS: DOCUSATE SODIUM 100 MG CAPSULE PO (09:24)
--- NOTE | 2025-03-26 12:40 | P.PNGS_ITS ---
Progress Note: A&P Assessment and Plan (1) Wound of left buttock: Code(s): S31.829A - Unspecified open wound of left buttock, initial encounter Status: Acute Assessment and Plan: * Postop day 2 following incision and drainage left buttock abscess and debridement with application of wound VAC. Continue wound VAC therapy for now. We will plan to change the wound VAC dressing tomorrow. Continue IV vancomycin. Dressing being reinforced today with nursing. (2) Cellulitis: Code(s): L03.90 - Cellulitis, unspecified Status: Acute Assessment and Plan: * Overall improving, will reassess wound tomorrow. Continue IV antibiotics. (3) Bacteremia: Code(s): R78.81 - Bacteremia Status: Acute Assessment and Plan: * Initial Blood cultures and wound culture grew MRSA. Repeat blood cultures from 03/23 with NGTD. Continue IV Vancomycin. She had a PICC line placed and CC is working on home health for discharge. (4) Anticoagulant long-term use: Code(s): Z79.01 - 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 (current) use of anticoagulants Status: Acute Assessment and Plan: * Continue to hold Eliquis for now. May resume after her wound vac change tomorrow if the wound appears stable. (5) Atrial fibrillation: Qualifiers: Atrial fibrillation type: unspecified Qualified Code(s): I48.91 - Unspecified atrial fibrillation Code(s): I48.91 - Unspecified atrial fibrillation Status: Chronic Plan I have discussed the patient's case and plan of care with Dr. Nye. Subjective Subjective Date/Time Seen: 03/26/25 12:40 Post Op day: 2 Patient reports: no new complaints, flatus, bowel movement and afebrile Interval history: Patient with no acute changes overnight. Denies any issues with the wound vac. Overall her left buttock pain has improved. Exam Narrative: Left buttock wound VAC dressing in place, with scant bloody drainage in canister, dressing is peeling up on the medial aspect near the gluteal fold causing it to loose seal when turning for me to assess, nursing is going to call for supplies to reinforce the dressing Objective Data Vital Signs Vital Signs: Vital Signs - 24 hr 03/25/25 16:00 03/25/25 16:00 03/25/25 20:00 Temperature 98.4 F 97.4 F L Pulse Rate 79 80 80 Respiratory Rate 20 18 Blood Pressure 120/65 123/70 Pulse Oximetry 95 96 03/25/25 20:00 03/25/25 20:55 03/26/25 00:00 Temperature Pulse Rate 87 79 79 Respiratory Rate Blood Pressure Pulse Oximetry 03/26/25 00:30 03/26/25 04:00 03/26/25 05:00 Temperature 97.0 F L 97.0 F L Pulse Rate 80 79 79 Respiratory Rate 18 16 Blood Pressure 124/74 124/73 Pulse Oximetry 96 95 03/26/25 08:00 Temperature 96.7 F L Pulse Rate 79 Respiratory Rate 18 Blood Pressure 130/61 Pulse Oximetry 97 Intake/Output Intake/Output: Intake & Output 03/23/25 03/24/25 03/25/25 03/26/25 23:59 23:59 23:59 23:59 Intake Total 0938 959 5446 240 Output Total 1200 50 Balance 1450 -250 1240 190 Meds/Results Medications: Active Medications Generic Name Dose Route Start Last Admin Trade Name Freq PRN Reason Stop Dose Admin Acetaminophen 650 mg 03/18/25 13:14 Acetaminophen 325 Mg Tablet PO Q4H PRN Mild Pain (1-3) or Fever Hydrocodone Bitart/Acetaminophen 1 tab 03/18/25 13:14 03/20/25 18:28 Hydrocodone/Acetaminophen (*Crx) 5-325 Mg Tablet PO 1 tab Q4H PRN Administration Pain Rated 4-6 Hydrocodone Bitart/Acetaminophen 1 tab 03/20/25 15:17 03/26/25 00:07 Hydrocodone/Acetaminophen (*Crx) 7.5-325 Mg Tablet PO 1 tab Q6H PRN Administration Pain Rated 7-10 Albuterol 1 puff 03/18/25 22:52 Albuterol Sulfate (*Sp) Aerosol 1 Puff INHALATION Q12HRT PRN shortness of breath or wheezing Allopurinol 100 mg 03/25/25 17:00 03/26/25 09:24 Allopurinol 100 Mg Tablet PO 100 mg BID MYNOR Administration Apixaban 5 mg 03/19/25 21:00 03/23/25 09:41 Apixaban 5 Mg Tablet BY MOUTH 5 mg Q12HR MYNOR Administration Atorvastatin Calcium 40 mg 03/18/25 23:05 03/25/25 20:54 Atorvastatin 40 Mg Tablet PO 40 mg HS MYNOR Administration Buspirone HCl 10 mg 03/19/25 06:00 03/26/25 05:05 Buspirone Hcl 10 Mg Tablet PO 10 mg Q8HR MYNOR Administration Calcitriol 0.25 mcg 03/19/25 09:00 03/26/25 09:23 Calcitriol 0.25 Mcg Capsule PO 0.25 mcg DAILY MYNOR Administration Diltiazem HCl 180 mg 03/18/25 22:55 03/26/25 09:23 Diltiazem Hcl Cd 180 Mg Cap.24hr PO 180 mg Q12HR MYNOR Administration Docusate Sodium 100 mg 03/18/25 17:00 03/26/25 09:24 Docusate Sodium 100 Mg Capsule PO 100 mg BID MYNOR Administration Ergocalciferol units 04/08/25 09:00 Ergocalciferol 50,000 Units Capsule PO [id number] MYNOR Famotidine 20 mg 03/19/25 09:00 03/26/25 09:24 Famotidine 20 Mg Tablet PO 20 mg Q12HR MYNOR Administration Furosemide 40 mg 03/26/25 09:00 03/26/25 09:23 Furosemide 40 Mg Tablet PO 40 mg DAILY MYNOR Administration Vancomycin HCl 1,250 mg in 250 mls @ 166.667 mls/hr 03/23/25 12:00 03/25/25 13:25 Vancomycin 1,250 Mg/Ns 250 Ml IVPB 04/05/25 23:59 166.67 mls/hr Q24H MYNOR Administration Melatonin 5 mg 03/18/25 23:10 03/25/25 20:54 Melatonin 5 Mg Tablet PO 5 mg HS MYNOR Administration Metoprolol Succinate 100 mg 03/18/25 23:10 03/25/25 20:55 Metoprolol Succinate Ext Rel 100 Mg Tabcr PO 100 mg HS MYNOR Administration Miscellaneous Information 0 each 03/25/25 00:01 03/25/25 17:36 Clarify When Next Dose Vit D Is Due XX 04/24/25 00:00 Not Given CLARIFY MYNOR Morphine Sulfate 2 mg 03/18/25 15:29 Morphine Sulfate (*Crx) 2 Mg/Ml Inj IV PUSH Q4H PRN Pain Rated 7-10 Morphine Sulfate 4 mg 03/24/25 20:33 03/24/25 21:04 Morphine Sulfate (*Crx) 4 Mg/Ml Inj IV PUSH 4 mg Q4H PRN Administration Pain Rated 7-10 Multivitamins/Minerals 1 tab 03/26/25 09:00 03/26/25 09:23 Multivitamins /C Lutein (Centrum Silver) Tablet *Bkc PO 04/25/25 08:59 1 tab DAILY MYNOR Administration Ondansetron HCl 4 mg 03/18/25 13:14 Ondansetron Inj 4 Mg/2 Ml Vial IV PUSH Q4H PRN Nausea Sertraline HCl 100 mg 03/19/25 09:00 03/26/25 09:23 Sertraline Hcl 50 Mg Tablet PO 100 mg DAILY MYNOR Administration Sertraline HCl 50 mg 03/19/25 09:00 03/26/25 09:23 Sertraline Hcl 50 Mg Tablet PO 50 mg DAILY MYNOR Administration Sodium Chloride 10 ml 03/25/25 22:00 03/26/25 05:05 Central Line Flush IV PUSH 10 ml Q8HR MYNOR Administration Sodium Chloride 10 ml 03/25/25 16:58 Central Line Flush IV PUSH PRN PRN with TPN bag changes Sodium Chloride 20 ml 03/25/25 16:58 Central Line Flush IV PUSH PRN PRN after blood draws Tizanidine HCl 2 mg 03/26/25 09:00 03/26/25 09:23 Tizanidine Hcl 2 Mg Tablet PO 2 mg DAILY MYNOR Administration Trazodone HCl 100 mg 03/18/25 23:10 03/25/25 20:54 Trazodone Hcl 50 Mg Tablet PO 100 mg HS MYNOR Administration Radiology Results: ITS Impressions Abdomen/Pelvis CT 03/18/25 11:59 Impression: Extensive cellulitis/soft tissue infection involving the subcutaneous soft tissues of the left buttock. No distinct abscess/fluid collection evident. Chest X-Ray 03/25/25 16:59 IMPRESSION: 1. Right upper 70 PICC line tip near the superior cavoatrial junction. 2. Small left pleural effusion with associated left basilar atelectasis and/or pneumonia. Labs Labs: Laboratory Results - last 24 hr 03/26/25 05:15 WBC 12.3 H RBC 3.11 L Hgb 9.8 L Hct 31.7 L MCV 101.9 H MCH 31.5 MCHC 30.9 L RDW 16.2 H Plt Count 393 H MPV 9.7 Sodium 138 Potassium 4.4 Chloride 112 H Carbon Dioxide 23 Anion Gap 3 L BUN 11 Creatinine 0.77 Estim Creat Clear Calc Not Reportable Estimated GFR > 60 Glucose 85 Calcium 8.6 Magnesium 1.9
--- NOTE | 2025-03-26 13:42 | PM.IMPN ---
Progress Note: A&P Assessment and Plan (1) Cellulitis: Code(s): L03.90 - Cellulitis, unspecified Status: Acute Assessment and Plan: Verses pressure ulcer versus both, low likelihood for necrotizing fasciitis due to no air seen on CT imaging Left buttock Wound care consulted IVF for hydration Vancomycin and Rocephin Encourage frequent turning (2) Sepsis: Code(s): A41.9 - Sepsis, unspecified organism Status: Acute Assessment and Plan: Secondary to cellulitis Sepsis Fluid bolus given Blood cultures pending Wound cultures pending ABX as above Repeat lactic improved (3) Hypertension: Qualifiers: Hypertension type: essential hypertension Qualified Code(s): I10 - Essential (primary) hypertension Code(s): I10 - Essential (primary) hypertension Status: Chronic Assessment and Plan: Hold antihypertensives as she was hypotensive in the ED (4) Atrial fibrillation: Qualifiers: Atrial fibrillation type: unspecified Qualified Code(s): I48.91 - Unspecified atrial fibrillation Code(s): I48.91 - Unspecified atrial fibrillation Status: Chronic Assessment and Plan: AFib with RVR in the ED Given diltiazem push in the ED Continue Eliquis and oral diltiazem (5) Chronic kidney disease: Qualifiers: Chronic kidney disease stage: stage 3 (moderate) Qualified Code(s): N18.3 - Chronic kidney disease, stage 3 (moderate) Code(s): N18.9 - Chronic kidney disease, unspecified Status: Chronic Assessment and Plan: BMP the morning monitor for GORGE due to vancomycin (6) CHF (congestive heart failure): Code(s): I50.9 - Heart failure, unspecified Status: Acute Assessment and Plan: Holding Lasix and spironolactone due to dehydration Plan patient presented with cellulitis of low back, stats it painful and itching, while in the ER developed A. fib with RVR most likely triggered by pain and stress from cellulitis, patient was given diltiazem in the ER rate is trending down, patient is being treated with Zosyn for cellulitis and will have wound team evaluate the patient. today patient pain is improving, her white counts are trending down, wound and blood cultures are growing MRSA patient is being treated with vancomycin and doxycycline, Will continue to monitor. patient is transferred out of IMU to medical floor. Patient with MRSA in the wound and blood, discuss with clinical pharmacist will repeat wound and blood culture, her cellulitis along the buttock is improving however patient has developed necrotic tissue left buttock wound, patient was seen by surgery and had wound debridement on 03/24 and wound vac is placed, will follow up, repeat blood and wound culture is growing MRSA discuss with clinical pharmacist, patient will need vancomycin until 04/05, patient with history of atrial fibrillation upon arrival to ER patient was in RVR and was given Diltiazem IV bolus and rate trended down and placed on diltiazem 180mg PO BID and remains A. fib but the rate is controlled, however is taking dofetilide for arrhythmia which was not resume, on 03/25 patient was seen by cardiology continued her home dose of diltiazem and metoprolol, and recommended Check creatinine clearance and if creatinine clearance greater than 20 mL per minute, than resume dofetilide 125 mcg b.i.d. which is her home dose. Dofetilide is contraindicated if creatinine clearance less than 20 mL/minutes. today patient HR is 81 will hold dofetilide as she has not taken while in the hospital and will monitor. also patient s/p I&D of her left buttock abscess POD #2, seen by surgery service patient has wound VAC, patient will be seen by the surgery tomorrow and dressing will be changed and blood culture is growing MRSA, and being treated with Vancomycin, clinical pharmacist is recommending until 04/05, child care team lead will arrange for home infusion of the abx and may be discharged tomorrow. Subjective Date/time seen: 03/26/25 13:42 Interval history: Painful bleeding rash Narrative: 74-year-old female past medical history of AFib, TIA, hypertension, chronic kidney disease and pacemaker presents the hospital with a painful bleeding rash. Patient states that due to the rash being itchy she was scratching it. She knows that started bleeding so she washed it with peroxide. She states due to being completely uncomfortable she has been lying in bed a lot on her back. Patient denies fever or chills. In the ED patient leukocytosis of 20.1, sodium 131, BUN of 43, creatinine of 1.88 which is baseline lactic acid 3.2. CT abdomen pelvis show Extensive cellulitis/soft tissue infection involving the subcutaneous soft tissues of the left buttock. No distinct abscess/fluid collection evident. In the ED patient was in AFib with RVR was given diltiazem. For her cellulitis she was given Zosyn 2 L bolus and pain medication. patient presented with cellulitis of low back, stats it painful and itching, while in the ER developed A. fib with RVR most likely triggered by pain and stress from cellulitis, patient was given diltiazem in the ER rate is trending down, patient is being treated with Zosyn for cellulitis and will have wound team evaluate the patient. today patient pain is improving, her white counts are trending down, wound and blood cultures are growing MRSA patient is being treated with vancomycin and doxycycline, Will continue to monitor. patient is transferred out of IMU to medical floor. Patient with MRSA in the wound and blood, discuss with clinical pharmacist will repeat wound and blood culture, her cellulitis along the buttock is improving however patient has developed necrotic tissue left buttock wound, patient was seen by surgery and had wound debridement on 03/24 and wound vac is placed, will follow up, repeat blood and wound culture is growing MRSA discuss with clinical pharmacist, patient will need vancomycin until 04/05, patient with history of atrial fibrillation upon arrival to ER patient was in RVR and was given Diltiazem IV bolus and rate trended down and placed on diltiazem 180mg PO BID and remains A. fib but the rate is controlled, however is taking dofetilide for arrhythmia which was not resume, on 03/25 patient was seen by cardiology continued her home dose of diltiazem and metoprolol, and recommended Check creatinine clearance and if creatinine clearance greater than 20 mL per minute, than resume dofetilide 125 mcg b.i.d. which is her home dose. Dofetilide is contraindicated if creatinine clearance less than 20 mL/minutes. today patient HR is 81 will hold dofetilide as she has not taken while in the hospital and will monitor. also patient s/p I&D of her left buttock abscess POD #2, seen by surgery service patient has wound VAC, patient will be seen by the surgery tomorrow and dressing will be changed and blood culture is growing MRSA, and being treated with Vancomycin, clinical pharmacist is recommending until 04/05, child care team lead will arrange for home infusion of the abx and may be discharged tomorrow. Review of Systems Review of Systems: 12 systems were reviewed and are negative except for as per HPI. Exam Narrative: Patient is comfortable, NAD HEENT: eyes are clear and none icteric LUNGS:CTA HEART: RR S1S2 ABD: BS+, Soft and nontender Lower extremities: no edema SKIN: nonjaundiced Neuro: grossly intact. Objective Data Vital Signs Vital Signs: Vital Signs - 24 hr 03/25/25 16:00 03/25/25 16:00 03/25/25 20:00 Temperature 36.9 C 36.3 C L Pulse Rate 79 80 80 Respiratory Rate 20 18 Blood Pressure 120/65 123/70 Pulse Oximetry 95 96 Oxygen Delivery 03/25/25 20:00 03/25/25 20:55 03/26/25 00:00 Temperature Pulse Rate 87 79 79 Respiratory Rate Blood Pressure Pulse Oximetry Oxygen Delivery 03/26/25 00:30 03/26/25 04:00 03/26/25 05:00 Temperature 36.1 C L 36.1 C L Pulse Rate 80 79 79 Respiratory Rate 18 16 Blood Pressure 124/74 124/73 Pulse Oximetry 96 95 Oxygen Delivery 03/26/25 08:00 03/26/25 08:00 03/26/25 12:00 Temperature 35.9 C L 36.2 C L Pulse Rate 79 81 Respiratory Rate 18 19 Blood Pressure 130/61 126/68 Pulse Oximetry 97 99 Oxygen Delivery Room Air Intake/Output Intake/Output: Intake & Output 03/23/25 03/24/25 03/25/25 03/26/25 23:59 23:59 23:59 23:59 Intake Total 7073 292 3408 240 Output Total 1200 50 Balance 1450 -250 1240 190 Meds/Results Medications: Active Medications Generic Name Dose Route Start Last Admin Trade Name Freq PRN Reason Stop Dose Admin Acetaminophen 650 mg 03/18/25 13:14 Acetaminophen 325 Mg Tablet PO Q4H PRN Mild Pain (1-3) or Fever Hydrocodone Bitart/Acetaminophen 1 tab 03/18/25 13:14 03/20/25 18:28 Hydrocodone/Acetaminophen (*Crx) 5-325 Mg Tablet PO 1 tab Q4H PRN Administration Pain Rated 4-6 Hydrocodone Bitart/Acetaminophen 1 tab 03/20/25 15:17 03/26/25 00:07 Hydrocodone/Acetaminophen (*Crx) 7.5-325 Mg Tablet PO 1 tab Q6H PRN Administration Pain Rated 7-10 Albuterol 1 puff 03/18/25 22:52 Albuterol Sulfate (*Sp) Aerosol 1 Puff INHALATION Q12HRT PRN shortness of breath or wheezing Allopurinol 100 mg 03/25/25 17:00 03/26/25 09:24 Allopurinol 100 Mg Tablet PO 100 mg BID MYNOR Administration Apixaban 5 mg 03/19/25 21:00 03/23/25 09:41 Apixaban 5 Mg Tablet BY MOUTH 5 mg Q12HR MYNOR Administration Atorvastatin Calcium 40 mg 03/18/25 23:05 03/25/25 20:54 Atorvastatin 40 Mg Tablet PO 40 mg HS MYNOR Administration Buspirone HCl 10 mg 03/19/25 06:00 03/26/25 05:05 Buspirone Hcl 10 Mg Tablet PO 10 mg Q8HR MYNOR Administration Calcitriol 0.25 mcg 03/19/25 09:00 03/26/25 09:23 Calcitriol 0.25 Mcg Capsule PO 0.25 mcg DAILY MYNOR Administration Diltiazem HCl 180 mg 03/18/25 22:55 03/26/25 09:23 Diltiazem Hcl Cd 180 Mg Cap.24hr PO 180 mg Q12HR MYNOR Administration Docusate Sodium 100 mg 03/18/25 17:00 03/26/25 09:24 Docusate Sodium 100 Mg Capsule PO 100 mg BID MYNOR Administration Ergocalciferol units 04/08/25 09:00 Ergocalciferol 50,000 Units Capsule PO [id number] MYNOR Famotidine 20 mg 03/19/25 09:00 03/26/25 09:24 Famotidine 20 Mg Tablet PO 20 mg Q12HR MYNOR Administration Furosemide 40 mg 03/26/25 09:00 03/26/25 09:23 Furosemide 40 Mg Tablet PO 40 mg DAILY MYNOR Administration Vancomycin HCl 1,250 mg in 250 mls @ 166.667 mls/hr 03/23/25 12:00 03/25/25 13:25 Vancomycin 1,250 Mg/Ns 250 Ml IVPB 04/05/25 23:59 166.67 mls/hr Q24H MYNOR Administration Melatonin 5 mg 03/18/25 23:10 03/25/25 20:54 Melatonin 5 Mg Tablet PO 5 mg HS MYNOR Administration Metoprolol Succinate 100 mg 03/18/25 23:10 03/25/25 20:55 Metoprolol Succinate Ext Rel 100 Mg Tabcr PO 100 mg HS MYNOR Administration Miscellaneous Information 0 each 03/25/25 00:01 03/26/25 13:32 Clarify When Next Dose Vit D Is Due XX 04/24/25 00:00 Not Given CLARIFY MYNOR Morphine Sulfate 2 mg 03/18/25 15:29 Morphine Sulfate (*Crx) 2 Mg/Ml Inj IV PUSH Q4H PRN Pain Rated 7-10 Morphine Sulfate 4 mg 03/24/25 20:33 03/24/25 21:04 Morphine Sulfate (*Crx) 4 Mg/Ml Inj IV PUSH 4 mg Q4H PRN Administration Pain Rated 7-10 Multivitamins/Minerals 1 tab 03/26/25 09:00 03/26/25 09:23 Multivitamins /C Lutein (Centrum Silver) Tablet *Bkc PO 04/25/25 08:59 1 tab DAILY MYNOR Administration Ondansetron HCl 4 mg 03/18/25 13:14 Ondansetron Inj 4 Mg/2 Ml Vial IV PUSH Q4H PRN Nausea Sertraline HCl 100 mg 03/19/25 09:00 03/26/25 09:23 Sertraline Hcl 50 Mg Tablet PO 100 mg DAILY MYNOR Administration Sertraline HCl 50 mg 03/19/25 09:00 03/26/25 09:23 Sertraline Hcl 50 Mg Tablet PO 50 mg DAILY MYNOR Administration Sodium Chloride 10 ml 03/25/25 22:00 03/26/25 05:05 Central Line Flush IV PUSH 10 ml Q8HR MYNOR Administration Sodium Chloride 10 ml 03/25/25 16:58 Central Line Flush IV PUSH PRN PRN with TPN bag changes Sodium Chloride 20 ml 03/25/25 16:58 Central Line Flush IV PUSH PRN PRN after blood draws Tizanidine HCl 2 mg 03/26/25 09:00 03/26/25 09:23 Tizanidine Hcl 2 Mg Tablet PO 2 mg DAILY MYNOR Administration Trazodone HCl 100 mg 03/18/25 23:10 03/25/25 20:54 Trazodone Hcl 50 Mg Tablet PO 100 mg HS MYNOR Administration Radiology Results: ITS Impressions Abdomen/Pelvis CT 03/18/25 11:59 Impression: Extensive cellulitis/soft tissue infection involving the subcutaneous soft tissues of the left buttock. No distinct abscess/fluid collection evident. Chest X-Ray 03/25/25 16:59 IMPRESSION: 1. Right upper 70 PICC line tip near the superior cavoatrial junction. 2. Small left pleural effusion with associated left basilar atelectasis and/or pneumonia. Labs Labs: Laboratory Results - last 24 hr 03/26/25 05:15 WBC 12.3 H RBC 3.11 L Hgb 9.8 L Hct 31.7 L MCV 101.9 H MCH 31.5 MCHC 30.9 L RDW 16.2 H Plt Count 393 H MPV 9.7 Sodium 138 Potassium 4.4 Chloride 112 H Carbon Dioxide 23 Anion Gap 3 L BUN 11 Creatinine 0.77 Estim Creat Clear Calc Not Reportable Estimated GFR > 60 Glucose 85 Calcium 8.6 Magnesium 1.9 Quality VTE Prophylaxis VTE prophylaxis: mechanical ordered
[2025-03-26] MEDS: VANCOMYCIN 1,250 MG/NS 250 ML 1,250 MG/250 ML BAG 166.67 MG IVPB (15:35)
[2025-03-26] MEDS: METOPROLOL SUCCINATE EXT REL 100 MG TABCR PO (20:27)
[2025-03-26] MEDS: traZODone HCL 50 MG TABLET 100 MG PO (20:28)
[2025-03-26] MEDS: ATORVASTATIN 40 MG TABLET PO (20:28)
[2025-03-26] MEDS: MELATONIN 5 MG TABLET PO (22:06)
[2025-03-27] VITALS (7 sets, daily range): BP systolic 136–143; BP diastolic 78–80; PULSE 74–89; RESP 18; TEMP 36.1–36.4; O2SAT 97–98
[2025-03-27] MEDS: CENTRAL LINE FLUSH 10 ML IV PUSH ×3 (05:43→16:56)
[2025-03-27] MEDS: busPIRone HCL 10 MG TABLET PO ×2 (05:43→14:20)
[2025-03-27] MEDS: HYDROcodone/acetaminophen (*CRX) 7.5-325 MG TABLET 1 TAB PO ×2 (06:12→12:34)
[2025-03-27 06:13] LABS: Hematocrit 30.9 % (37.0-47.0); Hemoglobin 9.6 g/dL (12.0-15.0); Mean Corpuscular HGB Conc 31.1 g/dl (32-36); Mean Corpuscular Hemoglobin 31.7 pg (26-34); Mean Platelet Volume 9.8 fl (7.4-10.4); Platelet Count Result 390 k/mm3 (150-375); Red Blood Count 3.03 M/mm3 (4.2-5.4); Red Cell Distribution Width 15.9 % (11.5-14.5); White Blood Count 10.5 K/mm3 (4.5-10.0)
[2025-03-27 06:24] LABS: Anion Gap 5 mmol/L (4-12); Blood Urea Nitrogen 10 mg/dL (7-17); Calcium 9.1 mg/dL (8.4-10.2); Carbon Dioxide 25 mmol/L (22-30); Chloride 109 mmol/L (98-107); Estimated Glomerular Filt Rate > 60; Glucose 76 mg/dL (65-110); Magnesium 1.6 mg/dL (1.6-2.3); Potassium 4.3 mmol/L (3.4-5.0); Sodium 139 mmol/L (137-145)
--- NOTE | 2025-03-27 07:45 | PM.PNGS ---
Progress Note: A&P Assessment and Plan (1) Wound of left buttock: Code(s): S31.829A - Unspecified open wound of left buttock, initial encounter Status: Chronic Assessment and Plan: Wound VAC changed today. Seems to be doing well although there was some separation of the wound VAC on the left buttocks causing the seal to fail. Discuss with wound care nurses. Subjective Subjective Date/Time Seen: 03/27/25 07:45 Patient reports: no new complaints and feels better Exam GI: Rectal Exam: other (Vac has on left buttocks) Other: Wound VAC change today. Discuss with wound nurses. Objective Data Vital Signs Vital Signs: Vital Signs - 24 hr 03/26/25 08:00 03/26/25 08:00 03/26/25 08:00 Temperature 35.9 C L Pulse Rate 79 80 Respiratory Rate 18 Blood Pressure 130/61 Pulse Oximetry 97 Oxygen Delivery Room Air 03/26/25 12:00 03/26/25 12:00 03/26/25 16:00 Temperature 36.2 C L Pulse Rate 81 79 79 Respiratory Rate 19 Blood Pressure 126/68 Pulse Oximetry 99 Oxygen Delivery 03/26/25 16:00 03/26/25 20:00 03/26/25 20:06 Temperature 36.3 C L Pulse Rate 88 80 Respiratory Rate 16 Blood Pressure 138/78 Pulse Oximetry 97 93 Oxygen Delivery Room Air 03/26/25 20:27 03/26/25 20:30 03/27/25 00:00 Temperature 36.6 C Pulse Rate 83 80 80 Respiratory Rate 18 Blood Pressure 140/69 Pulse Oximetry 97 Oxygen Delivery 03/27/25 04:00 Temperature Pulse Rate 79 Respiratory Rate Blood Pressure Pulse Oximetry Oxygen Delivery Intake/Output Intake/Output: Intake & Output 03/24/25 03/25/25 03/26/25 03/27/25 23:59 23:59 23:59 23:59 Intake Total 950 1490 480 Output Total 1200 251 25 Balance -250 1490 229 -25 Meds/Results Medications: Active Medications Generic Name Dose Route Start Last Admin Trade Name Freq PRN Reason Stop Dose Admin Acetaminophen 650 mg 03/18/25 13:14 Acetaminophen 325 Mg Tablet PO Q4H PRN Mild Pain (1-3) or Fever Hydrocodone Bitart/Acetaminophen 1 tab 03/18/25 13:14 03/20/25 18:28 Hydrocodone/Acetaminophen (*Crx) 5-325 Mg Tablet PO 1 tab Q4H PRN Administration Pain Rated 4-6 Hydrocodone Bitart/Acetaminophen 1 tab 03/20/25 15:17 03/27/25 06:12 Hydrocodone/Acetaminophen (*Crx) 7.5-325 Mg Tablet PO 1 tab Q6H PRN Administration Pain Rated 7-10 Albuterol 1 puff 03/18/25 22:52 Albuterol Sulfate (*Sp) Aerosol 1 Puff INHALATION Q12HRT PRN shortness of breath or wheezing Allopurinol 100 mg 03/25/25 17:00 03/26/25 15:42 Allopurinol 100 Mg Tablet PO 100 mg BID MYNOR Administration Apixaban 5 mg 03/19/25 21:00 03/23/25 09:41 Apixaban 5 Mg Tablet BY MOUTH 5 mg Q12HR MYNOR Administration Atorvastatin Calcium 40 mg 03/18/25 23:05 03/26/25 20:28 Atorvastatin 40 Mg Tablet PO 40 mg HS MYNOR Administration Buspirone HCl 10 mg 03/19/25 06:00 03/27/25 05:43 Buspirone Hcl 10 Mg Tablet PO 10 mg Q8HR MYNOR Administration Calcitriol 0.25 mcg 03/19/25 09:00 03/26/25 09:23 Calcitriol 0.25 Mcg Capsule PO 0.25 mcg DAILY MYNOR Administration Diltiazem HCl 180 mg 03/18/25 22:55 03/26/25 20:28 Diltiazem Hcl Cd 180 Mg Cap.24hr PO 180 mg Q12HR MYNOR Administration Docusate Sodium 100 mg 03/18/25 17:00 03/26/25 15:42 Docusate Sodium 100 Mg Capsule PO Not Given BID MYNOR Ergocalciferol units 04/08/25 09:00 Ergocalciferol 50,000 Units Capsule PO [id number] MYNOR Famotidine 20 mg 03/19/25 09:00 03/26/25 20:28 Famotidine 20 Mg Tablet PO 20 mg Q12HR MYNOR Administration Furosemide 40 mg 03/26/25 09:00 03/26/25 09:23 Furosemide 40 Mg Tablet PO 40 mg DAILY MYNOR Administration Vancomycin HCl 1,250 mg in 250 mls @ 166.667 mls/hr 03/23/25 12:00 03/26/25 15:35 Vancomycin 1,250 Mg/Ns 250 Ml IVPB 04/05/25 23:59 166.67 mls/hr Q24H MYNOR Administration Melatonin 5 mg 03/18/25 23:10 03/26/25 22:06 Melatonin 5 Mg Tablet PO 5 mg HS MYNOR Administration Metoprolol Succinate 100 mg 03/18/25 23:10 03/26/25 20:27 Metoprolol Succinate Ext Rel 100 Mg Tabcr PO 100 mg HS MYNOR Administration Miscellaneous Information 0 each 03/25/25 00:01 03/26/25 13:32 Clarify When Next Dose Vit D Is Due XX 04/24/25 00:00 Not Given CLARIFY MYNOR Morphine Sulfate 2 mg 03/18/25 15:29 Morphine Sulfate (*Crx) 2 Mg/Ml Inj IV PUSH Q4H PRN Pain Rated 7-10 Morphine Sulfate 4 mg 03/24/25 20:33 03/24/25 21:04 Morphine Sulfate (*Crx) 4 Mg/Ml Inj IV PUSH 4 mg Q4H PRN Administration Pain Rated 7-10 Multivitamins/Minerals 1 tab 03/26/25 09:00 03/26/25 09:23 Multivitamins /C Lutein (Centrum Silver) Tablet *Bkc PO 04/25/25 08:59 1 tab DAILY MYNOR Administration Ondansetron HCl 4 mg 03/18/25 13:14 Ondansetron Inj 4 Mg/2 Ml Vial IV PUSH Q4H PRN Nausea Sertraline HCl 100 mg 03/19/25 09:00 03/26/25 09:23 Sertraline Hcl 50 Mg Tablet PO 100 mg DAILY MYNOR Administration Sertraline HCl 50 mg 03/19/25 09:00 03/26/25 09:23 Sertraline Hcl 50 Mg Tablet PO 50 mg DAILY MYNOR Administration Sodium Chloride 10 ml 03/25/25 22:00 03/27/25 05:43 Central Line Flush IV PUSH 10 ml Q8HR MYNOR Administration Sodium Chloride 10 ml 03/25/25 16:58 Central Line Flush IV PUSH PRN PRN with TPN bag changes Sodium Chloride 20 ml 03/25/25 16:58 Central Line Flush IV PUSH PRN PRN after blood draws Tizanidine HCl 2 mg 03/26/25 09:00 03/26/25 09:23 Tizanidine Hcl 2 Mg Tablet PO 2 mg DAILY MYNOR Administration Trazodone HCl 100 mg 03/18/25 23:10 03/26/25 20:28 Trazodone Hcl 50 Mg Tablet PO 100 mg HS MYNOR Administration Radiology Results: ITS Impressions Abdomen/Pelvis CT 03/18/25 11:59 Impression: Extensive cellulitis/soft tissue infection involving the subcutaneous soft tissues of the left buttock. No distinct abscess/fluid collection evident. Chest X-Ray 03/25/25 16:59 IMPRESSION: 1. Right upper 70 PICC line tip near the superior cavoatrial junction. 2. Small left pleural effusion with associated left basilar atelectasis and/or pneumonia. Labs Labs: Laboratory Results - last 24 hr 03/27/25 05:58 WBC 10.5 H RBC 3.03 L Hgb 9.6 L Hct 30.9 L MCV 102.0 H MCH 31.7 MCHC 31.1 L RDW 15.9 H Plt Count 390 H MPV 9.8 Sodium 139 Potassium 4.3 Chloride 109 H Carbon Dioxide 25 Anion Gap 5 BUN 10 Creatinine 0.72 Estim Creat Clear Calc Not Reportable Estimated GFR > 60 Glucose 76 Calcium 9.1 Magnesium 1.6
--- NOTE | 2025-03-27 10:16 | PM.IMPN ---
Progress Note: A&P Assessment and Plan (1) Cellulitis: Code(s): L03.90 - Cellulitis, unspecified Status: Acute (2) Sepsis: Code(s): A41.9 - Sepsis, unspecified organism Status: Acute (3) Hypertension: Qualifiers: Hypertension type: essential hypertension Qualified Code(s): I10 - Essential (primary) hypertension Code(s): I10 - Essential (primary) hypertension Status: Chronic (4) Atrial fibrillation: Qualifiers: Atrial fibrillation type: unspecified Qualified Code(s): I48.91 - Unspecified atrial fibrillation Code(s): I48.91 - Unspecified atrial fibrillation Status: Chronic (5) Chronic kidney disease: Qualifiers: Chronic kidney disease stage: stage 3 (moderate) Qualified Code(s): N18.3 - Chronic kidney disease, stage 3 (moderate) Code(s): N18.9 - Chronic kidney disease, unspecified Status: Chronic (6) CHF (congestive heart failure): Code(s): I50.9 - Heart failure, unspecified Status: Acute Assessment and Plan: Holding Lasix and spironolactone due to dehydration Plan 74-year-old female past medical history of AFib, TIA, hypertension, chronic kidney disease and pacemaker presents the hospital with a painful bleeding rash. Patient states that due to the rash being itchy she was scratching it. She knows that started bleeding so she washed it with peroxide. She states due to being completely uncomfortable she has been lying in bed a lot on her back. Patient denies fever or chills. In the ED patient leukocytosis of 20.1, sodium 131, BUN of 43, creatinine of 1.88 which is baseline lactic acid 3.2. CT abdomen pelvis show Extensive cellulitis/soft tissue infection involving the subcutaneous soft tissues of the left buttock. No distinct abscess/fluid collection evident. In the ED patient was in AFib with RVR was given diltiazem. For her cellulitis she was given Zosyn 2 L bolus and pain medication. patient presented with cellulitis of low back, states it painful and itching, while in the ER developed A. fib with RVR most likely triggered by pain and stress from cellulitis, patient was given diltiazem in the ER rate is trending down, patient is being treated with Zosyn for cellulitis and will have wound team evaluate the patient. today patient pain is improving, her white counts are trending down, wound and blood cultures are growing MRSA patient is being treated with vancomycin and doxycycline, Patient with MRSA in the wound and blood, discuss with clinical pharmacist will repeat wound and blood culture, her cellulitis along the buttock is improving however patient has developed necrotic tissue left buttock wound, patient was seen by surgery and had wound debridement on 03/24 and wound vac is placed, will follow up, repeat blood and wound culture is growing MRSA discuss with clinical pharmacist, patient will need vancomycin until 04/05, patient with history of atrial fibrillation upon arrival to ER patient was in RVR and was given Diltiazem IV bolus and rate trended down and placed on diltiazem 180mg PO BID and remains A. fib but the rate is controlled, however is taking dofetilide for arrhythmia which was not resumed, on 03/25 patient was seen by cardiology continued her home dose of diltiazem and metoprolol, and recommended Check creatinine clearance and if creatinine clearance greater than 20 mL per minute, than resume dofetilide 125 mcg b.i.d. which is her home dose. Dofetilide is contraindicated if creatinine clearance less than 20 mL/minutes. today patient HR is 81 will hold dofetilide as she has not taken while in the hospital and will monitor. Leukocytosis improving. PICC line in place. MRSA in wound and blood culture. Repeat blood culture from 03/23/2025 negative to date. Arrangement for IV antibiotics with vancomycin to conclude on 04/05/2025. Wound VAC wound care to continue and arrange for discharge. Subjective Date/time seen: 03/27/25 10:16 Interval history: No overnight events. Wound VAC getting changed. Plan for discharge on IV antibiotics today. Review of Systems Review of Systems: All systems reviewed & are unremarkable except as noted in HPI and below Exam Narrative: Patient is comfortable, NAD HEENT: eyes are clear and none icteric LUNGS:CTA HEART: RR S1S2 ABD: BS+, Soft and nontender Lower extremities: no edema SKIN: nonjaundiced Neuro: grossly intact. Left buttock with wound VAC in place Objective Data Vital Signs Vital Signs: Vital Signs - 24 hr 03/26/25 12:00 03/26/25 12:00 03/26/25 16:00 Temperature 97.2 F L Pulse Rate 81 79 79 Respiratory Rate 19 Blood Pressure 126/68 Pulse Oximetry 99 Oxygen Delivery 03/26/25 16:00 03/26/25 20:00 03/26/25 20:06 Temperature 97.3 F L Pulse Rate 88 80 Respiratory Rate 16 Blood Pressure 138/78 Pulse Oximetry 97 93 Oxygen Delivery Room Air 03/26/25 20:27 03/26/25 20:30 03/27/25 00:00 Temperature 97.8 F Pulse Rate 83 80 80 Respiratory Rate 18 Blood Pressure 140/69 Pulse Oximetry 97 Oxygen Delivery 03/27/25 04:00 03/27/25 07:00 Temperature 97.0 F L Pulse Rate 79 79 Respiratory Rate 18 Blood Pressure 143/80 H Pulse Oximetry 98 Oxygen Delivery Intake/Output Intake/Output: Intake & Output 03/24/25 03/25/25 03/26/25 03/27/25 23:59 23:59 23:59 23:59 Intake Total 950 1490 480 480 Output Total 1200 251 25 Balance -250 1490 229 455 Meds/Results Medications: Active Medications Generic Name Dose Route Start Last Admin Trade Name Freq PRN Reason Stop Dose Admin Acetaminophen 650 mg 03/18/25 13:14 Acetaminophen 325 Mg Tablet PO Q4H PRN Mild Pain (1-3) or Fever Hydrocodone Bitart/Acetaminophen 1 tab 03/18/25 13:14 03/20/25 18:28 Hydrocodone/Acetaminophen (*Crx) 5-325 Mg Tablet PO 1 tab Q4H PRN Administration Pain Rated 4-6 Hydrocodone Bitart/Acetaminophen 1 tab 03/20/25 15:17 03/27/25 06:12 Hydrocodone/Acetaminophen (*Crx) 7.5-325 Mg Tablet PO 1 tab Q6H PRN Administration Pain Rated 7-10 Albuterol 1 puff 03/18/25 22:52 Albuterol Sulfate (*Sp) Aerosol 1 Puff INHALATION Q12HRT PRN shortness of breath or wheezing Allopurinol 100 mg 03/25/25 17:00 03/26/25 15:42 Allopurinol 100 Mg Tablet PO 100 mg BID MYNOR Administration Apixaban 5 mg 03/19/25 21:00 03/23/25 09:41 Apixaban 5 Mg Tablet BY MOUTH 5 mg Q12HR MYNOR Administration Atorvastatin Calcium 40 mg 03/18/25 23:05 03/26/25 20:28 Atorvastatin 40 Mg Tablet PO 40 mg HS MYNOR Administration Buspirone HCl 10 mg 03/19/25 06:00 03/27/25 05:43 Buspirone Hcl 10 Mg Tablet PO 10 mg Q8HR MYNOR Administration Calcitriol 0.25 mcg 03/19/25 09:00 03/26/25 09:23 Calcitriol 0.25 Mcg Capsule PO 0.25 mcg DAILY MYNOR Administration Diltiazem HCl 180 mg 03/18/25 22:55 03/26/25 20:28 Diltiazem Hcl Cd 180 Mg Cap.24hr PO 180 mg Q12HR MYNOR Administration Docusate Sodium 100 mg 03/18/25 17:00 03/26/25 15:42 Docusate Sodium 100 Mg Capsule PO Not Given BID MYNOR Ergocalciferol units 04/08/25 09:00 Ergocalciferol 50,000 Units Capsule PO [id number] MYNOR Famotidine 20 mg 03/19/25 09:00 03/26/25 20:28 Famotidine 20 Mg Tablet PO 20 mg Q12HR MYNOR Administration Furosemide 40 mg 03/26/25 09:00 03/26/25 09:23 Furosemide 40 Mg Tablet PO 40 mg DAILY MYNOR Administration Vancomycin HCl 1,250 mg in 250 mls @ 166.667 mls/hr 03/23/25 12:00 03/26/25 15:35 Vancomycin 1,250 Mg/Ns 250 Ml IVPB 04/05/25 23:59 166.67 mls/hr Q24H MYNOR Administration Melatonin 5 mg 03/18/25 23:10 03/26/25 22:06 Melatonin 5 Mg Tablet PO 5 mg HS MYNOR Administration Metoprolol Succinate 100 mg 03/18/25 23:10 03/26/25 20:27 Metoprolol Succinate Ext Rel 100 Mg Tabcr PO 100 mg HS MYNOR Administration Miscellaneous Information 0 each 03/25/25 00:01 03/26/25 13:32 Clarify When Next Dose Vit D Is Due XX 04/24/25 00:00 Not Given CLARIFY MYNOR Morphine Sulfate 2 mg 03/18/25 15:29 Morphine Sulfate (*Crx) 2 Mg/Ml Inj IV PUSH Q4H PRN Pain Rated 7-10 Morphine Sulfate 4 mg 03/24/25 20:33 03/24/25 21:04 Morphine Sulfate (*Crx) 4 Mg/Ml Inj IV PUSH 4 mg Q4H PRN Administration Pain Rated 7-10 Multivitamins/Minerals 1 tab 03/26/25 09:00 03/26/25 09:23 Multivitamins /C Lutein (Centrum Silver) Tablet *Bkc PO 04/25/25 08:59 1 tab DAILY MYNOR Administration Ondansetron HCl 4 mg 03/18/25 13:14 Ondansetron Inj 4 Mg/2 Ml Vial IV PUSH Q4H PRN Nausea Sertraline HCl 100 mg 03/19/25 09:00 03/26/25 09:23 Sertraline Hcl 50 Mg Tablet PO 100 mg DAILY MYNOR Administration Sertraline HCl 50 mg 03/19/25 09:00 03/26/25 09:23 Sertraline Hcl 50 Mg Tablet PO 50 mg DAILY MYNOR Administration Sodium Chloride 10 ml 03/25/25 22:00 03/27/25 05:43 Central Line Flush IV PUSH 10 ml Q8HR MYNOR Administration Sodium Chloride 10 ml 03/25/25 16:58 Central Line Flush IV PUSH PRN PRN with TPN bag changes Sodium Chloride 20 ml 03/25/25 16:58 Central Line Flush IV PUSH PRN PRN after blood draws Tizanidine HCl 2 mg 03/26/25 09:00 03/26/25 09:23 Tizanidine Hcl 2 Mg Tablet PO 2 mg DAILY MYNOR Administration Trazodone HCl 100 mg 03/18/25 23:10 03/26/25 20:28 Trazodone Hcl 50 Mg Tablet PO 100 mg HS MYNOR Administration Radiology Results: ITS Impressions Abdomen/Pelvis CT 03/18/25 11:59 Impression: Extensive cellulitis/soft tissue infection involving the subcutaneous soft tissues of the left buttock. No distinct abscess/fluid collection evident. Chest X-Ray 03/25/25 16:59 IMPRESSION: 1. Right upper 70 PICC line tip near the superior cavoatrial junction. 2. Small left pleural effusion with associated left basilar atelectasis and/or pneumonia. Labs Labs: Laboratory Results - last 24 hr 03/27/25 05:58 WBC 10.5 H RBC 3.03 L Hgb 9.6 L Hct 30.9 L MCV 102.0 H MCH 31.7 MCHC 31.1 L RDW 15.9 H Plt Count 390 H MPV 9.8 Sodium 139 Potassium 4.3 Chloride 109 H Carbon Dioxide 25 Anion Gap 5 BUN 10 Creatinine 0.72 Estim Creat Clear Calc Not Reportable Estimated GFR > 60 Glucose 76 Calcium 9.1 Magnesium 1.6
[2025-03-27] MEDS: allopurinoL 100 MG TABLET PO ×2 (10:38→16:56)
[2025-03-27] MEDS: FUROSEMIDE 40 MG TABLET PO (10:38)
[2025-03-27] MEDS: TIZANIDINE HCL 2 MG TABLET PO (10:38)
[2025-03-27] MEDS: dilTIAZem HCL CD 180 MG CAP.24HR PO (10:38)
[2025-03-27] MEDS: MULTIVITAMINS /C LUTEIN (CENTRUM SILVER) TABLET *BKC 1 TAB PO (10:38)
[2025-03-27] MEDS: FAMOTIDINE 20 MG TABLET PO (10:38)
[2025-03-27] MEDS: DOCUSATE SODIUM 100 MG CAPSULE PO ×2 (10:38→16:56)
[2025-03-27] MEDS: SERTRALINE HCL 50 MG TABLET 100 MG PO (10:39)
[2025-03-27] MEDS: calcitrioL 0.25 MCG CAPSULE PO (10:39)
[2025-03-27] MEDS: SERTRALINE HCL 50 MG TABLET PO (10:40)
--- NOTE | 2025-03-27 10:50 | PM.PNCARD ---
Progress Note: A&P Assessment and Plan (1) Prolonged Q-T interval on ECG: Code(s): R94.31 - Abnormal electrocardiogram [ECG] [EKG] Status: Acute (2) Atrial fibrillation with rapid ventricular response: Code(s): I48.91 - Unspecified atrial fibrillation Status: Acute (3) Hypertension: Qualifiers: Hypertension type: essential hypertension Qualified Code(s): I10 - Essential (primary) hypertension Code(s): I10 - Essential (primary) hypertension Status: Chronic (4) Anticoagulant long-term use: Code(s): Z79.01 - USP (current) use of anticoagulants Status: Acute Plan Problem list: AFib with RVR-now in sinus rhythm with heart rate in the 70s to 80s; on chronic anticoagulation with Eliquis Cellulitis with wound cultures growing MRSA Infected left buttock ulcer with necrotic tissue status post wound debridement and wound VAC placement with general surgery today Sepsis secondary to cellulitis Bacteremia with blood cultures growing MRSA Hypertension CKD stage 3 Plan: -Continue Cardizem 180 mg b.i.d. which is her home dose -Continue metoprolol 100 mg daily which is her home dose -Calculated creatinine clearance (Cockcroft-Gault equation) is 84 mL/min, therefore resume dofetilide 125mcg p.o. [id number] is her home dose. Dofetilide is contraindicated if creatinine clearance less than 20 mL/minutes -Continue Lasix 40 mg daily -Check and replace electrolytes to keep potassium greater than 4 and magnesium greater than 2 -check ins and outs, weights, renal function daily -Continue Eliquis for anticoagulation -Continue statin -Obtain outside hospital records regarding last TTE -Management of other medical problems per primary team -Plan for discharge today. She has follow up with her established appointment setter, Dr. Mckeon next month Subjective Date/time seen: 03/27/25 10:50 Interval history: Cardiology follow up visit Feels well and has no specific complaints. Remains in sinus rhythm. Review of Systems Review of Systems: Complete review of systems was performed and negative other than those mentioned HPI Exam Narrative: General: Alert oriented x3, no acute distress Neck: Supple, no JVD Chest: Bilaterally clear to auscultation, no rales or rhonchi Cardiac: S1, S2 +, regular rate, regular rhythm, no murmurs or rubs Extremities: No pedal edema, no skin rash Neurologic: Alert and oriented x3, no focal neurological deficits Objective Data Vital Signs Vital Signs: Vital Signs - 24 hr 03/26/25 12:00 03/26/25 12:00 03/26/25 16:00 Temperature 36.2 C L Pulse Rate 81 79 79 Respiratory Rate 19 Blood Pressure 126/68 Pulse Oximetry 99 Oxygen Delivery 03/26/25 16:00 03/26/25 20:00 03/26/25 20:06 Temperature 36.3 C L Pulse Rate 88 80 Respiratory Rate 16 Blood Pressure 138/78 Pulse Oximetry 97 93 Oxygen Delivery Room Air 03/26/25 20:27 03/26/25 20:30 03/27/25 00:00 Temperature 36.6 C Pulse Rate 83 80 80 Respiratory Rate 18 Blood Pressure 140/69 Pulse Oximetry 97 Oxygen Delivery 03/27/25 04:00 03/27/25 07:00 Temperature 36.1 C L Pulse Rate 79 79 Respiratory Rate 18 Blood Pressure 143/80 H Pulse Oximetry 98 Oxygen Delivery Intake/Output Intake/Output: Intake & Output 03/24/25 03/25/25 03/26/25 03/27/25 23:59 23:59 23:59 23:59 Intake Total 950 1490 480 480 Output Total 1200 251 25 Balance -250 1490 229 455 Meds/Results Medications: Active Medications Generic Name Dose Route Start Last Admin Trade Name Freq PRN Reason Stop Dose Admin Acetaminophen 650 mg 03/18/25 13:14 Acetaminophen 325 Mg Tablet PO Q4H PRN Mild Pain (1-3) or Fever Hydrocodone Bitart/Acetaminophen 1 tab 03/18/25 13:14 03/20/25 18:28 Hydrocodone/Acetaminophen (*Crx) 5-325 Mg Tablet PO 1 tab Q4H PRN Administration Pain Rated 4-6 Hydrocodone Bitart/Acetaminophen 1 tab 03/20/25 15:17 03/27/25 06:12 Hydrocodone/Acetaminophen (*Crx) 7.5-325 Mg Tablet PO 1 tab Q6H PRN Administration Pain Rated 7-10 Albuterol 1 puff 03/18/25 22:52 Albuterol Sulfate (*Sp) Aerosol 1 Puff INHALATION Q12HRT PRN shortness of breath or wheezing Allopurinol 100 mg 03/25/25 17:00 03/27/25 10:38 Allopurinol 100 Mg Tablet PO 100 mg BID MYNOR Administration Apixaban 5 mg 03/19/25 21:00 03/23/25 09:41 Apixaban 5 Mg Tablet BY MOUTH 5 mg Q12HR MYNOR Administration Atorvastatin Calcium 40 mg 03/18/25 23:05 03/26/25 20:28 Atorvastatin 40 Mg Tablet PO 40 mg HS MYNOR Administration Buspirone HCl 10 mg 03/19/25 06:00 03/27/25 05:43 Buspirone Hcl 10 Mg Tablet PO 10 mg Q8HR MYNOR Administration Calcitriol 0.25 mcg 03/19/25 09:00 03/27/25 10:39 Calcitriol 0.25 Mcg Capsule PO 0.25 mcg DAILY MYNOR Administration Diltiazem HCl 180 mg 03/18/25 22:55 03/27/25 10:38 Diltiazem Hcl Cd 180 Mg Cap.24hr PO 180 mg Q12HR MYNOR Administration Docusate Sodium 100 mg 03/18/25 17:00 03/27/25 10:38 Docusate Sodium 100 Mg Capsule PO 100 mg BID MYNOR Administration Ergocalciferol units 04/08/25 09:00 Ergocalciferol 50,000 Units Capsule PO [id number] Famotidine 20 mg 03/19/25 09:00 03/27/25 10:38 Famotidine 20 Mg Tablet PO 20 mg Q12HR MYNOR Administration Furosemide 40 mg 03/26/25 09:00 03/27/25 10:38 Furosemide 40 Mg Tablet PO 40 mg DAILY MYNOR Administration Vancomycin HCl 1,250 mg in 250 mls @ 166.667 mls/hr 03/23/25 12:00 03/26/25 15:35 Vancomycin 1,250 Mg/Ns 250 Ml IVPB 04/05/25 23:59 166.67 mls/hr Q24H MYNOR Administration Melatonin 5 mg 03/18/25 23:10 03/26/25 22:06 Melatonin 5 Mg Tablet PO 5 mg HS MYNOR Administration Metoprolol Succinate 100 mg 03/18/25 23:10 03/26/25 20:27 Metoprolol Succinate Ext Rel 100 Mg Tabcr PO 100 mg HS MYNOR Administration Miscellaneous Information 0 each 03/25/25 00:01 03/26/25 13:32 Clarify When Next Dose Vit D Is Due XX 04/24/25 00:00 Not Given CLARIFY MYNOR Morphine Sulfate 2 mg 03/18/25 15:29 Morphine Sulfate (*Crx) 2 Mg/Ml Inj IV PUSH Q4H PRN Pain Rated 7-10 Morphine Sulfate 4 mg 03/24/25 20:33 03/24/25 21:04 Morphine Sulfate (*Crx) 4 Mg/Ml Inj IV PUSH 4 mg Q4H PRN Administration Pain Rated 7-10 Multivitamins/Minerals 1 tab 03/26/25 09:00 03/27/25 10:38 Multivitamins /C Lutein (Centrum Silver) Tablet *Bkc PO 04/25/25 08:59 1 tab DAILY MYNOR Administration Ondansetron HCl 4 mg 03/18/25 13:14 Ondansetron Inj 4 Mg/2 Ml Vial IV PUSH Q4H PRN Nausea Sertraline HCl 100 mg 03/19/25 09:00 03/27/25 10:39 Sertraline Hcl 50 Mg Tablet PO 100 mg DAILY MYNOR Administration Sertraline HCl 50 mg 03/19/25 09:00 03/27/25 10:40 Sertraline Hcl 50 Mg Tablet PO 50 mg DAILY MYNOR Administration Sodium Chloride 10 ml 03/25/25 22:00 03/27/25 05:43 Central Line Flush IV PUSH 10 ml Q8HR MYNOR Administration Sodium Chloride 10 ml 03/25/25 16:58 Central Line Flush IV PUSH PRN PRN with TPN bag changes Sodium Chloride 20 ml 03/25/25 16:58 Central Line Flush IV PUSH PRN PRN after blood draws Tizanidine HCl 2 mg 03/26/25 09:00 03/27/25 10:38 Tizanidine Hcl 2 Mg Tablet PO 2 mg DAILY MYNOR Administration Trazodone HCl 100 mg 03/18/25 23:10 03/26/25 20:28 Trazodone Hcl 50 Mg Tablet PO 100 mg HS MYNOR Administration Radiology Results: ITS Impressions Abdomen/Pelvis CT 03/18/25 11:59 Impression: Extensive cellulitis/soft tissue infection involving the subcutaneous soft tissues of the left buttock. No distinct abscess/fluid collection evident. Chest X-Ray 03/25/25 16:59 IMPRESSION: 1. Right upper 70 PICC line tip near the superior cavoatrial junction. 2. Small left pleural effusion with associated left basilar atelectasis and/or pneumonia. Labs Labs: Laboratory Results - last 24 hr 03/27/25 05:58 WBC 10.5 H RBC 3.03 L Hgb 9.6 L Hct 30.9 L MCV 102.0 H MCH 31.7 MCHC 31.1 L RDW 15.9 H Plt Count 390 H MPV 9.8 Sodium 139 Potassium 4.3 Chloride 109 H Carbon Dioxide 25 Anion Gap 5 BUN 10 Creatinine 0.72 Estim Creat Clear Calc Not Reportable Estimated GFR > 60 Glucose 76 Calcium 9.1 Magnesium 1.6 Quality VTE Prophylaxis VTE prophylaxis: mechanical ordered
[2025-03-27 12:57] LABS: Vancomycin Trough 20.4 ug/mL (10.0-20.0)
--- NOTE | 2025-03-27 14:32 | P.DS_ITS ---
DS: Admitting Diagnosis Discharge Date 03/27/2025 Admitting Diagnosis Cellulitis DS: Discharge Diagnosis Discharge Diagnosis (1) Cellulitis: Code(s): L03.90 - Cellulitis, unspecified Status: Acute (2) Sepsis: Code(s): A41.9 - Sepsis, unspecified organism Status: Acute (3) Hypertension: Qualifiers: Hypertension type: essential hypertension Qualified Code(s): I10 - Essential (primary) hypertension Code(s): I10 - Essential (primary) hypertension Status: Chronic (4) Atrial fibrillation: Qualifiers: Atrial fibrillation type: unspecified Qualified Code(s): I48.91 - Unspecified atrial fibrillation Code(s): I48.91 - Unspecified atrial fibrillation Status: Chronic (5) Chronic kidney disease: Qualifiers: Chronic kidney disease stage: stage 3 (moderate) Qualified Code(s): N18.3 - Chronic kidney disease, stage 3 (moderate) Code(s): N18.9 - Chronic kidney disease, unspecified Status: Chronic (6) CHF (congestive heart failure): Code(s): I50.9 - Heart failure, unspecified Status: Acute DS: Summary Hospital Course Hospital Course: 74-year-old female past medical history of AFib, TIA, hypertension, chronic kidney disease and pacemaker presents the hospital with a painful bleeding rash. Patient states that due to the rash being itchy she was scratching it. She knows that started bleeding so she washed it with peroxide. She states due to being completely uncomfortable she has been lying in bed a lot on her back. Patient denies fever or chills. In the ED patient leukocytosis of 20.1, sodium 131, BUN of 43, creatinine of 1.88 which is baseline lactic acid 3.2. CT abdomen pelvis show Extensive cellulitis/soft tissue infection involving the subcutaneous soft tissues of the left buttock. No distinct abscess/fluid collection evident. In the ED patient was in AFib with RVR was given diltiazem. For her cellulitis she was given Zosyn 2 L bolus and pain medication. Patient treated with Zosyn for cellulitis and will have wound team evaluate the patient., wound and blood cultures are growing MRSA patient is being treated with vancomycin and doxycycline, Patient with MRSA in the wound and blood, discuss with clinical pharmacist will repeat wound and blood culture, her cellulitis along the buttock is improving however patient has developed necrotic tissue left buttock wound, patient was seen by surgery and had wound debridement on 03/24 and wound vac is placed, will follow up, repeat blood and wound culture is growing MRSA discuss with clinical pharmacist, patient will need vancomycin until 04/05, For his AFib which was in RVR she was given Diltiazem IV bolus and rate trended down and placed on diltiazem 180mg PO BID and remains A. fib but the rate is controlled, however is taking dofetilide for arrhythmia which was not resumed, okay to resume per CardiologyIf creatinine clearance greater than 20 mL per minute, than resume dofetilide 125 mcg b.i.d. which is her home dose. Dofetilide is contraindicated if creatinine clearance less than 20 mL/minutes. today patient HR is 81 will hold dofetilide as she has not taken while in the hospital and will monitor. Leukocytosis improving. PICC line in place. MRSA in wound and blood culture. Repeat blood culture from 03/23/2025 negative to date. Arrangement for IV antibiotics with vancomycin to conclude on 04/05/2025. Wound VAC wound care to continue and arrange for discharge. Also IV antibiotics arranged for discharge Time Spent with Patient Time attestation: Total time spent providing and/or coordinating discharge services: 40 minutes Exam Narrative: Patient is comfortable, NAD HEENT: eyes are clear and none icteric LUNGS:CTA HEART: RR S1S2 ABD: BS+, Soft and nontender Lower extremities: no edema SKIN: nonjaundiced Neuro: grossly intact. Left buttock with wound VAC in place DS: Data Data Completed and Pending Labs on day of discharge: Labs from last 24 hours 03/27/25 03/27/25 12:12 05:58 WBC 10.5 H RBC 3.03 L Hgb 9.6 L Hct 30.9 L MCV 102.0 H MCH 31.7 MCHC 31.1 L RDW 15.9 H Plt Count 390 H MPV 9.8 Sodium 139 Potassium 4.3 Chloride 109 H Carbon Dioxide 25 Anion Gap 5 BUN 10 Creatinine 0.72 Estim Creat Clear Calc Not Reportable Estimated GFR > 60 Glucose 76 Calcium 9.1 Magnesium 1.6 Vancomycin Trough 20.4 H Preliminary micro results at discharge 03/23/25 12:10 Blood Culture - Preliminary Blood 03/23/25 12:02 Blood Culture - Preliminary Blood Procedures/Treatments: Procedure Note - Detailed Date of Procedure 03/24/25 Pre-op Diagnosis Left medial buttock abscess Post-op Diagnosis Same Procedure Performed Incision and drainage of left buttock abscess with sharp scalpel and scissor excisional debridement of nonviable skin and subcutaneous tissue, application of wound VAC (54 sq cm). Surgeon Jefry Tolentino MD Director Digital Marketing Crystal Choi METAL HANDLER Anesthesia General Indications Patient is a 74-year-old female who developed a left medial buttock abscess after scratching the area. She developed a cellulitis and now has an abscess that needs to be drained. She does have some nonviable skin overlying the abscess cavity. Findings The patient had a spontaneously draining left upper medial buttock abscess. The skin over the top abscess was partially necrotic. Underlying the skin was an abscess cavity was some necrotic subcutaneous tissue. Purulent drainage was noted to come from the abscess. After the drain the abscess and excising away the nonviable subcutaneous tissue and skin the abscess cavity measured approximately [id number]. A wound VAC was placed to manage the wound. Area covered by the wound VAC was 54 sq cm. Description of Procedure After informed consent was obtained patient brought to the operating room she was placed supine position and general LMA anesthesia was administered. The patient was then turned into the left lateral decubitus position on the operating table. Care was taken make sure all the pressure points were well padded. She was well secured with lateral positioners. A time-out was then performed correctly identifying the patient as well as procedure to be performed. Site marking was verified. She was already on scheduled IV antibiotics. I then proceeded to excise out the necrotic skin and subcutaneous tissues overlying the abscess cavity. This was done sharply with a scalpel and sharp scissor dissection in an excisional debridement fashion. Once I had all the subcutaneous tissue and skin excise this was then discarded. Previous culture from the wound showed MRSA are ready. I then digitally explored the abscess cavity and found some pus pockets which were broken down with blunt finger dissection. I then continued sharp scissor excisional debridement of the nonviable subcutaneous tissue in the abscess cavity and all this tissue was discarded. Once I was satisfied had all the nonviable tissue removed I then proceeded to irrigate out the abscess cavity with [id number] of sterile saline solution. Hemostasis in a couple of bleeding areas was achieved utilized electrocautery. I then measured the wound was partially 9cm in length by 6cm in width by 3cm in depth. I then proceeded to place a wound VAC into the abscess cavity. Black foam was then placed into the abscess cavity until it was filled. I then placed clear adhesive coverings over the black foam. Because the location of the wound on the buttock region I lateralized the wound VAC suction pad to the patient's right hip area. This is done by extending the black foam on top of adhesive dressings the left hip area where the suction pad was applied and additional adhesive dressings were placed to make sure there was no air leak. The wound VAC was then engaged and there was no air leak from the dressing. The patient tolerated the procedure well no complications. All sponges, needles, and instrument counts were correct at the end procedure. EBL was __30 _cc. The patient was awakened and taken to recovery in stable and satisfactory condition. Implants None Estimated Blood Loss 30 Urine Output 400 Drains No Packing Yes (Black foam wound VAC applied to left buttock wound. 54 sq cm.) Pathology None sent Complications No immediate complications Condition Stable Disposition PACU [facility] Billing Surgery - Charge Forward: Surgery Billing Please be advised this is a medical document. It is intended for [id number] communication. It is written in medical language and may contain unfamiliar abbreviations or verbiage. Medical documents are intended to carry relevant inf ormation, facts as evident, and the clinical opinion of the practitioner at the time of the encounter. Imaging Radiologist's impression: ITS Impressions Abdomen/Pelvis CT 03/18/25 11:59 Impression: Extensive cellulitis/soft tissue infection involving the subcutaneous soft tissues of the left buttock. No distinct abscess/fluid collection evident. Chest X-Ray 03/18/25 12:02 Impression: Clear lungs. Chest X-Ray 03/21/25 08:45 IMPRESSION: 1. Unchanged mild elevation left hemidiaphragm with mild left basilar atelectasis. Chest X-Ray 03/25/25 16:59 IMPRESSION: 1. Right upper 70 PICC line tip near the superior cavoatrial junction. 2. Small left pleural effusion with associated left basilar atelectasis and/or pneumonia. Discharge Plan Discharge Attending physician on discharge: Carlo Wayne Consulting providers: Jefry Tolentino; Rita Winslow Discharging Clinician: Carlo Wayne Anticipated Discharge Date/Time: 03/27/25 14:35 Patient Disposition: Home with Home Health Service Activity: as tolerated Diet: heart healthy Discharge Instructions: Per Care Coordination, patient to discharge with [facility] ([phone]) for intermediate services and wound care and [facility] for IV antibiotic infusions([phone]). Please fax discharge instructions and medication sheets to [facility] at at discharge. [facility] will call to arrange initial visit. Wound vac settings: Black foam to Left buttocks wound, track to fleshy part of left hip. -125mmHg low continuous pressure. Dressing to be changed 2-3 times per week. You will see Dr. Tolentino at the [facility] on Monday April 14, 2025 at 9:00AM. * You must arrive by 8:30AM as you must go through Registration first. * Registration area is located to the left of Hospital Entrance 1(main lobby) doors. * Once registered, use elevators in the same lobby to the 2nd floor and follow signs of Wound Center. For questions regarding wound clinic appointment, you can call Dr. Tolentino's office at [phone] or wound center at [phone]. cbc ,cmp, vancomycin weekly while on iv antibiotics Patient Instructions: Antibiotic Form, Apixaban (By mouth) Patient Language: [place] Citizen Stand Alone Forms: General Discharge Information Follow-up/Referrals: Brenna,MD Dewayne [Primary Care Provider] - 1 Week Jefry Tolentino MD [Physician] - 04/14/25 9:00 am (At the [facility]) Discharge Medications: New hydrocodone-acetaminophen 7.5-325 mg Tablet 1 tablet PO Q6H PRN (Reason: Pain Rated 7-10) Qty: 20 0RF vancomycin 1,000 mg Recon Soln 1,000 mg IV Q24H Qty: 10 0RF Rx Instructions: Stop date: 04/05/2025 Continued melatonin 5 mg Tablet 5 mg PO HS furosemide [Lasix] 40 mg Tablet 40 mg PO DAILY atorvastatin 40 mg Tablet 40 mg PO HS buspirone 10 mg Tablet 10 mg PO TID allopurinol 100 mg Tablet 100 mg PO BID spironolactone 25 mg Tablet 25 mg PO DAILY ergocalciferol (vitamin D2) [Vitamin D2] 1,250 mcg (50,000 unit) Capsule 1,250 mcg PO [id number] Centrum Silver 400-250 mcg Tablet,Chewable 1 tablet PO DAILY Eliquis 2.5 mg Tablet 2.5 mg PO BID magnesium oxide 400 mg magnesium Tablet 400 mg PO TID Rx Instructions: 400 mg orally diltiazem HCl 180 mg Capsule,Extended Release 24 Hr 180 mg PO Q12H metoprolol succinate 100 mg tablet extended release 24 hr 100 mg PO HS calcitriol 0.25 mcg capsule 0.25 mcg PO DAILY dofetilide 125 mcg capsule 125 mcg PO Q12H sertraline 100 mg tablet 100 mg PO DAILY sertraline 50 mg tablet 50 mg PO DAILY losartan 50 mg tablet 50 mg PO DAILY famotidine 20 mg tablet 20 mg PO BID tizanidine 2 mg tablet 2 mg PO DAILY glipizide 5 mg tablet extended release 24hr 5 mg PO DAILY trazodone 100 mg tablet 100 mg PO DAILY albuterol sulfate 90 mcg/actuation HFA aerosol inhaler 1 puff INHALATION .q12 PRN (Reason: shortness of breath or wheezing) Other Ambulatory Orders: Complete Blood Count with Diff (Routine) Timeframe: 1 Week Location: Determined by Patient Ordered By: Carlo Wayne Comprehensive Metabolic Panel (Routine) Timeframe: 1 Week Location: Determined by Patient Ordered By: Carlo Wayne Vancomycin Random (Routine) Timeframe: 1 Week Location: Determined by Patient Ordered By: Carlo Wayne Date of admission: 03/18/25 13:14 Primary Care Provider: BrennaDewayne Admitting Provider: Dajuan Trujillo Attending physician on admission: Dajuan Trujillo Condition: Stable
[2025-03-27] MEDS: VANCOMYCIN 1,000 MG/NS 250 ML 1,000 MG/250 ML BAG 250 MG IVPB (16:56)
[2025-03-27] MEDS: HYDROcodone/acetaminophen (*CRX) 5-325 MG TABLET 1 TAB PO (18:13)
--- NOTE | 2025-03-27 20:19 | PC.NURSE ---
Patient discharged earlier today. Sheri, patient's daughter, called to inquire about issues with setting up home infusions. Per the number given, [facility] states that they are unavailable to process payment for infusion outside of the business hours M-F; 7 to 5 p.m. Informed Sheri that patient was covered for this evening, as she had a dose of antibiotic prior to discharge. Trough is currently therapeutic. Will have to refer to care coordination in the a.m.
--- NOTE | 2025-03-27 20:43 | PC.NURSE ---
[facility] provides an online payment method. Patient notified of this as an option. Will have care coordination follow up, 03/28/25.
== END 2025-03-27 18:16 | disposition home health service (06) | DRG 854 ==
LOC: ANHED 11:22 → ANHIMU 13:59 → ANH3MED 03-21 23:07
PROVIDERS: Family Medicine; Nurse Practitioner Family; Nurse Practitioner Gerontology; Surgery; Admitting Provider General Practice; Emergency Provider Student in an Organized Health Care Education/Training Program; PCP Internal Medicine; Visit Provider Internal Medicine
PROC: 0JB90ZZ Excision of Buttock Subcutaneous Tissue and Fascia, Open Approach (ICD-10-PCS; principal; 2025-03-24 18:30)
DX: A41.9 Sepsis, unspecified organism (principal); I13.0 Hypertensive heart and chronic kidney disease with heart failure and stage 1 through stage 4 chronic kidney disease, or unspecified chronic kidney disease; L03.317 Cellulitis of buttock; L02.31 Cutaneous abscess of buttock; I48.20 Chronic atrial fibrillation, unspecified; N17.9 Acute kidney failure, unspecified; B95.62 Methicillin resistant Staphylococcus aureus infection as the cause of diseases classified elsewhere; N18.30 Chronic kidney disease, stage 3 unspecified; I50.9 Heart failure, unspecified; E86.0 Dehydration; K76.0 Fatty (change of) liver, not elsewhere classified; M48.00 Spinal stenosis, site unspecified; M19.90 Unspecified osteoarthritis, unspecified site; F41.8 Other specified anxiety disorders; R94.31 Abnormal electrocardiogram [ECG] [EKG]; Z95.0 Presence of cardiac pacemaker; Z79.01 Long term (current) use of anticoagulants; Z87.11 Personal history of peptic ulcer disease; Z86.73 Personal history of transient ischemic attack (TIA), and cerebral infarction without residual deficits; Z90.49 Acquired absence of other specified parts of digestive tract; Z90.710 Acquired absence of both cervix and uterus; Z98.1 Arthrodesis status; Z98.84 Bariatric surgery status; Z90.81 Acquired absence of spleen; E66.9 Obesity, unspecified; Z68.35 Body mass index [BMI] 35.0-35.9, adult
CPT/HCPCS: 36415; 36569; 71045; 74176; 80048; 80053; 80202; 83605; 83690; 83735; 84484; 85025; 85027; 85610; 85730; 87040; 87070; 87075; 87181; 87205; 93005; 96361; 96365; 96375; 96376; 99285; A9270; C1751; J0696; J1171; J1644; J1938; J2003; J2270; J2405; J2543; J2704; J3010; J3370; J7030; J7120

== ENCOUNTER 2025-03-28 16:46 | Emergency (ER) | payer MEDICARE, SELFPAY ==
--- OUTSIDE RECORDS SUMMARY | 2025-03-28 16:48 | XMS_ITS | Referral Summary ---
Author Organization [facility] Address [address] [place] [address] Care Team Providers Care Optical Coating Technician Name Role Phone Cielo Ceja MD [...] on file Legal Sex Female 12:57 AM DIRECTOR OF CAREER SERVICES Gender Identity Not on file Sexual Orientation [...] of Treatment Not on file Insurance MEDICARE [facility] [address] MEDICARE [facility] MEDICARE SUPPLEMENT INSURANCE Care Teams Optical Coating Technician Relationship Specialty Start Date End Date Cielo Ceja MD [address] [facility] [address] [place] [address] PCP - General 08/28/17
--- OUTSIDE RECORDS SUMMARY | 2025-03-28 16:48 | XMS_ITS ---
Author Organization [facility] Address [address] [place] [address] Care Team Providers Care Immigration Associate Name Role Phone MikeMarshaPrince Unavailable [phone] Encounters Encounter Location Date Provider Diagnosis [place] [facility] [address] [place] [address] 12/31/2024 Prince Mckeon PLAN OF TREATMENT Next Appt Details Provider Name:Prince Mckeon , 04/15/2025 02:45:00 PM, [address], [facility], Progress Notes * KITTY RAYMUNDOHDOB: 0 (74 yo F)Acc No.[id number]:12/31/2024 Progress Notes Patient: CHRISTOPHER RAYMUNDO Provider: MD CHET, Kellie.Rubi.C.P, F.A.S.N. :1950 Age:74 Y Sex:Female Date:12/31/2024 Address:[address] [place] [address] Subjective: * Chief Complaints: * * Medical History: Objective: Assessment: Plan: * Treatment: * Billing Information: * Visit Code: * Procedure Codes: * Sign off status: Pending * Provider: MD CHET, Kellie.Rubi.C.P, F.A.S.N. Date: 12/31/2024
--- OUTSIDE RECORDS SUMMARY | 2025-03-28 16:48 | XMS_ITS | Data Portability ---
Author Organization [place] - [facility], Main Office Address [address] [place] [address] Care Team Providers Care Adventure Challenge Instructor Name Role Phone LENI HUI Subway Car Repairer [facility] CARLY LLANES Manager Art RORO MCCULLOUGH Hematology/Oncology Assessment Encounter Date Assessment [...] Not available Any 15 2024 10:45A M Zurdo sierra MD Not available Not available Not available Lab vitamin D, 25-hydrox y, total, serum [address] (Lab), [address] [place], [address], 02/04/2025 10:37:38 lipid panel, serum [address] (Lab), [address] [place], [address], 02/04/2025 10:37:37 CBC w/ auto diff [address] (Lab), [address] [place], [address], 02/04/2025 10:37:37 T4, free, serum [address] (Lab), [address] [place], [address], 02/04/2025 10:37:37 CMP, serum or plasma [address] (Lab), [address] [place], [address], 02/04/2025 10:37:38 TSH, serum or plasma [address] (Lab), [address] [place], [address], 02/04/2025 10:37:38 lipid panel, serum 2024 025 [facility] (Lab), [address] [place], [address], 12/24/2024 11:19:04 CBC w/ auto diff 2024 025 [facility] (Lab), [address] [place], [address], 12/24/2024 16:17:29 T4, free, serum 2024 025 [facility] (Lab), [address] [place], [address], 12/24/2024 11:34:16 CMP, serum or plasma 2024 025 [facility] (Lab), [address] [place], [address], 12/24/2024 16:17:29 TSH, serum or plasma 2024 025 [facility] (Lab), [address] [place], [address], 12/24/2024 11:47:40 vitamin D, 25-hydrox y, total, serum 2024 025 [facility] (Lab), [address] [place], [address], 12/24/2024 16:17:30 lipid panel, serum 2023 024 [facility] (Lab), [address] [place], [address], 11/07/2024 12:07:11 CBC w/ auto diff 2023 024 [facility] (Lab), [address] [place], [address], 11/10/2024 07:11:15 T4, free, serum 2023 024 [facility] (Lab), [address] [place], [address], 11/07/2024 12:19:10 CMP, serum or plasma 2023 024 [facility] (Lab), [address] [place], [address], 11/10/2024 07:11:15 TSH, serum or plasma 2023 024 [facility] (Lab), [address] [place], [address], 11/07/2024 13:06:09 vitamin D, 25-hydrox y, total, serum [address] (Lab), [address] [place], [address], 02/26/2025 08:55:05 Referral nephrolog ist referral - Please call patient to schedule an appointme nt. Thank you. 2024 025 Chris-Resub ric-Revert Prince Mckeon MD (Nephrology, [address], [place] [address], [place], [address], 02/03/2025 21:07:04 otolaryng ologist referral - Please call patient to schedule an appointme nt. Thank you. 2024 025 CARMINE Hui MD, [address], [place], [address], 12/31/2024 12:30:51 hematolog ist referral - Please call patient to schedule an appointme nt. Thank you. 2024 025 [email or web address] Roro Mccullough MD, [address], [place], [address], 03/05/2025 09:36:27 pulmonolo gist referral - Please call patient to schedule. 2024 025 [email or web address] Carly Kalyn CUTTING TOOL SHARPENER-C, [address], [address], [place], [address], 12/31/2024 12:00:38 nephrolog ist referral - Please call patient to schedule an appointme nt. Thank you. 2024 025 CARMINE Mckeon MD (Nephrology, [address], [address], [place], [address], 01/22/2025 19:40:35 cardiolog ist referral - Please call patient to schedule an appointme nt. Thank you. 2024 025 [place], [address], [address], [place], [address], 12/31/2024 13:10:32 otolaryng ologist referral - Please call patient to schedule. 2023 024 [email or web address] Leni Hui MD, [address], [place], [address], 11/11/2024 15:25:18 hematolog ist referral - Please call patient to schedule. 2023 024 [email or web address] Roro Mccullough MD, [address], [place], [address], 11/11/2024 15:25:18 pulmonolo gist referral - Please call patient to schedule. 2023 024 [email or web address] Carly Kalyn [employer]TING TO[employer] SH[employer]ENER-C, [address], [address], [place], [address], 09/12/2024 13:03:20 nephrolog ist referral 2023 024 Prince Mckeon MD (Nephrology, [address], [address], [place], [address], 08/26/2024 11:33:15 cardiolog ist referral 2023 024 [email or web address] [address] [place], [address], [address], [address], 08/26/2024 11:33:14 Procedures None recorded. Surgeries None recorded. Imaging DEXA, axial skeleton - Please call patient to schedule. [address] (One Call Scheduling), [address] [place], [address], 03/12/2025 16:08:26 DEXA, axial skeleton [address] (Imaging), [address] [place], [address], 02/26/2025 11:33:27 Medication Orders Prolia 60 mg/mL subcutane ous syringe 2024 025 [facility]/Pharmacy #[id number], [address], [place], [address], 02/03/2025 12:52:13 doxycycli ne hyclate 100 mg capsule 2024 025 [facility]/Pharmacy #[id number], [address], [place], [address], 01/06/2025 09:46:11 prednison e 10 mg tablet 2024 025 [facility]/Pharmacy #[id number], [address], [place], [address], 01/06/2025 09:46:48 albuterol sulfate HFA 90 mcg/actua tion aerosol inhaler 2024 025 [facility]/Pharmacy #[id number], [address], [place], [address], 12/09/2024 11:22:23 spironola ctone 25 mg tablet 2023 024 [facility]/Pharmacy #[id number], [address], [place], [address], 08/26/2024 10:56:57 Patient TargetsNo targets recorded. Patient Instructions Encounter Date Encounter Id Patient Instructions Last Modified By Organization Details Last Modified Time 01/06/2025 [id number] complete PFT w/ post bronchodilator spirometry* - Please call patient to schedule. NPAN [id number]. [email or web address] Not available 02/11/2025 17:13:15 Reason for Referral Manager Art Referral for A sthma Please call patient to schedule. Referring Physician: Zurdo Ceja Internal Medicine, Encounter Date: 08/26/2024 Please call patient to riley sifuentes. Referring Physician: Zurdo Ceja Internal Medicine, Encounter Date: 08/26/2024 Broom Stitcher Referral for At rial fibrillation Referring Physician: Zurdo Ceja Internal Medicine, Encounter Date: 08/26/2024 Fire Investigator Referral for Ch ronic kidney disease Referring Physician: Zurdo Ceja Internal Medicine, Encounter Date: 08/26/2024 Sub[address] Car Repairer Referral fo r Hypercalcemia Please call patient to schedule. Referring Physician: Zurdo Ceja Internal Medicine, Encounter Date: 08/26/2024 Manager Art Referral for A sthma Please call patient to schedule. Referring Physician: Zurdo Ceja Internal Medicine, Encounter Date: 12/09/2024 Please call patient to riley sifuentes an appointment. Thank you. Referring Physician: Anirudh Willson Medicine, Encounter Date: 12/09/2024 Broom Stitcher Referral for At rial fibrillation Please call patient to schedule an appointment. Thank you. Referring Physician: Anirudh Willson, Encounter Date: 12/09/2024 Fire Investigator Referral for Ch ronic kidney disease Please call patient to schedule an appointment. Thank you. Referring Physician: Zurdo Ceja Internal Medicine, Encounter Date: 12/09/2024 Subway Car Repairer Referral fo r Hypercalcemia Please call patient to schedule an appointment. Thank you. Referring Physician: Zurdo Ceja Internal Medicine, Encounter Date: 12/09/2024 Fire Investigator Referral for Ch ronic kidney disease Please call patient to schedule an appointment. Thank you. Referring Physician: Zurdo Ceja Internal Medicine, Encounter Date: 02/03/2025 Results Created Date Observation Date Name Description Value Unit Range Abnormal Flag Note LastModifiedBy Organization Detail LastModifiedTime 08/07/2008/07/2024 LIPID PANEL cholesterol 187 mg/dL 140-19 9 NIH SERENE NSUS RECOM MENDA TION FOR AVNI STERO L: ADULT CHILD LOW RISK: <200 <170 BORDE RLINE : <200- 239 ----- HIGH RISK: >240 >200 Not Available [facility] (Lab) [address] [place], [address], 08/07/2024 11:18:43 08/07/2008/07/2024 LIPID PANEL triglyceride s 109 mg/dL 0-150 NIH SERENE NSUS REPOR T RECOM MENDA TION FOR TRIGL YCERI JERROD: ADULT CHILD LOW RISK: <150 ----- BODER LINE: 150-1 99 ----- HIGH RISK: >200 ----- Not Available [facility] (Lab) [address] [place], [address], 08/07/2024 11:18:43 08/07/2008/07/2024 LIPID PANEL HDL cholesterol 76 mg/dL 40- Not Available [facility] (Lab) [address] [place], [address], 08/07/2024 11:18:43 08/07/20 24 08/07/2024 LIPID PANEL [...] WILL NOT BE REPOR LIAN. Not Available [facility] (Lab) [address] [place], [address], 08/07/2024 11:18:43 08/07/2008/07/2024 T4 FREE free T4 1.50 NG/dL 0.78-2 .19 Not Available [facility] (Lab) [address] [place], [address], 08/07/2024 12:15:11 11/07/20 24 11/07/2024 LIPID PANEL cholesterol 180 mg/dL 140-19 9 NIH SERENE NSUS RECOM MENDA TION FOR AVNI STERO L: ADULT CHILD LOW RISK: <200 <170 BORDE RLINE : <200- 239 ----- HIGH RISK: >240 >200 Not Available [facility] (Lab) [address] [place], [address], 11/07/2024 12:07:10 11/07/20 24 11/07/2024 LIPID PANEL triglyceride s 111 mg/dL 0-150 NIH SERENE NSUS REPOR T RECOM MENDA TION FOR TRIGL YCERI JERROD: ADULT CHILD LOW RISK: <150 ----- BODER LINE: 150-1 99 ----- HIGH RISK: >200 ----- Not Available [facility] (Lab) [address] [place], [address], 11/07/2024 12:07:10 11/07/20 24 11/07/2024 LIPID PANEL HDL cholesterol 61 mg/dL 40- Not Available [facility] (Lab) [address] [place], [address], 11/07/2024 12:07:10 11/07/20 24 11/07/2024 LIPID PANEL [...] WILL NOT BE REPOR LIAN. Not Available [facility] (Lab) [address] [place], [address], 11/07/2024 12:07:10 11/07/20 24 11/07/2024 T4 FREE free T4 1.31 NG/dL 0.78-2 .19 Not Available [facility] (Lab) [address] [place], [address], 11/07/2024 12:19:10 12/24/19 25 12/24/2024 LIPID PANEL cholesterol 165 mg/dL 140-19 9 NIH SERENE NSUS RECOM MENDA TION FOR AVNI STERO L: ADULT CHILD LOW RISK: <200 <170 BORDE RLINE : <200- 239 ----- HIGH RISK: >240 >200 Not Available [facility] (Lab) [address] [place], [address], 12/24/2024 11:19:04 12/24/19 25 12/24/2024 LIPID PANEL triglyceride s 143 mg/dL 0-150 NIH SERENE NSUS REPOR T RECOM MENDA TION FOR TRIGL YCERI JERROD: ADULT CHILD LOW RISK: <150 ----- BODER LINE: 150-1 99 ----- HIGH RISK: >200 ----- Not Available [facility] (Lab) [address] [place], [address], 12/24/2024 11:19:04 12/24/19 25 12/24/2024 LIPID PANEL HDL cholesterol 61 mg/dL 40- Not Available [facility] (Lab) [address] [place], [address], 12/24/2024 11:19:04 12/24/19 25 12/24/2024 LIPID PANEL [...] WILL NOT BE REPOR LIAN. Not Available [facility] (Lab) [address] [place], [address], 12/24/2024 11:19:04 12/24/19 25 12/24/2024 T4 FREE free T4 1.69 NG/dL 0.78-2 .19 Not Available [facility] (Lab) [address] [place], [address], 12/24/2024 11:34:16 12/24/19 25 12/24/2024 TSH thyroid-stim ulating hormone 5.900 uIU/m L 0.465- 4.680 high Not Available [facility] (Lab) [address] [place], [address], 12/24/2024 11:47:40 09/10/20 24 12/28/2022 DEXA, axial skele ton No observ ation record ed. [email or web address] [facility] (Imaging) [address] [place], [address], 02/03/2025 14:17:08 12/09/19 25 12/09/2024 XR, chest , 2 view [facility] [address], [place] [address] Patien t Name: KITTY RIZO Access ion #: [id number] Sex: F : 1949 8 Dictat ed By: Vivian Lucia Attend ing Physic florence: PAPO PATRICK [...] at 2024 10:26: 44 AM Page [email or web address] (Imaging) [address] [place], [address], 12/24/2024 15:23:48 12/09/19 25 12/09/2024 XR, chest No observ ation record ed. [facility] [address] [place], [address], 12/24/2024 15:26:24 02/17/20 25 01/28/2025 compl ete PFT w/ post cox monett hodil ator jerod metry * No observ ation record ed. [email or web address] [facility] ([facility] Call Scheduling) [address] [place], [address], 02/19/2025 10:35:36 03/18/20 25 03/18/2025 imagi ng/di agnos tic resul t No observ ation record ed. [address], [place], [address], 03/18/2025 13:05:41 03/18/20 25 03/18/2025 imagi ng/di agnos tic resul t No observ ation record ed. [address], [place], [address], 03/18/2025 13:06:29 03/21/20 25 03/21/2025 imagi ng/di agnos tic resul t No observ ation record ed. [address], [place], [address], 03/21/2025 09:51:16 03/25/20 25 03/25/2025 imagi ng/di agnos tic resul t No observ ation record ed. [address], [place], [address], 03/25/2025 18:05:03 Result Notes None recorded. Problems Name Problem SNOMED Code Status Onset Date Resolution Date Notes Provider Name and Address Organization Details Recorded Time Osteoarthriti s 721981523 Active Not Available [facility] 3 06:14:00 Disorder of rotator cuff 374653667 Active Not Available [facility] 3 06:14:00 Atrial fibrillation 55052065 Active Not Available [facility] 3 06:14:00 Disorder of bursa of shoulder region 50096654 Active Not Available [facility] 3 06:14:00 Essential hypertension 43220776 Active Not Available [facility] 3 06:14:00 Rhinitis 83729080 Active Not Available [facility] 3 06:14:00 Spinal stenosis 29931383 Active Not Available [facility] 3 06:14:00 Chronic kidney disease 025221393 Active 2022 Not Available [facility] 3 06:14:00 Gout 17823968 Active 04/17/ 2023 Not Available [facility] 3 06:14:00 Chronic depression 211652161 Active 2022 Efren Servin MD [address], [place], [address] , [employer] 5 16:11:41 Hyperlipidemi a 75219832 Active 2022 Not Available [facility] 3 06:14:00 Anemia 647002381 Active 2022 Not Available [facility] 3 06:14:00 Small bowel obstruction 111320422 Active 2022 Not Available [facility] 3 06:14:00 COVID-19 988136433 Active 2023 Zurdo marcano MD [address], [facility] [address], [place], [address] , [employer] 4 14:25:50 Osteoporosis 97168840 Active 2024 Flores Jones MA [facility], [employer] 5 17:47:56 Hypercalcemia 20072197 Active 2024 Zurdo marcano MD [address], [facility] [address], [place], [address] , [employer] 5 14:06:07 Moderate chronic obstructive pulmonary disease 682478700 Active 2024 Efren Servin MD [address], [facility] [address], [place], [address] , [employer] [facility] [employer] 5 16:16:13 Notes:Mod COPD PFT 01/28/25 FEV1 1.00 L (55%), BD 110 mL = 12%, TLC 2.75 L (77%), RV 1.26 L (85%), DLCO 57%, DLCO/VA 131% Problem Notes None recorded. Procedures Surgical History Date Name Laterality Status Provider Name and Address Organization Details Recorded Time 04/22/20 Medicare Wellness CPT Code, subsequent completed Lucio Ulloa LPN PA [employer] [facility] 04/18/2024 08:41:36 04/13/20 23 drainage of abscess completed RICHARD Ramirez CA - [facility] 04/24/2023 16:24:47 03/07/20 16 Date of Last Colonoscopy completed Not Available [facility] 01/10/2023 01:18:14 03/07/20 16 Colon ca scrn not hi rsk ind completed Not Available [facility] 01/10/2023 01:18:24 11/18/19 11 Most Recent Bone Density completed Not Available [facility] 01/10/2023 01:18:15 Cyst Removal completed RICHARD Ramirez PA - [facility] 07/24/2023 11:14:40 delivery completed Christine Tse MA [facility] 12/16/2024 09:55:38 Hysterectomy completed ADELINE Ledbetter [facility] 12/16/2024 09:55:48 Colostomy completed Christine Tse MA [facility] 12/16/2024 09:56:02 revision of colostomy completed ADELINE Ledbetter [facility] 12/16/2024 09:56:20 Gastric Bypass completed Christine Tse MA [facility] 12/16/2024 09:56:39 Abdominal completed Christine Tse MA [facility] 12/16/2024 09:57:10 Imaging Results Imaging Date Name Status LastModified by Organization Details LastModified Time 12/28/2022 DEXA, axial skeleton completed [facility] (Imaging) [address] [place], [address], 02/03/2025 14:17:08 12/09/2024 XR, chest, 2 view completed [email or web address] [facility] (Imaging) [address] [place], [address], 12/24/2024 15:23:48 12/09/2024 XR, chest completed [email or web address] [facility] [address] [place], [address], 12/24/2024 15:26:24 01/28/2025 complete PFT w/ post bronchodilator spirometry* completed [facility] (One Call Scheduling) [address], [place], [address], 02/19/2025 10:35:36 03/18/2025 imaging/diagnostic result active [address] [place] [address], [address], 03/18/2025 13:05:41 03/18/2025 imaging/diagnostic result active [address] [place] [address], [address], 03/18/2025 13:06:29 03/21/2025 imaging/diagnostic result active [address] [place] [address], [address], 03/21/2025 09:51:16 03/25/2025 imaging/diagnostic result active [address] [place] [address], [address], 03/25/2025 18:05:03 Procedure Notes None recorded. Medical Equipment None Reported. Allergies Allergen ID Allergen Name Allergen Category Reaction Reaction Severity Criticality Documentation Date Start Date Code Code System Note Provider Name and Address Organization Details Recorded Time 3056 adhesive tape environme nt,medica tion rash Not available Not available 01/10/2023 17616 UNK Not Available [facility] 3 01:58:43 Medications Name Sig Start Date Stop [...] oral route. 04/[address] Perkins s HV increase d the dose 04/06/20 20, is to get cardiove rsion07/2020; As per Dr Mckeon [facility] this was stopped d/t her QT prolonga [...] Available glipizide ER 5 mg tablet, extended rel [id number]|2025-03-28 16:48:00|2025-03-28 16:48:00|XMS_ITS|NOA VOGEL|External Medical Summaries|[id number]|" CONTINUITY OF CARE DOCUMENT Created on: March 28, 2025 Brissa Rizo : 1950 Sex: Female Author Name arvin, arvin Address Unknown Organization [facility] Address [address] [facility] [address] [place] [address] Phone [phone] Care Team Providers Care Adventure Challenge Instructor Name Role Phone Michelle Mckeon MD Unavailable [phone] ZURDO CEJA MD Unavailable [phone] ZURDO CEJA MD Unavailable [phone] PROBLEMS Condition Status Date Provider Notes Hypertension active Cynthia Sheikh MD S/P Dual chamber PPM (MRI Sa fe) - [employer] active Lei Montenegro CHEST PAIN--stress nuc meet l 10/2019 active Michelle Mckeon MD HTN ESSENTIAL--echo ef 60 %, 11/2018 active [...] active Clement Soriano MD Dizziness active Boogie Peacock ENCOUNTERS Date Type Provider Location Encounter Diag nosis - In-person encounter Office Visit Michlele Mckeon MD [facility] - In-person encounter Office Visit Michelle Mckeon MD [facility] - In-person encounter Office Visit Michelle Mckeon MD [facility] Office - In-person encounter Office Visit Michelle Mckeon MD [facility] - In-person encounter Office Visit Michelle Mckeon MD [facility] - In-person encounter Office Visit Michelle Mckeon MD [facility] - In-person encounter Office Visit Cynthia Sheikh MD [facility] - In-person encounter Office Visit Michelle Mckeon MD [facility] Office - In-person encounter Office Visit Michelle Mckeon MD [facility] - In-person encounter Office Visit Michelle Mckeon MD [facility] CHEST PAIN--stress n uc normal 10/2019HTN ESSENTIAL--echo ef 60 %, 11/2018 - In-person encounter Office Visit Michelle Mckeon MD [facility] - In-person encounter Office Visit Michelle Mckeon MD [facility] Dizziness - In-person encounter Office Visit Michelle Mckeon MD [facility] - In-person encounter Office Visit Michelle Mckeon MD [facility] - In-person encounter Office Visit Michelle Mckeon MD [facility] - In-person encounter Office Visit Cynthia Sheikh MD [facility] - In-person encounter Office Visit Cynthia Sheikh MD [facility] - In-person encounter Office Visit Cynthia Sheikh MD [facility] - In-person encounter Office Visit Michelle Mckeon MD [facility] Shortness of breath, nml sleep study - In-person encounter Office Visit Naveed Chow MD [facility] - In-person encounter Office Visit Michelle Mckeon MD [facility] - In-person encounter Office Visit Cynthia Sheikh MD [facility] - In-person encounter Office Visit Cynthia Sheikh MD [facility] - In-person encounter Office Visit Michelle Mckeon MD [facility] - In-person encounter Office Visit Toniya Mckeon MD [facility] Family History of CVA or Stroke: - In-person encounter Office Visit Michelle Mckeon MD [facility] - In-person encounter Office Visit Michelle Mckeon MD [facility] - In-person encounter Office Visit Michelle Mckeon MD [facility] - In-person encounter Office Visit Clement Soriano MD [facility] Office OverweightRF ablation for SVT/AFSVT - In-person encounter Office Visit Clement Soriano MD [facility] Office Atrial flutter ? typical - In-person encounter Office Visit Michelle Mckeon MD [facility] Office - In-person encounter Office Visit Michelle Mckeon MD [facility] Atrial fib CHADS score 4 , on EliquisHematuria follows with Dr Niño disease, chronic, mild Cr 1.7 - In-person encounter Office Visit Michelle Mckeon MD [facility] - In-person encounter Office Visit Michelle Mckeon MD [facility] - In-person encounter Office Visit Michelle Mckeon MD [facility] - In-person encounter Office Visit Michelle Mckeon MD [facility] Office - In-person encounter Office Visit Michelle Mckeon MD [facility] Atrial fib CHADS score 4 , on Eliquis - In-person encounter Office Visit Michelle Mckeon MD [facility] Atrial fib CHADS score 4 , on Eliquis - In-person encounter Office Visit Michelle Mckeon MD [facility] CHEST PAIN--stress nuc normal 10/2019 - In-person encounter Office Visit Michelle Mckeon MD [facility] - In-person encounter Office Visit Michelle Mckeon MD [facility] Atrial fib CHADS score 4 , on EliquisCVA iin 09 with l leg weaknessShortness of breath, nml sleep study - In-person encounter Office Visit Gopal Cisneros MD [facility] CHEST PAIN--stress nuc normal 10/2019HTN ESSENTIAL--echo ef 60 %, 11/2018 VITAL SIGNS Date Observation Value Provider Body Mass Index (Ratio) 30.49 kg/m2 Glenroy Mckeon MD blood pressure, cuff size regular Ke rri Caden blood pressure, diastolic 80 mm[Hg] Ke rri Caden blood pressure, systolic 144 mm[Hg] Chris ri Caden oxygen saturation, oximetry 98 % Kenia Caden pulse rate 86 /min Kenia Paul [facility] weight E&M 151 [lb_av] Kenia Paul baroneer height E&M 59 [in_i] Kenia Paul baroen Body Mass Index (Ratio) 34.53 kg/m2 Glenroy Mckeon MD respiratory rate E&M 17 /min Radha ashby blood pressure, diastolic 86 mm[Hg] Denzel Pepper blood pressure, systolic 139 mm[Hg] Aleida Pepper oxygen saturation, oximetry 92 % Radha Pepper pulse rate 109 /min Radha Pepper weight E&M 171 [lb_av] Radha Pepper blood pressure, cuff size large An miguel a Pepper height E&M 59 [in_i] Radha Pepper Body Mass Index (Ratio) 34.33 kg/m2 Glenroy Mckeon MD blood pressure, diastolic 60 mm[Hg] Leola nkLogbrad blood pressure, systolic 90 mm[Hg] Ueyn Jacksonogic blood pressure, diastolic 60 mm[Hg] Terra underwood [place] blood pressure, systolic 90 mm[Hg] Reid emmanuel [place] oxygen saturation, oximetry 95 % Corine [place] pulse rate 90 /min Corine Gomez marzena weight E&M 170 [lb_av] Corine Juliadenzel marzena respiratory rate E&M 16 /min Saira carpenter [place] blood pressure, cuff size large Terra underwood [place] height E&M 59 [in_i] Corine Gomez marzena Body Mass Index (Ratio) 34.94 kg/m2 Glenroy Mckeon MD blood pressure, cuff size large Ke rri Velmanefredi blood pressure, diastolic 64 mm[Hg] Ke rri Gracienfanthony blood pressure, systolic 114 mm[Hg] Chris ri Velmanefredi oxygen saturation, oximetry 95 % Kenia Velmanefredi respiratory rate E&M 16 /min Kenia G josianeenenfanthony pulse rate 92 /min Kenia Allene [facility] weight E&M 173 [lb_av] Kenia Gruenenfe lder height E&M 59 [in_i] Kenia Gruenenfe lder Body Mass Index (Ratio) 33.93 kg/m2 Glenroy Mckeon MD blood pressure, cuff size large Ke rri Gruenenfeldseble blood pressure, diastolic 89 mm[Hg] Ke rri Gruenenfelder blood pressure, systolic 149 mm[Hg] Ker ri Gruenenfelder oxygen saturation, oximetry 97 % Kenia Gruenenfelder respiratory rate E&M 16 /min Kenia G ruenenfelder pulse rate 98 /min Kenia Gruenenfe lder weight E&M 168 [lb_av] Kenia Gruenenfe lder height E&M 59 [in_i] Kneia Gruenenfe lder Body Mass Index (Ratio) 35.34 kg/m2 Wagner [...] Kenia Gruenenfe lder Body Mass Index (Ratio) 35.34 kg/m2 Glenroy Mckeon MD blood pressure, cuff size large Ke rri Gruenenfelder blood pressure, diastolic 84 mm[Hg] Ke rri Gruenenfelder blood pressure, systolic 150 mm[Hg] Ker ri Gruenenfelder oxygen saturation, oximetry 95 % Kenia Gruenenfelder respiratory rate E&M 16 /min Kenia G ruenenfelder pulse rate 118 /min Kenia Gruenenfe lder weight E&M 175 [lb_av] Kenia Gruenenfe lder height E&M 59 [in_i] Kenia Gruenenfe lder Body Mass Index (Ratio) 36.47 kg/m2 Glenroy Mckeon MD blood pressure, diastolic 70 mm[Hg] Leola nkLogic blood pressure, systolic 118 mm[Hg] Uyen kLogic blood pressure, diastolic 70 mm[Hg] Adeline Espinoza Torres blood pressure, systolic 118 mm[Hg] Goldie Torres oxygen saturation, oximetry 97 % Olaf Torres respiratory rate E&M 16 /min Mercedez Torres pulse rate 92 /min Olaf oscar weight E&M 180.6 [lb_av] Olaf hunteron height E&M 59 [in_i] Olaf Javier kittyjeremi Body Mass Index (Ratio) 34.33 kg/m2 Glenory Mckeon MD blood pressure, resting Yes [facility] manan Nelson blood pressure, diastolic 70 mm[Hg] [facility], systolic 114 mm[Hg] [facility] LambertNelson oxygen saturation, oximetry 98 % David Nelson respiratory rate E&M 18 /min Delon hay Nelson weight E&M 170 [lb_av] David Lambert carlin height E&M 59 [in_i] David Lambert carlin Body Mass Index (Ratio) 34.17 kg/m2 Glenroy Mckeon MD blood pressure, diastolic 80 mm[Hg] Adeline Torres blood pressure, systolic 110 mm[Hg] Goldie Torres oxygen saturation, oximetry 94 % Olaf Torres respiratory rate E&M 16 /min CarylJesica Torres pulse rate 86 /min Olaf Javier dayne weight E&M 169.2 [lb_av] Olaf Corey hunterjeremi height E&M 59 [in_i] Olaf oscar Body Mass Index (Ratio) 35.34 kg/m2 Glenroy Mckeon MD oxygen saturation, oximetry 96 % [facility] pulse rate 73 /min [facility] blood pressure, diastolic 78 mm[Hg] [facility] blood pressure, systolic 122 mm[Hg] Alysa alexandriany Block weight E&M 175 [lb_av] [facility] respiratory rate E&M 16 /min [facility] Block height E&M 59 [in_i] [facility] Body Mass Index (Ratio) 36.35 kg/m2 Glenroy Mckeon MD pulse rate 60 /min Kaycee Larrybel l blood pressure, diastolic 64 mm[Hg] Cy ntrijeet Almendarez blood pressure, systolic 141 mm[Hg] Isis lucas Almendarez oxygen saturation, oximetry 94 % Kaycee Almendarez respiratory rate E&M 16 /min Kaycee Almendarez weight E&M 180 [lb_av] Kaycee Campbel l blood pressure, cuff size regular Cy junaid Almendarez temperature site temporal Namita Tank sley temperature E&M 97.5 [degF] Namita Tanks yumiko height E&M 59 [in_i] Kaycee Campbel l Body Mass Index (Ratio) 37.16 kg/m2 Glenroy Mckeon MD blood pressure, diastolic 92 mm[Hg] To nsha Henry blood pressure, systolic 133 mm[Hg] Ton ruiz Henry oxygen saturation, oximetry 93 % Tonsha Henry respiratory rate E&M 16 /min Tonsha Henry pulse rate 82 /min Tonsha Henry weight E&M 184 [lb_av] Tonsha Henry height E&M 59 [in_i] Tonsha Henry temperature site temporal Namita Tank sley temperature E&M 97.7 [degF] Namita Tanks yumiko Body Mass Index (Ratio) 38.57 kg/m2 Jord en Renan temperature E&M 97.3 [degF] Shannan Puhs e blood pressure, diastolic 79 mm[Hg] Cy ntrodrigueza Almendarez blood pressure, systolic 131 mm[Hg] Isis thia Almendarez blood pressure, cuff size regular Cy ntyordan Almendarez oxygen saturation, oximetry 94 % Kayceelucas Almendarez pulse rate 90 /min Kaycee Larrybel l respiratory rate E&M 16 /min Kaycee Almendarez weight E&M 191 [lb_av] Kaycee Campbel l height E&M 59 [in_i] Kaycee Campbel l Body Mass Index (Ratio) 38.57 kg/m2 Jord en Renan temperature E&M 97.5 [degF] Shannan Puhs e pulse rate 82 /min Lisa Block blood pressure, diastolic 72 mm[Hg] Br ittany Block blood pressure, systolic 120 mm[Hg] Alysa ttany Block oxygen saturation, oximetry 94 % Lisa Block weight E&M 191 [lb_av] Lisa Block respiratory rate E&M 16 /min Brittan y Block height E&M 59 [in_i] Lisa Block Body Mass Index (Ratio) 37.36 kg/m2 Jord en Renan pulse rate 65 /min Kaycee Campbel l blood pressure, cuff size regular Cy junaid Almendarez blood pressure, diastolic 71 mm[Hg] Cy nthia Almendarez blood pressure, systolic 110 mm[Hg] Isis dimitrisa Almendarez weight E&M 185 [lb_av] Kaycee Campbel l height E&M 59 [in_i] Kaycee Larrybel l Body Mass Index (Ratio) 37.36 kg/m2 Rex Chow MD blood pressure, cuff size regular Cy ntrodrigueza Almendarez blood pressure, diastolic 78 mm[Hg] Cy nthia Almendarez blood pressure, systolic 128 mm[Hg] Isis dimitrisa Almendarez pulse rate 124 /min Kaycee Campbel [...] Henry blood pressure, diastolic 78 mm[Hg] To nsha Henry blood pressure, systolic 148 mm[Hg] Ton sha Henry oxygen saturation, oximetry 97 % Tonsha Henry weight E&M 191 [lb_av] Tonsha Henry height E&M 59 [in_i] Tonsha Henry height E&M 59 [in_i] Tonsha Henry Body Mass Index (Ratio) 37.16 kg/m2 Kobe Urrutia blood pressure, cuff size regular Cy junaid Almendarez blood pressure, diastolic 70 mm[Hg] Cy ntrodrigueza Almendarez blood pressure, systolic 116 mm[Hg] Isis lucas Almendarez oxygen saturation, oximetry 97 % Kaycee Almendarez respiratory rate E&M 18 /min Kaycee Almendarez pulse rate 97 /min Kaycee Campbel l weight E&M 184 [lb_av] Kaycee Campbel l height E&M 59 [in_i] Kaycee Campbel l Body Mass Index (Ratio) 37.56 kg/m2 Glenroy Mckeon MD respiratory rate E&M 16 /min [facility] blood pressure, diastolic 101 mm[Hg] To [facility] blood pressure, systolic 151 mm[Hg] Ton [facility] pulse rate 97 /min [facility] oxygen saturation, oximetry 97 % [facility] weight E&M 186 [lb_av] [facility] height E&M 59 [in_i] [facility] Body Mass Index (Ratio) 38.37 kg/m2 Glenroy Mckeon MD blood pressure, diastolic 90 mm[Hg] Er ica Duran-Ady blood pressure, systolic 140 mm[Hg] Marifer brook Roger-Ady oxygen saturation, oximetry 95 % Flory Duran-Ady pulse rate 80 /min Flory Duran- Ady weight E&M 190 [lb_av] Flory Duran- Ady height E&M 59 [in_i] Flory Duran- Ady Body Mass Index (Ratio) 37.56 kg/m2 Glenroy Mckeon MD blood pressure, diastolic 90 mm[Hg] [facility] blood pressure, systolic 140 mm[Hg] Twan reina Downing oxygen saturation, oximetry 96 % [facility] respiratory rate E&M 16 /min [facility] pulse rate 90 /min [facility] E&M 186 [lb_av] [facility] height E&M 59 [in_i] [facility] Body Mass Index (Ratio) 33.73 kg/m2 Glenroy Mckeon MD blood pressure, cuff size regular Ke rri Caden blood pressure, diastolic 80 mm[Hg] Ke rri Stewuesonam blood pressure, systolic 136 mm[Hg] Ker ri Velmanenfelder oxygen saturation, oximetry 97 % Kenia Negrete respiratory rate E&M 18 /min Kenia beauchampelder pulse rate 71 /min Kenia Miller lder weight E&M 167 [lb_av] Kenia Miller lder [...] Ruthy Javier weight E&M 159.4 [lb_av] Ruthy Javier height E&M 59 [in_i] Ruthy Javier Body Mass Index (Ratio) 31.50 kg/m2 Boston Soriano MD blood pressure, cuff size regular Valerio reese [place] blood pressure, diastolic 90 mm[Hg] Valerio isty [place] blood pressure, systolic 146 mm[Hg] Lucina norris [place] oxygen saturation, oximetry 99 % Sherine [place] respiratory rate E&M 17 /min Sherine Shasta pulse rate 66 /min Sherine Shasta weight E&M 156 [lb_av] Sherine [place] height E&M 59 [in_i] Sherine [place] Body Mass Index (Ratio) 31.10 kg/m2 Boston Soriano MD blood pressure, diastolic 80 mm[Hg] Adeline Patel blood pressure, systolic 162 mm[Hg] Goldie Patel oxygen saturation, oximetry 95 % Crissjeet Patel respiratory rate E&M 16 /min Criss O'Yong pulse rate 52 /min Criss O'Yong weight E&M 154 [lb_av] Criss O'Yong height E&M 59 [in_i] Criss O'Yong Body Mass Index (Ratio) 31.30 kg/m2 Glenroy Mckeon MD blood pressure, diastolic 68 mm[Hg] Adeline Morin blood pressure, systolic 110 mm[Hg] Goldie Morin pulse rate 54 /min Susi Morin oxygen saturation, oximetry 98 % Susi Morin respiratory rate E&M 17 /min Susi Morin weight E&M 155 [lb_av] Susi Morin height E&M 59 [in_i] Susi Morin Body Mass Index (Ratio) 32.11 kg/m2 Glenroy Mckeon MD blood pressure, cuff size large Jasper Negrete blood pressure, diastolic 100 mm[Hg] Jasper Negrete blood pressure, systolic 162 mm[Hg] Chris Negrete oxygen saturation, oximetry 94 % Kenia Negrete respiratory rate E&M 18 /min Kenia aguirre pulse rate 96 /min Kenia zamudio weight E&M 159 [lb_av] Kenia Miller lder height E&M 59 [in_i] Kenia Miller lder Body Mass Index (Ratio) 34.33 kg/m2 Glenroy Mckeon MD blood pressure, cuff size large Jeanie Silva blood pressure, diastolic 90 mm[Hg] Jeanie Silva blood pressure, systolic 130 mm[Hg] Yvette Silva oxygen saturation, oximetry 98 % Ely Silva respiratory rate E&M 16 /min Ely Silva pulse rate 98 /min Ely Silva weight E&M 170 [lb_av] Ely Silva height E&M 59 [in_i] Ely Silva Body Mass Index (Ratio) 34.33 kg/m2 Glenroy Mckeon MD blood pressure, diastolic 75 mm[Hg] Adeline Doran Brian blood pressure, systolic 127 mm[Hg] Goldie Rodriguez Brian oxygen saturation, oximetry 96 % Olaf Torres respiratory rate E&M 20 /min Mercedez Torres pulse rate 94 /min Olaf oscar weight E&M 170 [lb_av] Olaf Javier kittyjeremi height E&M 59 [in_i] Olaf Javier jeremi Body Mass Index (Ratio) 36.55 kg/m2 Glenroy Mckeon MD blood pressure, cuff size regular silvina Negrete blood pressure, diastolic 94 mm[Hg] rrdawson Negrete blood pressure, systolic 170 mm[Hg] Chris Negrete oxygen saturation, oximetry 96 % Kenia Negrete respiratory rate E&M 16 /min Kenia aguirre pulse rate 91 /min Kenia zamudio weight E&M 181 [lb_av] Kenia baroneer height E&M 59 [in_i] Kenia barone Body Mass Index (Ratio) 35.75 kg/m2 Glenroy Mckeon MD blood pressure, resting Yes Anti rian Swanson oxygen saturation, oximetry 96 % Indigo Swanson respiratory rate E&M 16 /min Rj Swanson pulse rate 56 /min Indigo Ma s weight E&M 177 [lb_av] Indigorian Ma s blood pressure, diastolic 78 mm[Hg] An alyse Swanson blood pressure, systolic 124 mm[Hg] Basil Swanson blood pressure, diastolic 80 mm[Hg] Adeline Torres blood pressure, systolic 150 mm[Hg] Goldie Reneehunter Torres pulse rate 74 /min Olaf oscar oxygen saturation, oximetry 98 % Olaf Brian respiratory rate E&M 18 /min Mercedez Torres Body Mass Index (Ratio) 34.74 kg/m2 Caryl Torres weight E&M 172 [lb_av] Olaf oscar blood pressure, diastolic 86 mm[Hg] Adeline Torres blood pressure, systolic 185 mm[Hg] Goldie Torres pulse rate 86 /min Olaf oscar oxygen saturation, oximetry 93 % Olaf Torres respiratory rate E&M 18 /min Mercedez Torres Body Mass Index (Ratio) 32.31 kg/m2 Caryl Torres weight E&M 160 [lb_av] Olaf oscar Body Mass Index (Ratio) 30.66 kg/m2 Glenroy Mckeon MD weight E&M 151.8 [lb_av] Michelle Valdivia blood pressure, diastolic 77 mm[Hg] Adeline Torres blood pressure, systolic 158 mm[Hg] Goldie Torres pulse rate 54 /min Olaf oscar oxygen saturation, oximetry 96 % Olaf Brian respiratory rate E&M 16 /min Mercedez Torres blood pressure, diastolic 67 mm[Hg] Me lyndon Burkett blood pressure, systolic 146 mm[Hg] Sharyn Burkett pulse rate 64 /min Shannan Burkett oxygen saturation, oximetry 96 % Shannan Burkett respiratory rate E&M 14 /min Shannan Burkett Body Mass Index (Ratio) 32.92 kg/m2 Deepa Burkett weight E&M 163 [lb_av] Shannan Burkett blood pressure, diastolic 99 mm[Hg] Adeline Torres blood pressure, systolic 155 mm[Hg] Goldie Torres pulse rate 104 /min Olaf Javier kittyjeremi oxygen saturation, oximetry 98 % Olaf Torres respiratory rate E&M 16 /min Mercedez Torres Body Mass Index (Ratio) 31.26 kg/m2 Caryl Torres weight E&M 154.8 [lb_av] Olaf hunterjeremi height E&M 59 [in_i] Olaf Javier nson blood pressure, diastolic 88 mm[Hg] Zeinab seph [...] LinkLogic 3.5-5.2 sodium, serum 143 mmol/L LinkLogic [id number] 0/15 urea nitrogen/creatinin e ratio, serum 12 [...] RN 05/26 international normalized ratio (INR) 1.4 Jluis [place] Normal 05/26 prothrombin time (patient) 16.4 s Jluis [place] 04/10 coagulation managed by Levar Alva RN 04/10 international normalized ratio (INR) 1.9 Kaycee Almendarez Normal 04/10 prothrombin time (patient) 22.5 s Kaycee Almendarez 04/03 coagulation managed by Levar Alva RN 04/03 international normalized ratio (INR) 3.1 [place] Normal 04/03 prothrombin time (patient) 37.0 s [place] 03/28 coagulation managed by Levar Alva RN 03/28 international normalized ratio (INR) 4.2 Kaycee Almendarez Normal 03/28 prothrombin time (patient) 50.6 s Kaycee Almendarez 03/21 coagulation managed by Levar Alva RN 03/21 international normalized ratio (INR) 4.7 Jluis [place] Normal 03/21 prothrombin time (patient) 55.9 s [place] 03/14 coagulation managed by Candace Apodaca 03/14 international normalized ratio (INR) 3.3 Kaycee Almendarez Normal 03/14 prothrombin time (patient) 39.3 s Kaycee Almendarez 03/07 coagulation managed by Levar Alva RN 03/07 international normalized ratio (INR) 1.2 Olaf Torres Normal 03/07 prothrombin time (patient) 14.2 s Olaf Torres 02/05 coagulation managed by Levar Alva RN 02/05 international normalized ratio (INR) 2.7 Ruthy Javier Normal 02/05 prothrombin time (patient) 32.9 s Ruthy Javier 01/06 coagulation managed by Levar Alva RN 01/06 international normalized ratio (INR) 2.7 Kaycee Almendarez Normal 01/06 prothrombin time (patient) 32.5 s Kaycee Almendarez 12/03 coagulation managed by Levar Alva RN 12/03 international normalized ratio (INR) 2.6 Kenia Negrete Normal 12/03 prothrombin time (patient) 31.6 s Kenia Mathiaspardeeper 11/19 coagulation managed by Levar Alva RN [...]
--- OUTSIDE RECORDS SUMMARY | 2025-03-28 16:48 | XMS_ITS ---
Author Organization [facility] Address [address] [place] [address] Care Team Providers Care Library Clerical Assistant Name Role Phone Prince Mckeon Unavailable [phone] MEDICATIONS Medication SIG (Take, Route, Fr equency, Duration) Notes Start Date End Date Status Furosemide 40 MG 1 tablet Orally twic e a day for 90 days 02/12/2025 11/08/2025 Active Encounters Encounter Location Date Provider Diagnosis [facility] [place] [facility] [address] [place] [address] 02/12/2025 Prince Mckeon PLAN OF TREATMENT Medication Medication Name Sig Start Date Stop Date Notes Furosemide 40 MG 1 tablet Orally twice a day for 90 days 0 02/12/2025 11/08/2025 Next Appt Details Provider Name:Prince Mckeon , 04/15/2025 02:45:00 PM, [address] [facility], [facility] [address], [address], Progress Notes * KITTY RAYMUNDOHDOB: [birth year] (74 yo F)Acc No.[id number]:02/12/2025 Patient: CHRISTOPHER RAYMUNDO :1950 Age:74 Y Sex:Female Address:[address] [place] [address], [id number] * Refills Start Furosemide Tablet, 40 MG, Orally, 180 Tablet, 1 tablet, twice a day, 90 days, Refills=2 * * Date:
--- OUTSIDE RECORDS SUMMARY | 2025-03-28 16:48 | XMS_ITS | Patient Health Record ---
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 Operator Name Role Phone Brenna BENITES, Dewayne Primary Care Provider Un available Kaela Marmolejo Unavailable [phone] Migration, Provider Unavailable Unavailable Allergies Allergen (clinical [...] 24HR ER 180 mg Oral *Reorder from [facility] for eRx and Interaction Alerts* 01/24/2024 [...] Propionate Diskus 50 MCG/ACT Inhalation *Reorder from [facility] for eRx and Interaction Alerts* 01/24/2024 Active Loratadine 10 MG Oral 01/24/2024 Ac tive glipiZIDE ER 5 MG Oral 01/24/2024 A ctive Ergocalciferol 1.25 MG (52456 UT) Oral 01/24/2024 Active Albuterol Sulfate (2.5 [...] Vaccine Route Administration Date Status Comme nts Zoster Unknown 10/03/2020 Administered Zoster Unknown 12/31/2020 Administered Td (adult), adsorbed Unknown 04/26/2015 Administered RSV-MAb (Respiratory syncyti al virus immune globulin) Unknown 08/13/2023 Administered Pneumococcal polysaccharide PPV23 Unknown 08/22/2019 Ad ministered Pneumococcal conjugate PCV 7 Unknown 11/12/2016 Adminis tered Pneumococcal conjugate PCV 13 Unknown 09/27/2016 Admini stered [place] Covid-19 Vac cine 1st dose Unknown 09/12/2023 Administered Moderna Covid-19 Vaccine 2nd dose Unknown 09/11/2022 Ad ministered Moderna Covid-19 Vaccine 1st dose Unknown 01/21/2021 Ad ministered Moderna Covid-19 Vaccine 1st dose Unknown 02/18/2021 Ad ministered Moderna Covid-19 Vaccine 1st dose Unknown 10/19/2021 Ad ministered Influenza, unspecified formulation Unknown 08/13/2023 A dministered Influenza, seasonal, injecta ble, preservative free, 3 yrs and above Unknown 09/05/2013 Administered Influenza, high dose seasonal Unknown 09/27/2016 Admini stered Influenza, high dose seasonal Unknown 08/11/2017 Admini stered Influenza, high dose seasonal Unknown 08/22/2019 Admini stered Influenza, high dose seasonal Unknown 07/28/2020 Admini stered Influenza virus vaccine, quadrivalent (IIV4), split virus, 0.25 mL dosage Unknown 09/12/2018 Administered Influenza virus vaccine, quadrivalent (IIV4), split virus, 0.25 mL dosage Unknown 08/12/2019 Administered Social History Sex Assigned At : Social History Observation Description Sex Assigned At Female Problems Problem Type SNOMED Code ICD Code Onset Dates Problem Status W/U Status Risk Notes Problem Mild recurrent major depression (90616106) Major depressive disorder, recurrent, mild (F33.0) 4 Active confirmed Problem Generalized anxiety disorder (89178853) Generalized anxiety disorder (F41.1) 4 Active confirmed Problem Primary insomnia (3775221) Primary insomnia (F51.01) 4 Active confirmed Problem Long-term current use of drug therapy (919068675) Other long-term (current) drug therapy (Z79.899) 4 Active confirmed Vital Signs Heart Rate 111 /min 07/22/2024 Height-cm 152.40 cm 01/15/2025 Blood pressure diastolic 70 mm Hg 07/22/2024 Weight-kg 68.77 kg 01/15/2025 Height 60.00 in 01/15/2025 Blood pressure systolic 133 mm Hg 07/22/2024 Weight 151.6 lbs 01/15/2025 BMI 29.6 kg/m2 01/15/2025 Encounters Encounter Location Date Provider Diagnosis [facility] [address] [address] 07/22/2024 Kaela Marmolejo Major depressive disorder, recurrent, mild F33.0 ; Generalized anxiety disorder F41.1 ; Primary insomnia F51.01 and 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 Z79.899 [facility] [address] [address] 01/15/2025 Kaela Marmolejo Major depressive disorder, recurrent, mild F33.0 ; Generalized anxiety disorder F41.1 ; Primary insomnia F51.01 and 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 Z79.899 [facility] [address] [facility] [address] [place] [address] 03/29/2024 Provider Migration [facility] [address] [facility] [address] [place] [address] 03/30/2024 Provider Migration Assessments Encounter Date Diagnosis (ICD Code) Assessment Notes Treatment Notes Treatment Clinical Notes Section Notes 07/22/2024 Major depressive disorder, recurrent, mild (ICD-10 [...] disorder -Buspar 10 mg three times day 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 hx anemia 01/15/2025 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 (ICD-10 - Z79.899) 1. 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 depression -Zoloft [...] - Buspar 10 mg three times day employee health nurse prescribes Alprazolam Discussed and educated pt regarding [...] Of Treatment Next Appt Details Provider Name:Kaela Marmolejo , 07/16/2025 01:00:00 PM, [address], [address], [place], [address], Insurance Providers Payer Name Payer Address Payer Phone Subscriber Number Group Number Insured Name Patient Relationship to Insured Coverage Start Date Coverage End Date Medicare-I l Medicare [address] [place] [address] [id number] CHRISTOPHER RAYMUNDO Self - patient is the insured [employer] Pos [address] [place] [address] [id number] CHRISTOPHER RAYMUNDO Self - patient is the insured Medical (General) History Medical History History ICD Code Problems: Generalized anxiety disorder Long-term drug therapy Mild recurrent major depression Primary insomnia Recurrent major depressive episodes, mod erate , osteoporosis Surgical History Surgery Date(Month/Year) Gastric bypass for obesity (00308) Hysterectomy/revise vagina (01364) Tonsilectomy/adenoids 11/12/1954 Hysterectomy (60957) 11/12/1977
--- OUTSIDE RECORDS SUMMARY | 2025-03-28 16:48 | XMS_ITS | Clinical Summary ---
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
--- OUTSIDE RECORDS SUMMARY | 2025-03-28 16:49 | XMS_ITS | Data Portability ---
Author Organization [facility] Address [address] [place] [address] Care Team Providers Care Phlebotomy Manager Name Role Phone ZURDO WEBB Primary Care Provider [phone] Assessment No assessment recorded. Plan of Treatment Reminders Order Date Submit Date Provider Last Modified By Organization Details Last Modified Time Details Appointments None recorded. Lab None recorded. Referral None recorded. Procedures None recorded. Surgeries None recorded. Imaging None recorded. Medication Orders triamcinolo ne acetonide 0.5 % topical cream 2022 023 [facility]acy #[id number], [address] , [place], [address], 3 11:36:38 Patient TargetsNo targets recorded. Patient InstructionsNo instructions recorded. Reason for Referral None Reported. Results Created Date Observation Date Name Description Value Unit Range Abnormal Flag Note LastModifiedBy Organization Detail LastModifiedTime 04/26/20 23 04/26/2023 [facility]GI [facility] PATHO LOGY surgical pathology SEE RESULT S BELOW CASE REPOR T: Surgi isiah Patho logy Repor t Case: [id number] Autho mahsa g Provi raya: Catracho Orozco MD Colle cted: 04/26 1545 Order ing Locat ion: [place] [facility] Recei simon: 04/27 0141 Patho logis t: Pat Head MD Speci men: Vulva , Vulva r lesio n FINAL DIAGN OSIS: Skin, vulva , excis ion: -Infl stanton sebor rheic kerat osis, compl etely excis ed. Elect serena jhaveriroman ivan by Pat Head MD on 2022 at 2:34 PM ----- ----- ----- ----- ----- ----- ----- ----- ----- ----- ----- ----- ----- ----- ----- ----- ----- ---- CLINI ISIAH INFOR MATIO N: n90.8 9 MICRO SCOPI C DESCR IPTIO N: A micro scopi c exami natio n was perfo rmed. GROSS DESCR IPTIO N: A. Vulva . The speci men is label ed with the patie nt's name, demog raphi cs and vulv ar lesio n . [...] Gross ed by Caden dempsey Not Available [facility] (Lab) [address], [place], [address], 04/27/2023 15:38:59 Result Notes None recorded. Problems Name Problem SNOMED Code Status Onset Date Resolution Date Notes Provider Name and Address Organization Details Recorded Time Abnormal cervical Papanicol aou smear 101332276 Active 2012 Other abnormal papanicola ou smear of cervix and cervical HPV;Record ed Elsewhere: No Locatio n: [facility] rce: EHR Chroni c: N Practice ID: 0001 Billa ble Time: 04:00:00 PM Not Available [facility] 0 17:41:42 Dyspareun ia 46394199 Active 2012 Dyspareuni a;Recorded Elsewhere: No Locatio n: [facility] rce: EHR Chroni c: N Practice ID: 0001 Billa ble Time: 09:30:00 AM Not Available [facility] 0 17:41:42 Hypertens ayan disorder 39742490 Active 2016 Hypertensi on;Recorde d Elsewhere: No Locatio n: [facility] Kori rce: EHR Chroni c: N Practice ID: 0001 Billa ble Time: 11:30:00 AM Not Available [facility] 0 17:41:42 Problem Notes None recorded. Procedures Surgical History Date Name Laterality Status Provider Name and Address Organization Details Recorded Time 04/26/20 23 Excision and closure completed Christopher Orozco MD [address], [place], [address], [facility] 04/26/2023 11:32:59 07/31/20 17 Date of Last Pap Smear completed Makenna Tatum [facility] 04/16/2023 11:23:39 01/03/20 16 Colposcopy completed Marybel Harvey [facility] 05/03/2023 18:12:52 04/17/20 13 Colposcopy completed Marybel Harvey [facility] 05/03/2023 18:12:44 11/12/19 05 Gastric Bypass completed Marybelvivek Harvey [facility] 05/03/2023 18:15:18 11/12/19 01 Gastric bypass for obesity completed Marybel Harvey [facility] 05/03/2023 17:48:07 11/12/18 87 procedure on neck completed Marybelvivek Harvey [facility] 05/03/2023 18:14:12 11/12/18 83 closure of colostomy completed Marybelvivek Harvey [facility] 05/03/2023 18:13:58 11/12/18 82 hysterectomy completed [facility] 05/03/2023 17:48:14 11/12/18 82 colostomy completed [facility] 05/03/2023 18:13:33 11/12/18 78 section completed [facility] 05/03/2023 18:13:10 11/12/18 75 section completed [facility] 05/03/2023 18:13:13 cardiac pacemaker procedure completed [facility] 05/03/2023 18:23:56 Imaging Results None recorded. Procedure Notes None recorded. Medical Equipment None Reported. Allergies Allergen ID Allergen Name Allergen Category Reaction Reaction Severity Criticality Documentation Date Start Date Code Code System Note Provider Name and Address Organization Details Recorded Time adhesive tape environme nt,medica tion Not available Not available Not available 04/16/2023 [id number] UNK Makenna raphael, [facility] 3 10:46:11 Medications Name Sig Start [...] ion: Helen carpenter [facility] odify By: kelly sierra DateTime : 03/12/20 13 01:15:00 PM Not [...] Prescrib ed Elsewher e: Yes Loca tion: [facility] odify By: amlatanya [address] ncounter DateTime [...] Prescrib ed Elsewher e: Yes Loca tion: [facility] odify By: sigifredo [address] ncounter DateTime : 07/31/20 17 11:30:00 [...] Prescrib ed Elsewher e: No Locat ion: [facility] odify By: amlatanya neffuntseble DateTime : 03/12/20 13 01:15:00 PM Not Available Not Available Not Available buspirone 10 mg tablet TAKE 1 TABLET BY MOUTH THREE TIMES A DAY WITH MEALS active Not Available Not Available No t Available flecainid e 50 mg tablet take 1 tablet by oral route every 12 hours 05/03 completed Prescrib ed Elsewher e: Yes Loca tion: [facility] odify By: sigifredo neffuntseble DateTime : 07/31/20 17 11:30:00 AM Not [...] Prescrib ed Elsewher e: Yes Loca tion: [facility] odify By: cora gutierrez DateTime : [...] Prescrib ed Elsewher e: No Locat ion: [facility] odify By: darleneppjeana Fisher ter DateTime : 03/12/20 13 01:15:00 PM Not [...] Prescrib ed Elsewher e: No [facility] By: sigifredo [address] ncounter DateTime : 04/10/20 13 05:45:00 PM Not Available Not Available Not Available Wellbutri n XL 300 mg 24 hr tablet, extended release take 1 tablet (300MG) by oral route every day 2012 active Prescrib ed Elsewher e: No [facility] By: kelly Varghese unter DateTime : 03/12/20 13 01:15:00 PM Not Available Not Available Not Available Nifediac CC 60 mg tablet,ex tended release take 1 tablet (60MG) by oral route every day 01/03 completed Prescrib ed Elsewher e: No Locat ion: Helen carpenter [facility] odify By: sigifredo [address] ncounter DateTime : 03/12/20 13 01:15:00 PM Not Available Not Available Not Available metoprolo l tartrate 25 mg tablet take 1 tablet by oral route 2 times every day 05/03 completed Prescrib ed Elsewher e: Yes Loca tion: [facility] odify By: amlatanya [address] ncounter DateTime : 12/20/19 16 09:00:00 AM Not [...] ed Elsewher e: Yes Loca tion: Helen pauline [facility] odify By: sigifredo figueroa DateTime : 01/03/20 16 08:30:00 AM Not Available Not Available Not Available Keflex 750 mg capsule take 1 capsule (750MG) by oral route 2 times every day 07/31 completed Prescrib ed Elsewher e: No Locat ion: [facility] odify By: sigifredo figueroa DateTime : 03/18/20 13 09:30:00 AM Not Available Not Available Not Available Eliquis 5 mg tablet take 1 tablet by oral route 2 times every day 05/03 completed Prescrib ed Elsewher e: Yes Loca tion: [facility] odify By: sigifredo figueroa DateTime : 12/20/19 16 09:00:00 AM Not Available Not Available Not Available Eliquis 2.5 mg tablet TAKE 1 TABLET BY MOUTH TWICE A DAY active Not Available Not Available No t Available Osphena 60 mg tablet take 1 tablet by oral route every day with food 07/31 completed Prescrib ed Elsewher e: No Locat ion: [facility] odify By: sigifredo figueroa DateTime : 03/13/20 16 01:30:41 PM Not Available Not Available Not Available [employer] COVID-19 Ag Self Test kit USE DIRECTED 04/16 completed Not Available Not Available Not Available Vitals Date Recorded Body height Body mass index (BMI) Body weight Systolic blood pressure Diastolic blood pressure Provider Name and Address Organization Details Last Updated DateTime 04/16/2023 149.86 cm 32.2 kg/m2 32296.34 g 131 mm[Hg] 84 mm[Hg] Makenna Tatum [facility] 10:45:49 Date Recorded Body height Body mass index (BMI) Body weight Systolic blood pressure Diastolic blood pressure Provider Name and Address Organization Details Last Updated DateTime 04/26/2023 149.86 cm 32.3 kg/m2 97630.78 g 130 mm[Hg] 78 mm[Hg] Pia Lopez [facility] 3 10:20:16 Date Recorded Body height Body mass index (BMI) Body weight Systolic blood pressure Diastolic blood pressure Provider Name and Address Organization Details Last Updated DateTime 05/03/2023 149.86 cm 32.7 kg/m2 43535.96 g 112 mm[Hg] 74 mm[Hg] Marybel Harvey [facility] 3 17:39:58 Social History Question Answer Notes LastModified by Organizat ion Details LastModified Time Tobacco Smoking Status Never Smoker Makenna Tatum null, [facility] 04/16/2023 10:57:02 Are You Blind Or Do You Have Difficulty Seeing? No Information n ot available 04/16/2023 What Is Your Level Of Caffeine Consumption? Occasional [email or web address] Information not available 05/03/2023 In The 14 Days Before Symptom Onset, Have You Had Close Contact With A Laboratory-confirm ed COVID-19 While That Case Was Ill? No [email or web address] Information n ot available 05/03/2023 In The 14 Days Before Symptom Onset, Have You Had Close Contact With A Person Who Is Under Investigation For COVID-19 While That Person Was Ill? No [email or web address] Information not available 05/03/2023 Have You Been To An Area Known To Be High Risk For COVID-19? No [email or web address] Information not available 05/03/2023 Are You Deaf Or Do You Have Serious Difficulty Hearing? No Information not available 04/16/2023 What Type Of Diet Are You Following? REGULAR Information n ot available 05/03/2023 Have You Ever Been Counseled For Unhealthy Alcohol Use? No [email or web address] Information not available 05/03/2023 Do You Use Your Seat Belt Or Car Seat Routinely? Yes [email or web address] Information not available 05/03/2023 Do You Have Smoke And Carbon Monoxide Detectors In Your Home? Yes [email or web address] Information not available 05/03/2023 Do You Use Sunscreen Routinely? Yes [email or web address] Information not available 05/03/2023 Has Tobacco Cessation Counseling Been Provided? No [email or web address] Information not available 05/03/2023 Do You Have Difficulty Walking Or Climbing Stairs? No Information not available 04/16/2023 Sex: Unknown Functional Status Question Answer Note LastModified by Organizat ion Details LastModified Time Do you use any illicit or recreational drugs? No [email or web address] Information not available 05/03/2023 Do you or have you ever used any other forms of tobacco or nicotine? No [email or web address] Information not available 05/03/2023 What is your level of alcohol consumption? Occasional Information not available 04/16/2023 Are you able to walk? YESWOREST Information not available 04/16/2023 Are you able to care for yourself? Yes Information n ot available 04/16/2023 Do you have difficulty dressing or bathing? No Information not available 04/16/2023 What is your exercise level? Occasional [email or web address] Information not available 05/03/2023 Mental Status Question Answer Note LastModified by Organization D etails LastModified Time Do you feel stressed (tense, restless, nervous, or anxious, or unable to sleep at night)? [id number] [email or web address] Information not available 05/03/2023 Family History Relationship Description Onset Age of this Age Resolved Age Notes LastModified by Organization Details LastModified Time Father Heart disease [email or web address] Not available 05/03 18:10:46 Father Hypertensive disorder [email or web address] Not available 05/03 18:11:15 Father Chronic hepatitis [email or web address] Not available 05/03 18:12:00 Father Malignant neoplasm of prostate [email or web address] Not available 05/03 18:12:18 Mother Heart disease [email or web address] Not available 05/03 18:10:46 Mother Hypertensive disorder [email or web address] Not available 05/03 18:11:15 Mother Malignant neoplasm of lung [email or web address] Not available 05/03 18:11:35 Sister Hypertensive disorder [email or web address] Not available 05/03 18:11:15 Brother Malignant neoplasm of lung [email or web address] Not available 05/03 18:11:35 Medical History Condition [...] Disorder Y Autoimmune disease N Arthritis N Polyps N Infertility N History of abnormal pap Y Acid Reflux (GERD) Y Cancer N Varicosities N Stroke N Neurologic/Epilepsy N Endometriosis N High Cholesterol Y Fibromyalgia N Headaches N Kidney Disease Y Heart Problems Y [...] SNOMED-CT Code Diagnosis ICD10 Code Diagnosis Note [id number] Niecy KATHERIN Coughlin [place] [address] [address] 04/16/2023 10:08:20 04/16/2023 12:03:28 Lesion of vulva 534919349 N90.89 Reviewed patient hx and hx of vulvar lesion (see HPI)recomm ended consult for further evaluation and to discuss removal/bi opsy optionsMD consult scheduled with Dr. Des michelle discussed Time spent in visit is a total of 30 mins with at least 50% of visit consisting of counseling and review of plan of care. [id number] Christopher Orozco MD [place] [address] [address] 04/26/2023 10:05:12 04/26/2023 12:43:15 Pruritus of vulva 39727661 L29.2 Lesion of vulva 97825681 6 N90.89 excision of vulvar lesion was performed. Simple closure of 4 cm was completed. She is prescribed topical steroid for vulvar pruritus. We will investigat e more future visit. There is some hypopigmen tation to areas of the vulva. Symptoms are only present for limited time. Lichen sclerosis is possible. [id number] Christopher Orozco MD [place] [address] [address] 05/03/2023 17:19:46 05/04/2023 14:04:38 Pruritus of vulva 49849564 L29.2 73-year-ol d female presents for follow-up [...] 50% was cou counseling Lesion of vulva 44211754 6 N90.89 Health Concerns Section Related Observation LastModified by Organization Detai ls LastModified Time None Recorded Concern Status LastModified by Organization Details LastModified Time None Recorded Advance Directives Directive None Recorded Payers Encounter Date Sequence Insurance Name Policy Number Policy Batista Covered Member ID Batista Member ID Guarantor Name 04/16/2023 2 [employer] (MEDICARE SUPPLEMENT) Brissa A Dorste [id number] Brissa A Dorste 04/16/2023 1 [place] Brissa A Dorste [id number] Brissa A Dorste 04/26/2023 2 [employer] (MEDICARE SUPPLEMENT) Brissa A Dorste [id number] Brissa A Dorste 04/26/2023 1 [place] Brissa A Dorste [id number] Brissa A Dorste 05/03/2023 2 [employer] (MEDICARE SUPPLEMENT) Brissa A Dorste [id number] Brissa A Dorste 05/03/2023 1 [place] Brissa Rizo [id number] 2 Brissa Rizo Notes Date Note Type Note Provider Name and Address Organization Details Recorded Time 04/16/2023 text/html 72yo [id number] in 1979 for non-cancerous indications per patientBSO [...] symptomsdenies any pelvic pain KATHERIN Hawk [address], [place], [address], [facility] 04/16/2023 11:54:55 04/26/2023 text/html patient presents for vulvar irritation and vulvar lesion. Christopher Orozco MD [address], [place], [address], [facility] 04/26/2023 11:39:13 05/03/2023 text/html 73-year-old fema [...] and intact. Seborrheic keratosis, spent 20 minutes [id number]. More than more than 50% was cou counseling Christopher Orozco MD [address], [place], [address], [facility] 05/03/2023 23:00:59 OBGyn Episode Ob Episode Information Episode Created Date Number of Fetuses Patient Bloodtype Patient rh Status Prepregnancy Weight lbs Domestic Partner Domestic Partner Phone Father Name Drying Room Operator Status 04/16/20 23 1 CLOSED Fetus Data First Name Last [...] Domestic Partner Domestic Partner Phone Father Name Drying Room Operator Status 04/16/20 23 1 CLOSED Fetus Data First Name Last [...] Date Delivery Type Labor Anesthesia Weeks Gestation [id number]|2025-03-28 16:49:00|2025-03-28 02:25:00|XMS_ITS|BKG DAEMON|External Medical Summaries|[id number]|" Patient Health Record Created on: March 28, 2025 BRISSA RIZO : 1950 Sex: Female Author Organization [facility] Address [address] [place] [address] Care Team Providers Care Phlebotomy Manager Name Role Phone Prince Mckeon Unavailable [phone] REASON FOR REFERRAL No Information MEDICATIONS Medication [...] 11/08/2025 Active Vitamin D (Ergocalciferol) 1.25 MG (02511 UT) TAKE 1 CAPSULE BY MOUTH EVERY [...] elsewhere classified (E21.1) Active confirmed Secondary hyperparathyroidism (18552999) Problem Hypercalcemia (E83.52) Active confirmed Hypercalcemia (48921374) Problem Essential (primary) hypertension (I10) Active confirmed Essential hypertension (54589273) Problem Heart failure, unspecified (I50.9) Active confirmed Heart failure (37649285) Problem Renal osteodystrophy (N25.0) Active confirmed Renal osteodyst rophy (97132341) Problem Edema, unspecified (R60.9) Active confirmed Edema (17645240) Problem Other microscopic hematuria (R31.29) Active confirmed Microscopic hem aturia (110450196) Problem Chronic kidney disease, stage 3b (N18.32) Active confirmed Chronic kidney disease stage 3B (disorder) (641815164) Problem CAD (coronary artery disease) (I25.10) Active confirmed Coronary artery disease (19541807) Encounters Encounter Location Date Provider Diagnosis [facility] [address] [facility] [address] [place] [address] 04/30/2024 Prince Mckeon Chronic kidney disea se, stage 4 (severe) N18.4 ; Essential (primary) hypertension I10 ; Other microscopic hematuria R31.29 ; Renal osteodystrophy N25.0 ; Secondary hyperparathyroidism, not elsewhere classified E21.1 and Heart failure, unspecified I50.9 [facility] [address] [address] 08/13/2024 Prince Mckeon Chronic kidney disea se, stage 3b N18.32 ; Essential (primary) hypertension I10 ; Renal osteodystrophy N25.0 ; Other microscopic hematuria R31.29 ; Secondary hyperparathyroidism, not elsewhere classified E21.1 and Heart failure, unspecified I50.9 [facility] [address] [place] [address] 12/03/2024 Prince Mckeon Chronic kidney disea se, stage 4 (severe) N18.4 ; Essential (primary) hypertension I10 ; Other microscopic hematuria R31.29 ; Renal osteodystrophy N25.0 ; Secondary hyperparathyroidism, not elsewhere classified E21.1 ; Heart failure, unspecified I50.9 and Chronic kidney disease, stage 3b N18.32 [facility] [address] [place] [address] 12/17/2024 Prince [facility] [address] [place] [address] 12/26/2024 Prince Mckeon Chronic kidney disea se, stage 3b N18.32 ; Essential (primary) hypertension I10 ; Other microscopic hematuria R31.29 ; Renal osteodystrophy N25.0 ; Secondary hyperparathyroidism, not elsewhere classified E21.1 ; Heart failure, unspecified I50.9 ; CAD (coronary artery disease) I25.10 and Edema, unspecified R60.9 [facility] [address] [place] [address] 12/31/2024 Prince Mckeon [facility] [place] [facility] [address] [place] [address] 02/04/2025 Prince Mckeon Chronic kidney disea se, stage 3b N18.32 ; Essential (primary) hypertension I10 ; Other microscopic hematuria R31.29 ; Renal osteodystrophy N25.0 ; Secondary hyperparathyroidism, not elsewhere classified E21.1 ; Heart failure, unspecified I50.9 ; CAD (coronary artery disease) I25.10 ; Edema, unspecified R60.9 and Hypercalcemia E83.52 [facility] [address] [place] [address] 02/12/2025 Prince Mckeon [facility] [address] [facility] [address] [place] [address] 04/30/2024 Prince Mckeon ASSESSMENTS Encounter Date Diagnosis [...] 02/04/2025 Essential (primary) hypertension (ICD-10 - I10) 12/26/2024 Essential (primary) hypertension (ICD-10 - I10) 12/03/2024 Essential (primary) hypertension (ICD-10 - I10) 08/13/2024 Essential (primary) hypertension (ICD-10 - I10) 04/30/2024 Essential (primary) hypertension (ICD-10 - I10) 04/30/2024 Other microscopic hematuria (ICD-10 - R31.29) 08/13/2024 Renal osteodystrophy (ICD-10 - N25.0) 12/03/2024 Other microscopic hematuria (ICD-10 - R31.29) 12/26/2024 Other microscopic hematuria (ICD-10 - R31.29) 02/04/2025 Other microscopic hematuria (ICD-10 - R31.29) 02/04/2025 Renal osteodystrophy (ICD-10 - N25.0) 12/03/2024 Renal osteodystrophy (ICD-10 - N25.0) 12/26/2024 Renal osteodystrophy (ICD-10 - N25.0) 08/13/2024 Other microscopic hematuria (ICD-10 - R31.29) 04/30/2024 Renal osteodystrophy (ICD-10 - N25.0) 08/13/2024 Secondary hyperparathyroidism , not elsewhere classified (ICD-10 - E21.1) 04/30/2024 Secondary hyperparathyroidism , not elsewhere classified (ICD-10 - E21.1) 12/03/2024 Secondary hyperparathyroidism , not elsewhere classified (ICD-10 - E21.1) 02/04/2025 Secondary hyperparathyroidism , not elsewhere classified (ICD-10 - E21.1) 12/26/2024 Secondary hyperparathyroidism , not elsewhere classified (ICD-10 - E21.1) 12/26/2024 Heart failure, unspecified (ICD-10 - I50.9) 02/04/2025 Heart failure, unspecified (ICD-10 - I50.9) 12/03/2024 Heart failure, unspecified (ICD-10 - I50.9) 08/13/2024 Heart failure, unspecified (ICD-10 - I50.9) 04/30/2024 Heart failure, unspecified (ICD-10 - I50.9) 12/26/2024 CAD (coronary artery disease) (ICD-10 - I25.10) 12/03/2024 Chronic kidney disease, stage 3b (ICD-10 - N18.32) 02/04/2025 CAD (coronary artery disease) (ICD-10 - I25.10) 02/04/2025 Edema, unspecified (ICD-10 - R60.9) 12/26/2024 Edema, unspecified (ICD-10 - R60.9) 02/04/2025 Hypercalcemia (ICD-10 - E83.52) PLAN OF TREATMENT Next Appt Details Provider Name:Prince Mckeon , 04/15/2025 02:45:00 PM, [address], [place], [address], "
--- OUTSIDE RECORDS SUMMARY | 2025-03-28 16:49 | XMS_ITS | Clinical Summary ---
Author Organization [facility] [employer] Address [address] [address] Care Team Providers Care Reporting Specialist Name Role Phone Clay Harkins MD Unavailable [phone] Prince Mckeon MD Unavailable [phone] Source Comments [facility] [employer],non-owned Affiliates and Associated Physician Practices is amultiple site organization consisting of ambulatory clinics and hospital sitesin [place] and [place]. This disclosure is being madepursuant to the Care Everywhere program and may not contain all information available regarding this patient. Last updated 18.[facility] [employer] Allergies No known active allergies Medications * [...] on file Legal Sex Female 6:29 AM OENOLOGIST Gender Identity Not on file Sexual Orientation [...] age to complete this topic Care Teams Reporting Specialist Relationship Specialty [place] [address] [facility]. [address] [place] [address] PCP - [facility] 09/12/24 Clay Harkins MD Internal Medicine 07/31/11
--- OUTSIDE RECORDS SUMMARY | 2025-03-28 16:49 | XMS_ITS | Clinical Summary ---
Author Organization [facility] Address [address] [place] [address] Care Team Providers Care Power Tool Repairer Name Role Phone Dewayne Ceja MD Primary [...] Comments Blood Pressure 124/76 01/01/2023 1:53 PM INTAKE SPECIALIST Pulse 90 01/01/2023 1:53 PM INTAKE SPECIALIST Temperature 36.6 C (97.8 F) 01/01/2023 1:53 PM INTAKE SPECIALIST Respiratory Rate 16 01/01/2023 1:53 PM INTAKE SPECIALIST Oxygen Saturation 96% 01/01/2023 1:53 PM INTAKE SPECIALIST Inhaled Oxygen Concentration - - Weight 74.7 kg (164 lb 11.2 oz) 01/01/2023 1:53 PM INTAKE SPECIALIST Height 149.9 cm (4' 11 ) 11/30/2022 10: 18 AM INTAKE SPECIALIST Body Mass Index 33.27 11/30/2022 10:18 AM INTAKE SPECIALIST Plan of Treatment Health Maintenance Due Date [...] AND B [employer] MEDICARE SUPPLEMENT Care Teams Power Tool Repairer Relationship Specialty Start Date End Date Dewayne Ceja MD PCP - General Internal Medicine 11/30/22
--- OUTSIDE RECORDS SUMMARY | 2025-03-28 16:49 | XMS_ITS ---
Author Organization [facility] Address [address] [place] [address] Care Team Providers Care Fish Liver Sorter Name Role Phone Prince Mckeon Unavailable [phone] PROBLEMS Problem Type ICD Code Onset Dates Problem Status W/U Status Risk SNOMED Code Notes Problem Hypercalcemia (E83.52) Active confirmed Hypercalcemia (58326865) Encounters Encounter Location Date Provider Diagnosis [facility] [address] [place] [address] 02/04/2025 Prince Mckeon Chronic kidney disea se, [...] Name:Prince Mike , 04/15/2025 02:45:00 PM, [address] [facility], [facility] [address], [place], [address], Progress Notes * KITTY RAYMUNDOHDOB: 0 (74 yo F)Acc No.[id number]:02/04/2025 Progress Notes Patient: CHRISTOPHER RAYMUNDO Provider: MD CHET, F.Rubi.C.P, F.A.S.N. :1950 Age:74 Y Sex:Female Date:02/04/2025 Address:[address] [place], [place] [id number] Subjective: * Chief Complaints: * * Medical [...] Treatment: * Billing Information: * Visit Code: 87698 Office Visit, Est Pt., Level 4. * Procedure Codes: * Sign off status: Pending * Provider: MD CHET, F.Rubi.C.P, F.A.S.N. Date: 02/04/2025
--- NOTE | 2025-03-28 17:00 | PC.NURSE ---
Pt daughter attempted to flush PICC again while waiting and was able to get it to flush. Pt doesn't wish to be seen now.
--- OUTSIDE RECORDS SUMMARY | 2025-03-28 17:17 | XMS_ITS | Referral Summary ---
Author Organization 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
--- OUTSIDE RECORDS SUMMARY | 2025-03-28 17:17 | XMS_ITS | Clinical Summary ---
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 [address] [place] [address] PCP - General 08/28/17
--- OUTSIDE RECORDS SUMMARY | 2025-03-28 17:18 | XMS_ITS | CONTINUITY OF CARE DOCUMENT ---
Author Name arvin, arvin Address Unknown Organization [facility] Address [address] [facility] [facility] [address] [place] [address] Phone [phone] Care Team Providers Care Leasing Machine Tender Name Role Phone Mike BENITES, Michelle Unavailable ZURDO CEJA MD Unavailable [phone] ZURDO CEJA MD Unavailable PROBLEMS Condition Status Date Provider Notes Hypertension active Cynthia Sheikh MD S/P Dual chamber PPM (MRI Sa fe) - Biotronik active Lei Endejan CHEST PAIN--stress nuc meet l 10/2019 active [...] In-person encounter Office Visit Michelle Mckeon MD [facility] - In-person encounter Office Visit Michelle Mckeon MD [facility] - In-person encounter Office Visit Michelle Mckeon MD [facility] - In-person encounter Office Visit Michelle Mckeon MD [facility] - In-person encounter Office Visit Michelle Mckeon MD [facility] - In-person encounter Office Visit Michelle Mckeon MD [facility] - In-person encounter Office Visit Cynthia Sheikh MD [facility] - In-person encounter Office Visit Michelle Mckeon MD [facility] - In-person encounter Office Visit Michelle Mckeon MD [facility] - In-person encounter Office Visit Michelle Mckeon MD [facility] CHEST PAIN--stress n uc normal 10/2019HTN ESSENTIAL--echo ef 60 %, 11/2018 - In-person encounter Office Visit Michelle Mckeon MD [facility] - In-person encounter Office Visit Michelle Mckeon MD [facility] Dizziness - In-person encounter Office Visit Michelle Mckeon MD [facility] - In-person encounter Office Visit Michelle Mckeon MD [facility] - In-person encounter Office Visit Michelle Mckeon MD [facility] - In-person encounter Office Visit Cynthia Sheikh MD [facility] - In-person encounter Office Visit Cynthia Sheikh MD [facility] - In-person encounter Office Visit Cynthia Sheikh MD [facility] - In-person encounter Office Visit Michelle Mckeon MD [facility] Shortness of breath, nml sleep study - In-person encounter Office Visit Naveed Chow MD [facility] - In-person encounter Office Visit Michelle Mckeon MD [facility] - In-person encounter Office Visit Cynthia Sheikh MD [facility] - In-person encounter Office Visit Cynthia Sheikh MD [facility] - In-person encounter Office Visit Michelle Mckeon MD [facility] - In-person encounter Office Visit Michelle Mckeon MD [facility] Family History of CVA or Stroke: - In-person encounter Office Visit Michelle Mckeon MD [facility] - In-person encounter Office Visit Michelle Mckeon MD [facility] - In-person encounter Office Visit Michelle Mckeon MD [facility] - In-person encounter Office Visit Clement Soriano MD [facility] OverweightRF ablation for SVT/AFSVT - In-person encounter Office Visit [facility] Atrial flutter ? typical - In-person encounter Office Visit Michelle Mckeon MD [facility] - In-person encounter Office Visit Michelle Mckeon MD [facility] Atrial fib CHADS score 4 , on EliquisHematuria follows with Dr ErnstRenal disease, chronic, mild Cr 1.7 - In-person encounter Office Visit Michelle Mckeon MD [facility] - In-person encounter Office Visit Michelle Mckeon MD [facility] - In-person encounter Office Visit Michelle Mckeon MD [facility] - In-person encounter Office Visit Michelle Mckeon MD [facility] - In-person encounter Office Visit Michelle Mckeon MD [facility] Atrial fib CHADS score 4 , on Eliquis - In-person encounter Office Visit Michelle Mckeon MD [facility] Atrial fib CHADS score 4 , on Eliquis - In-person encounter Office Visit Michelle Mckeon MD [facility] CHEST PAIN--stress nuc normal 10/2019 - In-person encounter Office Visit Michelle Mckeon MD [facility] - In-person encounter Office Visit Michelle Mckeon MD [facility] Atrial fib CHADS score 4 , on EliquisCVA iin 09 with l leg weaknessShortness of breath, nml sleep study - In-person encounter Office Visit Gopal Cisneros MD [facility] CHEST PAIN--stress nuc normal 10/2019HTN ESSENTIAL--echo [...] kj Delgado blood pressure, systolic 90 mm[Hg] [facility] helzoraida Delgado oxygen saturation, oximetry 95 [...] lder height E&M 59 [in_i] Kenia Paul [facility] Body Mass Index (Ratio) 35.34 kg/m2 Glenroy Mckeon MD blood pressure, cuff size large Ke rri Stewabbisonam blood pressure, diastolic 84 mm[Hg] Ke rri Caden blood pressure, systolic 150 mm[Hg] Chris ri Caden oxygen saturation, oximetry 95 % Kenia Caden respiratory rate E&M 16 /min Kenia Wright timothy pulse rate 118 /min Kenia Paul [facility] weight E&M 175 [lb_av] Kenia Paul [facility] height E&M 59 [in_i] Kenia Paul [facility] Body Mass Index (Ratio) 36.47 kg/m2 Glenroy [...] Nelson respiratory rate E&M 18 /min Delon Nelson weight E&M 170 [lb_av] David ramirezd height [...] Cy junaid Almendarez temperature site temporal Namita [facility] temperature E&M 97.5 [degF] Namita [facility] height E&M 59 [in_i] Kaycee Garrett Body Mass Index (Ratio) 37.16 kg/m2 Glenroy Mckeon MD blood pressure, diastolic 92 mm[Hg] To [facility] blood pressure, systolic 133 mm[Hg] Ton ruiz Henry oxygen saturation, oximetry 93 % [facility] respiratory rate E&M 16 /min [facility] pulse rate 82 /min [facility] weight E&M 184 [lb_av] [facility] height E&M 59 [in_i] [facility] temperature site temporal [facility] temperature E&M 97.7 [degF] Namita [facility] Body Mass Index (Ratio) 38.57 kg/m2 Kobe [...] Block respiratory rate E&M 16 /min [facility] height E&M 59 [in_i] Lisa Block Body Mass Index (Ratio) 37.36 kg/m2 Jord hunter Urrutia pulse rate 65 /min Kaycee Campbel l blood pressure, cuff size regular Cy junaid Almendarez blood pressure, diastolic 71 mm[Hg] Cy ntutrubi Almendarez blood pressure, systolic 110 mm[Hg] Isis dimitrisrubi Almendarez weight E&M 185 [lb_av] Kaycee Campbel l height E&M 59 [in_i] Kaycee Campbel l Body Mass Index (Ratio) 37.36 kg/m2 Rex Chow MD blood pressure, cuff size regular Cy ntyordan Almendarez blood pressure, diastolic 78 mm[Hg] Cy ntuta Almendarez blood pressure, systolic 128 mm[Hg] Isis [...] Henry blood pressure, diastolic 78 mm[Hg] [facility], systolic 148 mm[Hg] Ton [facility] oxygen saturation, oximetry 97 % [facility] weight E&M 191 [lb_av] [facility] height E&M 59 [in_i] [facility] height E&M 59 [in_i] [facility] Body Mass Index (Ratio) 37.16 kg/m2 Jord [...] Mckeon MD respiratory rate E&M 16 /min [facility] blood pressure, diastolic 101 mm[Hg] To [facility] blood pressure, systolic 151 mm[Hg] [facility] pulse rate 97 /min [facility] oxygen saturation, oximetry 97 % [facility] weight E&M 186 [lb_av] [facility] height E&M 59 [in_i] [facility] Body Mass Index (Ratio) 38.37 kg/m2 Glenroy [...] MD blood pressure, diastolic 90 mm[Hg] [facility], systolic 140 mm[Hg] Twan reina [place] oxygen saturation, oximetry 96 % [facility] respiratory rate E&M 16 /min [facility] pulse rate 90 /min Jluis [place] weight E&M 186 [lb_av] Jluis [place] height E&M 59 [in_i] [facility] Body Mass Index (Ratio) 33.73 kg/m2 Glenroy Mckeon MD blood pressure, cuff size regular Ke rri Caden blood pressure, diastolic 80 mm[Hg] Ke rri Gruenenfelder blood pressure, systolic 136 mm[Hg] Chris Negrete oxygen saturation, oximetry 97 % Kenia Negrete respiratory rate E&M 18 /min Kenia agurire pulse rate 71 /min Kenia Miller er [...] Sherine [place] height E&M 59 [in_i] Sherine Shasta Body Mass Index (Ratio) 31.10 kg/m2 Boston Soriano MD blood pressure, diastolic 80 mm[Hg] [facility], systolic 162 mm[Hg] [facility] oxygen saturation, oximetry 95 % [facility] respiratory rate E&M 16 /min [facility] 52 /min [facility] weight E&M 154 [lb_av] [facility] height E&M 59 [in_i] [facility] O'Yong Body Mass Index (Ratio) 31.30 kg/m2 [...] Torres blood pressure, systolic 127 mm[Hg] Goldie Torres oxygen saturation, oximetry 96 % Olaf Torres [...] [employer] 3.5-5.2 sodium, serum 143 mmol/L [employer] [phone] 0/15 urea nitrogen/creatinin e ratio, serum 12 [...] RN 05/26 international normalized ratio (INR) 1.4 [facility] [place] Normal 05/26 prothrombin time (patient) 16.4 s [facility] [place] 04/10 coagulation managed by Levar Alva RN 04/10 international normalized ratio (INR) 1.9 Kaycee Almendarez Normal 04/10 prothrombin time (patient) 22.5 s Kaycee Almendarez 04/03 coagulation managed by Levar Alva RN 04/03 international normalized ratio (INR) 3.1 [facility] [place] Normal 04/03 prothrombin time (patient) 37.0 s [facility] [place] 03/28 coagulation managed by Levar Alva RN 03/28 international normalized ratio (INR) 4.2 Kaycee Almendarez Normal 03/28 prothrombin time (patient) 50.6 s Kaycee Almendarez 03/21 coagulation managed by Levar Alva RN 03/21 international normalized ratio (INR) 4.7 [facility] [place] Normal 03/21 prothrombin time (patient) 55.9 s [facility] [place] 03/14 coagulation managed by Candace Apodaca [...] RN 12/03 international normalized ratio (INR) 2.6 Eknia Caden Normal 12/03 prothrombin time (patient) 31.6 [...] - 4.200 High 05/15 pro brain natriu [id number]|2025-03-28 17:18:00|2025-03-28 17:18:00|XMS_ITS|NOA VOGEL|External Medical Summaries|[id number]|" Clinical Summary Created on: March 28, 2025 Brissa Rizo : 1950 Sex: Female Author Organization [facility] Address [address] [place] [id number] Care Team Providers Care Leasing Machine Tender Name Role Phone Zurdo Ceja MD Primary [...] Comments Blood Pressure 124/76 01/01/2023 1:53 PM PNEUMATIC TOOL REPAIRER Pulse 90 01/01/2023 1:53 PM PNEUMATIC TOOL REPAIRER Temperature 36.6 C (97.8 F) 01/01/2023 1:53 PM PNEUMATIC TOOL REPAIRER Respiratory Rate 16 01/01/2023 1:53 PM PNEUMATIC TOOL REPAIRER Oxygen Saturation 96% 01/01/2023 1:53 PM PNEUMATIC TOOL REPAIRER Inhaled Oxygen Concentration - - Weight 74.7 kg (164 lb 11.2 oz) 01/01/2023 1:53 PM PNEUMATIC TOOL REPAIRER Height 149.9 cm (4' 11 ) 11/30/2022 10: 18 AM PNEUMATIC TOOL REPAIRER Body Mass Index 33.27 11/30/2022 10:18 AM PNEUMATIC TOOL REPAIRER Plan of Treatment Health Maintenance Due Date [...] PART A AND B [employer] MEDICARE SUPPLEMENT [id number] [id number] Care Teams Leasing Machine Tender Relationship Specialty Start Date End Date Zurdo Ceja MD PCP - General Internal Medicine 11/30/22 "
--- OUTSIDE RECORDS SUMMARY | 2025-03-28 17:18 | XMS_ITS | Clinical Summary ---
Author Organization [facility] [employer] Address [address] [place] [address] Care Team Providers Care Producer Assistant Name Role Phone Clay Harkins MD Unavailable [phone] Prince Mckeon MD Unavailable [phone] Source Comments [facility] [employer],non-owned Affiliates and Associated Physician Practices is amultiple site organization consisting of ambulatory clinics and hospital sitesin [place], [place], [place] and [place]. This disclosure is being madepursuant to the Care Everywhere program and may not contain all information available regarding this patient. 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 [place] [address] PCP - [facility] 09/12/24 Clay Harkins MD Internal Medicine 07/31/11
== END 2025-03-28 19:24 | disposition left against medical advice (07) ==
PROVIDERS: PCP Internal Medicine
DX: Z53.21 Procedure and treatment not carried out due to patient leaving prior to being seen by health care provider (principal)
CPT/HCPCS: 99199

== ENCOUNTER 2025-03-30 12:06 | Outpatient (NON) | payer MEDICARE, SELFPAY ==
--- OUTSIDE RECORDS SUMMARY | 2025-03-30 12:13 | XMS_ITS | Referral Summary ---
Author Organization 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
--- OUTSIDE RECORDS SUMMARY | 2025-03-30 12:13 | XMS_ITS | CONTINUITY OF CARE DOCUMENT ---
Author Name arvin, arvin Address Unknown Organization [facility] Address [address] [place] [address] Phone [phone] Care Team Providers Care Rn Hyperbaric Name Role Phone Mike BENITES, Michelle Unavailable [phone] ZURDO WEBB MD Unavailable [phone] ZURDO WEBB MD Unavailable PROBLEMS Condition Status Date Provider [...] In-person encounter Office Visit Michelle Mckeon MD [facility] - In-person encounter Office Visit Michelle Mckeon MD [facility] - In-person encounter Office Visit Michelle Mckeon [facility] - In-person encounter Office Visit Michelle Mckeon MD [facility] - In-person encounter Office Visit Michelle Mckeon MD [facility] - In-person encounter Office Visit Michelle Mckeon MD [facility] - In-person encounter Office Visit Cynthia Sheikh MD [facility] - In-person encounter Office Visit Michelle Mckeon MD [facility] - In-person encounter Office Visit Michelle Mckeon MD [facility] - In-person encounter Office Visit Michelle Mckeon MD [facility] Office CHEST PAIN--stress n uc normal 10/2019HTN ESSENTIAL--echo ef 60 %, 11/2018 - In-person encounter Office Visit Michelle Mckeon MD [facility] - In-person encounter Office Visit Michelle Mckeon MD [facility] Dizziness - In-person encounter Office Visit Michelle Mckeon MD [facility] - In-person encounter Office Visit Michelle Mckeon MD [facility] - In-person encounter Office Visit Michelle Mckeon MD [facility] - In-person encounter Office Visit Cynthia Sheikh MD [facility] - In-person encounter Office Visit Cynthia Sheikh MD [facility] - In-person encounter Office Visit Cynthia Sheikh MD [facility] - In-person encounter Office Visit Michelle Mckeon MD [facility] Shortness of breath, nml sleep study - In-person encounter Office Visit Naveed Chow MD [facility] - In-person encounter Office Visit Michelle Mckeon MD [facility] - In-person encounter Office Visit Cynthia Sheikh MD [facility] - In-person encounter Office Visit Cynthia Sheikh MD [facility] - In-person encounter Office Visit Michelle Mckeon MD [facility] - In-person encounter Office Visit Michelle Mckeon MD [facility] Family History of CVA or Stroke: - In-person encounter Office Visit Michelle Mckeon MD [facility] - In-person encounter Office Visit Michelle Mckeon MD [facility] - In-person encounter Office Visit Michelle Mckeon MD [facility] - In-person encounter Office Visit Clement Soriano MD [facility] OverweightRF ablation for SVT/AFSVT - In-person encounter Office Visit Clement [facility] Atrial flutter ? typical - In-person encounter Office Visit Michelle Mckeon MD [facility] - In-person encounter Office Visit Michelle Mckeon MD [facility] Atrial fib CHADS score 4 , on EliquisHematuria follows with Dr ErnstRenal disease, chronic, mild Cr 1.7 - In-person encounter Office Visit Michelle Mckeon MD [facility] - In-person encounter Office Visit Michelle Mckeon MD [facility] - In-person encounter Office Visit Michelle Mckeon MD [facility] - In-person encounter Office Visit Michelle Mckeon MD [facility] - In-person encounter Office Visit Michelle Mckeon MD [facility] Atrial fib CHADS score 4 , on Eliquis - In-person encounter Office Visit Michelle Mckeon MD [facility] Atrial fib CHADS score 4 , on Eliquis - In-person encounter Office Visit Michelle Mckeon MD [facility] CHEST PAIN--stress nuc normal 10/2019 - In-person encounter Office Visit Michelle Mckeon MD [facility] - In-person encounter Office Visit Michelle Mckeon MD [facility] Atrial fib CHADS score 4 , on EliquisCVA iin 09 with l leg weaknessShortness of breath, nml sleep study - In-person encounter Office Visit Gopal Cisneros MD [facility] CHEST PAIN--stress nuc normal 10/2019HTN ESSENTIAL--echo [...] Li nkLogbrad blood pressure, systolic 90 mm[Hg] Андрей kLogbrad blood pressure, diastolic 60 mm[Hg] Mi kj Delgado blood pressure, systolic 90 mm[Hg] [facility] helzoraida Delgado oxygen saturation, oximetry 95 % Corine Delgado pulse rate 90 /min Corine valdivia weight E&M 170 [lb_av] Corine valdivia respiratory rate E&M 16 /min Saira Delgado blood pressure, cuff size large Terra Delgado height E&M 59 [in_i] Corine valdivia Body Mass Index (Ratio) 34.94 kg/m2 Glenroy Mckeon MD blood pressure, cuff size large Ke rri Caden blood pressure, diastolic 64 mm[Hg] Ke rri Caden blood pressure, systolic 114 mm[Hg] hCris ri Gruenenfelder oxygen saturation, oximetry 95 % [...] lder height E&M 59 [in_i] [facility] Body Mass Index (Ratio) 35.34 kg/m2 Glenroy Mckeon MD blood pressure, cuff size large Ke rri Stewabbisonam blood pressure, diastolic 84 mm[Hg] Ke rri Caden blood pressure, systolic 150 mm[Hg] Chris ri Caden oxygen saturation, oximetry 95 % Kenia Caden respiratory rate E&M 16 /min Kenia Davison timothy pulse rate 118 /min [facility] weight E&M 175 [lb_av] [facility] height E&M 59 [in_i] [facility] Body Mass Index (Ratio) 36.47 kg/m2 Glenroy Mckeon MD blood pressure, diastolic 70 mm[Hg] Leola nkLogbrad blood pressure, systolic 118 mm[Hg] Андрей kLogbrad blood pressure, diastolic 70 mm[Hg] Melanie [...] Mckeon MD pulse rate 60 /min Kaycee eban blood pressure, diastolic 64 mm[Hg] Cy nthirubi Almendarez blood pressure, systolic 141 mm[Hg] Isis lucas Almendarez oxygen saturation, oximetry 94 % Kaycee Almendarez respiratory rate E&M 16 /min Kaycee Almendarez weight E&M 180 [lb_av] Kaycee Garrett blood pressure, cuff size regular Cy junaid Almendarez temperature site temporal Namita [facility] temperature E&M 97.5 [degF] Namita [facility] height E&M 59 [in_i] Kaycee Garrett Body Mass Index (Ratio) 37.16 kg/m2 Glenroy Mckeon MD blood pressure, diastolic 92 mm[Hg] To [facility] blood pressure, systolic 133 mm[Hg] Ton ruiz Henry oxygen saturation, oximetry 93 % [facility] respiratory rate E&M 16 /min [facility] pulse rate 82 /min [facility] weight E&M 184 [lb_av] [facility] height E&M 59 [in_i] [facility] temperature site temporal [facility] temperature E&M 97.7 [degF] Namita [facility] Body Mass Index (Ratio) 38.57 kg/m2 Kobe [...] Lisa Block respiratory rate E&M 16 /min [facility] height E&M 59 [in_i] Lisa Block Body Mass Index (Ratio) 37.36 kg/m2 Jord hunter Urrutia pulse rate 65 /min Kaycee Campbel l blood pressure, cuff size regular Cy junaid Almendarez blood pressure, diastolic 71 mm[Hg] Cy ntksrubi Almendarez blood pressure, systolic 110 mm[Hg] Isis dimitrisrubi Almendarez weight E&M 185 [lb_av] Kaycee Campbel l height E&M 59 [in_i] Kaycee Campbel l Body Mass Index (Ratio) 37.36 kg/m2 Rex Chow MD blood pressure, cuff size regular Cy ntyordan Almendarez blood pressure, diastolic 78 mm[Hg] Cy ntksa Almendarez blood pressure, systolic 128 mm[Hg] Isis [...] Henry blood pressure, diastolic 78 mm[Hg] [facility], systolic 148 mm[Hg] Ton [facility] oxygen saturation, oximetry 97 % [facility] weight E&M 191 [lb_av] [facility] height E&M 59 [in_i] [facility] height E&M 59 [in_i] [facility] Body Mass Index (Ratio) 37.16 kg/m2 Jord [...] Mckeon MD respiratory rate E&M 16 /min [facility] blood pressure, diastolic 101 mm[Hg] To [facility] blood pressure, systolic 151 mm[Hg] Ton [facility] pulse rate 97 /min [facility] oxygen saturation, oximetry 97 % [facility] weight E&M 186 [lb_av] [facility] height E&M 59 [in_i] [facility] Body Mass Index (Ratio) 38.37 kg/m2 [...] MD blood pressure, diastolic 90 mm[Hg] [facility], systolic 140 mm[Hg] Twan reina Max oxygen saturation, oximetry 96 % [facility] respiratory rate E&M 16 /min [facility] pulse rate 90 /min Jluis Madrid weight E&M 186 [lb_av] Jluis [place] height E&M 59 [in_i] [facility] Body Mass Index (Ratio) 33.73 kg/m2 [...] MD blood pressure, diastolic 80 mm[Hg] [facility], systolic 162 mm[Hg] Replaced by [facility] oxygen saturation, oximetry 95 % [facility] respiratory rate E&M 16 /min [facility] 52 /min [facility] weight E&M 154 [lb_av] [facility] height E&M 59 [in_i] [facility] O'Yong Body Mass Index (Ratio) 31.30 [...] Caden respiratory rate E&M 18 /min Kenia Davison josianemoisesanthony pulse rate 96 /min Kenia Bowmanestrella [...] Caden respiratory rate E&M 16 /min Kenia Davison timothy pulse rate 91 /min Ken[facility] Paul [...] Michelle Valdivia blood pressure, diastolic 77 mm[Hg] Melanie Torres blood pressure, systolic 158 mm[Hg] Goldie Torres pulse rate 54 /min Olaf ocsar oxygen saturation, oximetry 96 % Olaf oTrres respiratory rate E&M 16 /min Mercedez Torres [...] LinkLogic 3.5-5.2 sodium, serum 143 mmol/L [employer]Log[employer] [id number] 1763/1 0/15 urea nitrogen/creatinin e ratio, serum 12 [...] RN 05/26 international normalized ratio (INR) 1.4 [facility] [place] Normal 05/26 prothrombin time (patient) 16.4 s [facility] [place] 04/10 coagulation managed by Levar Alva RN 04/10 international normalized ratio (INR) 1.9 Kaycee Almendarez Normal 04/10 prothrombin time (patient) 22.5 s Kaycee Almendarez 04/03 coagulation managed by Levar Alva RN 04/03 international normalized ratio (INR) 3.1 [facility] [place] Normal 04/03 prothrombin time (patient) 37.0 s Ash[facility] [place] 03/28 coagulation managed by Levar Alva RN 03/28 international normalized ratio (INR) 4.2 Kaycee Almendarez Normal 03/28 prothrombin time (patient) 50.6 s Kaycee Almendarez 03/21 coagulation managed by Levar Alva RN 03/21 international normalized ratio (INR) 4.7 [facility] [place] Normal 03/21 prothrombin time (patient) 55.9 s Ash[facility] [place] 03/14 coagulation managed by Candace Apodaca [...] - 4.200 High 05/15 pro brain natriu [id number]|2025-03-30 12:13:00|2025-03-30 12:13:00|XMS_ITS|NOA VOGEL|External Medical Summaries|[id number]|" Data Portability Created on: March 30, 2025 Brissa Rizo .[id number] : 1950 Sex: Female Author Organization [facility] [place] Address [address] [place] [address] Care Team Providers Care Rn Hyperbaric Name Role Phone ZURDO WEBB Primary Care Provider [phone] Assessment No assessment recorded. Plan of Treatment Reminders Order Date Submit Date Provider Last Modified By Organization Details Last Modified Time Details Appointments None recorded. Lab None recorded. Referral None recorded. Procedures None recorded. Surgeries None recorded. Imaging None recorded. Medication Orders triamcinolo ne acetonide 0.5 % topical cream 2022 023 [facility] #[id number], [address], [place], [address], 3 11:36:38 Patient TargetsNo targets recorded. Patient InstructionsNo instructions recorded. Reason for Referral None Reported. Results Created Date Observation Date Name Description Value Unit Range Abnormal Flag Note LastModifiedBy Organization Detail LastModifiedTime 04/26/2004/26/2023 SURGI RUPA PATHO LOGY surgical pathology SEE RESULT S BELOW CASE REPOR T: Surgi rupa Patho logy Repor t Case: [id number] Autho mahsa davison Provi raya: Catracho Orozco MD Colle cted: 04/26 1545 Order ing Locat ion: [place] Path[facility] log[facility] Recei simon: 04/27 0141 Patho logis t: Pat Head MD Speci men: Vulva , Vulva r lesio n FINAL DIAGN OSIS: Skin, vulva , excis ion: -Infl stanton sebor rheic kerat osis, compl etely excis ed. Elect serena valdivia by Pat Head MD on 2022 at [...] ed with the patie nt's name, demog carrie king and vulv ar lesjordan n . Recei simon in forma андрей [...] Gross ed by Caden dempsey Not Available [facility] (Lab) [address], [place], [address], 04/27/2023 15:38:59 Result Notes None recorded. Problems Name Problem SNOMED Code Status Onset Date Resolution Date Notes Provider Name and Address Organization Details Recorded Time Abnormal cervical Papanicol aou smear 169707129 Active 2012 Other abnormal papanicola ou smear of cervix and cervical HPV;Record ed Elsewhere: No Locatio n: [facility] rce: EHR Chroni c: N Practice ID: 0001 Billa ble Time: 04:00:00 PM Not Available [facility] 0 17:41:42 Dyspareun ia 62484485 Active 2012 Dyspareuni a;Recorded Elsewhere: No Locatio n: [facility] rce: EHR Chroni c: N Practice ID: 0001 Billa ble Time: 09:30:00 AM Not Available [facility] 0 17:41:42 Hypertens ayan disorder 85720264 Active 2016 Hypertensi on;Recorde d Elsewhere: No Locatio n: [facility] rce: EHR Chroni c: N Practice ID: 0001 Billa ble Time: 11:30:00 AM Not Available [facility] 0 17:41:42 Problem Notes None recorded. Procedures Surgical History Date Name Laterality Status Provider Name and Address Organization Details Recorded Time 04/26/20 23 Excision and closure completed Christopher Orozco MD [address], [place], [address], [place] [facility] 04/26/2023 11:32:59 07/31/20 17 Date of Last Pap Smear completed Makenna Tatum [facility] 04/16/2023 11:23:39 01/03/20 16 Colposcopy completed [facility] 05/03/2023 18:12:52 04/17/20 13 Colposcopy completed [facility] 05/03/2023 18:12:44 11/12/19 05 Gastric Bypass completed [facility] 05/03/2023 18:15:18 11/12/19 01 Gastric bypass for obesity completed [facility] 05/03/2023 17:48:07 11/12/18 87 procedure on neck completed [facility] 05/03/2023 18:14:12 11/12/18 83 closure of colostomy completed [facility] 05/03/2023 18:13:58 11/12/18 82 hysterectomy completed [facility] 05/03/2023 17:48:14 11/12/18 82 colostomy completed [facility] 05/03/2023 18:13:33 11/12/18 78 section completed [facility] 05/03/2023 18:13:10 11/12/18 75 section completed [facility] 05/03/2023 18:13:13 cardiac pacemaker procedure completed [facility] 05/03/2023 18:23:56 Imaging Results None recorded. Procedure Notes None recorded. Medical Equipment None Reported. Allergies Allergen ID Allergen Name Allergen Category Reaction Reaction Severity Criticality Documentation Date Start Date Code Code System Note Provider Name and Address Organization Details Recorded Time 12295 adhesive tape environme nt,medica tion Not available Not available Not available 04/16/2023 [address] [facility] Makenna Colemanrosaliajosias raphael, [place] - [facility] 3 10:46:11 Medications Name Sig Start [...] Prescrib ed Elsewher e: No Locat ion: [facility] odify By: kelly Varghese unter DateTime : [...] Prescrib ed Elsewher e: Yes Loca tion: [facility] odify By: amkuhl Diana ncounter DateTime : 07/31/20 17 11:30:00 AM [...] Prescrib ed Elsewher e: Yes Loca tion: [facility] odify By: sigifredo figueroa DateTime : 07/31/20 17 11:30:00 AM Not [...] Prescrib ed Elsewher e: No Locat ion: [facility] odify By: sigifredo figueroa DateTime : 03/12/20 13 01:15:00 PM Not Available Not Available Not Available buspirone 10 mg tablet TAKE 1 TABLET BY MOUTH THREE TIMES A DAY WITH MEALS active Not Available Not Available No t Available flecainid e 50 mg tablet take 1 tablet by oral route every 12 hours 05/03 completed Prescrib ed Elsewher e: Yes Loca tion: [facility] odify By: sigifredo figueroa DateTime : 07/31/20 17 11:30:00 AM Not [...] Prescrib ed Elsewher e: Yes [facility] By: cora Fisher ter DateTime : 06/15/20 15 11:30:00 AM Not Available Not Available Not Available doxycycli ne hyclate 100 mg tablet TAKE 1 TABLET BY MOUTH TWICE A DAY FOR 10 DAYS 04/16 completed Not Available Not Available Not Available Ambien 10 mg tablet take 1 tablet (10MG) by oral route every day at bedtime 06/15 completed Prescrib ed Elsewher e: No Locat ion: [facility] odify By: cora Fisher ter DateTime : 03/12/20 13 01:15:00 [...] Prescrib ed Elsewher e: No Locat ion: [facility] odify By: amkuhl E ncounter DateTime : 04/10/20 13 05:45:00 PM Not Available Not Available Not Available Wellbutri n XL 300 mg 24 hr tablet, extended release take 1 tablet (300MG) by oral route every day 2012 active Prescrib ed Elsewher e: No Locat ion: [facility] odify By: [email or web address] dempseyi Enco unter DateTime : 03/12/20 13 01:15:00 PM Not Available Not Available Not Available Nifediac CC 60 mg tablet,ex tended release take 1 tablet (60MG) by oral route every day 01/03 completed Prescrib ed Elsewher e: No Locat ion: [facility] odify By: sigifredo neffuntmarlo DateTime : 03/12/20 13 01:15:00 PM Not Available Not Available Not Available metoprolo l tartrate 25 mg tablet take 1 tablet by oral route 2 times every day 05/03 completed Prescrib ed Elsewher e: Yes Loca tion: [facility] odify By: sigifredo neffuntmarlo DateTime : 12/20/19 16 09:00:00 AM Not [...] ed Elsewher e: Yes Loca tion: [facility] odify By: sigifredo neffuntmarlo DateTime : 01/03/20 16 08:30:00 AM Not Available Not Available Not Available Keflex 750 mg capsule take 1 capsule (750MG) by oral route 2 times every day 07/31 completed Prescrib ed Elsewher e: No Locat ion: [facility] odify By: sigifredo neffuntmarlo DateTime : 03/18/20 13 09:30:00 AM Not Available Not Available Not Available Eliquis 5 mg tablet take 1 tablet by oral route 2 times every day 05/03 completed Prescrib ed Elsewher e: Yes [facility] By: sigifredo neffuntmarlo DateTime : 12/20/19 16 09:00:00 AM Not Available Not Available Not Available Eliquis 2.5 mg tablet TAKE 1 TABLET BY MOUTH TWICE A DAY active Not Available Not Available No t Available Osphena 60 mg tablet take 1 tablet by oral route every day with food 07/31 completed Prescrib ed Elsewher e: No Locat ion: [facility] oddavid By: sigifredo figueroa DateTime : 03/13/20 16 01:30:41 PM Not Available Not Available Not Available BinaxNOW COVID-19 Ag Self Test kit USE DIRECTED 04/16 completed Not Available Not Available Not Available Vitals Date Recorded Body height Body mass index (BMI) Body weight Systolic blood pressure Diastolic blood pressure Provider Name and Address Organization Details Last Updated DateTime 04/16/2023 149.86 cm 32.2 kg/m2 94661.34 g 131 mm[Hg] 84 mm[Hg] Makenna Tatum [facility] 3 10:45:49 Date Recorded Body height Body mass index (BMI) Body weight Systolic blood pressure Diastolic blood pressure Provider Name and Address Organization Details Last Updated DateTime 04/26/2023 149.86 cm 32.3 kg/m2 21927.78 g 130 mm[Hg] 78 mm[Hg] Pia Jessica [facility] 3 10:20:16 Date Recorded Body height Body mass index (BMI) Body weight Systolic blood pressure Diastolic blood pressure Provider Name and Address Organization Details Last Updated DateTime 05/03/2023 149.86 cm 32.7 kg/m2 84176.96 g 112 mm[Hg] 74 mm[Hg] Marybel Harvey [facility] 3 17:39:58 Social History Question Answer Notes LastModified by Organizat ion Details LastModified Time Tobacco Smoking Status Never Smoker Makenna Tatum [facility], [facility] 04/16/2023 10:57:02 Are You Blind Or Do You Have Difficulty Seeing? No Information n ot available 04/16/2023 What Is Your Level Of Caffeine Consumption? Occasional [email or web address] Information not available 05/03/2023 In The 14 Days Before Symptom Onset, Have You Had Close Contact With A Laboratory-confirm ed COVID-19 While That Case Was Ill? No [email or web address] Information n ot available 05/03/2023 In The 14 Days Before Symptom Onset, Have You Had Close Contact With A Person Who Is Under Investigation For COVID-19 While That Person Was Ill? No [email or web address] Information not available 05/03/2023 Have You Been To An Area Known To Be High Risk For COVID-19? No [email or web address] Information not available 05/03/2023 Are You Deaf Or Do You Have Serious Difficulty Hearing? No Information not available 04/16/2023 What Type Of Diet Are You Following? REGULAR [email or web address] Information n ot available 05/03/2023 Have You Ever Been Counseled For Unhealthy Alcohol Use? No [email or web address] Information not available 05/03/2023 Do You Use Your Seat Belt Or Car Seat Routinely? Yes [email or web address] Information not available 05/03/2023 Do You Have Smoke And Carbon Monoxide Detectors In Your Home? Yes [email or web address] Information not available 05/03/2023 Do You Use Sunscreen Routinely? Yes [email or web address] Information not available 05/03/2023 Has Tobacco Cessation Counseling Been Provided? No [email or web address] Information not available 05/03/2023 Do You Have Difficulty Walking Or Climbing Stairs? No Information not available 04/16/2023 Sex: Unknown Functional Status Question Answer Note LastModified by Organizat ion Details LastModified Time Do you use any illicit or recreational drugs? No [email or web address] Information not available 05/03/2023 Do you or have you ever used any other forms of tobacco or nicotine? No [email or web address] Information not available 05/03/2023 What is your level of alcohol consumption? Occasional Information not available 04/16/2023 Are you able to walk? YESWOREST Information not available 04/16/2023 Are you able to care for yourself? Yes Information n ot available 04/16/2023 Do you have difficulty dressing or bathing? No Information not available 04/16/2023 What is your exercise level? Occasional [email or web address] Information not available 05/03/2023 Mental Status Question Answer Note LastModified by Organization D etails LastModified Time Do you feel stressed (tense, restless, nervous, or anxious, or unable to sleep at night)? [id number] [email or web address] Information not available 05/03/2023 Family History Relationship Description Onset Age of this Age Resolved Age Notes LastModified by Organization Details LastModified Time Father Heart disease [email or web address] Not available 05/03 18:10:46 Father Hypertensive disorder [email or web address] Not available 05/03 18:11:15 Father Chronic hepatitis [email or web address] Not available 05/03 18:12:00 Father Malignant neoplasm of prostate [email or web address] Not available 05/03 18:12:18 Mother Heart disease [email or web address] Not available 05/03 18:10:46 Mother Hypertensive disorder [email or web address] Not available 05/03 18:11:15 Mother Malignant neoplasm of lung [email or web address] Not available 05/03 18:11:35 Sister Hypertensive disorder [email or web address] Not available 05/03 18:11:15 Brother Malignant neoplasm of lung [email or web address] Not available 05/03 18:11:35 Medical History Condition Response Allergies (Food, seasonal, environmental ) N Other N Drug/Latex Allergies/Reactions Y Blood Transfusion N Breast Cancer N Dermatologic Disorders N Lung Disease N Defects or Inherited Disease N Breast Problem N Gestational Diabetes N Hematologic disorders N Anesthesia Complications N History of STI Y Deep Vein Thrombosis N Polycystic ovary syndrome N Anxiety Disorder Y Autoimmune disease N Arthritis N Polyps N Infertility N Acid Reflux (GERD) Y History of abnormal pap Y Cancer N Varicosities N Stroke N Neurologic/Epilepsy N Endometriosis N High Cholesterol Y Fibromyalgia N Headaches N Kidney Disease Y Heart Problems Y Thyroid Problems N Kidney or Bladder Problems N GI Problems N Eating Disorder [...] SNOMED-CT Code Diagnosis ICD10 Code Diagnosis Note [id number] KATHERIN Hawk [place] [address],[place] [address] 04/16/2023 10:08:20 04/16/2023 12:03:28 Lesion of vulva 947574928 N90.89 Reviewed patient hx and hx of vulvar lesion (see HPI)recomm ended MD consult for further evaluation and to discuss removal/bi opsy optionsMD consult scheduled with Dr. Des michelle discussed Time spent in visit is a total of 30 mins with at least 50% of visit consisting of counseling and review of plan of care. [id number] Christopher Orozco MD [place] [address],[place] [address] 04/26/2023 10:05:12 04/26/2023 12:43:15 Pruritus of vulva 63048096 L29.2 Lesion of vulva 13919318 6 N90.89 excision of vulvar lesion was performed. Simple closure of 4 cm was completed. She is prescribed topical steroid for vulvar pruritus. We will investigat e more future visit. There is some hypopigmen tation to areas of the vulva. Symptoms are only present for limited time. Lichen sclerosis is possible. [id number] Christopher Orozco MD [place] [address],[place] [address] 05/03/2023 17:19:46 05/04/2023 14:04:38 Pruritus of vulva 40986706 L29.2 73-year-ol d female presents for follow-up [...] 50% was cou counseling Lesion of vulva 33648528 6 N90.89 Health Concerns Section Related Observation LastModified by Organization Detai ls LastModified Time None Recorded Concern Status LastModified by Organization Details LastModified Time None Recorded Advance Directives Directive None Recorded Payers Encounter Date Sequence Insurance Name Policy Number Policy Batista Covered Member ID Batista Member ID Guarantor Name 04/16/2023 2 [employer] (MEDICARE SUPPLEMENT) Brissa A Dorste [id number] Brissa A Dorste 04/16/2023 1 [place] Brissa A Dorste [id number] Brissa A Dorste 04/26/2023 2 [employer]ET[employer] (MEDICARE SUPPLEMENT) Brissa A Dorste [id number] Brissa A Dorste 04/26/2023 1 [place] Brissa A Dorste [id number] Brissa A Dorste 05/03/2023 2 [employer] (MEDICARE SUPPLEMENT) Brissa A Dorste [id number] Brissa A Dorste 05/03/2023 1 [place] Brissa A Dorste [id number] 2 Brissa A Dorste Notes Date Note Type Note Provider Name and Address Organization Details Recorded Time 04/16/2023 text/html 72yo [id number] in 1979 for non-cancerous indications per patientBSO [...] pelvic pain KATHERIN Hawk [address], [place], [address], [place] [facility] 04/16/2023 11:54:55 04/26/2023 text/html patient presents for vulvar irritation and vulvar lesion. Christopher Orozco MD [address], [place], [address], [facility] 04/26/2023 11:39:13 05/03/2023 text/html 73-year-old [...] and intact. Seborrheic keratosis, spent 20 minutes kycn-ko-txon. More than more than 50% was cou counseling Christopher Orozco MD [address], [place], [address], [facility] 05/03/2023 23:00:59 OBGyn Episode Ob Episode Information Episode Created Date Number of Fetuses Patient Bloodtype Patient rh Status Prepregnancy Weight lbs Domestic Partner Domestic Partner Phone Father Name Timber Hand Status 04/16/20 1 CLOSED Fetus Data First [...] Domestic Partner Domestic Partner Phone Father Name Timber Hand Status 04/16/20 1 CLOSED Fetus Data First [...]
--- OUTSIDE RECORDS SUMMARY | 2025-03-30 12:13 | XMS_ITS ---
Author Organization [facility] Address [address] [place] [address] Care Team Providers Care Web Applications Programmer Name Role Phone Prince Mckeon Unavailable [phone] MEDICATIONS Medication SIG (Take, Route, Fr equency, Duration) Notes Start Date End Date Status Furosemide 40 MG 1 tablet Orally twic e a day for 90 days 02/12/2025 11/08/2025 Active Encounters Encounter Location Date Provider Diagnosis [facility] [place] [facility] [address] [place] [address] 02/12/2025 Prince Mckeon PLAN OF TREATMENT Medication Medication Name Sig Start Date Stop Date Notes Furosemide 40 MG 1 tablet Orally twice a day for 90 days 0 02/12/2025 11/08/2025 Next Appt Details Provider Name:Prince Mckeon , 04/15/2025 02:45:00 PM, [address] [facility], [facility] [address], [address], Progress Notes * KITTY RAYMUNDOHDOB: 0 (74 yo F)Acc No.[id number]:02/12/2025 Patient: CHRISTOPHER RAYMUNDO :1950 Age:74 Y Sex:Female Address:[address] [place] [address], [address] * Refills Start Furosemide Tablet, 40 MG, Orally, 180 Tablet, 1 tablet, twice a day, 90 days, Refills=2 * * Date:
--- OUTSIDE RECORDS SUMMARY | 2025-03-30 12:13 | XMS_ITS ---
Author Organization [facility] Address [address] [place] [address] Care Team Providers Care Credit Intern Name Role Phone MikeMarshaPrince Unavailable [phone] Encounters Encounter Location Date Provider Diagnosis [facility] [address] [place] [address] 12/31/2024 Prince Mckeon PLAN OF TREATMENT Next Appt Details Provider Name:Prince Mckeon , 04/15/2025 02:45:00 PM, [address], [facility], Progress Notes * KITTY RAYMUNDOHDOB: 0 (74 yo F)Acc No.[id number]:12/31/2024 Progress Notes Patient: CHRISTOPHER RAYMUNDO Provider: MD CHET, Kellie.Rubi.C.P, F.A.S.N. :1950 Age:74 Y Sex:Female Date:12/31/2024 Address:[address] [place] [address] Subjective: * Chief Complaints: * * Medical History: Objective: Assessment: Plan: * Treatment: * Billing Information: * Visit Code: * Procedure Codes: * Sign off status: Pending * Provider: MD CHET, Kellie.Rubi.C.P, F.A.S.N. Date: 12/31/2024
--- OUTSIDE RECORDS SUMMARY | 2025-03-30 12:13 | XMS_ITS | Patient Health Record ---
Author Organization [facility] Address [address] [place] [address] Care Team Providers Care Software Asset Manager Name Role Phone Brenna BENITES, Dewayne Primary Care Provider Un available Kaela Marmolejo Unavailable [phone] Migration, Provider Unavailable Unavailable Allergies Allergen (clinical [...] 24HR ER 180 mg Oral *Reorder from [facility] for eRx and Interaction Alerts* 01/24/2024 [...] Propionate Diskus 50 MCG/ACT Inhalation *Reorder from [facility] for eRx and Interaction Alerts* 01/24/2024 Active Loratadine 10 MG Oral 01/24/2024 Ac tive glipiZIDE ER 5 MG Oral 01/24/2024 A ctive Ergocalciferol 1.25 MG (44714 UT) Oral 01/24/2024 Active Albuterol Sulfate (2.5 [...] conjugate PCV 13 Unknown 09/27/2016 Admini stered [employer] Covid-19 Vac cine 1st dose Unknown 09/12/2023 [...] Risk Notes Problem Mild recurrent major depression (65771309) Major depressive disorder, recurrent, mild (F33.0) 4 Active confirmed Problem Generalized anxiety disorder (15309171) Generalized anxiety disorder (F41.1) 4 Active confirmed Problem Primary insomnia (0456161) Primary insomnia (F51.01) 4 Active confirmed Problem Long-term current use of drug therapy (174534268) Other alf (current) drug therapy (Z79.899) 4 Active confirmed Vital Signs Heart Rate 111 /min 07/22/2024 Height-cm 152.40 cm 01/15/2025 Blood pressure diastolic 70 mm Hg 07/22/2024 Weight-kg 68.77 kg 01/15/2025 Height 60.00 in 01/15/2025 Blood pressure systolic 133 mm Hg 07/22/2024 Weight 151.6 lbs 01/15/2025 BMI 29.6 kg/m2 01/15/2025 Encounters Encounter Location Date Provider Diagnosis [facility] [address] [address] 07/22/2024 Kaela Marmolejo Major depressive disorder, recurrent, mild F33.0 ; Generalized anxiety disorder F41.1 ; Primary insomnia F51.01 and Other manager long term care (current) drug therapy Z79.899 [facility] [employer] [address] [address] 01/15/2025 Kaela Marmolejo Major depressive disorder, recurrent, mild F33.0 ; Generalized anxiety disorder F41.1 ; Primary insomnia F51.01 and Other alf (current) drug therapy Z79.899 [facility] [employer] [address] [place] [address] 03/30/2024 Provider Migration Assessments Encounter Date Diagnosis [...] disorder -Buspar 10 mg three times day mechanical engineering teacher prescribes Alprazolam Discussed and educated pt regarding [...] disorder -Buspar 10 mg three times day mechanical engineering teacher prescribes Alprazolam Discussed and educated pt regarding [...] - Buspar 10 mg three times day mechanical engineering teacher prescribes Alprazolam Discussed and educated pt regarding [...] - Buspar 10 mg three times day mechanical engineering teacher prescribes Alprazolam Discussed and educated pt regarding [...] disorder -Buspar 10 mg three times day mechanical engineering teacher prescribes Alprazolam Discussed and educated pt regarding [...] kidney specialty labs. hx anemia 07/22/2024 Other manager long term care (current) drug therapy (ICD-10 - Z79.899) 1. [...] disorder -Buspar 10 mg three times day mechanical engineering teacher prescribes Alprazolam Discussed and educated pt regarding [...] - Buspar 10 mg three times day mechanical engineering teacher prescribes Alprazolam Discussed and educated pt regarding [...] - Buspar 10 mg three times day mechanical engineering teacher prescribes Alprazolam Discussed and educated pt regarding [...] or national office of the Alzheimer's Association (6-371-721-561 0; http://www.alz .org), the Alzheimer's Disease Education and Referral Center (ADETX) (9-243-192-042 0; http://www.wes .nih.gov/Alzhe imers/), 1. Mild recurrent [...] disorder -Buspar 10 mg three times day mechanical engineering teacher prescribes Alprazolam Discussed and educated pt regarding [...] or national office of the Alzheimer's Association (6-354-714-084 0; http://www.alz .org), the Alzheimer's Disease Education and Referral Center (ADETX) (2-176-841-198 0; http://www.wes .nih.gov/Alzhe imers/), referral to the local chapter or national office of the Alzheimer's Association (3-309-398-387 0; http://www.alz .org), the Alzheimer's Disease Education and Referral Center (ADEAR) (8-744-101-438 0; http://www.wes .nih.gov/Alzparth chakraborty/), 1. depression -Zoloft 150 mg daily educated [...] - Buspar 10 mg three times day mechanical engineering teacher prescribes Alprazolam Discussed and educated pt regarding [...] Provider Name:Kaela Marmolejo , 07/16/2025 01:00:00 PM, [address], [facility] [address], [place], [address], Insurance Providers Payer Name Payer Address Payer Phone Subscriber Number Group Number Insured Name Patient Relationship to Insured Coverage Start Date Coverage End Date Medicare-I l Medicare [address] [place] [address] [id number] CHRISTOPHER RAYMUNDO Self - patient is the insured [employer] Pos [address] [place] [address] [id number] CORINNAKAREEM NIELSENILAH Self - patient is the insured Medical (General) History Medical History History ICD Code Problems: Generalized anxiety disorder Long-term drug therapy Mild recurrent major depression Primary insomnia Recurrent major depressive episodes, mod erate , osteoporosis Surgical History Surgery Date(Month/Year) Gastric bypass for obesity (31163) Hysterectomy/revise vagina (29160) Tonsilectomy/adenoids 11/12/1954 Hysterectomy (20314) 11/12/1977
--- OUTSIDE RECORDS SUMMARY | 2025-03-30 12:13 | XMS_ITS | Clinical Summary ---
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
--- OUTSIDE RECORDS SUMMARY | 2025-03-30 12:14 | XMS_ITS ---
Author Organization [facility] Address [address] [place] [address] Care Team Providers Care Geotechnical Engineer Name Role Phone Prince Mckeon Unavailable [phone] PROBLEMS Problem Type ICD Code Onset Dates Problem Status W/U Status Risk SNOMED Code Notes Problem Hypercalcemia (E83.52) Active confirmed Hypercalcemia (00458277) Encounters Encounter Location Date Provider Diagnosis [facility] [address] [place] [address] 02/04/2025 Prince Mckeon Chronic kidney disea se, [...] Name:Prince Mike , 04/15/2025 02:45:00 PM, [address] [facility], [facility] [address], [address], Progress Notes * KITTY RAYMUNDOHDOB: 0 (74 yo F)Acc No.[id number]:02/04/2025 Progress Notes Patient: CHRISTOPHER RAYMUNDO Provider: MD CHET, F.A.C.P, F.A.S.N. :1950 Age:74 Y Sex:Female Date:02/04/2025 Address:[address] [place], [place] [id number] Subjective: * Chief Complaints: * * Medical [...] Treatment: * Billing Information: * Visit Code: 37518 Office Visit, Est Pt., Level 4. * Procedure Codes: * Sign off status: Pending * Provider: MD CHET, F.Rubi.C.P, F.A.S.N. Date: 02/04/2025
--- OUTSIDE RECORDS SUMMARY | 2025-03-30 12:14 | XMS_ITS | Clinical Summary ---
Author Organization [facility] Address [address] [place] [address] Care Team Providers Care Drying Room Supervisor Name Role Phone Clay Harkins MD Unavailable [phone] Prince Mckeon MD Unavailable Source Comments [facility] [employer],non-owned Affiliates and Associated Physician Practices is amultiple site organization consisting of ambulatory clinics and hospital sitesin [place], [place], [place] and [place]. This disclosure is being madepursuant to the Care Everywhere program and may not contain all information available regarding this patient. Last updated 18.[facility] Allergies No known active allergies Medications * [...] on file Legal Sex Female 6:29 AM PER DIEM RN Gender Identity Not on file Sexual Orientation [...] age to complete this topic Care Teams Drying Room Supervisor Relationship Specialty [place] [address] [facility] [place] [address] PCP - [facility] 09/12/24 Clay Harkins MD Internal Medicine 07/31/11
--- OUTSIDE RECORDS SUMMARY | 2025-03-30 12:14 | XMS_ITS | Clinical Summary ---
Author Organization [facility] Address [address] [place] [address] Care Team Providers Care Loans Consultant Name Role Phone Dewayne Ceja MD Primary [...] Comments Blood Pressure 124/76 01/01/2023 1:53 PM DIRECTOR OF EVENT MANAGEMENT Pulse 90 01/01/2023 1:53 PM DIRECTOR OF EVENT MANAGEMENT Temperature 36.6 C (97.8 F) 01/01/2023 1:53 PM DIRECTOR OF EVENT MANAGEMENT Respiratory Rate 16 01/01/2023 1:53 PM DIRECTOR OF EVENT MANAGEMENT Oxygen Saturation 96% 01/01/2023 1:53 PM DIRECTOR OF EVENT MANAGEMENT Inhaled Oxygen Concentration - - Weight 74.7 kg (164 lb 11.2 oz) 01/01/2023 1:53 PM DIRECTOR OF EVENT MANAGEMENT Height 149.9 cm (4' 11 ) 11/30/2022 10: 18 AM DIRECTOR OF EVENT MANAGEMENT Body Mass Index 33.27 11/30/2022 10:18 AM DIRECTOR OF EVENT MANAGEMENT Plan of Treatment Health Maintenance Due Date [...] AND B AETNA MEDICARE SUPPLEMENT Care Teams Loans Consultant Relationship Specialty Start Date End Date Dewayne Ceja MD PCP - General Internal Medicine 11/30/22
--- OUTSIDE RECORDS SUMMARY | 2025-03-30 12:14 | XMS_ITS | Data Portability ---
Author Organization [place] - [facility] [employer], Main Office Address [address] [place] [address] Care Team Providers Care Story Editor Name Role Phone LENI HUI [employer] Analyst [facility] CARLY LLANES Parcel Carrier KEVIN MCCULLOUGH Hematology/Oncology [phone] Assessment Encounter Date Assessment Date Assessment LastModified [...] D, 25-hydrox y, total, serum [address] (Lab), [address] [place], [address], 02/04/2025 10:37:38 lipid panel, serum [address] (Lab), [address] [place], [address], 02/04/2025 10:37:37 CBC w/ auto diff [address] (Lab), [address] [place], [address], 02/04/2025 10:37:37 T4, free, serum [address] (Lab), [address] [place], [address], 02/04/2025 10:37:37 CMP, serum or plasma [address] (Lab), [address] [place], [address], 02/04/2025 10:37:38 TSH, serum or plasma [address] (Lab), [address] [place], [address], 02/04/2025 10:37:38 lipid panel, serum 2024 025 [facility] (Lab), [address] [place], [address], 12/24/2024 11:19:04 CBC w/ auto diff 2024 025 [facility] (Lab), [address] [place], [address], 12/24/2024 16:17:29 T4, free, serum 2024 025 [facility] (Lab), [address] [place], [address], 12/24/2024 11:34:16 CMP, serum or plasma 2024 025 [facility] (Lab), [address] [place], [address], 12/24/2024 16:17:29 TSH, serum or plasma 2024 025 [facility] (Lab), [address] [place], [address], 12/24/2024 11:47:40 vitamin D, 25-hydrox y, total, serum 2024 025 [facility] (Lab), [address] [place], [address], 12/24/2024 16:17:30 lipid panel, serum 2023 024 [facility] (Lab), [address] [place], [address], 11/07/2024 12:07:11 CBC w/ auto diff 2023 024 [facility] (Lab), [address] [place], [address], 11/10/2024 07:11:15 T4, free, serum 2023 024 [facility] (Lab), [address] [place], [address], 11/07/2024 12:19:10 CMP, serum or plasma 2023 024 [facility] (Lab), [address] [place], [address], 11/10/2024 07:11:15 TSH, serum or plasma 2023 024 [facility] (Lab), [address] [place], [address], 11/07/2024 13:06:09 vitamin D, 25-hydrox y, total, serum [address] (Lab), [address] [place], [address], 02/26/2025 08:55:05 Referral nephrolog ist referral - Please call patient to schedule an appointme nt. Thank you. 2024 025 Chris-Resub ric-Revert Prince Mckeon MD (Nephrology, [address], [place] [address], [place], [address], 02/03/2025 21:07:04 otolaryng ologist referral - Please call patient to schedule an appointme nt. Thank you. 2024 025 CARMINE Hui MD, [address], [place], [address], 12/31/2024 12:30:51 hematolog ist referral - Please call patient to schedule an appointme nt. Thank you. 2024 025 [email or web address] Kevin Mccullough MD, [address], [place], [address], 03/05/2025 09:36:27 pulmonolo gist referral - Please call patient to schedule. 2024 025 [email or web address] Carly Kalyn ASSISTANT MERCHANDISE MANAGER-C, [address], [address], [place], [address], 12/31/2024 12:00:38 nephrolog ist referral - Please call patient to schedule an appointme nt. Thank you. 2024 025 CARMINE Mckeon MD (Nephrology, [address], [address], [place], [address], 01/22/2025 19:40:35 cardiolog ist referral - Please call patient to schedule an appointme nt. Thank you. 2024 025 [place], [address], [address], [place], [address], 12/31/2024 13:10:32 otolaryng ologist referral - Please call patient to schedule. 2023 024 Leni Hui MD, [address], [place], [address], 11/11/2024 15:25:18 hematolog ist referral - Please call patient to schedule. 2023 024 [email or web address] Kevin Mccullough MD, [address], [place], [address], 11/11/2024 15:25:18 pulmonolo gist referral - Please call patient to schedule. 2023 024 [email or web address] Carly Kalyn ASSISTANT MERCHANDISE MANAGER-C, [address], [address], [place], [address], 09/12/2024 13:03:20 nephrolog ist referral 2023 024 [email or web address] Prince Mckeon MD (Nephrology, [address], [address], [place], [address], 08/26/2024 11:33:15 cardiolog ist referral 2023 [address] [email or web address] [address] [place], [address], [address], [address], 08/26/2024 11:33:14 Procedures None recorded. Surgeries None recorded. Imaging DEXA, axial skeleton - Please call patient to schedule. [address] ([facility] Call Scheduling), [address] [place], [address], 03/12/2025 16:08:26 DEXA, axial skeleton [address] (Imaging), [address] [place], [address], 02/26/2025 11:33:27 Medication Orders Prolia 60 mg/mL subcutane ous syringe [address] [facility]/Pharmacy #[id number], [address], [place], [address], 02/03/2025 12:52:13 doxycycli ne hyclate 100 mg capsule 2024 025 [facility]/Pharmacy #[id number], [address], [place], [address], 01/06/2025 09:46:11 prednison e 10 mg tablet 2024 025 [facility]/Pharmacy #[id number], [address], [place], [address], 01/06/2025 09:46:48 albuterol sulfate HFA 90 mcg/actua tion aerosol inhaler [address] [facility]/Pharmacy #[id number], [address], [place], [address], 12/09/2024 11:22:23 spironola ctone 25 mg tablet 2023 024 [facility]/Pharmacy #[id number], [address], [place], [address], 08/26/2024 10:56:57 Patient TargetsNo targets recorded. Patient Instructions Encounter Date Encounter Id Patient Instructions Last Modified By Organization Details Last Modified Time 01/06/2025 [id number] complete PFT w/ post bronchodilator spirometry* - Please call patient to schedule. NPAN [id number]. [email or web address] Not available 02/11/2025 17:13:15 Reason for Referral Parcel Carrier Referral for A sthma Please call patient to schedule. Referring Physician: Dewayne Ceja Internal Medicine, Encounter Date: 08/26/2024 Please call patient to riley sifuentes. Referring Physician: Dewayne Ceja Internal Medicine, Encounter Date: 08/26/2024 Bait Packer Referral for At rial fibrillation Referring Physician: Dewayne Ceja Internal Medicine, Encounter Date: 08/26/2024 Timber Management Professor Referral for Ch ronic kidney disease Referring Physician: Dewayne Ceja Internal Medicine, Encounter Date: 08/26/2024 Unix Analyst Referral fo r Hypercalcemia Please call patient to schedule. Referring Physician: Dewayne Ceja Internal Medicine, Encounter Date: 08/26/2024 Parcel Carrier Referral for A sthma Please call patient to schedule. Referring Physician: Dewayne Ceja Internal Medicine, Encounter Date: 12/09/2024 Please call patient to riley sifuentes an appointment. Thank you. Referring Physician: Anirudh Willson Medicine, Encounter Date: 12/09/2024 Bait Packer Referral for At rial fibrillation Please call patient to schedule an appointment. Thank you. Referring Physician: Anirudh Willson, Encounter Date: 12/09/2024 Timber Management Professor Referral for Ch ronic kidney disease Please call patient to schedule an appointment. Thank you. Referring Physician: Dewayne Ceja Internal Medicine, Encounter Date: 12/09/2024 Unix Analyst Referral fo r Hypercalcemia Please call patient to schedule an appointment. Thank you. Referring Physician: Dewayne Ceja Internal Medicine, Encounter Date: 12/09/2024 Timber Management Professor Referral for Ch ronic kidney disease Please [...] ----- HIGH RISK: >240 >200 Not Available [facility] (Lab) [address] [place], [address], 08/07/2024 11:18:43 08/07/2008/07/2024 LIPID PANEL triglyceride s 109 mg/dL 0-150 NIH SERENE NSUS REPOR T RECOM MENDA TION FOR TRIGL YCERI JERROD: ADULT CHILD LOW RISK: <150 ----- BODER LINE: 150-1 99 ----- HIGH RISK: >200 ----- Not Available [facility] (Lab) [address] [place], [address], 08/07/2024 11:18:43 08/07/2008/07/2024 LIPID PANEL HDL cholesterol 76 mg/dL 40- Not Available [facility] (Lab) [address] [place], [address], 08/07/2024 11:18:43 08/07/20 24 08/07/2024 LIPID PANEL [...] WILL NOT BE REPOR LIAN. Not Available [facility] (Lab) [address] [place], [address], 08/07/2024 11:18:43 08/07/2008/07/2024 T4 FREE free T4 1.50 NG/dL 0.78-2 .19 Not Available [facility] (Lab) [address] [place], [address], 08/07/2024 12:15:11 11/07/20 24 11/07/2024 LIPID PANEL cholesterol 180 mg/dL 140-19 9 NIH SERENE NSUS RECOM MENDA TION FOR AVNI STERO L: ADULT CHILD LOW RISK: <200 <170 BORDE RLINE : <200- 239 ----- HIGH RISK: >240 >200 Not Available [facility] (Lab) [address] [place], [address], 11/07/2024 12:07:10 11/07/20 24 11/07/2024 LIPID PANEL triglyceride s 111 mg/dL 0-150 NIH SERENE NSUS REPOR T RECOM MENDA TION FOR TRIGL YCERI JERROD: ADULT CHILD LOW RISK: <150 ----- BODER LINE: 150-1 99 ----- HIGH RISK: >200 ----- Not Available [facility] (Lab) [address] [place], [address], 11/07/2024 12:07:10 11/07/20 24 11/07/2024 LIPID PANEL HDL cholesterol 61 mg/dL 40- Not Available [facility] (Lab) [address] [place], [address], 11/07/2024 12:07:10 11/07/20 24 11/07/2024 LIPID PANEL [...] WILL NOT BE REPOR LIAN. Not Available [facility] (Lab) [address] [place], [address], 11/07/2024 12:07:10 11/07/20 24 11/07/2024 T4 FREE free T4 1.31 NG/dL 0.78-2 .19 Not Available [facility] (Lab) [address] [place], [address], 11/07/2024 12:19:10 12/24/19 25 12/24/2024 LIPID PANEL cholesterol 165 mg/dL 140-19 9 NIH SERENE NSUS RECOM MENDA TION FOR AVNI STERO L: ADULT CHILD LOW RISK: <200 <170 BORDE RLINE : <200- 239 ----- HIGH RISK: >240 >200 Not Available [facility] (Lab) [address] [place], [address], 12/24/2024 11:19:04 12/24/19 25 12/24/2024 LIPID PANEL triglyceride s 143 mg/dL 0-150 NIH SERENE NSUS REPOR T RECOM MENDA TION FOR TRIGL YCERI JERROD: ADULT CHILD LOW RISK: <150 ----- BODER LINE: 150-1 99 ----- HIGH RISK: >200 ----- Not Available [facility] (Lab) [address] [place], [address], 12/24/2024 11:19:04 12/24/19 25 12/24/2024 LIPID PANEL HDL cholesterol 61 mg/dL 40- Not Available [facility] (Lab) [address] [place], [address], 12/24/2024 11:19:04 12/24/19 25 12/24/2024 LIPID PANEL [...] WILL NOT BE REPOR LIAN. Not Available [facility] (Lab) [address] [place], [address], 12/24/2024 11:19:04 12/24/19 25 12/24/2024 T4 FREE free T4 1.69 NG/dL 0.78-2 .19 Not Available [facility] (Lab) [address] [place], [address], 12/24/2024 11:34:16 12/24/19 25 12/24/2024 TSH thyroid-stim ulating hormone 5.900 uIU/m L 0.465- 4.680 high Not Available [facility] (Lab) [address] [place], [address], 12/24/2024 11:47:40 09/10/20 24 12/28/2022 DEXA, axial skele ton No observ ation record ed. [email or web address] [facility] (Imaging) [address] [place], [address], 02/03/2025 14:17:08 12/09/19 25 12/09/2024 XR, chest , 2 view [facility] [address], [place] [address] Patien t Name: KITTY RIZO Access ion #: [id number] Sex: F : 1949 8 Dictat [...] at 2024 10:26: 44 AM Page [email or web address] (Imaging) [address] [place], [address], 12/24/2024 15:23:48 12/09/19 25 12/09/2024 XR, chest No observ ation record ed. [email or web address] [facility] [address] [place], [address], 12/24/2024 15:26:24 02/17/20 25 01/28/2025 compl ete PFT w/ [facility] hodil ator jerod metry * No observ ation record ed. [email or web address] [facility] ([facility] Scheduling) [address] [place], [address], 02/19/2025 10:35:36 03/18/20 25 03/18/2025 imagi ng/di agnos tic resul t No observ ation record ed. [address], [place], [address], 03/18/2025 13:05:41 03/18/20 25 03/18/2025 imagi ng/di agnos tic resul t No observ ation record ed. [address], [place], [address], 03/18/2025 13:06:29 03/21/20 25 03/21/2025 imagi ng/di agnos tic resul t No observ ation record ed. [address], [place], [address], 03/21/2025 09:51:16 03/25/20 25 03/25/2025 imagi ng/di agnos tic resul t No observ ation record ed. [address], [place], [address], 03/25/2025 18:05:03 Result Notes None recorded. Problems Name Problem SNOMED Code Status Onset Date Resolution Date Notes Provider Name and Address Organization Details Recorded Time Osteoarthriti s 857426262 Active Not Available [facility] 3 06:14:00 Disorder of rotator cuff 004904724 Active Not Available [facility] 3 06:14:00 Atrial fibrillation 89541013 Active Not Available [facility] 3 06:14:00 Disorder of bursa of shoulder region 56644591 Active Not Available [facility] 3 06:14:00 Essential hypertension 88333297 Active Not Available [facility] 3 06:14:00 Rhinitis 62567392 Active Not Available [facility] 3 06:14:00 Spinal stenosis 48749784 Active Not Available [facility] 3 06:14:00 Chronic kidney disease 090825390 Active 2022 Not Available [facility] 3 06:14:00 Gout 66810775 Active 04/17/ 2023 Not Available [facility] 3 06:14:00 Chronic depression 263264255 Active 2022 Efren Servin MD [address], [place], [address] , [employer] 5 16:11:41 Hyperlipidemi a 03883987 Active 2022 Not Available [facility] 3 06:14:00 Anemia 413383388 Active 2022 Not Available [facility] 3 06:14:00 Small bowel obstruction 602147587 Active 2022 Not Available [facility] 3 06:14:00 COVID-19 214347486 Active 2023 Dewayne marcano MD [address], [facility] [address], [place], [address] , [employer] 4 14:25:50 Osteoporosis 28341935 Active 2024 Flores Jones MA [facility], [employer] 5 17:47:56 Hypercalcemia 49624067 Active 2024 Dewayne marcano MD [address], [facility] [address], [place], [address] , [employer] 5 14:06:07 Moderate chronic obstructive pulmonary disease 958735908 Active 2024 Efren Servin MD [address], [facility] [address], [place], [address] , [employer] [facility] [employer] 5 16:16:13 Notes:Mod COPD PFT 01/28/25 FEV1 1.00 L (55%), BD 110 mL = 12%, TLC 2.75 L (77%), RV 1.26 L (85%), DLCO 57%, DLCO/VA 131% Problem Notes None recorded. Procedures Surgical History Date Name Laterality Status Provider Name and Address Organization Details Recorded Time 04/22/20 Medicare Wellness CPT Code, subsequent completed Lucio Ulloa LPN [place] Meil[place] [facility] [employer] 04/18/2024 08:41:36 04/13/20 23 drainage of abscess completed RICHARD Ramirez CA - S [facility] 04/24/2023 16:24:47 03/07/20 16 Date of Last Colonoscopy completed Not Available [facility] 01/10/2023 01:18:14 03/07/20 16 Colon ca scrn not hi rsk ind completed Not Available [facility] 01/10/2023 01:18:24 11/18/19 11 Most Recent Bone Density completed Not Available [facility] 01/10/2023 01:18:15 Cyst Removal completed RICHARD Ramirez [place] - S [facility] 07/24/2023 11:14:40 delivery completed Christine Tse MA [facility] 12/16/2024 09:55:38 Hysterectomy [facility] 12/16/2024 09:55:48 Colostomy completed Christine Tse MA [facility] 12/16/2024 09:56:02 revision of colostomy completed ADELINE Ledbetter [facility] 12/16/2024 09:56:20 Gastric Bypass completed Christine Tse MA [facility] 12/16/2024 09:56:39 Abdominal completed Christine Tse MA [facility] 12/16/2024 09:57:10 Imaging Results Imaging Date Name Status LastModified by Organization Details LastModified Time 12/28/2022 DEXA, axial skeleton completed [email or web address] [facility] (Imaging) [address] [place], [address], 02/03/2025 14:17:08 12/09/2024 XR, chest, 2 view completed [email or web address] [facility] (Imaging) [address] [place], [address], 12/24/2024 15:23:48 12/09/2024 XR, chest completed [email or web address] [facility] [address] [place], [address], 12/24/2024 15:26:24 01/28/2025 complete PFT w/ post bronchodilator spirometry* completed [email or web address] [facility] ([facility] Call Scheduling) [address], [place], [address], 02/19/2025 10:35:36 03/18/2025 imaging/diagnostic result active [address] [place] [address], [address], 03/18/2025 13:05:41 03/18/2025 imaging/diagnostic result active [address] [place] [address], [address], 03/18/2025 13:06:29 03/21/2025 imaging/diagnostic result active [address] [place] [address], [address], 03/21/2025 09:51:16 03/25/2025 imaging/diagnostic result active [address] [place] [address], [address], 03/25/2025 18:05:03 Procedure Notes None recorded. Medical Equipment None Reported. Allergies Allergen ID Allergen Name Allergen Category Reaction Reaction Severity Criticality Documentation Date Start Date Code Code System Note Provider Name and Address Organization Details Recorded Time 3056 adhesive tape environme nt,medica tion rash Not available Not available 01/10/2023 13776 UNK Not Available [facility] 3 01:58:43 Medications Name Sig Start [...] get cardiove rsion07/2020; As per Dr Mckeon [facility] this was stopped d/t her QT prolonga [...] glipizide ER 5 mg tablet, extended rel [id number]|2025-03-30 12:14:00|2025-03-30 12:14:00|XMS_ITS|NOA VOGEL|External Medical Summaries|[id number]|" Patient Health Record Created on: March 30, 2025 BRISSA RIZO : 1950 Sex: Female Author Organization [facility] Address [address] [facility] [address] [place] [address] Care Team Providers Care Story Editor Name Role Phone Prince Mckeon Unavailable [phone] REASON FOR REFERRAL No Information MEDICATIONS Medication [...] 11/08/2025 Active Vitamin D (Ergocalciferol) 1.25 MG (00370 UT) TAKE 1 CAPSULE BY MOUTH EVERY [...] elsewhere classified (E21.1) Active confirmed Secondary hyperparathyroidism (43305022) Problem Hypercalcemia (E83.52) Active confirmed Hypercalcemia (48724826) Problem Essential (primary) hypertension (I10) Active confirmed Essential hypertension (40364397) Problem Heart failure, unspecified (I50.9) Active confirmed Heart failure (77702114) Problem Renal osteodystrophy (N25.0) Active confirmed Renal osteodyst rophy (76606639) Problem Edema, unspecified (R60.9) Active confirmed Edema (88433877) Problem Other microscopic hematuria (R31.29) Active confirmed Microscopic hem aturia (577865193) Problem Chronic kidney disease, stage 3b (N18.32) Active confirmed Chronic kidney disease stage 3B (disorder) (434549355) Problem CAD (coronary artery disease) (I25.10) Active confirmed Coronary artery disease (30383401) Encounters Encounter Location Date Provider Diagnosis [facility] [address] [place] [address] 04/30/2024 Prince Mckeon Chronic kidney disea se, stage 4 (severe) N18.4 ; Essential (primary) hypertension I10 ; Other microscopic hematuria R31.29 ; Renal osteodystrophy N25.0 ; Secondary hyperparathyroidism, not elsewhere classified E21.1 and Heart failure, unspecified I50.9 [facility] [address] [address] 08/13/2024 Prince Mckeon Chronic kidney disea se, stage 3b N18.32 ; Essential (primary) hypertension I10 ; Renal osteodystrophy N25.0 ; Other microscopic hematuria R31.29 ; Secondary hyperparathyroidism, not elsewhere classified E21.1 and Heart failure, unspecified I50.9 [facility] [address] [address] 12/03/2024 Prince Mckeon Chronic kidney disea se, stage 4 (severe) N18.4 ; Essential (primary) hypertension I10 ; Other microscopic hematuria R31.29 ; Renal osteodystrophy N25.0 ; Secondary hyperparathyroidism, not elsewhere classified E21.1 ; Heart failure, unspecified I50.9 and Chronic kidney disease, stage 3b N18.32 [facility] [address] [place] [address] 12/17/2024 [facility] [place] [facility] [address] [place] [address] 12/26/2024 Prince Mckeon Chronic kidney disea se, stage 3b N18.32 ; Essential (primary) hypertension I10 ; Other microscopic hematuria R31.29 ; Renal osteodystrophy N25.0 ; Secondary hyperparathyroidism, not elsewhere classified E21.1 ; Heart failure, unspecified I50.9 ; CAD (coronary artery disease) I25.10 and Edema, unspecified R60.9 [facility] [address] [place] [address] 12/31/2024 Prince Mckeon [facility] [address] [place] [address] 02/04/2025 Prince Mckeon Chronic kidney disea se, stage 3b N18.32 ; Essential (primary) hypertension I10 ; Other microscopic hematuria R31.29 ; Renal osteodystrophy N25.0 ; Secondary hyperparathyroidism, not elsewhere classified E21.1 ; Heart failure, unspecified I50.9 ; CAD (coronary artery disease) I25.10 ; Edema, unspecified R60.9 and Hypercalcemia E83.52 [facility] [address] [place] [address] 02/12/2025 Prince Mckeon [facility] [address] [place] [address] 04/30/2024 Prince Mckeon ASSESSMENTS Encounter Date Diagnosis [...] Name:Prince Mckeon , 04/15/2025 02:45:00 PM, [address] [facility], [facility] [address], [place], [address], "
[2025-03-30 12:58] LABS: Basophils Percent Auto 0.5 % (0.2-1.2); Eosinophils Absolute Auto 0.2 K/mm3 (0-0.3); Eosinophils Percent Auto 2.2 % (0-4.4); Hemoglobin 9.4 g/dL (12.0-15.0); Immature Granulocyte Absolute 0.03 K/mm3 (0.00-0.031); Immature Granulocyte Percent A 0.4 % (0-0.5); Lymphocytes Absolute Auto 2.14 K/mm3 (0.9-3.2); Mean Corpuscular HGB Conc 32.4 g/dl (32-36); Mean Corpuscular Hemoglobin 32.1 pg (26-34); Mean Platelet Volume 10.2 fl (7.4-10.4); Monocytes Absolute Auto 0.7 K/mm3 (0.1-0.6); Monocytes Percent Auto 9.8 % (2.6-8.5); Neutrophils Absolute Auto 4.3 K/mm3 (1.3-6.7); Neutrophils Percent Auto 58.1 % (45.5-73.1); Platelet Count Result 429 k/mm3 (150-375); Red Blood Count 2.93 M/mm3 (4.2-5.4); Red Cell Distribution Width 15.9 % (11.5-14.5); White Blood Count 7.4 K/mm3 (4.5-10.0)
[2025-03-30 13:10] LABS: Alanine Aminotransferase 17 U/L (6-35); Albumin Level 2.7 g/dL (3.5-5.1); Alkaline Phosphatase 86 U/L (38-126); Anion Gap 2 mmol/L (4-12); Aspartate Amino Transferase 28 U/L (14-36); Bilirubin,Total 0.2 mg/dL (0.2-1.3); Blood Urea Nitrogen 8 mg/dL (7-17); Carbon Dioxide 31 mmol/L (22-30); Chloride 106 mmol/L (98-107); Estimated Glomerular Filt Rate > 60; Glucose 90 mg/dL (65-110); Potassium 3.7 mmol/L (3.4-5.0); Sodium 139 mmol/L (137-145)
[2025-03-30 13:23] LABS: Vancomycin Random 21.7 ug/mL (10-20)
== END 2025-03-30 12:07 | disposition home or self-care (01) ==
PROVIDERS: PCP Internal Medicine; Visit Provider Internal Medicine
DX: L03.317 Cellulitis of buttock (principal)
CPT/HCPCS: 36415; 80053; 80202; 85025

== ENCOUNTER 2025-06-03 07:07 | Outpatient (RCR) | payer MEDICARE, SELFPAY ==
[2025-04-14 09:00] VITALS: BMI 29.3
--- NOTE | 2025-04-14 14:13 | WPDPN ---
Progress Note: A&P Assessment and Plan (1) Wound of left buttock: Code(s): S31.829A - Unspecified open wound of left buttock, initial encounter Status: Chronic Assessment and Plan: Status post incision and drainage of left buttock abscess. The resulting wound has been managed with a wound VAC. She home health nurses have been changing this at home and today in the [facility] the wound appears to be cleaned with granulation tissue throughout the whole base. It is brianna and no evidence of ongoing cellulitis. Will continue with the wound VAC therapy for now. We will see her back in the Wound Care Clinic in 2 weeks. Hopefully at that time can discontinue the wound VAC and just go with a dressing over the wound. Subjective Date/time seen: 04/14/25 14:13 Interval history: Patient follows to see me today in the [facility]. She previously had incision and drainage of a left buttock abscess and application of wound VAC. Wound VAC changes have been done at home with the home health nurse. She has no specific complaints today. Exam Skin: Other: The left buttock wound is smaller now. It now measures 2.2x2.5x3cm. There is some minor undermining from the 07/08 o'clock position about 3.2cm. The whole wound bed is well granulated. Evidence of continued infection. No necrotic tissue. No cellulitic changes.
--- NOTE | 2025-04-28 15:46 | P.PN_ITS ---
Progress Note: A&P Assessment and Plan (1) Wound of left buttock: Code(s): S31.829A - Unspecified open wound of left buttock, initial encounter Status: Chronic Assessment and Plan: The wound continues to heal in the left buttock. No signs of infection. No nonviable tissue in the wound. It is brianna appropriately with granulation tissue throughout the whole base. The size is markedly decreased and I think we will no longer need to apply wound VAC. can go ahead and just pack the wound and change it 3 times a week with silver rope gauze. Will see her back any wound care clinic in 2 weeks. Subjective Date/time seen: 04/28/25 15:46 Interval history: Patient returns for interval 2 week follow-up in the [facility] for me to evaluate the wound. She is doing very well. The left buttock wound is being managed with wound VAC. It is being changed by the home health nurses. It was last changed yesterday. Exam Skin: Other: The wound on left buttock now measures 1.3x1.7x3cm. At the 7 8 o'clock position there is about 2cm of undermining. Excellent granulation tissue throughout the whole wound base is noted. It is markedly decreased in size to less than 50% of the regional initial size the wound. No cellulitis is noted. There is no necrotic tissue in the wound base.
--- NOTE | 2025-05-14 16:49 | P.PN_ITS ---
Progress Note: A&P Assessment and Plan (1) Wound of left buttock: Code(s): S31.829A - Unspecified open wound of left buttock, initial encounter Status: Chronic Assessment and Plan: The wound of the left buttocks closing very nicely. We will continue the wound with silver rope. Will have her come back to see me in the Wound Care Clinic in about 3 weeks. At that time hopefully she will no longer need any further packing and we will go ahead let it close up. Subjective Date/time seen: 05/12/25 Interval history: Patient comes the [facility] for another follow-up on her left buttock wound. She has continued to pack it with silver rope. She has no complaints. Exam Skin: Other: The wound on the mid left inner buttock region is continue to contract well. Excellent granulation tissues noted throughout the whole wound. It is about 75% closed. It now measures approximately 1.5x1.7x3cm. There was about 1cm of tunneling medially at the 8 o'clock position.
--- NOTE | 2025-06-05 10:37 | WPDPN ---
Progress Note: A&P Assessment and Plan (1) Wound of left buttock: Code(s): S31.829A - Unspecified open wound of left buttock, initial encounter Status: Chronic Assessment and Plan: The left buttock wound continues to close by secondary intention. The small amount of probable flush with his going above the level of the skin. I treated this with silver nitrate in the Wound Care Clinic today. Continue with silver gel and dry covering of the wound. Return to the [facility] in 4 weeks for an interval evaluation. Subjective Date/time seen: 06/05/25 10:37 Interval history: Patient is here in the [facility] for 3 week follow-up on her left buttock wound. She continues to dress it with silver gel and a dry cover dressing. She has no real complaints. Exam Skin: Other: The left medial buttock wound now measures 1.8x1.0x0.4cm. It has contracted a few mm since her last visit. There is no redness or drainage. There is a small amount of granulation tissue which has grown above the level of the skin. No necrotic tissue and no purulent drainage. Excellent granulation tissue throughout the whole wound.
--- NOTE | 2025-07-02 13:13 | PCWOUND ---
WOCN NOTE Patient did not show up for appointment. called phone number on file. No answer.
== END 2025-07-13 23:59 | disposition home or self-care (01) ==
LOC: ANHWOC 07:07
PROVIDERS: PCP Internal Medicine; Visit Provider Surgery
DX: S31.829A Unspecified open wound of left buttock, initial encounter (principal)
CPT/HCPCS: 97605; 99213; G0463